=== PATIENT | male | born 1945 | race Caucasian/White ===

== ENCOUNTER 2020-07-18 08:11 | Outpatient (REF) | payer OTHER, MEDICARE, SELFPAY ==
[2020-07-18 11:55] LABS: Anion Gap 12 (12-20); Blood Urea Nitrogen 12 mg/dL (9-16); Carbon Dioxide 30 mmol/L (22-29); Chloride 102 mmol/L (96-108); Estimated Glomerular Filt Rate > 60; Potassium 4.3 mmol/l (3.3-5.1); Sodium 140 mmol/L (135-145)
== END 2020-07-18 08:12 | disposition home or self-care (01) ==
LOC: HO.HMGCLDS 08:11
PROVIDERS: PCP Internal Medicine; Visit Provider Internal Medicine
DX: E11.21 Type 2 diabetes mellitus with diabetic nephropathy (principal); I10 Essential (primary) hypertension
CPT/HCPCS: 80051; 82565; 83735; 84520

== ENCOUNTER → 2020-09-08 08:51 | Outpatient (BNVA) | payer OTHER, MEDICARE, SELFPAY | PROVIDERS: PCP Internal Medicine; Visit Provider Internal Medicine Endocrinology, Diabetes & Metabolism | DX: E11.42 Type 2 diabetes mellitus with diabetic polyneuropathy (principal); I10 Essential (primary) hypertension; E78.5 Hyperlipidemia, unspecified; Z79.4 Long term (current) use of insulin; Z71.3 Dietary counseling and surveillance | CPT/HCPCS: 82947 ==

== ENCOUNTER 2020-10-24 06:27 | Outpatient (REF) | payer OTHER, MEDICARE, SELFPAY ==
[2020-10-24 11:22] LABS: MANUAL DIFF FLAG NO
[2020-10-24 11:51] LABS: Basophils Absolute Auto 0.1 X10*3/uL (0.0-0.2); Basophils Percent Auto 0.7 % (0-2); Eosinophils Absolute Auto 0.1 X10*3/uL (0.0-0.4); Eosinophils Percent Auto 1.8 % (0-4); Hematocrit 38.6 % (42-52); Hemoglobin 12.9 g/dl (14.0-18.0); Imm Gran Abs Auto 0.03 X10*3/uL (0.00-0.03); Imm Gran Pct Auto 0.4 % (0.0-0.4); Lymphocytes Absolute Auto 2.9 X10*3/uL (1.2-4.9); Lymphocytes Percent Auto 38.4 % (20-40); Mean Corpuscular HGB Conc 33.4 g/dl (31.0-36.0); Mean Corpuscular Hemoglobin 29.9 pg (27.0-33.0); Mean Corpuscular Volume 89.6 fL (80-98); Mean Platelet Volume 8.5 fL (9.4-12.4); Monocytes Absolute Auto 0.6 X10*3/uL (0.1-1.2); Monocytes Percent Auto 8.4 % (2-11); Neutrophils Absolute Auto 3.8 X10*3/uL (2.0-8.3); Neutrophils Percent Auto 50.3 % (45-73); Platelet Count 303 X10*3/uL (160-400); Red Blood Count 4.31 X10*6/uL (4.60-5.80); Red Cell Distribution Width 11.9 % (11.0-16.0); White Blood Count 7.6 X10*3/uL (4.8-10.8)
[2020-10-24 12:16] LABS: Alanine Aminotransferase 21 U/L (0-40); Albumin Level 3.9 g/dL (3.5-5.0); Alkaline Phosphatase 126 U/L (39-117); Anion Gap 12 (12-20); Aspartate Amino Transferase 14 U/L (5-37); Bilirubin Direct 0.2 mg/dL (0.0-0.5); Bilirubin Total 0.4 mg/dL (0.0-1.0); Blood Urea Nitrogen 19 mg/dL (9-16); Calcium 8.9 mg/dL (8.4-10.2); Carbon Dioxide 29 mmol/L (22-29); Chloride 104 mmol/L (96-108); Cholesterol 224 mg/dL; Estimated Glomerular Filt Rate > 60; Glucose Fasting 129 mg/dL (60-99); HDL Cholesterol 44 mg/dL; Iron 90 mcg/dL (45-160); LDL Cholesterol Calculated 104 mg/dl; Percent Iron Saturation 26 % (15-50); Phosphorus 2.5 mg/dL (2.7-4.5); Potassium 3.7 mmol/l (3.3-5.1); Sodium 141 mmol/L (135-145); Total Iron Binding Capacity 346 mcg/dL (228-428); Total Protein 6.6 g/dL (6.5-8.0); Triglycerides 381 mg/dL; Unsaturated Iron Binding 256 ug/dL
[2020-10-24 12:24] LABS: Estimated Average Glucose 146 mg/dL; Hemoglobin A1c % 6.7 %
[2020-10-24 12:25] LABS: Vitamin D 25-OH Total 27.5 ng/mL (>30)
[2020-10-24 12:34] LABS: Vitamin B12 193 pg/mL (200-900)
[2020-10-24 13:35] LABS: Creatinine Urine 140.79 mg/dL; Microalbum/Creatinine Ratio Ur 3.5 ug/mg cr
== END 2020-10-24 06:28 | disposition home or self-care (01) ==
LOC: HO.HMGCLDS 06:27
PROVIDERS: PCP Internal Medicine; Visit Provider Internal Medicine
DX: E11.21 Type 2 diabetes mellitus with diabetic nephropathy (principal); E78.5 Hyperlipidemia, unspecified; I10 Essential (primary) hypertension; M85.80 Other specified disorders of bone density and structure, unspecified site; R79.89 Other specified abnormal findings of blood chemistry
CPT/HCPCS: 36415; 80051; 80061; 80076; 82043; 82306; 82310; 82565; 82607; 82947; 83036; 83540; 83735; 84100; 84520; 85025

== ENCOUNTER → 2020-11-10 09:46 | Outpatient (BNV) | payer OTHER, MEDICARE, SELFPAY | PROVIDERS: PCP Internal Medicine; Visit Provider Internal Medicine Medical Oncology | DX: C18.9 Malignant neoplasm of colon, unspecified (principal) | CPT/HCPCS: 99213; 99214; 99443 ==

== ENCOUNTER → 2020-11-13 13:09 | Outpatient (BNVA) | payer OTHER, MEDICARE, SELFPAY | PROVIDERS: PCP Internal Medicine; Visit Provider Urology | DX: Z13.89 Encounter for screening for other disorder (principal) | CPT/HCPCS: 81002 ==

== ENCOUNTER 2020-11-27 11:18 | Outpatient (REF) | payer OTHER, MEDICARE, SELFPAY ==
--- NOTE | ~2020-11-27 | CT_ITS ---
EXAMINATION: CT CHEST WITHOUT CONTRAST CLINICAL INFORMATION: Follow-up pulmonary nodules COMPARISON: Previous chest x-ray most recent 10/13/[address] February 2019 TECHNIQUE: Multidetector volumetric CT imaging of the chest was done. Axial MIP volume rendering provided. Sagittal and coronal reformatted images were obtained. This CT examination was performed using dose optimization techniques as appropriate, variously including the following: *Automated exposure control *Adjustment of mA and/or kV according to patient size (this includes techniques or standardized protocols for targeted exams where dose is matched to indication/reason for exam; i.e. extremities or head) *Use of iterative reconstruction technique DLP: 190 mGy-cm FINDINGS: LUNGS: There is a heterogeneous or semisolid left upper lobe nodule. This is predominantly groundglass attenuation. This measures 1 cm axial image 14 series 7. This may have a small 2 mm more solid component for example axial image 215 series 7. There is an ill-defined more inferior area of peribronchial increased groundglass attenuation in the left upper lobe for example axial images to 235-275 series 7 more characteristic appearance of airways disease. This is similar in appearance to previously identified right upper lobe findings February 2019. The previously identified areas of peribronchial groundglass attenuation in the right upper lobe on February 2019 exam have resolved. There are scattered areas of increased parenchymal attenuation in the right upper, right middle and right lower lobes. There is a 2 mm right middle lobe calcified nodule axial image 3 9 series 7. There is scarring or subsegmental atelectasis at the lung bases. There may be mild traction bronchiolectasis particularly in the lower lobes, right greater than left. MEDIASTINUM: There are small mediastinal lymph nodes. No enlarged lymph nodes are seen. The heart is upper normal in size. There is no coronary artery calcification. There is a trace pericardial effusion or thickening anteriorly. The thoracic aorta is normal in caliber. There is a small esophageal hernia. PLEURA: There is no pleural effusion. No pleural mass or thickening. AXILLA: No lymphadenopathy. UPPER ABDOMEN: There is a fatty infiltration of the pancreas. There may be diverticulosis of the colon. OSSEOUS STRUCTURES: There are degenerative changes of the spine. CT/CT chest wo con IMPRESSION: Scattered areas of peribronchial groundglass attenuation and small more solid-appearing peribronchial nodules suggestive of airways disease. This is similar appearing to the February 2019 right upper lobe findings which have completely resolved.
== END 2020-11-27 11:19 | disposition home or self-care (01) ==
LOC: HO.CT 11:18
PROVIDERS: Visit Provider Internal Medicine
DX: R91.8 Other nonspecific abnormal finding of lung field (principal)
CPT/HCPCS: 71250

== ENCOUNTER 2020-11-28 08:16 | Outpatient (REF) | payer OTHER, MEDICARE, SELFPAY ==
--- NOTE | ~2020-11-28 | US_ITS ---
EXAMINATION: US PELVIS LIMITED (BLADDER) CLINICAL INFORMATION: Poor urinary stream. COMPARISON: CT abdomen and pelvis 10/13/2019. TECHNIQUE: Real-time imaging of the bladder. FINDINGS: BLADDER: The bladder wall is slightly thickened and trabeculated.. Bilateral ureteral jets are demonstrated. Prevoid bladder volume is 169 mL. Postvoid bladder volume is 23.0 mL. ADDITIONAL FINDINGS: The prostate gland does not appear enlarged. The prostate gland measures 3.8 x 3.4 x 2.9 cm, volume 20 mL. US/US bladder IMPRESSION: Slightly thickened trabeculated bladder wall. 23 mL post void bladder residual..
== END 2020-11-28 08:17 | disposition home or self-care (01) ==
LOC: HO.HMGCX 08:16
PROVIDERS: Visit Provider Urology
DX: R39.12 Poor urinary stream (principal)
CPT/HCPCS: 76857

== ENCOUNTER 2020-12-08 11:22 | Outpatient (REF) | payer OTHER, MEDICARE, SELFPAY ==
[2020-12-08 14:56] LABS: PSA,Total (Free>4and<10) 8.49 ng/mL (0.00-4.00)
[2020-12-09 11:17] LABS: Free Prostate Spec Ag 0.6 ng/mL; Percent Free Prostate Spec Ag 8 % (calc) (>25); Prostate Specific Ag Total 7.1 ng/mL (< OR = 4.0)
== END 2020-12-08 11:23 | disposition home or self-care (01) ==
LOC: HO.HMGCLDS 11:22
PROVIDERS: PCP Internal Medicine; Visit Provider Urology
DX: N40.1 Benign prostatic hyperplasia with lower urinary tract symptoms (principal); N13.8 Other obstructive and reflux uropathy; Z12.5 Encounter for screening for malignant neoplasm of prostate
CPT/HCPCS: 36415; 84153; 84154

== ENCOUNTER → 2020-12-09 08:16 | Outpatient (BNVA) | payer OTHER, MEDICARE, SELFPAY | PROVIDERS: PCP Internal Medicine; Visit Provider Internal Medicine Endocrinology, Diabetes & Metabolism | DX: E11.42 Type 2 diabetes mellitus with diabetic polyneuropathy (principal); Z79.4 Long term (current) use of insulin; I10 Essential (primary) hypertension; E78.5 Hyperlipidemia, unspecified; E53.8 Deficiency of other specified B group vitamins | CPT/HCPCS: 82947 ==

== ENCOUNTER → 2020-12-30 12:43 | Outpatient (BNVA) | payer OTHER, MEDICARE, SELFPAY | PROVIDERS: PCP Internal Medicine; Visit Provider Urology | DX: N40.1 Benign prostatic hyperplasia with lower urinary tract symptoms (principal); R97.20 Elevated prostate specific antigen [PSA]; R35.1 Nocturia; N13.8 Other obstructive and reflux uropathy | CPT/HCPCS: 52000; 10140 ==

== ENCOUNTER → 2021-01-06 09:06 | Outpatient (BNVA) | payer OTHER, MEDICARE, SELFPAY | PROVIDERS: PCP Internal Medicine; Visit Provider Psychiatry & Neurology Neurology ==

== ENCOUNTER → 2021-03-18 10:17 | Outpatient (BNVA) | payer OTHER, MEDICARE, SELFPAY | PROVIDERS: PCP Internal Medicine; Visit Provider Internal Medicine Pulmonary Disease ==

== ENCOUNTER 2021-03-24 11:00 | Outpatient (REF) | payer OTHER, MEDICARE, SELFPAY ==
[2021-03-24 13:49] LABS: MANUAL DIFF FLAG NO
[2021-03-24 14:17] LABS: Basophils Absolute Auto 0.1 X10*3/uL (0.0-0.2); Basophils Percent Auto 0.7 % (0-2); Eosinophils Absolute Auto 0.1 X10*3/uL (0.0-0.4); Eosinophils Percent Auto 1.1 % (0-4); Hematocrit 39.2 % (42-52); Imm Gran Abs Auto 0.06 X10*3/uL (0.00-0.03); Imm Gran Pct Auto 0.8 % (0.0-0.4); Lymphocytes Absolute Auto 2.2 X10*3/uL (1.2-4.9); Mean Corpuscular HGB Conc 33.2 g/dl (31.0-36.0); Mean Corpuscular Hemoglobin 29.5 pg (27.0-33.0); Mean Corpuscular Volume 88.9 fL (80-98); Mean Platelet Volume 8.6 fL (9.4-12.4); Monocytes Absolute Auto 0.6 X10*3/uL (0.1-1.2); Monocytes Percent Auto 8.2 % (2-11); Neutrophils Absolute Auto 4.4 X10*3/uL (2.0-8.3); Neutrophils Percent Auto 59.2 % (45-73); Platelet Count 288 X10*3/uL (160-400); Red Blood Count 4.41 X10*6/uL (4.60-5.80); Red Cell Distribution Width 12.3 % (11.0-16.0); White Blood Count 7.5 X10*3/uL (4.8-10.8)
[2021-03-24 15:06] LABS: PSA,Total (Free>4and<10) 11.44 ng/mL (0.00-4.00)
== END 2021-03-24 11:01 | disposition home or self-care (01) ==
LOC: HO.HMGCLDS 11:00
PROVIDERS: Urology; PCP Internal Medicine; Visit Provider Internal Medicine Pulmonary Disease
DX: Z12.5 Encounter for screening for malignant neoplasm of prostate (principal); R97.20 Elevated prostate specific antigen [PSA]; N40.1 Benign prostatic hyperplasia with lower urinary tract symptoms; N13.8 Other obstructive and reflux uropathy; Z91.09 Other allergy status, other than to drugs and biological substances
CPT/HCPCS: 36415; 82785; 84153; 85025; 86003

== ENCOUNTER 2021-03-27 12:57 | Outpatient (REF) | payer OTHER, MEDICARE, SELFPAY ==
--- NOTE | 2021-03-27 16:36 | PFT_ITS ---
INDICATION: Asthma. SPIROMETRY: The FEV1 to FVC 84% with an FEV1 of 2.32 L, which is 109% predicted, an FVC of 2.78 L, which is 92% predicted. No significant response to bronchodilators noted. Maximum voluntary ventilation 118% predicted. LUNG VOLUMES: Total lung capacity 86% predicted. DIFFUSION CAPACITY: DLCO 76% predicted. COMPARISONS: None available. INTERPRETATION: No obstructive nor restrictive ventilatory defects identified. No significant response to bronchodilators noted. Normal maximum voluntary ventilation. Normal lung volumes. The patient does have an isolated mild diffusion impairment. Clinical correlation warranted. If asthma is in the differential, methacholine challenge may be helpful in assessing for hyper-reactive airways, otherwise clinical correlation warranted. Juan M Flower MD MR/MODL / [id number]
== END 2021-03-27 12:58 | disposition home or self-care (01) ==
LOC: HO.RESP 12:57
PROVIDERS: PCP Internal Medicine; Visit Provider Internal Medicine Pulmonary Disease
DX: J45.909 Unspecified asthma, uncomplicated (principal); R06.00 Dyspnea, unspecified
CPT/HCPCS: 94060; 94727; 94729

== ENCOUNTER → 2021-04-02 08:59 | Outpatient (BNVA) | payer OTHER, MEDICARE, SELFPAY | PROVIDERS: PCP Internal Medicine; Visit Provider Urology ==

== ENCOUNTER → 2021-04-09 10:32 | Outpatient (BNVA) | payer OTHER, MEDICARE, SELFPAY | PROVIDERS: PCP Internal Medicine; Visit Provider Internal Medicine Pulmonary Disease ==

== ENCOUNTER → 2021-04-10 08:21 | Outpatient (BNVA) | payer OTHER, MEDICARE, SELFPAY | PROVIDERS: PCP Internal Medicine; Visit Provider Internal Medicine Endocrinology, Diabetes & Metabolism | DX: E11.42 Type 2 diabetes mellitus with diabetic polyneuropathy (principal); E78.5 Hyperlipidemia, unspecified; E53.8 Deficiency of other specified B group vitamins; I10 Essential (primary) hypertension; Z79.4 Long term (current) use of insulin | CPT/HCPCS: 82947 ==

== ENCOUNTER 2021-05-11 07:16 | Outpatient (REF) | payer OTHER, MEDICARE, SELFPAY ==
--- NOTE | ~2021-05-11 | CT_ITS ---
EXAMINATION: CT CHEST WITHOUT CONTRAST CLINICAL INFORMATION: Abnormal lung findings COMPARISON: Previous chest CT 11/27/2020 TECHNIQUE: Multidetector volumetric CT imaging of the chest was done. Axial MIP volume rendering provided. Sagittal and coronal reformatted images were obtained. This CT examination was performed using dose optimization techniques as appropriate, variously including the following: *Automated exposure control *Adjustment of mA and/or kV according to patient size (this includes techniques or standardized protocols for targeted exams where dose is matched to indication/reason for exam; i.e. extremities or head) *Use of iterative reconstruction technique DLP: 192 mGy-cm FINDINGS: LUNGS: The previously identified semisolid left upper lobe nodule and areas of ground-glass attenuation on the 11/27/2020 exam are no longer seen. There is persistent heterogeneous attenuation seen at the lung bases, right greater than left. This is polygonal in shape and may represent mosaic perfusion or hypoventilatory changes. There is mild traction bronchiolectasis seen in the right lower lobe. No new pulmonary nodule is seen. MEDIASTINUM: There are small mediastinal lymph nodes. No enlarged lymph nodes are seen. The heart is upper normal in size. There is a trace pericardial effusion or thickening that is stable. There may be a small esophageal hernia. PLEURA: There is no pleural effusion. No pleural mass or thickening. AXILLA: No lymphadenopathy. UPPER ABDOMEN: There is fatty infiltration of the pancreas. There is diverticulosis of the colon. OSSEOUS STRUCTURES: There are degenerative changes of the spine. CT/CT chest wo con IMPRESSION: Resolved semisolid and ground-glass attenuation left upper lobe nodules. Persistent heterogeneous attenuation at the lung bases probably representing hypoventilatory changes and mild right lower lobe traction bronchiolectasis.
== END 2021-05-11 07:17 | disposition home or self-care (01) ==
LOC: HO.CT 07:16
PROVIDERS: Visit Provider Internal Medicine Pulmonary Disease
DX: R93.89 Abnormal findings on diagnostic imaging of other specified body structures (principal)
CPT/HCPCS: 71250

== ENCOUNTER 2021-05-18 06:16 | Day surgery (SDC) | payer OTHER, MEDICARE, SELFPAY ==
[2021-05-12 16:32] VITALS: BMI 31.4
[2021-05-13 14:40] VITALS: BMI 31.4
--- NOTE | 2021-05-15 09:18 | HO.ANESPROP2 ---
Documented by User: Cherie Huang 05/15/21 09:19 HPI - Anesthesia Eval Consult details Narrative: 76yo M for ?Prostate Needle Biopsy *Multiple Med Allergies* PMFSH Active Problems Active Problems: All Active Problems (Updated 05/13/21 @ 14:06 by Shivani Weaver) Colon cancer (Acute) BPH w urinary obs/LUTS (Acute) Nocturia more than twice per night (Acute) Elevated PSA (Acute) Insomnia (Acute) Nocturnal leg cramps (Acute) Asthma (Acute) Environmental allergies (Acute) Abnormal CT scan, chest (Acute) B12 deficiency (Acute) Dyslipidemia (Acute) Hypertension (Acute) Diabetic polyneuropathy associated with type 2 diabetes mellitus (Acute) 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) Diabetes type 2, controlled (Acute) Past Medical History Medical History Anxiety and depression Arthritis B12 deficiency Diabetes type 2, controlled Diabetic polyneuropathy associated with type 2 diabetes mellitus Dyslipidemia GERD (gastroesophageal reflux disease) Hypertension jail (current) use of insulin Low back pain MRSA (methicillin resistant Staphylococcus aureus) Surgical History Surgical History History of colon resection History of esophagogastroduodenoscopy (EGD) Hx of colonoscopy Hx of lithotripsy Hx of shoulder surgery Social History Social History Alcohol intake: former Patient Tobacco Use Status: Former Tobacco user Quit Date: 1984 Cigarette Packs Per Day: 1.5 Use of substances other than those prescribed or required for medical reasons: No Are you DNR?: No Advance Directives: No Advance Directives Information Provided: No Advance Directives on File: No Meds Allergies Allergy/AdvReac Type Severity Reaction Status Date / Time amoxicillin [From AUGMENTIN] Allergy Severe Diarrhea, Verified 05/13/21 14:19 malaise celecoxib [Celebrex] Allergy Severe Malaise Verified 05/13/21 14:19 clavulanic acid Allergy Severe Diarrhea, Verified 05/13/21 14:19 [From AUGMENTIN] malaise gabapentin [GABAPENTIN] Allergy Severe TREMORS Verified 05/13/21 14:19 morphine Allergy Severe BLACKED-OUT, Verified 05/13/21 14:40 CRAZY cephalexin [Keflex] Allergy Unknown Unknown Verified 05/13/21 14:19 diltiazem [Cardizem] Allergy Unknown Unknown Verified 05/13/21 14:19 Penicillins [PENICILLINS] Allergy Unknown Unknown Verified 05/13/21 14:19 pecan nut [PECAN] AdvReac Severe Anaphylaxis Verified 05/13/21 14:19 Lescol XL Allergy Severe Joint Pain Uncoded 05/13/21 14:19 peanuts Allergy Unknown Unknown Uncoded 05/13/21 14:19 Home Medications Medication Instructions Recorded Confirmed Last Taken Type albuterol sulfate 90 mcg/actuation 2 puff PO QID PRN 09/08/20 05/13/21 Unknown History aerosol inhaler blood sugar diagnostic #10 ea 09/08/20 04/10/21 Unknown History clonidine HCl 0.2 mg tablet 0.4 mg PO BID 09/08/20 05/13/21 05/18/21 History furosemide 20 mg tablet 20 mg PO DAILY 09/08/20 05/13/21 05/18/21 History levetiracetam 500 mg tablet 500 mg PO BID 09/08/20 05/13/21 Unknown History pen needle, diabetic 32 gauge x #50 ea 09/08/20 04/10/21 Unknown History diphenoxylate-atropine 2.5 3 tab PO BID PRN 12/09/20 05/13/21 Unknown History mg-0.025 mg tablet lamotrigine 25 mg tablet 75 mg PO BID 12/09/20 05/13/21 Unknown History paroxetine HCl 20 mg tablet 20 mg PO DAILY 12/09/20 05/13/21 Unknown History amlodipine 10 mg tablet 10 mg PO DAILY 04/02/21 05/13/21 05/18/21 History bupropion HCl 150 mg 24 hr tablet, 150 mg PO QAM 04/02/21 05/13/21 Unknown History extended release valsartan 80 mg tablet 80 mg PO DAILY 04/02/21 05/13/21 Unknown History Excedrin Back and Body 05/13/21 05/13/21 Unknown History cholecalciferol (vitamin D3) 25 25 mcg PO DAILY 05/13/21 05/13/21 Unknown History mcg (1,000 unit) capsule (Vitamin D3) insulin glargine U-300 conc 300 15 unit SUBCUT DAILY 05/13/21 05/13/21 Unknown History unit/mL (1.5 mL) subcutaneous pen (Toujeo SoloStar U-300 Insulin) insulin lispro 100 unit/mL 05/13/21 Unknown History subcutaneous pen (Humalog KwikPen (U-100) Insulin) fluticasone fur. 100 mcg-umeclid 1 puff PO DAILY 05/18/21 05/18/21 Unknown History 62.5 mcg-vilant 25 mcg inhalat.powder (Trelegy Ellipta) fluticasone fur. 100 mcg-umeclid 1 puff PO DAILY 05/18/21 05/18/21 05/18/21 History 62.5 mcg-vilant 25 mcg inhalat.powder (Trelegy Ellipta) Exam Exam Date and Time: May 15, 202118 Height,Weight and Vital Signs: Height 5 ft 2 in Weight 78.018 kg Pertinent Lab Results Pertinent Lab Results: Laboratory Tests 02/04/21 03/24/21 09:19 11:20 WBC 7.5 Hgb 13.0 L Hct 39.2 L Plt Count 288 Sodium 139 Potassium 3.5 D Chloride 102 Carbon Dioxide 29 BUN 13 Creatinine 1.13 Narrative Narrative: PFT 03/2021 INTERPRETATION:? No obstructive nor restrictive ventilatory defects identified.? No significant response to bronchodilators noted.? Normal maximum voluntary ventilation. Normal lung volumes.? The patient does have an isolated mild diffusion impairment.? Clinical correlation warranted.? If asthma is in the differential, methacholine challenge may be helpful in assessing for hyper-reactive airways, otherwise clinical correlation warranted. Assessment and Plan Assessment Anesthesia Assessment: Chart Reviewed Documented by User: Pia Neely MD 05/18/21 07:50 [facility] Past Medical History Medical History Anxiety and depression Arthritis B12 deficiency Diabetes type 2, controlled Diabetic polyneuropathy associated with type 2 diabetes mellitus Dyslipidemia GERD (gastroesophageal reflux disease) Hypertension jail (current) use of insulin Low back pain MRSA (methicillin resistant Staphylococcus aureus) Family History Family history of problems with anesthesia: No Surgical History Surgical History History of colon resection History of esophagogastroduodenoscopy (EGD) Hx of colonoscopy Hx of lithotripsy Hx of shoulder surgery History of Problems with Anesthesia: Yes (Woke up crazy from anesthesia one time) Social History Social History Alcohol intake: former Patient Tobacco Use Status: Former Tobacco user Quit Date: 1984 Cigarette Packs Per Day: 1.5 Use of substances other than those prescribed or required for medical reasons: No Are you DNR?: No Advance Directives: No Advance Directives Information Provided: No Advance Directives on File: No Meds Allergies Allergy/AdvReac Type Severity Reaction Status Date / Time amoxicillin [From AUGMENTIN] Allergy Severe Diarrhea, Verified 05/13/21 14:19 malaise celecoxib [Celebrex] Allergy Severe Malaise Verified 05/13/21 14:19 clavulanic acid Allergy Severe Diarrhea, Verified 05/13/21 14:19 [From AUGMENTIN] malaise gabapentin [GABAPENTIN] Allergy Severe TREMORS Verified 05/13/21 14:19 morphine Allergy Severe BLACKED-OUT, Verified 05/13/21 14:40 CRAZY cephalexin [Keflex] Allergy Unknown Unknown Verified 05/13/21 14:19 diltiazem [Cardizem] Allergy Unknown Unknown Verified 05/13/21 14:19 Penicillins [PENICILLINS] Allergy Unknown Unknown Verified 05/13/21 14:19 pecan nut [PECAN] AdvReac Severe Anaphylaxis Verified 05/13/21 14:19 Lescol XL Allergy Severe Joint Pain Uncoded 05/13/21 14:19 peanuts Allergy Unknown Unknown Uncoded 05/13/21 14:19 Home Medications Medication Instructions Recorded Confirmed Last Taken Type albuterol sulfate 90 mcg/actuation 2 puff PO QID PRN 09/08/20 05/13/21 Unknown History aerosol inhaler blood sugar diagnostic #10 ea 09/08/20 04/10/21 Unknown History clonidine HCl 0.2 mg tablet 0.4 mg PO BID 09/08/20 05/13/2105/18/21 History furosemide 20 mg tablet 20 mg PO DAILY 09/08/20 05/13/21 05/18/21 History levetiracetam 500 mg tablet 500 mg PO BID 09/08/20 05/13/21 Unknown History pen needle, diabetic 32 gauge x #50 ea 09/08/20 04/10/21 Unknown History diphenoxylate-atropine 2.5 3 tab PO BID PRN 12/09/20 05/13/21 Unknown History mg-0.025 mg tablet lamotrigine 25 mg tablet 75 mg PO BID 12/09/20 05/13/21 Unknown History paroxetine HCl 20 mg tablet 20 mg PO DAILY 12/09/20 05/13/21 Unknown History amlodipine 10 mg tablet 10 mg PO DAILY 04/02/21 05/13/21 05/18/21 History bupropion HCl 150 mg 24 hr tablet, 150 mg PO QAM 04/02/21 05/13/21 Unknown History extended release valsartan 80 mg tablet 80 mg PO DAILY 04/02/21 05/13/21 Unknown History Excedrin Back and Body 05/13/21 05/13/21 Unknown History cholecalciferol (vitamin D3) 25 25 mcg PO DAILY 05/13/21 05/13/21 Unknown History mcg (1,000 unit) capsule (Vitamin D3) insulin glargine U-300 conc 300 15 unit SUBCUT DAILY 05/13/21 05/13/21 Unknown History unit/mL (1.5 mL) subcutaneous pen (Toujeo SoloStar U-300 Insulin) insulin lispro 100 unit/mL 05/13/21 Unknown History subcutaneous pen (Humalog KwikPen (U-100) Insulin) fluticasone fur. 100 mcg-umeclid 1 puff PO DAILY 05/18/21 05/18/21 Unknown History 62.5 mcg-vilant 25 mcg inhalat.powder (Trelegy Ellipta) fluticasone fur. 100 mcg-umeclid 1 puff PO DAILY 05/18/21 05/18/21 05/18/21 History 62.5 mcg-vilant 25 mcg inhalat.powder (Trelegy Ellipta) Exam Height,Weight and Vital Signs: Height 5 ft 2 in Weight 78.018 kg Vital Signs Temp Pulse Resp BP Pulse Ox 97.4 F 89 16 131/73 97 05/18/21 06:29 05/18/21 06:29 05/18/21 06:29 05/18/21 06:29 05/18/21 06:29 Pertinent Lab Results Pertinent Lab Results: Laboratory Tests 02/04/21 03/24/21 09:19 11:20 WBC 7.5 Hgb 13.0 L Hct 39.2 L Plt Count 288 Sodium 139 Potassium 3.5 D Chloride 102 Carbon Dioxide 29 BUN 13 Creatinine 1.13 Lab Results 05/18/21 Range/Units 06:36 POC Glucose 146 H (60-115) mg/dL Airway Mallampati Class: III TM Dist: >3cm Neck ROM: Full Partial: Upper and Lower Loose/Missing/Broken Teeth: Yes (Many broken) Heart: RRR Lungs: CTAB Assessment and Plan Final Anesthetic Review Family History of Problems with Anesthesia: No History of Problems with Anesthesia: Yes (Woke up crazy from anesthesia one time) NPO: Yes ASA Class: III Final Preanesthetic Review: No Changes in Pt Med Stat, Meds/Allgs Chart Reviewed, Consent Obtained/Reviewed and Anes Risks/Benef Reviewed Patient Risk: Intermediate Procedure Risk: Low Assessment/Block/Sedation in SS: Assess/Block/Sedation-SS Anesthetic Plan Anesthetic Plan: MAC: Disposition: Standard PACU
[2021-05-18 06:29] VITALS: BP 131/73; PULSE 89; RESP 16; TEMP 36.3; O2SAT 97
[2021-05-18 06:40] LABS: Glucose, Whole Blood 146 mg/dL (60-115)
[2021-05-18] MEDS: Lactated Ringers 1,000 ML 100 ML IVCONT (06:42)
--- NOTE | 2021-05-18 07:18 | P.HPSUR_ITS ---
Pre-Procedural Eval Section A Date of Service: 05/18/21 Section B Chief Complaint: Elevated PSA, Prost bx in OR Relevant Social History: None Present Medications: see Short Stay Collaborative assessment Medical History: No relevant PMH History of Previous Operations: No relevant previous surgery Allergies: Allergies Allergy/AdvReac Type Severity Reaction Status Date / Time amoxicillin [From AUGMENTIN] Allergy Severe Diarrhea, Verified 05/13/21 14:19 malaise celecoxib [Celebrex] Allergy Severe Malaise Verified 05/13/21 14:19 clavulanic acid Allergy Severe Diarrhea, Verified 05/13/21 14:19 [From AUGMENTIN] malaise gabapentin [GABAPENTIN] Allergy Severe TREMORS Verified 05/13/21 14:19 morphine Allergy Severe BLACKED-OUT, Verified 05/13/21 14:40 CRAZY cephalexin [Keflex] Allergy Unknown Unknown Verified 05/13/21 14:19 diltiazem [Cardizem] Allergy Unknown Unknown Verified 05/13/21 14:19 Penicillins [PENICILLINS] Allergy Unknown Unknown Verified 05/13/21 14:19 pecan nut [PECAN] AdvReac Severe Anaphylaxis Verified 05/13/21 14:19 Lescol XL Allergy Severe Joint Pain Uncoded 05/13/21 14:19 peanuts Allergy Unknown Unknown Uncoded 05/13/21 14:19 Review of Systems Sugical H&P ROS: Negative: Constitution, Cardiovascular, Respiratory, Neurolo gical, Psychiatric, Hem-Onc, Allergic/Immunologic, Gastrointestinal, Genitourinary, Musculoskeletal, Integumentary, Endocrine and Eyes/Ears/Nose/Throat Exam Surgical H&P Exam: Normal: HEENT, Normal: Heart, Normal: Lungs, Normal: Extremities, Normal: Abdomen, Normal: Skin and Normal: Neurological Plan Diagnosis/Plan: Unchanged (OR Protate biopsy) I have reviewed the history and physical and performed a pertinent physical examination on my patient. No changes have occurred unless specified.
--- NOTE | 2021-05-18 07:59 | W.PM.OPN ---
Operative Note Operative Note Date of Service: 05/18/21 Narrative: Preoperative diagnosis: Elevated PSA Postoperative diagnosis: Elevated PSA Procedure: 1. transrectal ultrasound measurement of prostate 2. transrectal ultrasound-guided pudendal nerve block 3. transrectal ultrasound-guided prostate biopsy 12 core Surgeon: Dr. Mike Whiteside Anesthetic: Local Indications for procedure: Elevated PSA 11.4 Procedure: After informed consent was verified, the patient was brought into the procedure area and lay left-hand side down on the table. Patient identity confirmed. Perioperative antibiotics confirmed. Gel was placed per rectum Ultrasound probe was placed per rectum The prostate was measured in 3 dimensions Total volume equals 35 gm There were no cystic structures and no calcifications noted and the prostate was homogeneous in nature A ultrasound-guided pudendal nerve block was performed using 10 cc of 1% lidocaine. 8 cc was placed at the base and 2 cc of the apex. A 12 core biopsy was performed with 6 cores each side. Two cores were taken at the apex, mid and base. Cores were spaced between lateral and medial. He tolerated the procedure well. Was able to ambulate to bathroom after 5 minutes. Printed instructions regarding antibiotic use and common side effects such as low-grade temperature and bleeding were given.
[2021-05-18 08:05] VITALS: BP 120/65; PULSE 65; RESP 16; TEMP 36.3; O2SAT 95
[2021-05-18 08:20] VITALS: BP 129/63; PULSE 73; RESP 18; O2SAT 99
[2021-05-18 08:29] VITALS: BP 124/63; PULSE 76; RESP 18; TEMP 36.2; O2SAT 98
== END 2021-05-18 09:00 | disposition home or self-care (01) ==
PROVIDERS: PCP Internal Medicine; Visit Provider Urology
PROC: (CPT 55700; principal; 2021-05-18 07:30)
DX: R97.20 Elevated prostate specific antigen [PSA] (principal); F32.9 Major depressive disorder, single episode, unspecified; I10 Essential (primary) hypertension; E11.42 Type 2 diabetes mellitus with diabetic polyneuropathy; Z79.4 Long term (current) use of insulin; K21.9 Gastro-esophageal reflux disease without esophagitis; E53.8 Deficiency of other specified B group vitamins; Z86.14 Personal history of Methicillin resistant Staphylococcus aureus infection; Z90.49 Acquired absence of other specified parts of digestive tract; Z88.0 Allergy status to penicillin; Z88.8 Allergy status to other drugs, medicaments and biological substances; Z87.891 Personal history of nicotine dependence; Z87.442 Personal history of urinary calculi; Z79.899 Other long term (current) drug therapy
CPT/HCPCS: 55700; 76942; 82947; 88305; 88342; J1580; J3010

== ENCOUNTER → 2021-05-26 10:38 | Outpatient (BNVA) | payer OTHER, MEDICARE, SELFPAY | PROVIDERS: PCP Internal Medicine; Visit Provider Urology ==

== ENCOUNTER → 2021-06-11 09:55 | Outpatient (REF) | payer OTHER, MEDICARE, SELFPAY ==
--- NOTE | ~2021-06-11 | NM_ITS ---
EXAMINATION: NM BONE SCAN OF THE WHOLE BODY CLINICAL INFORMATION: Malignant neoplasm of prostate. COMPARISON: No previous bone scan is available for comparison. No recent radiographs are available for comparison. CT scan of the chest dated 05/11/2021 is available for comparison. The diagnostic CT scan of the abdomen and pelvis, dated 10/13/2019, is also available for comparison. TECHNIQUE: Multiple gamma scintillation camera images of the whole body were performed 3 hours following the intravenous administration of 28 mCi Tc-99m MDP. FINDINGS: In the head, no significant abnormalities are present. In the thoracic cage and upper extremities, there is moderately increased activity in the right sternoclavicular joint and minimally in the left acromioclavicular joint and in a few periarticular foci in both hands and wrists, all likely arthritic. There is slight prominence of the costal chondral junctions of the first ribs bilaterally, likely degenerative. In the spine, there is a minimal thoracolumbar scoliosis with lumbar convexity to the right. There are foci of mildly increased activity in the left costovertebral junction of T11 and the right costovertebral junction of T12. In the pelvis, no significant abnormalities are present. In the lower extremities, there is diffusely increased activity in the patellae bilaterally, the proximal feet bilaterally and the first digits of both feet, probably at the first metatarsophalangeal joints and degenerative in etiology. No other definite bony abnormalities are noted. The urinary bladder and faint visualization of both kidneys are noted. CT scan of the chest dated 05/11/2021 shows degenerative changes in the spine which correspond to mild bone scan abnormalities described above in the lower thoracic spine. NM/NM bone scan whole body IMPRESSION: A few mild nonspecific abnormalities are noted as described above and these are all likely arthritic or traumatic in etiology. None of these abnormalities is strongly suspicious for metastatic disease.
== END ==
LOC: HO.NUCMED 09:55
PROVIDERS: Visit Provider Urology
DX: C61 Malignant neoplasm of prostate (principal); C79.51 Secondary malignant neoplasm of bone
CPT/HCPCS: 78306; A9503

== ENCOUNTER 2021-06-16 14:01 | Outpatient (REF) | payer OTHER, MEDICARE, SELFPAY ==
[2021-06-16 15:07] LABS: Blood Urea Nitrogen 15 mg/dL (9-16); Estimated Glomerular Filt Rate > 60
[2021-06-17 19:26] LABS: Immunoglobulin E 16 kU/L (<OR=114)
== END 2021-06-16 14:02 | disposition home or self-care (01) ==
LOC: HO.LAB 14:01
PROVIDERS: Absent Provider Internal Medicine Pulmonary Disease; PCP Internal Medicine; Visit Provider Urology
DX: C61 Malignant neoplasm of prostate (principal); R39.15 Urgency of urination; Z91.09 Other allergy status, other than to drugs and biological substances
CPT/HCPCS: 36415; 82565; 82785; 84520

== ENCOUNTER → 2021-06-18 10:19 | Outpatient (BNVA) | payer OTHER, MEDICARE, SELFPAY | PROVIDERS: PCP Internal Medicine; Visit Provider Urology | DX: C61 Malignant neoplasm of prostate (principal) | CPT/HCPCS: 51798 ==

== ENCOUNTER → 2021-07-02 08:50 | Outpatient (BNVA) | payer OTHER, MEDICARE, SELFPAY | PROVIDERS: PCP Internal Medicine; Visit Provider Urology | DX: C61 Malignant neoplasm of prostate (principal) | CPT/HCPCS: 96402; J9217 ==

== ENCOUNTER 2021-07-16 09:38 | Outpatient (REF) | payer OTHER, MEDICARE, SELFPAY ==
[2021-07-16 12:18] LABS: Blood Urea Nitrogen 11 mg/dL (9-16); Estimated Glomerular Filt Rate 56
== END 2021-07-16 09:39 | disposition home or self-care (01) ==
LOC: HO.HMGCLDS 09:38
PROVIDERS: PCP Internal Medicine; Visit Provider Urology
DX: C61 Malignant neoplasm of prostate (principal); R39.15 Urgency of urination; A49.9 Bacterial infection, unspecified; N39.0 Urinary tract infection, site not specified
CPT/HCPCS: 36415; 82565; 84520; 87086; 87088; 87186

== ENCOUNTER → 2021-07-17 10:33 | Outpatient (BNVA) | payer OTHER, MEDICARE, SELFPAY | PROVIDERS: PCP Internal Medicine; Visit Provider Internal Medicine Pulmonary Disease ==

== ENCOUNTER → 2021-07-30 11:10 | Outpatient (BNVA) | payer OTHER, MEDICARE, SELFPAY | PROVIDERS: PCP Internal Medicine; Visit Provider Internal Medicine Pulmonary Disease ==

== ENCOUNTER → 2021-08-12 14:49 | Outpatient (BNVA) | payer OTHER, MEDICARE, SELFPAY | PROVIDERS: PCP Internal Medicine; Visit Provider Internal Medicine ==

== ENCOUNTER → 2021-08-21 15:17 | Outpatient (BNVA) | payer OTHER, MEDICARE, SELFPAY | PROVIDERS: PCP Internal Medicine; Visit Provider Internal Medicine Pulmonary Disease ==

== ENCOUNTER 2021-08-31 08:48 | Day surgery (SDC) | payer OTHER, MEDICARE, SELFPAY ==
--- NOTE | 2021-08-28 12:57 | HO.ANESPROP2 ---
Documented by User: Cherie Huang NP 08/28/21 12:59 HPI - Anesthesia Eval Consult details Narrative: 76yo M for Space OAR with Gold Seed Markers Multiple Allergies PMFSH Active Problems Active Problems: All Active Problems (Updated 08/24/21 @ 16:13 by Ketty Pratt, RN) Colon cancer (Acute) BPH w urinary obs/LUTS (Acute) Nocturia more than twice per night (Acute) Elevated PSA (Acute) Insomnia (Acute) Nocturnal leg cramps (Acute) Asthma (Acute) Environmental allergies (Acute) Abnormal CT scan, chest (Acute) Prostate cancer (Acute) UTI (urinary tract infection), bacterial (Acute) Prostate cancer (Acute) Asthma (Acute) Environmental allergies (Acute) Acute bronchitis (Acute) B12 deficiency (Acute) Dyslipidemia (Acute) Hypertension (Acute) Diabetic polyneuropathy associated with type 2 diabetes mellitus (Acute) 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 (Acute) Diabetes type 2, controlled (Acute) Past Medical History Medical History (Updated 08/24/21 @ 16:13 by Ketty Pratt, RN) Anxiety and depression Arthritis B12 deficiency Diabetes type 2, controlled Diabetic polyneuropathy associated with type 2 diabetes mellitus Dyslipidemia GERD (gastroesophageal reflux disease) Hypertension 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 Low back pain MRSA (methicillin resistant Staphylococcus aureus) Prostate cancer Family History Family history of problems with anesthesia: No Surgical History Surgical History (Updated 08/24/21 @ 16:13 by Ketty Pratt, RN) History of colon resection History of esophagogastroduodenoscopy (EGD) History of prostate biopsy Hx of colonoscopy Hx of lithotripsy Hx of shoulder surgery History of Problems with Anesthesia: Yes (Woke up crazy from anesthesia one time) Social History Social History Alcohol intake: former Patient Tobacco Use Status: Former Tobacco user Quit Date: 1984 Cigarette Packs Per Day: 1.5 Use of substances other than those prescribed or required for medical reasons: No Are you DNR?: No Advance Directives: No Advance Directives Information Provided: Yes Meds Allergies Allergy/AdvReac Type Severity Reaction Status Date / Time amoxicillin [From AUGMENTIN] Allergy Severe Diarrhea, Verified 08/24/21 14:29 malaise celecoxib [Celebrex] Allergy Severe Malaise Verified 08/24/21 14:29 clavulanic acid Allergy Severe Diarrhea, Verified 08/24/21 14:29 [From AUGMENTIN] malaise gabapentin [GABAPENTIN] Allergy Severe TREMORS Verified 08/24/21 14:29 morphine Allergy Severe BLACKED-OUT, Verified 08/24/21 14:29 CRAZY cephalexin [Keflex] Allergy Unknown Unknown Verified 08/24/21 14:29 diltiazem [Cardizem] Allergy Unknown Unknown Verified 08/24/21 14:29 Penicillins [PENICILLINS] Allergy Unknown Unknown Verified 08/24/21 14:29 pecan nut [PECAN] AdvReac Severe Anaphylaxis Verified 08/24/21 14:29 Lescol XL Allergy Severe Joint Pain Uncoded 08/24/21 14:29 peanuts Allergy Unknown Unknown Uncoded 08/24/21 14:29 Home Medications Medication Instructions Recorded Confirmed Last Taken Type albuterol sulfate 90 mcg/actuation 2 puff PO QID PRN 09/08/20 08/24/21 Unknown History aerosol inhaler blood sugar diagnostic #10 ea 09/08/20 07/03/21 Unknown History clonidine HCl 0.2 mg tablet 0.4 mg PO BID 09/08/20 08/24/21 05/18/21 History furosemide 20 mg tablet 20 mg PO DAILY 09/08/20 08/24/21 05/18/21 History levetiracetam 500 mg tablet 500 mg PO BID 09/08/20 08/24/21 Unknown History pen needle, diabetic 32 gauge x #50 ea 09/08/20 07/03/21 Unknown History diphenoxylate-atropine 2.5 3 tab PO BID PRN 12/09/20 08/24/21 Unknown History mg-0.025 mg tablet lamotrigine 25 mg tablet 75 mg PO BID 12/09/20 08/24/21 Unknown History paroxetine HCl 20 mg tablet 20 mg PO DAILY 12/09/20 08/24/21 Unknown History amlodipine 10 mg tablet 10 mg PO DAILY 04/02/21 08/24/21 05/18/21 History valsartan 80 mg tablet 80 mg PO DAILY 04/02/21 08/24/21 Unknown History Excedrin Back and Body 2 tab PO DAILY PRN 05/13/21 08/24/21 Unknown History insulin glargine U-300 conc 300 15 unit SUBCUT DAILY 05/13/21 08/24/21 Unknown History unit/mL (1.5 mL) subcutaneous pen (Toujeo SoloStar U-300 Insulin) insulin lispro 100 unit/mL 2 unit SUBCUT TID 05/13/21 08/24/21 Unknown History subcutaneous pen (Humalog KwikPen (U-100) Insulin) fluticasone fur. 100 mcg-umeclid 1 puff PO DAILY 08/24/21 08/24/21 Unknown History 62.5 mcg-vilant 25 mcg inhalat.powder (Trelegy Ellipta) fluticasone propionate 50 2 spray INTRANASAL QAM 08/24/21 08/24/21 Unknown History mcg/actuation nasal spray,suspension folic acid 1 mg tablet 1 tab PO DAILY 08/24/21 08/24/21 Unknown History montelukast 10 mg tablet 1 tab PO QPM 08/24/21 08/24/21 Unknown History Exam Exam Date and Time: August 28, 2021 1257 Pertinent Lab Results Pertinent Lab Results: Laboratory Tests 02/04/21 03/24/21 07/16/21 09:19 11:20 09:52 WBC 7.5 Hgb 13.0 L Hct 39.2 L Plt Count 288 Sodium 139 Potassium 3.5 D Chloride 102 Carbon Dioxide 29 BUN 11 Creatinine 1.26 Narrative Narrative: PFT 03/2021 INTERPRETATION:? No obstructive nor restrictive ventilatory defects identified.? No significant response to bronchodilators noted.? Normal maximum voluntary ventilation. Normal lung volumes.? The patient does have an isolated mild diffusion impairment.? Clinical correlation warranted.? If asthma is in the differential, methacholine challenge may be helpful in assessing for hyper-reactive airways, otherwise clinical correlation warranted. 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 Low back pain MRSA (methicillin resistant Staphylococcus aureus) Prostate cancer Functional capacity: independent ambulation Family History Family history of problems with anesthesia: Unobtainable Surgical History Surgical History (Updated 08/24/21 @ 16:13 by Ketty Pratt, RN) History of colon resection History of esophagogastroduodenoscopy (EGD) History of prostate biopsy Hx of colonoscopy Hx of lithotripsy Hx of shoulder surgery Social History Social History Alcohol intake: former Patient Tobacco Use Status: Former Tobacco user Quit Date: 1984 Cigarette Packs Per Day: 1.5 Use of substances other than those prescribed or required for medical reasons: No Are you DNR?: No Advance Directives: No Advance Directives Information Provided: Yes Meds Allergies Allergy/AdvReac Type Severity Reaction Status Date / Time amoxicillin [From AUGMENTIN] Allergy Severe Diarrhea, Verified 08/24/21 14:29 malaise celecoxib [Celebrex] Allergy Severe Malaise Verified 08/24/21 14:29 clavulanic acid Allergy Severe Diarrhea, Verified 08/24/21 14:29 [From AUGMENTIN] malaise gabapentin [GABAPENTIN] Allergy Severe TREMORS Verified 08/24/21 14:29 morphine Allergy Severe BLACKED-OUT, Verified 08/24/21 14:29 CRAZY cephalexin [Keflex] Allergy Unknown Unknown Verified 08/24/21 14:29 diltiazem [Cardizem] Allergy Unknown Unknown Verified 08/24/21 14:29 Penicillins [PENICILLINS] Allergy Unknown Unknown Verified 08/24/21 14:29 pecan nut [PECAN] AdvReac Severe Anaphylaxis Verified 08/24/21 14:29 Lescol XL Allergy Severe Joint Pain Uncoded 08/24/21 14:29 peanuts Allergy Unknown Unknown Uncoded 08/24/21 14:29 Home Medications Medication Instructions Recorded Confirmed Last Taken Type albuterol sulfate 90 mcg/actuation 2 puff PO QID PRN 09/08/20 08/24/21 Unknown History aerosol inhaler blood sugar diagnostic #10 ea 09/08/20 07/03/21 Unknown History clonidine HCl 0.2 mg tablet 0.4 mg PO BID 09/08/20 08/24/21 05/18/21 History furosemide 20 mg tablet 20 mg PO DAILY 09/08/20 08/24/21 05/18/21 History levetiracetam 500 mg tablet 500 mg PO BID 09/08/20 08/24/21 Unknown History pen needle, diabetic 32 gauge x #50 ea 09/08/20 07/03/21 Unknown History diphenoxylate-atropine 2.5 3 tab PO BID PRN 12/09/20 08/24/21 Unknown History mg-0.025 mg tablet lamotrigine 25 mg tablet 75 mg PO BID 12/09/20 08/24/21 Unknown History paroxetine HCl 20 mg tablet 20 mg PO DAILY 12/09/20 08/24/21 Unknown History amlodipine 10 mg tablet 10 mg PO DAILY 04/02/21 08/24/21 05/18/21 History valsartan 80 mg tablet 80 mg PO DAILY 04/02/21 08/24/21 Unknown History Excedrin Back and Body 2 tab PO DAILY PRN 05/13/21 08/24/21 Unknown History insulin glargine U-300 conc 300 15 unit SUBCUT DAILY 05/13/21 08/24/21 Unknown History unit/mL (1.5 mL) subcutaneous pen (Toujeo SoloStar U-300 Insulin) insulin lispro 100 unit/mL 2 unit SUBCUT TID 05/13/21 08/24/21 Unknown History subcutaneous pen (Humalog KwikPen (U-100) Insulin) fluticasone fur. 100 mcg-umeclid 1 puff PO DAILY 08/24/21 08/24/21 Unknown History 62.5 mcg-vilant 25 mcg inhalat.powder (Trelegy Ellipta) fluticasone propionate 50 2 spray INTRANASAL QAM 08/24/21 08/24/21 Unknown History mcg/actuation nasal spray,suspension folic acid 1 mg tablet 1 tab PO DAILY 08/24/21 08/24/21 Unknown History montelukast 10 mg tablet 1 tab PO QPM 08/24/21 08/24/21 Unknown History Exam Airway Mallampati Class: III TM Dist: >3cm Neck ROM: Limited Loose/Missing/Broken Teeth: Yes Heart: rrr Lungs: bl breath sounds Assessment and Plan Final Anesthetic Review Family History of Problems with Anesthesia: Unobtainable NPO: Yes ASA Class: II Final Preanesthetic Review: Meds/Allgs Chart Reviewed and Anes Risks/Benef Reviewed Patient Risk: Intermediate Procedure Risk: Intermediate Anesthetic Plan Anesthetic Plan: MAC: Disposition: Standard PACU
[2021-08-31 08:40] VITALS: BMI 32.0
[2021-08-31 09:31] VITALS: BP 156/97; PULSE 69; RESP 17; TEMP 36.1; O2SAT 97
--- NOTE | 2021-08-31 09:37 | PC.NURSE ---
pt stated fell heading head two weeks ago denies loc didnt see pcp
[2021-08-31] MEDS: Lactated Ringers 1,000 ML 100 ML IVCONT (09:42)
[2021-08-31 09:57] LABS: Glucose, Whole Blood 131 mg/dL (60-115)
[2021-08-31 12:26] LABS: Glucose, Whole Blood 105 mg/dL (60-115)
[2021-08-31 14:21] LABS: Glucose, Whole Blood 100 mg/dL (60-115)
[2021-08-31] MEDS: Dextrose 5 % 100 ML 50 ML IVCONT (15:05)
--- NOTE | 2021-08-31 15:06 | PC.NURSE ---
dextrose 50ml given for bs 100 pt sts to long for him feeling irritable per pt
--- NOTE | 2021-08-31 15:10 | MHC.SHP ---
Pre-Procedural Eval Section A Date of Service: 08/31/21 The patient is an INPATIENT: No Changes since office visit: No Cold of Flu in the past 2 weeks, No New Medical Problems, No Changes in Medication and No Patient answered all questions Section B Chief Complaint: Prostate Cancer Details of Present Illness: insert ultrasound with SpaceOAR placement and gold seed marker insertion - prior ESBL urinary tract infection so coverage with irtapenem Relevant Family History (Specify if Yes): No Relevant Social History: None Present Medications: see Short Stay Collaborative assessment Medical History: Significant History History of Previous Operations: Relevant previous surgery/procedure and date(s) Allergies: Allergies Allergy/AdvReac Type Severity Reaction Status Date / Time amoxicillin [From AUGMENTIN] Allergy Severe Diarrhea, Verified 08/24/21 14:29 malaise celecoxib [Celebrex] Allergy Severe Malaise Verified 08/24/21 14:29 clavulanic acid Allergy Severe Diarrhea, Verified 08/24/21 14:29 [From AUGMENTIN] malaise gabapentin [GABAPENTIN] Allergy Severe TREMORS Verified 08/24/21 14:29 morphine Allergy Severe BLACKED-OUT, Verified 08/24/21 14:29 CRAZY cephalexin [Keflex] Allergy Unknown Unknown Verified 08/24/21 14:29 diltiazem [Cardizem] Allergy Unknown Unknown Verified 08/24/21 14:29 Penicillins [PENICILLINS] Allergy Unknown Unknown Verified 08/24/21 14:29 pecan nut [PECAN] AdvReac Severe Anaphylaxis Verified 08/24/21 14:29 Lescol XL Allergy Severe Joint Pain Uncoded 08/24/21 14:29 peanuts Allergy Unknown Unknown Uncoded 08/24/21 14:29 Review of Systems Sugical H&P ROS: Negative: Constitution, Cardiovascular, Respiratory, Neurological, Psychiatric, Hem-Onc, Allergic/Immunologic, Gastrointestinal, Genitourinary, Musculoskeletal, Integumentary, Endocrine and Eyes/Ears/Nose/Throat Exam Surgical H&P Exam: Normal: HEENT, Normal: Heart, Normal: Lungs, Normal: Extremities, Normal: Abdomen, Normal: Skin and Normal: Neurological Plan Diagnosis/Plan: Unchanged ( SpaceOAR placement and gold seed marker placement with transrectal ultrasound-guided) I have reviewed the history and physical and performed a pertinent physical examination on my patient. No changes have occurred unless specified.
[2021-08-31] MEDS: Dextrose 5 % and Lactated Ring 1,000 ML 50 ML IVCONT (15:13)
[2021-08-31 16:10] VITALS: BP 138/75; PULSE 87; RESP 16; TEMP 36.1; O2SAT 95
[2021-08-31 16:15] VITALS: BP 147/80; PULSE 77; RESP 16; O2SAT 96
[2021-08-31 16:20] VITALS: BP 155/99; PULSE 79; RESP 16; O2SAT 96
[2021-08-31 16:25] VITALS: BP 161/89; PULSE 77; RESP 16; O2SAT 96
--- NOTE | 2021-08-31 16:37 | W.PM.OPN ---
Operative Note Operative Note Date of Service: 08/31/21 Narrative: Preoperative diagnosis: Prostate cancer Postoperative diagnosis: Prostate cancer Procedure: 1. Transrectal ultrasound-guided perineal gold seed placement 2. Treansrectal ultrasound-guided perineal SpaceOAR gel placement Surgeon: Dr. Mike Whiteside Anesthetic: Sedation Indications for procedure: Prostate Cancer Procedure: After informed consent was verified, the patient was brought into the operating room and anesthesia was performed per protocol. The patient was placed in a modified dorsal lithotomy position. Antibiotics given with Invanz has prior E coli ESBL Gel was placed per rectum Ultrasound probe was placed per rectum. The prostate was visualized in sagittal and transverse dimensions. Local anesthetic was infiltrated in the perineal area using 10 cc of lidocaine Gold seed markers were placed in a transperineal fashion using ultrasound guidance 3 gold seed markers placed in total. 2 on the right - 1 toward the base, the 2nd toward the apex. 1 on the left. The purpose is for triangulation. The 2nd part of the procedure was placement of SpaceOAR gel to allow consolidation for radiation delivery. The delivery needle was advanced bevel down in the midline under ultrasound guidance to the apex of the prostate. It was advanced in the plane the prostate from the rectum to the midpoint of the prostate. Location was determined using sagittal and transverse imaging. At the midpoint of the prostate 1 cc of saline was placed to confirm needle position. Second cc of saline was placed to confirm spread toward the base of the prostate. With the needle in the confirmed position 10 cc of gel mixture was injected. Good separation was seen of the rectum from the prostate space running in the midline from the base toward the apex of the prostate. Following completion of the procedure the probe was removed from the rectum. He tolerated the procedure well. He was transferred in stable condition to the recovery area. Pathology none Drains none
[2021-08-31 16:40] VITALS: BP 174/79; PULSE 76; RESP 16; TEMP 36.1; O2SAT 96
== END 2021-08-31 16:46 | disposition home or self-care (01) ==
PROVIDERS: PCP Internal Medicine; Visit Provider Urology
PROC: (CPT 55874; principal; 2021-08-31 10:40)
DX: C61 Malignant neoplasm of prostate (principal); I10 Essential (primary) hypertension; E78.5 Hyperlipidemia, unspecified; E11.42 Type 2 diabetes mellitus with diabetic polyneuropathy; M54.50 Low back pain, unspecified; N39.0 Urinary tract infection, site not specified; A49.9 Bacterial infection, unspecified; Z79.4 Long term (current) use of insulin; Z79.899 Other long term (current) drug therapy; Z88.0 Allergy status to penicillin; Z88.8 Allergy status to other drugs, medicaments and biological substances; Z86.14 Personal history of Methicillin resistant Staphylococcus aureus infection; Z87.442 Personal history of urinary calculi; Z87.891 Personal history of nicotine dependence
CPT/HCPCS: 55874; 82947; A4648; C1889; J1335; J1956; J3010

== ENCOUNTER → 2021-11-06 10:35 | Outpatient (BNVA) | payer OTHER, MEDICARE, SELFPAY | PROVIDERS: PCP Internal Medicine; Visit Provider Urology ==

== ENCOUNTER → 2021-11-19 10:22 | Outpatient (BNVA) | payer OTHER, MEDICARE, SELFPAY | PROVIDERS: PCP Internal Medicine; Referring Provider Internal Medicine; Visit Provider Internal Medicine ==

== ENCOUNTER → 2021-11-26 10:49 | Outpatient (BNVA) | payer OTHER, MEDICARE, SELFPAY | PROVIDERS: PCP Internal Medicine; Visit Provider Nurse Practitioner Gerontology | DX: E11.8 Type 2 diabetes mellitus with unspecified complications (principal); Z79.4 Long term (current) use of insulin | CPT/HCPCS: 82947; 83036 ==

== ENCOUNTER 2021-12-01 11:45 | Outpatient (REF) | payer OTHER, MEDICARE, SELFPAY ==
[2021-12-01 12:25] LABS: Appearance Urine CLOUDY; Color Urine YELLOW; Glucose Urine UA NEG (NEG); Leukocyte Esterase Urine 3+ (NEG); Nitrite Urine NEG (NEG); Urine Blood 1+ (NEG); Urine Ketones NEG (NEG); Urine Protein 1+ MG/DL (NEG-TRACE)
[2021-12-01 13:11] LABS: Bacteria Urine 2+ /LPF; Squamous Epithelial Cell Urine TRACE /LPF
== END 2021-12-01 11:46 | disposition home or self-care (01) ==
LOC: HO.LAB 11:45
PROVIDERS: Visit Provider Urology
DX: A49.9 Bacterial infection, unspecified (principal); N39.0 Urinary tract infection, site not specified
CPT/HCPCS: 81001; 87086; 87088; 87186

== ENCOUNTER → 2021-12-03 08:09 | Outpatient (REF) | payer OTHER, MEDICARE, SELFPAY ==
--- NOTE | ~2021-12-03 | NM_ITS ---
Myocardial perfusion study Indication: Abnormal EKG to evaluate for myocardial ischemia Technique: The patient was brought in for a Lexiscan perfusion study on 12/03/2021. Patient performed low-level exercise and was injected 0.4 mg of Lexiscan intravenously. Within a minute of injection, 25 mCi of sestamibi was given intravenously. Images were obtained using the SPECT gamma camera interlaced with the gating device. Images were obtained in supine position. Resting perfusion study was performed on 12/07/2021. Patient was administered 25 mCi of sestamibi intravenously at rest. Images were then obtained in supine position. Images obtained with and without CT attenuation. Total DLP 125 mGy-cm Images were processed with the software and compared side to side in short axis, horizontal long axis and vertical long axis views. Findings: The stress perfusion study showed both attenuated as well as non attenuated corrected images show normal uptake of radiotracer in all segments of LV myocardium. There is suggestion of left ventricular hypertrophy.. The gated study shows normal LV systolic function with calculated LVEF of 59%. LV cavity is normal in size. The gated study shows normal systolic wall thickening and contraction of segments. Resting study is suboptimal due to intense subdiaphragmatic uptake interfering with inferior wall uptake and shows non attenuated images show mildly reduced uptake in the distal septum and apex of the LV myocardium. Attenuation corrected images show moderately reduced uptake in the apex and mildly reduced uptake in the septum of the LV myocardium.. Gating at rest reveals normal systolic wall motion with visually estimated ejection fraction at greater than 55%. The findings are consistent with normal myocardial perfusion. NM/NM cardiolite stress test Impression: 1. Myocardial perfusion imaging study shows normal myocardial perfusion 2. Gated LVEF is 59% 3. Transient ischemic dilatation not present EKG is nondiagnostic for ischemia
--- NOTE | 2021-12-03 08:12 | CA_ITS ---
Acquisition Time: 2021-12-03 08:38:04 Total Exercise Time: 00:02:00 Test Indications: Abnormal ECG Medications: SEE H Protocol: LEXISCAN Max HR: 136 BPM 93% of Pred: 146 BPM Max BP: 128/060 mmHG Max Work Load: 1.0 METS Pharmacological stress test with Lexiscan injection, while sitting and kicking his legs, with sob post injection, no chest discomfort, without arrythmia, with normotensive response to injection, with nondiagnostic EKG for ischemia. In recovery he was treated with Aminophylline 75mg IVP to reverse Lexiscan. Nuclear images pending. Test reviewed with Dr Schreiber. Referred By: Genaro Schreiber Overread By: RAYNA BAÑUELOS
== END ==
LOC: HO.CARD 08:09
PROVIDERS: PCP Internal Medicine; Visit Provider Internal Medicine
DX: R94.31 Abnormal electrocardiogram [ECG] [EKG] (principal)
CPT/HCPCS: 78452; 93017; A9500; J0280; J2785

== ENCOUNTER → 2021-12-09 14:50 | Outpatient (REF) | payer OTHER, MEDICARE, SELFPAY ==
--- NOTE | 2021-12-09 14:53 | CA_ITS ---
Transthoracic Echocardiogram Patient (Last, First, Middle): Willy Jc E Gender: Male Date of : 1945 Age: 76 Procedure Date: 12/09/2021 Procedure Type: Transthoracic Echocardiogram Location: OP Height: 160.02 cm Weight: 75.75 kg BSA: 1.79 m2 Heart Rate: bpm BP: 118 / 60 mmHg Hydroponics Worker: Referring MD: Genaro Schreiber MD Symptoms: I25.10 - Atherosclerotic heart disease of [place] coronary... Study Quality: Fair ECG Rhythm: Sinus Conclusions: - 1. Normal LV systolic function with impaired relaxation abnormality with possible RWMA 2. Normal cardiac valvular Dopplers 3. Normal RVSP 4. No gross pericardial effusion Findings Procedure Information Contrast agent, definity, is being given per protocol without apparent complications. Left Ventricle Normal left ventricular size, thickness, and systolic function. The visually estimated ejection fraction is between 55-60%. Spectral Doppler is indicative of an impaired relaxation filling pattern. E/E prime ratio is between 8 and 15 consistent with indeterminate filling pressures. Wall Motion Rest Echo Findings The inferoseptal wall and basal inferior segment are hypokinetic. All other scored wall segments showed normal motion. Right Ventricle Mildly increased right ventricular cavity size. There is normal right ventricular systolic function. Atria The left atrium is likely dilated. Interatrial shunt cannot be excluded. The right atrium is normal in size. Aortic Valve The aortic valve structure and function is likely normal. There is no aortic valve stenosis. There is no aortic valve regurgitation. Mitral Valve Likely normal mitral valve structure and function. There is trace mitral valve regurgitation. There is no mitral valve stenosis. Pulmonic Valve The pulmonic valve is likely normal. Tricuspid Valve Likely normal tricuspid valve structure and function. There is trace tricuspid valve regurgitation. The right ventricular systolic pressure is normal. The right ventricular systolic pressure is 19 mmHg. Normal right atrial pressure. There is no evidence of pulmonary hypertension. Great Vessels All visible segments of the aorta are normal in size. The pulmonary artery was not well visualized. Venous The inferior vena cava is normal in size and collapses greater than 50% with inspiration. Pericardium/Pleural There is no evidence of pericardial effusion. Measurements 2D Linear Measurements IVSd: 1.11 0.6-0.9/0.6-1.0 cm LVIDd: 4.30 3.9-5.3/4.2-5.9 cm LVIDd Index: 2.40 2.4-3.2/2.2-3.1 cm/m2 LVIDs: 2.88 2.0-3.6 cm LVPWd: 0.98 0.7-1.1 cm LA Diam: 4.40 2.7-3.8/3.0-4.0 cm LAIDs Index: 2.46 1.5-2.3 cm/m2 LV Mass: 245.77 67-162/88-224 g LV Mass Index: 137.30 43-95/49-115 g/m2 LVOT Diam: 2.40 3.0+(-)1.3 cm 2D Systolic Function EF 4C: 61.50 >55% EF 2C: 50.60 >55% EF BiP: 59.00 >55% Mitral Valve MV Pk E: 0.54 MV PK A: 0.84 MV Decel Time: 181.00 E/A: 0.60 E'Lateral: 4.90 E'Medial: 5.33 E/E' Med: 10.10 E/E' Lat: 10.90 PHT: 53.00 MVA PHT: 4.15 Decel [place]: 2.96 Aortic Valve AoV Pk Jose Ramon: 1.23 AoV Mn Jose Ramon: 0.85 AoV VTI: 0.27 AoV Pk Grad: 6.00 Aov Mn Grad: 3.00 ANNETTE Cont.VTI: 2.78 LVOT LVOT Pk Jose Ramon: 0.71 LVOT Mn Jose Ramon: 0.45 LVOT VTI: 0.16 LVOT Pk Grad: 2.00 LVOT Mn Grad: 1.00 LVOT Diam: 2.40 LVOT Area: 4.52 Diastolic Function MV Pk E: 0.54 MV Pk A: 0.84 E/A: 0.60 E'Medial: 5.33 E/E' Med: 10.10 E' Laterial: 4.90 E/E' Lat: 10.90 Tricuspid Valve TR Pk Jose Ramon: 2.00 RA Press: 3.00 RVSP: 19.00 Great Vessels Aorta Ao Asc: 3.20 2.1-3.4 cm Pulmonary Valve PV Pk Jose Ramon: 1.08 Peak PV Grad: 5.00 Updated in Other Vendor System with Status of Final [place] Gonsalez MD electronically signed on 12/09/2021 8:40:39 PM with status of Final
== END ==
LOC: HO.CARD 14:50
PROVIDERS: Visit Provider Internal Medicine
DX: I25.10 Atherosclerotic heart disease of native coronary artery without angina pectoris (principal); R94.31 Abnormal electrocardiogram [ECG] [EKG]
CPT/HCPCS: 93306; Q9957

== ENCOUNTER → 2021-12-10 11:24 | Outpatient (BNVA) | payer MEDICARE, OTHER, SELFPAY | PROVIDERS: PCP Internal Medicine; Visit Provider Urology | DX: Z13.89 Encounter for screening for other disorder (principal) ==

== ENCOUNTER 2021-12-17 06:56 | Outpatient (REF) | payer OTHER, MEDICARE, SELFPAY ==
[2021-12-17 11:58] LABS: Anion Gap 14 (12-20); Blood Urea Nitrogen 11 mg/dL (9-16); Calcium 9.4 mg/dL (8.4-10.2); Carbon Dioxide 29 mmol/L (22-29); Chloride 100 mmol/L (96-108); Estimated Average Glucose 160 mg/dL; Estimated Glomerular Filt Rate 55; Hemoglobin A1c % 7.2 %; Potassium 3.9 mmol/L (3.3-5.1); Sodium 139 mmol/L (135-145)
[2021-12-17 12:07] LABS: Appearance Urine TURBID; Color Urine YELLOW; Glucose Urine UA NEG (NEG); Leukocyte Esterase Urine 2+ (NEG); Nitrite Urine NEG (NEG); PH 5.5 (5.0-8.0); Specific Gravity - Urine 1.025 (1.005-1.025); Urine Blood 2+ (NEG); Urine Ketones NEG (NEG); Urine Protein 1+ MG/DL (NEG-TRACE)
[2021-12-17 12:23] LABS: Vitamin D 25-OH Total 22.7 ng/mL (>30)
[2021-12-17 12:24] LABS: Microalbum/Creatinine Ratio Ur 188.3 ug/mg cr
[2021-12-17 12:28] LABS: Prostate Specific Antigen 2.82 ng/mL (<0.05-4.0)
[2021-12-17 12:38] LABS: WBC Urine TNTC /HPF (0-4)
[2021-12-17 12:40] LABS: Bacteria Urine 1+ /LPF; Mucus Urine 1+ /LPF; RBC Urine 0-2 /HPF (0); Vitamin B12 344 pg/mL (200-900)
[2021-12-18 06:11] LABS: LDL Cholesterol Direct 126 mg/dL (<100)
[2021-12-20 20:22] LABS: Glutamic acid decarboxylase Ab <5 IU/mL (<5)
[2021-12-23 00:56] LABS: Testosterone, Total 179 ng/dL (250-1100)
== END 2021-12-17 06:57 | disposition home or self-care (01) ==
LOC: HO.HMGCLDS 06:56
PROVIDERS: Absent Provider Internal Medicine Endocrinology, Diabetes & Metabolism; PCP Internal Medicine; Visit Provider Urology
DX: C61 Malignant neoplasm of prostate (principal); E11.21 Type 2 diabetes mellitus with diabetic nephropathy; N39.0 Urinary tract infection, site not specified; A49.9 Bacterial infection, unspecified; R79.89 Other specified abnormal findings of blood chemistry; Z12.5 Encounter for screening for malignant neoplasm of prostate
CPT/HCPCS: 36415; 80051; 81001; 82043; 82306; 82310; 82565; 82607; 83036; 83721; 84153; 84403; 84520; 86341; Q3014

== ENCOUNTER → 2021-12-22 08:52 | Outpatient (BNVA) | payer OTHER, SELFPAY | PROVIDERS: PCP Internal Medicine; Visit Provider Urology | DX: C61 Malignant neoplasm of prostate (principal); N40.1 Benign prostatic hyperplasia with lower urinary tract symptoms; N13.8 Other obstructive and reflux uropathy | CPT/HCPCS: 99212 ==

== ENCOUNTER 2021-12-30 18:04 | Inpatient (IN) | payer OTHER, MEDICARE, SELFPAY ==
--- NOTE | ~2021-12-30 | CT_ITS ---
EXAMINATION: CT ABDOMEN AND PELVIS WITH CONTRAST CLINICAL INFORMATION: Bladder pain. Prostate cancer. History of colon cancer. COMPARISON: 10/13/2019 TECHNIQUE: Multidetector volumetric images were obtained from the superior aspect of the liver through the pubic symphysis following administration 85 mL of Omnipaque 350 intravenous contrast. Sagittal and coronal reformatted images were obtained on the technologist's workstation. Oral contrast: No This CT examination was performed using dose optimization techniques as appropriate, variously including the following: *Automated exposure control *Adjustment of mA and/or kV according to patient size (this includes techniques or standardized protocols for targeted exams where dose is matched to indication/reason for exam; i.e. extremities or head) *Use of iterative reconstruction technique DLP: 660 mGy-cm FINDINGS: LUNG BASES: The visualized lung bases are unremarkable. LIVER, GALLBLADDER, AND BILIARY TREE: The liver is normal in size, shape, and attenuation. No focal hepatic lesion or biliary ductal dilatation is present. The gallbladder is unremarkable with no evidence of radiopaque gallstones, gallbladder wall thickening, or obvious pericholecystic inflammatory changes. PANCREAS: Diffuse atrophy of the pancreas. SPLEEN: Unremarkable. ADRENAL GLANDS: Unremarkable. KIDNEYS AND URETERS: The kidneys are normal in size, shape, and attenuation. No hydronephrosis, hydroureter, or calculi seen. No perinephric stranding. BLADDER: Barkley catheter is seen within the urinary bladder. The bladder is collapsed and circumferentially thick-walled. There is no minimal perivesicular stranding. GASTROINTESTINAL TRACT: There is a small paraesophageal hernia or distal esophageal diverticulum. Fluid distends the distal esophagus. This could be seen from reflux or dysmotility. The distal stomach is collapsed with wall thickening likely due to underdistention. Small bowel is nondilated. There is severe diverticulosis particularly of the sigmoid colon. The appendix is clearly visible and normal. ABDOMINAL WALL: Fat-containing bilateral inguinal hernias. LYMPH NODES: Normal. VASCULAR: Unremarkable. PELVIC VISCERA: There is a 2.3 x 2.0 cm transaxial by 2.6 cm craniocaudal structure between the prostate and the rectum. This has central high density with peripheral low density. There are metallic markers in the prostate. OSSEOUS STRUCTURES: Multilevel degenerative changes. There are degenerative changes of the bilateral hips. There are degenerative changes of the bilateral sacroiliac joints. CT/CT abdomen pelvis w con IMPRESSION: The urinary bladder is collapsed and circumferentially thick-walled. Although this could be due to underdistention a degree of acute or chronic cystitis could be present as well. There is a Barkley catheter in place. The bladder is decompressed. No hydronephrosis or hydroureter seen. No retroperitoneal lymphadenopathy. 2.3 x 2.0 x 2.6 cm high density material between the prostate and the rectum most likely represents SpaceOAR material placed before radiation therapy. Recommend correlation with history. The finding is new since 10/13/2019. If the patient did not have SpaceOAR placed, its possible this represents a fluid collection such as an abscess. Fleischner guidelines were followed.
[2021-12-30 18:23] VITALS: BP 183/89; PULSE 110; RESP 25; TEMP 36.9; O2SAT 99
--- NOTE | 2021-12-30 18:32 | ED.MALEGU ---
HPI - Male Genitourinary General Chief complaint: Urogenital-Male Stated complaint: prostate cancer Time Seen by Provider: 12/30/21 21:15 Source: patient Mode of arrival: ambulatory Limitations: no limitations History of Present Illness HPI Narrative: 79-year-old male presents for urinary retention, bladder pain, is currently being treated for prostate cancer, last radiation at [facility] last week. Currently on Macrobid for UTI by Dr. Stevo COLLINS Complaint: dysuria Onset (ago): day(s) Duration: constant Severity: severe Severity scale (1-10): 9 Quality: aching Relieving factors: urination Exacerbating factors: palpation and movement Related Data Sexually active: No Home Medications Medication Instructions Recorded Confirmed blood sugar diagnostic #10 ea 09/08/20 11/26/21 clonidine HCl 0.2 mg tablet 0.4 mg PO BID 09/08/20 11/26/21 furosemide 20 mg tablet 20 mg PO DAILY 09/08/20 11/26/21 levetiracetam 500 mg tablet 500 mg PO BID 09/08/20 11/26/21 pen needle, diabetic 32 gauge x #50 ea 09/08/20 11/26/21 diphenoxylate-atropine 2.5 3 tab PO BID PRN 12/09/20 11/26/21 mg-0.025 mg tablet lamotrigine 25 mg tablet 75 mg PO BID 12/09/20 11/26/21 paroxetine HCl 20 mg tablet 20 mg PO DAILY 12/09/20 11/26/21 amlodipine 10 mg tablet 10 mg PO DAILY 04/02/21 11/26/21 valsartan 80 mg tablet 80 mg PO DAILY 04/02/21 11/26/21 Excedrin Back and Body 2 tab PO DAILY PRN 05/13/21 11/26/21 insulin glargine U-300 conc 300 15 unit SUBCUT DAILY 05/13/21 11/26/21 unit/mL (1.5 mL) subcutaneous pen (Toujeo SoloStar U-300 Insulin) insulin lispro 100 unit/mL 2 unit SUBCUT TID 05/13/21 11/26/21 subcutaneous pen (Humalog KwikPen (U-100) Insulin) fluticasone fur. 100 mcg-umeclid 1 puff PO DAILY 08/24/21 11/26/21 62.5 mcg-vilant 25 mcg inhalat.powder (Trelegy Ellipta) fluticasone propionate 50 2 spray INTRANASAL QAM 08/24/21 11/26/21 mcg/actuation nasal spray,suspension folic acid 1 mg tablet 1 tab PO DAILY 08/24/21 11/26/21 montelukast 10 mg tablet 1 tab PO QPM 08/24/21 11/26/21 bupropion HCl 150 mg 24 hr tablet, 150 mg PO DAILY 11/06/21 11/26/21 extended release terazosin 2 mg capsule 2 mg PO BEDTIME 11/06/21 11/26/21 Previous Rx's Medication Instructions Recorded flash glucose sensor #2 ea 09/08/20 pen needle, diabetic 32 gauge x #400 ea 12/12/20 (BD Arlet 2nd Gen Pen Needle) tamsulosin 0.4 mg capsule 0.4 mg PO DAILY 90 Days #90 cap 03/26/21 FreeStyle Den 14 Day [place] #1 ea NS 04/03/21 (flash glucose scanning reader) FreeStyle Precision Marcio Strips #50 ea NS 04/10/21 (blood sugar diagnostic) ezetimibe 10 mg tablet 10 mg PO DAILY 90 Days #90 tab 05/06/21 metaxalone 800 mg tablet 800 mg PO TID PRN 30 Days #90 tab 05/17/21 cholecalciferol (vitamin D3) 25 25 mcg PO DAILY #60 cap 05/27/21 mcg (1,000 unit) capsule (Vitamin D3) bicalutamide 50 mg tablet 50 mg PO DAILY 90 Days #90 tab 06/18/21 FreeStyle Den 14 Day [place] #1 ea NS 10/07/21 (flash glucose scanning reader) flash glucose sensor (FreeStyle #2 ea 10/07/21 Den 14 Day Sensor) glucagon 3 mg/actuation nasal 3 mg INTRANASAL .prn #2 ea 11/26/21 spray (Baqsimi) sulfamethoxazole 800 1 tab PO BID 7 Days #14 tab 11/26/21 mg-trimethoprim 160 mg tablet (Bactrim DS) nitrofurantoin macrocrystal 100 mg 100 mg PO BID 14 Days #28 cap 12/04/21 capsule cefixime 400 mg capsule (Suprax) 400 mg PO DAILY 10 Days #10 cap 12/15/21 ipratropium 0.5 mg-albuterol 3 mg 3 ml INHALATION Q4-6H PRN 30 Days 12/17/21 (2.5 mg base)/3 mL nebulization #180 ml soln albuterol sulfate 90 mcg/actuation 2 puff INHALATION Q4-6H PRN 30 12/18/21 aerosol inhaler (Ventolin HFA) Days #1 ea alfuzosin 10 mg tablet,extended 10 mg PO BEDTIME 30 Days #30 tab 12/28/21 release 24 hr finasteride 5 mg tablet 5 mg PO DAILY #90 tab 12/28/21 nitrofurantoin macrocrystal 100 mg 100 mg PO BID 14 Days #28 cap 12/30/21 capsule Allergies Allergy/AdvReac Type Severity Reaction Status Date / Time amoxicillin [From AUGMENTIN] Allergy Severe Diarrhea, Verified 12/22/21 08:55 malaise celecoxib [Celebrex] Allergy Severe Malaise Verified 12/22/21 08:55 clavulanic acid Allergy Severe Diarrhea, Verified 12/22/21 08:55 [From AUGMENTIN] malaise gabapentin [GABAPENTIN] Allergy Severe TREMORS Verified 12/22/21 08:55 morphine Allergy Severe BLACKED-OUT, Verified 12/22/21 08:55 CRAZY cephalexin [Keflex] Allergy Unknown Unknown Verified 12/22/21 08:55 diltiazem [Cardizem] Allergy Unknown Unknown Verified 12/22/21 08:55 Penicillins [PENICILLINS] Allergy Unknown Unknown Verified 12/22/21 08:55 pecan nut [PECAN] AdvReac Severe Anaphylaxis Verified 12/22/21 08:55 Lescol XL Allergy Severe Joint Pain Uncoded 11/26/21 11:01 peanuts Allergy Unknown Unknown Uncoded 11/26/21 11:01 Review of Systems Review of Systems: Constitutional: No Fever, No Chills ENT/Mouth: No Ear Pain, No Hoarseness, No sore throat Eyes: No Eye Pain, No Swelling, No Redness, No Foreign Body Cardiovascular: No Chest Pain, No SOB Respiratory: No Cough, No Dyspnea Gastrointestinal: No Nausea, No Vomiting, No Diarrhea, No abdominal Pain Genitourinary: Positive urinary retention, positive bladder pain, No Dysuria, No Hematuria Musculoskeletal: No joint pain, No Myalgias, No Joint Swelling Skin: No Skin lacerations, No rash Neuro: No Weakness, No Numbness, No Paresthesias, No Loss of Consciousness, No Dizziness, No Headache Psych: No Anxiety/Panic, No Depression Heme/Lymph: no easy bruising, no Lymphadenopathy Endocrine: No Polyuria, No Polydipsia Yes all other systems are reviewed and are negative [facility]LY [facility] Past Medical History Attestation statement: The following information was validated with the patient. 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 Mother No problems noted. Social History Social History Alcohol intake: former Patient Tobacco Use Status: Former Tobacco user Quit Date: 1984 Cigarette Packs Per Day: 1.5 Advance Directives: No Advance Directives Information Provided: No Physical Exam Vital Signs: Vital Signs: Last Vital Signs Temp 98.4 F 12/30/21 18: Pulse 110 H 12/30/21 18: Resp 25 H 12/30/21 18:23 BP 183/89 H 12/30/21 18:23 Pulse Ox 99 12/30/21 18:23 BMI result Body Mass Index 30.0 Appearance: Alert. Oriented X3. Moderate distress. Eyes: Pupils equal, round and reactive to light. No nystagmus. Sclerae nonicteric. ENT: Pharynx normal. Moist mucous membranes. Neck: Normal inspection. Neck supple. CVS: Tachycardic heart rate and rhythm. Pulses normal. Respiratory: Tachypneic respiratory distress. Breath sounds normal. Abdomen: Soft and Suprapubic tenderness noted. Skin: Skin warm and dry. Normal skin color. Normal skin turgor. Extremities: No lower extremity edema. Gait well-balanced well coordinated. Neuro: No motor deficit. No sensory deficit. Cranial nerves 2-12 intact. Course Course Course Narrative: 76-year-old male presents with urinary retention, known prostate cancer, completed radiation approximately 1 week ago. Was seen by Dr. Whiteside earlier today, given patient states he has not been able to void. Bladder scan completed at bedside shows 650 mL. 18:25 2 attempts with Barkley and 16 British coude failed by this LANDSCAPER. Dr. Puckett bedside. 18:58 16 British coude catheter placed by Dr. Puckett utilizing guidewire. 1000 mL cloudy urine residual. 20:00 urinalysis positive for UTI. Has been on Macrobid, anaphylactic allergic to penicillins, will give Levaquin. States that his pain is 10/10, is allergic to morphine and all driven this, will give Dilaudid per patient's request. Chemistries negative for acute findings. Patient is not septic. Tachycardia and tachypnea has resolved since Barkley placement. 20:40 discussion with hospitalist, plan of care is to admit for pain management, UTI. 22:49 discussion with hospitalist regarding CT scan findings. Consultations Consultation #1: Usha Time: 20:45 MDM - Male Genitourinary Differential Diagnosis Differential diagnosis: Likely urinary tract infection, urethritis, epididymitis and prostatitis Medical Records Attestation: I reviewed the patient's medical records. Lab Data Attestation: I reviewed the patient's lab results. Result diagrams: 12/30/21 20:15 12/30/21 20:15 Labs: Lab Results 12/30/21 12/30/21 12/30/21 Range/Units 20:15 20:15 20:15 WBC 8.7 (4.8-10.8) X10*3/uL RBC 3.54 L (4.60-5.80) X10*6/uL Hgb 10.6 L (14.0-18.0) g/dl Hct 30.6 L (42.0-52.0) % MCV 86.4 (80.0-98.0) fL MCH 29.9 (27.0-33.0) pg MCHC 34.6 (31.0-36.0) g/dl RDW 13.0 (11.0-16.0) % Plt Count 248 (160-400) X10*3/uL MPV 8.3 L (9.4-12.4) fL Immature Gran % (Auto) 0.6 H (0.0-0.4) % Neut % (Auto) 74.2 H (45-73) % Lymph % (Auto) 14.2 L (20-40) % [place] % (Auto) 8.8 (2-11) % Eos % (Auto) 1.5 (0-4) % Baso % (Auto) 0.7 (0-2) % Lymph # (Auto) 1.2 (1.2-4.9) X10*3/uL [place] # (Auto) 0.8 (0.1-1.2) X10*3/uL Eos # (Auto) 0.1 (0.0-0.4) X10*3/uL Baso # (Auto) 0.1 (0.0-0.2) X10*3/uL Abs Immat Gran (auto) 0.05 H (0.00-0.03) X10*3/uL Absolute Neuts (auto) 6.5 (2.0-8.3) x10*3/uL Absolute Nucleated RBC 0.000 (0.0-0.012) X10*3/uL Nucleated RBC % (auto) 0.0 (0.0-0.2) /100WBC Sodium 140 (135-145) mmol/L Potassium 3.7 (3.3-5.1) mmol/L Chloride 106 (96-108) mmol/L Carbon Dioxide 25 (22-29) mmol/L Anion Gap 13 (12-20) BUN 17 H D (9-16) mg/dL Creatinine 1.30 (0.5-1.4) mg/dL Estim Creat Clear Calc 49.1 Estimated GFR 54 POC Glucose (60-115) mg/dL Random Glucose 119 H (60-115) mg/dL Calcium 9.2 (8.4-10.2) mg/dL Urine Color YELLOW Urine Appearance HAZY Urine pH 6.0 (5.0-8.0) Ur Specific [place] 1.020 (1.005-1.025) Urine Protein TRACE (NEG-TRACE) MG/DL Urine Glucose (UA) 100 H (NEG) MG/DL Urine Ketones NEG (NEG) MG/DL Urine Blood 3+ H (NEG) Urine Nitrite POS H (NEG) Ur Leukocyte Esterase 3+ H (NEG) Urine RBC 50-75 H (0) /HPF Urine WBC TNTC H (0-4) /HPF Ur Squamous Epith Cells TRACE /LPF Urine Bacteria 2+ /LPF 12/30/21 Range/Units 21:20 WBC (4.8-10.8) X10*3/uL RBC (4.60-5.80) X10*6/uL Hgb (14.0-18.0) g/dl Hct (42.0-52.0) % MCV (80.0-98.0) fL MCH (27.0-33.0) pg MCHC (31.0-36.0) g/dl RDW (11.0-16.0) % Plt Count (160-400) X10*3/uL MPV (9.4-12.4) fL Immature Gran % (Auto) (0.0-0.4) % Neut % (Auto) (45-73) % Lymph % (Auto) (20-40) % [place] % (Auto) (2-11) % Eos % (Auto) (0-4) % Baso % (Auto) (0-2) % Lymph # (Auto) (1.2-4.9) X10*3/uL [place] # (Auto) (0.1-1.2) X10*3/uL Eos # (Auto) (0.0-0.4) X10*3/uL Baso # (Auto) (0.0-0.2) X10*3/uL Abs Immat Gran (auto) (0.00-0.03) X10*3/uL Absolute Neuts (auto) (2.0-8.3) x10*3/uL Absolute Nucleated RBC (0.0-0.012) X10*3/uL Nucleated RBC % (auto) (0.0-0.2) /100WBC Sodium (135-145) mmol/L Potassium (3.3-5.1) mmol/L Chloride (96-108) mmol/L Carbon Dioxide (22-29) mmol/L Anion Gap (12-20) BUN (9-16) mg/dL Creatinine (0.5-1.4) mg/dL Estim Creat Clear Calc Estimated GFR POC Glucose 89 (60-115) mg/dL Random Glucose (60-115) mg/dL Calcium (8.4-10.2) mg/dL Urine Color Urine Appearance Urine pH (5.0-8.0) Ur Specific [place] (1.005-1.025) Urine Protein (NEG-TRACE) MG/DL Urine Glucose (UA) (NEG) MG/DL Urine Ketones (NEG) MG/DL Urine Blood (NEG) Urine Nitrite (NEG) Ur Leukocyte Esterase (NEG) Urine RBC (0) /HPF Urine WBC (0-4) /HPF Ur Squamous Epith Cells /LPF Urine Bacteria /LPF Imaging Data CT abdomen pelvis: Attestation: I personally reviewed and interpreted this imaging study as follows: Radiologist's impression: EXAMINATION: CT ABDOMEN AND PELVIS WITH CONTRAST? CLINICAL INFORMATION: Bladder pain. Prostate cancer. History of colon cancer.? COMPARISON: 10/13/2019? TECHNIQUE: Multidetector volumetric images were obtained from the superior aspect of the liver through the pubic symphysis following administration 85 mL of Omnipaque 350 intravenous contrast. Sagittal and coronal reformatted images were obtained on the technologist's workstation.? Oral contrast: No This CT examination was performed using dose optimization techniques as appropriate, variously including the following: *Automated exposure control *Adjustment of mA and/or kV according to patient size (this includes techniques or standardized protocols for targeted exams where dose is matched to indication/reason for exam; i.e. extremities or head) *Use of iterative reconstruction technique DLP: 660 mGy-cm FINDINGS: LUNG BASES: The visualized lung bases are unremarkable.? LIVER, GALLBLADDER, AND BILIARY TREE: The liver is normal in size, shape, and attenuation. No focal hepatic lesion or biliary ductal dilatation is present. The gallbladder is unremarkable with no evidence of radiopaque gallstones, gallbladder wall thickening, or obvious pericholecystic inflammatory changes.? PANCREAS: Diffuse atrophy of the pancreas.? SPLEEN: Unremarkable.? ADRENAL GLANDS: Unremarkable.? KIDNEYS AND URETERS: The kidneys are normal in size, shape, and attenuation. No hydronephrosis, hydroureter, or calculi seen. No perinephric stranding. ? BLADDER: Barkley catheter is seen within the urinary bladder. The bladder is collapsed and circumferentially thick-walled. There is no minimal perivesicular stranding.? GASTROINTESTINAL TRACT: There is a small paraesophageal hernia or distal esophageal diverticulum. Fluid distends the distal esophagus. This could be seen from reflux or dysmotility. The distal stomach is collapsed with wall thickening likely due to underdistention. Small bowel is nondilated. There is severe diverticulosis particularly of the sigmoid colon. The appendix is clearly visible and normal. ABDOMINAL WALL: Fat-containing bilateral inguinal hernias.? LYMPH NODES: Normal. VASCULAR: Unremarkable. PELVIC VISCERA: There is a 2.3 x 2.0 cm transaxial by 2.6 cm craniocaudal structure between the prostate and the rectum. This has central high density with peripheral low density. There are metallic markers in the prostate.? OSSEOUS STRUCTURES: Multilevel degenerative changes. There are degenerative changes of the bilateral hips. There are degenerative changes of the bilateral sacroiliac joints.? CT/CT abdomen pelvis w con IMPRESSION: The urinary bladder is collapsed and circumferentially thick-walled. Although this could be due to underdistention a degree of acute or chronic cystitis could be present as well. There is a Barkley catheter in place. The bladder is decompressed. ? No hydronephrosis or hydroureter seen. ? No retroperitoneal lymphadenopathy. ? 2.3 x 2.0 x 2.6 cm high density material between the prostate and the rectum most likely represents SpaceOAR material placed before radiation therapy. Recommend correlation with history. The finding is new since 10/13/2019. If the patient did not have SpaceOAR placed, its possible this represents a fluid collection such as an abscess. ? Fleischner guidelines were followed. Discharge Plan Discharge Clinical Impression: Acute urinary retention, Acute UTI Patient Disposition: Admitted As Inpatient
[2021-12-30 20:23] LABS: MANUAL DIFF FLAG NO
[2021-12-30 20:24] LABS: Basophils Absolute Auto 0.1 X10*3/uL (0.0-0.2); Basophils Percent Auto 0.7 % (0-2); Eosinophils Absolute Auto 0.1 X10*3/uL (0.0-0.4); Eosinophils Percent Auto 1.5 % (0-4); Hematocrit 30.6 % (42.0-52.0); Hemoglobin 10.6 g/dl (14.0-18.0); Imm Gran Abs Auto 0.05 X10*3/uL (0.00-0.03); Imm Gran Pct Auto 0.6 % (0.0-0.4); Lymphocytes Absolute Auto 1.2 X10*3/uL (1.2-4.9); Lymphocytes Percent Auto 14.2 % (20-40); Mean Corpuscular HGB Conc 34.6 g/dl (31.0-36.0); Mean Corpuscular Hemoglobin 29.9 pg (27.0-33.0); Mean Corpuscular Volume 86.4 fL (80.0-98.0); Mean Platelet Volume 8.3 fL (9.4-12.4); Monocytes Absolute Auto 0.8 X10*3/uL (0.1-1.2); Monocytes Percent Auto 8.8 % (2-11); Neutrophils Absolute Auto 6.5 x10*3/uL (2.0-8.3); Neutrophils Percent Auto 74.2 % (45-73); Platelet Count 248 X10*3/uL (160-400); Red Blood Count 3.54 X10*6/uL (4.60-5.80); White Blood Count 8.7 X10*3/uL (4.8-10.8)
[2021-12-30 20:25] LABS: Appearance Urine HAZY; Color Urine YELLOW; Glucose Urine UA 100 MG/DL (NEG); Leukocyte Esterase Urine 3+ (NEG); Nitrite Urine POS (NEG); UACC Culture Trigger YES; Urine Blood 3+ (NEG); Urine Ketones NEG (NEG); Urine Protein TRACE MG/DL (NEG-TRACE)
[2021-12-30 20:30] LABS: WBC Urine TNTC /HPF (0-4)
[2021-12-30 20:31] LABS: Bacteria Urine 2+ /LPF; RBC Urine 50-75 /HPF (0); Squamous Epithelial Cell Urine TRACE /LPF
[2021-12-30 20:37] LABS: Anion Gap 13 (12-20); Blood Urea Nitrogen 17 mg/dL (9-16); Calcium 9.2 mg/dL (8.4-10.2); Carbon Dioxide 25 mmol/L (22-29); Chloride 106 mmol/L (96-108); Creatinine Clr Calc Pharmacy 49.1; Estimated Glomerular Filt Rate 54; Glucose Random 119 mg/dL (60-115); Potassium 3.7 mmol/L (3.3-5.1); Sodium 140 mmol/L (135-145)
[2021-12-30] MEDS: HYDROmorphone HCl 1 MG/ML SYRINGE IVPUSH (21:02)
[2021-12-30] MEDS: ondansetron HCL 4 MG/2 ML VIAL IVPUSH (21:02)
[2021-12-30 21:24] LABS: Glucose, Whole Blood 89 mg/dL (60-115)
[2021-12-30] MEDS: levoFLOXacin/D5W 750 MG/150 ML PIGGYBACK 100 MG IV (21:30)
[2021-12-30] MEDS: iohexoL 350 MG/ML 100 ML INFUS..BTL IV (21:54)
--- NOTE | 2021-12-30 23:11 | P.HPHOSP_ITS ---
History of Present Illness Date of Service: 12/30/21 Chief Complaint: urinary symptoms This is a 76-year-old male with past medical history of prostate cancer status post radiation therapy, hypertension, diabetes, hyperlipidemia, anxiety and depression who presents to the hospital with complaints of worsening urinary symptoms including dysuria, urgency, and urinary retention. Patient reports that he had prostate biopsy back in June and few days later developed urinary symptoms that have never resolved ever since. Patient reports that he was treated with Macrobid and various antibiotics multiple times with no resolution of his symptoms. He has now developed urinary retention and is very concerned and presented with that complaint. Patient reports urinary retention, burning on urination, suprapubic tenderness, no fever or chills, no abdominal pain, no nausea or vomiting, no diarrhea constipation, no lower extremity edema. No shortness of breath or chest pain. Patient reports that he was seen by Dr. Whiteside the urologist and was recently treated with Macrobid with no resolution of symptoms. He reports that it is significantly painful to urinate at this time and the pain is 11/10 every time he tries to urinate. On arrival to the ED patient hemodynamically stable with heart rate of 110, r espiratory rate of 25, blood pressure stable Labs are significant for WBC count of 9.3, hemoglobin of 9.7, hematocrit 28.7, lactic acid of 3.3, UA positive for nitrites, leukocyte Estrace, WBC. Abdominal pelvic CT shows the urinary bladder is circumferentially thick-walled concerning for acute or chronic cystitis, 2.3x 2.0 x 2.6 cm high density material between the prostate and the rectum most likely represents space away are material placed before radiation therapy, but if no such device placed this could represent a fluid collection such as an abscess Given sepsis secondary to acute UTI and failed outpatient therapy for UTI, positive UA, and significant intractable pain I anticipate a medically necessary to night in-patient admission for treatment and monitoring response. This suellen ot be done outpatient given his sepsis as patient will do very poorly. Review of Systems Review of Systems: Yes all other systems are reviewed and are negative [facility] Medical History Anxiety and depression Arthritis B12 deficiency Diabetes type 2, controlled Diabetic polyneuropathy associated with type 2 diabetes mellitus Dyslipidemia Elevated PSA GERD (gastroesophageal reflux disease) Hypertension intermediate (current) use of insulin Low back pain MRSA (methicillin resistant Staphylococcus aureus) Prostate cancer Prostate cancer Statin intolerance Family History Father No problems noted. Mother No problems noted. Surgical History History of colon resection History of esophagogastroduodenoscopy (EGD) History of prostate biopsy Hx of colonoscopy Hx of lithotripsy Hx of shoulder surgery Social History Alcohol intake: former Patient Tobacco Use Status: Former Tobacco user Quit Date: 1984 Cigarette Packs Per Day: 1.5 Advance Directives: No Advance Directives Information Provided: No Meds Allergies Allergy/AdvReac Type Severity Reaction Status Date / Time amoxicillin [From AUGMENTIN] Allergy Severe Diarrhea, Verified 12/22/21 08:55 malaise celecoxib [Celebrex] Allergy Severe Malaise Verified 12/22/21 08:55 clavulanic acid Allergy Severe Diarrhea, Verified 12/22/21 08:55 [From AUGMENTIN] malaise gabapentin [GABAPENTIN] Allergy Severe TREMORS Verified 12/22/21 08:55 morphine Allergy Severe BLACKED-OUT, Verified 12/22/21 08:55 CRAZY cephalexin [Keflex] Allergy Unknown Unknown Verified 12/22/21 08:55 diltiazem [Cardizem] Allergy Unknown Unknown Verified 12/22/21 08:55 Penicillins [PENICILLINS] Allergy Unknown Unknown Verified 12/22/21 08:55 pecan nut [PECAN] AdvReac Severe Anaphylaxis Verified 12/22/21 08:55 Lescol XL Allergy Severe Joint Pain Uncoded 11/26/21 11:01 peanuts Allergy Unknown Unknown Uncoded 11/26/21 11:01 Active Medications: Current Medications Acetaminophen (Acetaminophen 325 Mg Tablet) 650 mg PO Q6H PRN PRN Reason: Pain, Mild (Pain Scale 1-3) Docusate Sodium (Docusate Sodium 100 Mg Capsule) 100 mg PO DAILY PRN PRN Reason: Constipation Enoxaparin Sodium (Enoxaparin Sodium 40 Mg/0.4 Ml Syringe) 40 mg SUBCUT Q24H LOUISA Hydromorphone HCl (Hydromorphone Hcl 1 Mg/Ml Syringe) 0.5 mg IVPUSH Q4H PRN; Protocol PRN Reason: Pain, Severe (Pain Scale 7-10) Levofloxacin (Levaquin) 750 mg in 150 mls @ 100 mls/hr IV Q24H LOUISA Ondansetron HCl (Ondansetron Hcl 4 Mg/2 Ml Vial) 4 mg IVPUSH Q8H PRN PRN Reason: Nausea and Vomiting Sodium Chloride (0.9 % Sodium Chloride Flush 3 Ml Syringe) 3 ml IVFLUSH QSHIFT [facility] Home Medications Medication Instructions Recorded Confirmed Last Taken Type blood sugar diagnostic #10 ea 09/08/20 11/26/21 Unknown History clonidine HCl 0.2 mg tablet 0.4 mg PO BID 09/08/20 11/26/21 05/18/21 History furosemide 20 mg tablet 20 mg PO DAILY 09/08/20 11/26/21 05/18/21 History levetiracetam 500 mg tablet 500 mg PO BID 09/08/20 11/26/21 Unknown History pen needle, diabetic 32 gauge x #50 ea 09/08/20 11/26/21 Unknown History diphenoxylate-atropine 2.5 3 tab PO BID PRN 12/09/20 11/26/21 Unknown History mg-0.025 mg tablet lamotrigine 25 mg tablet 75 mg PO BID 12/09/20 11/26/21 Unknown History paroxetine HCl 20 mg tablet 20 mg PO DAILY 12/09/20 11/26/21 Unknown History amlodipine 10 mg tablet 10 mg PO DAILY 04/02/21 11/26/21 05/18/21 History valsartan 80 mg tablet 80 mg PO DAILY 04/02/21 11/26/21 Unknown History Excedrin Back and Body 2 tab PO DAILY PRN 05/13/21 11/26/21 Unknown History insulin glargine U-300 conc 300 15 unit SUBCUT DAILY 05/13/21 11/26/21 Unknown History unit/mL (1.5 mL) subcutaneous pen (Toujeo SoloStar U-300 Insulin) insulin lispro 100 unit/mL 2 unit SUBCUT TID 05/13/21 11/26/21 Unknown History subcutaneous pen (Humalog KwikPen (U-100) Insulin) fluticasone fur. 100 mcg-umeclid 1 puff PO DAILY 08/24/21 11/26/21 Unknown History 62.5 mcg-vilant 25 mcg inhalat.powder (Trelegy Ellipta) fluticasone propionate 50 2 spray INTRANASAL QAM 08/24/21 11/26/21 Unknown History mcg/actuation nasal spray,suspension folic acid 1 mg tablet 1 tab PO DAILY 08/24/21 11/26/21 Unknown History montelukast 10 mg tablet 1 tab PO QPM 08/24/21 11/26/21 Unknown History bupropion HCl 150 mg 24 hr tablet, 150 mg PO DAILY 11/06/21 11/26/21 Unknown History extended release terazosin 2 mg capsule 2 mg PO BEDTIME 11/06/21 11/26/21 Unknown History Physical Exam Vital Signs and Narrative: Vital Signs: Last Vital Signs Temp 98.4 F 12/30/21 18:23 Pulse 110 H 12/30/21 18:23 Resp 25 H 12/30/21 18:23 BP 183/89 H 12/30/21 18:23 Pulse Ox 99 12/30/21 18:23 BMI result Body Mass Index 30.0 Const: General: cooperative and no acute distress Orientation/consciousness: patient oriented x3 Eyes: General: appearance normal, both eyes and all related structures Resp: Effort & Inspection: normal respiratory effort Auscultation: clear to auscultation bilaterally Cardio: Rate: regular rate Rhythm: regular rhythm GI: Palpation (GI): Soft to palpation Auscultation: normal bowel sounds : Other: Suprapubic tenderness Skin: General skin exam: no rashes or lesions noted Neuro: General: patient oriented x3 Cognition (Neuro): normal cognition Extrem: General: Yes normal to inspection and Yes no pedal edema Results Labs CBC and Chem 7: 12/31/21 04:55 12/31/21 04:55 Labs: Laboratory Results - last 24 hr 12/30/21 12/30/21 12/30/21 20:15 20:15 20:15 MCV 86.4 MCH 29.9 MCHC 34.6 RDW 13.0 Plt Count 248 MPV 8.3 L Immature Gran % (Auto) 0.6 H Neut % (Auto) 74.2 H Lymph % (Auto) 14.2 L [place] % (Auto) 8.8 Eos % (Auto) 1.5 Baso % (Auto) 0.7 Lymph # (Auto) 1.2 [place] # (Auto) 0.8 Eos # (Auto) 0.1 Baso # (Auto) 0.1 Abs Immat Gran (auto) 0.05 H Absolute Neuts (auto) 6.5 Absolute Nucleated RBC 0.000 Nucleated RBC % (auto) 0.0 Anion Gap 13 Estim Creat Clear Calc 49.1 Estimated GFR 54 POC Glucose Random Glucose 119 H Calcium 9.2 Urine Color YELLOW Urine Appearance HAZY Urine pH 6.0 Ur Specific [place] 1.020 Urine Protein TRACE Urine Glucose (UA) 100 H Urine Ketones NEG Urine Blood 3+ H Urine Nitrite POS H Ur Leukocyte Esterase 3+ H Urine RBC 50-75 H Urine WBC TNTC H Ur Squamous Epith Cells TRACE Urine Bacteria 2+ 12/30/21 21:20 MCV MCH MCHC RDW Plt Count MPV Immature Gran % (Auto) Neut % (Auto) Lymph % (Auto) [place] % (Auto) Eos % (Auto) Baso % (Auto) Lymph # (Auto) [place] # (Auto) Eos # (Auto) Baso # (Auto) Abs Immat Gran (auto) Absolute Neuts (auto) Absolute Nucleated RBC Nucleated RBC % (auto) Anion Gap Estim Creat Clear Calc Estimated GFR POC Glucose 89 Random Glucose Calcium Urine Color Urine Appearance Urine pH Ur Specific [place] Urine Protein Urine Glucose (UA) Urine Ketones Urine Blood Urine Nitrite Ur Leukocyte Esterase Urine RBC Urine WBC Ur Squamous Epith Cells Urine Bacteria Imaging Radiologist's Impressions: Impressions Abdomen/Pelvis CT 12/30/21 21:54 IMPRESSION: The urinary bladder is collapsed and circumferentially thick-walled. Although this could be due to underdistention a degree of acute or chronic cystitis could be present as well. There is a Barkley catheter in place. The bladder is decompressed. No hydronephrosis or hydroureter seen. No retroperitoneal lymphadenopathy. 2.3 x 2.0 x 2.6 cm high density material between the prostate and the rectum most likely represents SpaceOAR material placed before radiation therapy. Recommend correlation with history. The finding is new since 10/13/2019. If the patient did not have SpaceOAR placed, its possible this represents a fluid collection such as an abscess. Fleischner guidelines were followed. Assessment and Plan (1) Sepsis: Status: Acute (2) Acute UTI: Status: Acute (3) Acute urinary retention: Status: Acute (4) Lactic acidosis: Status: Acute Plan 76-year-old male with past medical history of prostate cancer status post radiation presents to the hospital with complaints of urinary retention, dysuria, found to be septic with acute UTI # sepsis - likely secondary to UTI - has tachycardia, tachypnea, lactic acidosis - will treat with IV antibiotics - IV fluids - follow cultures # acute UTI - has significant positive UA - has had multiple outpatient therapies with no success - will admit, treat with IV antibiotics and consult Urology #lactic acidosis - secondary to sepsis as above - IV fluids - trend lactic acid # acute urinary tension - secondary to UTI - Barkley catheter in place - urology consulted # diabetes - low-dose sign scale insulin, continue to [place] [facility] - diabetic diet # at this time will continue all his home medications once they are reviewed by pharmacy Given sepsis, secondary to UTI as well as multiple failed outpatient therapy for UTI, positive UA, and significant intractable pain I anticipate a medically necessary to night in-patient admission for treatment and monitoring response. Quality Stroke Does the patient have a stroke diagnosis?: No VTE Prior VTE?: No VTE Risk Level:: Medical - moderate - high VTE Device Contraindication: Treatment Not Indicated VTE Drug Contraindication: N/A - Med Ordered
[2021-12-30 23:55] VITALS: BP 142/79; PULSE 90; RESP 18; O2SAT 97
[2021-12-31 00:37] LABS: Lactic Acid 3.3 mmol/L (0.5-2.0)
[2021-12-31] MEDS: Lactated Ringers 1,000 ML 100 ML IVCONT ×3 (01:15→20:39)
[2021-12-31] MEDS: Enoxaparin Sodium 40 MG/0.4 ML SYRINGE SUBCUT (01:15)
[2021-12-31] MEDS: HYDROmorphone HCl 1 MG/ML SYRINGE 0.5 MG IVPUSH (01:15)
[2021-12-31 02:06] LABS: Reflex Lactate? Lactic Acid Added
[2021-12-31 02:58] LABS: ~Lactic Acid-LAB USE ONLY 4.2 mmol/L (0.5-2.0)
[2021-12-31 03:00] VITALS: BP 142/73; PULSE 90; RESP 16; TEMP 36.9; O2SAT 97
[2021-12-31] MEDS: 0.9 % Sodium Chloride 2,460 ML 2460 ML IV (04:26)
[2021-12-31 04:32] LABS: Reflex Lactate? 2 Y
[2021-12-31] MEDS: LORazepam 2 MG/ML VIAL 0.5 MG IVPUSH (04:39)
[2021-12-31 05:01] LABS: Basophils Absolute Auto 0.1 X10*3/uL (0.0-0.2); Basophils Percent Auto 0.6 % (0-2); Eosinophils Absolute Auto 0.1 X10*3/uL (0.0-0.4); Eosinophils Percent Auto 0.9 % (0-4); Hematocrit 28.7 % (42.0-52.0); Hemoglobin 9.7 g/dl (14.0-18.0); Imm Gran Abs Auto 0.04 X10*3/uL (0.00-0.03); Imm Gran Pct Auto 0.4 % (0.0-0.4); Lymphocytes Percent Auto 10.7 % (20-40); MANUAL DIFF FLAG NO; Mean Corpuscular HGB Conc 33.8 g/dl (31.0-36.0); Mean Corpuscular Hemoglobin 29.8 pg (27.0-33.0); Mean Platelet Volume 8.2 fL (9.4-12.4); Monocytes Absolute Auto 0.9 X10*3/uL (0.1-1.2); Monocytes Percent Auto 10.1 % (2-11); Neutrophils Absolute Auto 7.2 x10*3/uL (2.0-8.3); Neutrophils Percent Auto 77.3 % (45-73); Platelet Count 216 X10*3/uL (160-400); Red Blood Count 3.26 X10*6/uL (4.60-5.80); Red Cell Distribution Width 13.2 % (11.0-16.0); White Blood Count 9.3 X10*3/uL (4.8-10.8)
[2021-12-31 05:11] LABS: ~Lactic Acid-LAB USE ONLY 1.3 mmol/L (0.5-2.0)
[2021-12-31 05:21] LABS: Anion Gap 12 (12-20); Blood Urea Nitrogen 15 mg/dL (9-16); Calcium 8.4 mg/dL (8.4-10.2); Carbon Dioxide 23 mmol/L (22-29); Chloride 109 mmol/L (96-108); Estimated Glomerular Filt Rate > 60; Glucose Random 104 mg/dL (60-115); Potassium 3.7 mmol/L (3.3-5.1); Sodium 140 mmol/L (135-145)
[2021-12-31 06:48] VITALS: BP 156/72; PULSE 92; RESP 17; O2SAT 95
[2021-12-31 06:59] LABS: COVID-19 Test Negative (Negative)
[2021-12-31 07:17] LABS: Glucose, Whole Blood 122 mg/dL (60-115)
--- NOTE | 2021-12-31 07:44 | PHA.MEDREC ---
Pharmacy Consult ? Medication Reconciliation Pharmacy has reviewed the medication reconciliation complete by nursing. Patient fustrated medications were not ready in the morning. Patient does not want any of his prostate medications, also does not take vitamin D3, bupropion, and singular. Reports he will only take nexium and will not take omeprazole. Lavonne Ha, PharmD
[2021-12-31] MEDS: Valsartan 80 MG TABLET PO (08:21)
[2021-12-31] MEDS: Fluticasone Propionate Nasal 16 GM SPRAY 2 SPRAY NOSTRIL-B (08:21)
[2021-12-31] MEDS: cloNIDine HCL 0.2 MG TABLET 0.4 MG PO ×2 (08:22→18:19)
[2021-12-31] MEDS: PARoxetine HCL 20 MG TABLET PO (08:22)
[2021-12-31] MEDS: lamoTRIgine 25 MG TABLET 75 MG PO ×2 (08:22→18:17)
[2021-12-31] MEDS: Furosemide 20 MG TABLET PO ×2 (08:23→18:19)
[2021-12-31] MEDS: levETIRAcetam 500 MG TABLET PO ×2 (08:23→18:19)
[2021-12-31] MEDS: Ezetimibe 10 MG TABLET PO (08:23)
[2021-12-31] MEDS: amLODIPine Besylate 10 MG TABLET PO (08:24)
[2021-12-31] MEDS: Insulin Glargine,Hum.rec.anlog 100 UNIT/ML 10 ML VIAL 8 UNIT SUBCUT (08:53)
--- NOTE | 2021-12-31 09:46 | PC.NURSE ---
pt comfortable and took all his am meds. denies any pain and resting comfortably in bed with head of bed raised. new bag hung of LR on a pump
[2021-12-31 12:51] LABS: Glucose, Whole Blood 146 mg/dL (60-115)
--- NOTE | 2021-12-31 13:12 | MHC.CM.PN ---
Attempted to meet patient in regards to discharge planning. Patient currently sleeping. No family present. Attempted to speak to patient's son, Román, via telephone at [phone]. Left message explaining IMM and that IMM would be left at bedside. Copy of HCP verified to be on file. Patient is from home without services. May need physical therapy eval for home safety when medically stable. Continue to monitor for d/c needs.
--- NOTE | 2021-12-31 13:58 | MHC.CM.PN ---
Attempted to meet with patient in regards to discharge planning. Patient currently sleeping. Spoke with patient's son, Román via telephone at [phone]. Román has been staying with his dad. Patient ambulates independently and had no services prior to coming to the hospital. PCP verified. HCP verified to be on file. Patient received Moderna vaccines on 12/29 and 12/29. Received Pfizer booster vaccine on 09/22. Román does not feel patient will need any services at d/c. IMM explained and left at bedside. Román will transport patient home when medically stable. Continue to monitor for d/c needs.
--- NOTE | 2021-12-31 14:12 | P.PNIM_ITS ---
Subjective Subjective Date of Service: 12/31/21 Interval History: Seen and evaluated this morning Feels comfortable, still feeling with weak and tired Denies any chest pain, fever or chills No reported other overnight events Review of Systems No fever, chills No chest pain, palpitation No shortness of breath or coughing No abdominal pain, nausea or vomiting Report burning urination No any rash or wounds Physical Exam Vital Signs: Vital Signs: Last Vital Signs Temp 98.5 F 12/31/21 03:00 Pulse 92 12/31/21 06:48 Resp 17 12/31/21 06:48 BP 156/72 H 12/31/21 06:48 Pulse Ox 95 12/31/21 06:48 BMI result Body Mass Index 30.0 Const: Other: Constitutional : Alert, oriented, not in distress Neck : Normal inspection, Supple Cardiovascular : RRR, S1 S2, no lower extremity edema Respiratory : Good bilateral air entry, no crackles, wheezes or rhonchi Gastrointestinal: soft, lax, Normal bowel sounds, Non tender Skin : Warm, Dry, Barkley catheter in place Neurological : Alert & oriented x3, No focal deficit Objective Data Active Medications Acetaminophen (Acetaminophen 325 Mg Tablet) 650 mg PO Q6H PRN PRN Reason: Pain, Mild (Pain Scale 1-3) Albuterol Sulfate (Albuterol Sulfate 90 Mcg 8 Gm Inhaler) 2 puff INHALE Q4H PRN PRN Reason: shortness of breath or wheezing Amlodipine Besylate (Amlodipine Besylate 10 Mg Tablet) 10 mg PO DAILY [facility]; Protocol Last Admin: 12/31/21 08:24 Dose: 10 mg Documented by: PHYLLIS Clonidine HCl (Clonidine Hcl 0.2 Mg Tablet) 0.4 mg PO BID [facility]; Protocol Last Admin: 12/31/21 08:22 Dose: 0.4 mg Documented by: PHYLLIS Dextrose (Dextrose 50 % 25 Gm/50 Ml Vial) 25 gm IVPUSH Q15M PRN; Protocol PRN Reason: per Hypoglycemia Standing Ord. Diphenoxylate HCl/Atropine (Diphenoxylate/Atrop 2.5/0.025 Tablet) 3 tab PO BID PRN PRN Reason: Spasms Docusate Sodium (Docusate Sodium 100 Mg Capsule) 100 mg PO DAILY PRN PRN Reason: Constipation Ezetimibe (Ezetimibe 10 Mg Tablet) 10 mg PO DAILY [facility] Last Admin: 12/31/21 08:23 Dose: 10 mg Documented by: PHYLLIS Enoxaparin Sodium (Enoxaparin Sodium 40 Mg/0.4 Ml Syringe) 40 mg SUBCUT Q24H [facility] Last Admin: 12/31/21 01:15 Dose: 40 mg Documented by: ZACHERY Fluticasone Propionate (Fluticasone Propionate Nasal 16 Gm [place]) 2 spray NOSTRIL-B DAILY [facility] Last Admin: 12/31/21 08:21 Dose: 2 spray Documented by: PHYLLIS Furosemide (Furosemide 20 Mg Tablet) 20 mg PO BID [facility]; Protocol Last Admin: 12/31/21 08:23 Dose: 20 mg Documented by: PHYLLIS Glucose (Glucose Gel 15 Gm Gel..Gram.) 15 gm PO Q15M PRN; Protocol PRN Reason: per Hypoglycemia Standing Ord. Hydromorphone HCl (Hydromorphone Hcl 1 Mg/Ml Syringe) 0.5 mg IVPUSH Q4H PRN; Protocol PRN Reason: Pain, Severe (Pain Scale 7-10) Last Admin: 12/31/21 01:15 Dose: 0.5 mg Documented by: ZACHERY Levofloxacin (Levaquin) 750 mg in 150 mls @ 100 mls/hr IV Q24H [facility] Lactated Ringer's (Lr) 1,000 mls @ 100 mls/hr IVCONT .Q10H [facility] Last Admin: 12/31/21 08:41 Dose: 100 mls/hr Documented by: PHYLLIS Insulin Glargine (Insulin Glargine,Hum.Rec.Anlog 100 Unit/Ml 10 Ml Vial) 8 unit SUBCUT DAILY [facility] Last Admin: 12/31/21 08:53 Dose: 8 unit Documented by: PHYLLIS Insulin Human Lispro (Insulin Lispro 100 Unit/Ml 3 Ml Vial) 0 unit SUBCUT QIDACHS [facility]; Protocol Last Admin: 12/31/21 13:03 Dose: Not Given Documented by: PHYLLIS Non-Admin Reason: No Insulin Coverage Lamotrigine (Lamotrigine 25 Mg Tablet) 75 mg PO BID [facility] Last Admin: 12/31/21 08:22 Dose: 75 mg Documented by: PHYLLIS Levetiracetam (Levetiracetam 500 Mg Tablet) 500 mg PO BID [facility] Last Admin: 12/31/21 08:23 Dose: 500 mg Documented by: PHYLLIS Ondansetron HCl (Ondansetron Hcl 4 Mg/2 Ml Vial) 4 mg IVPUSH Q8H PRN PRN Reason: Nausea and Vomiting Paroxetine HCl (Paroxetine Hcl 20 Mg Tablet) 20 mg PO DAILY [facility] Last Admin: 12/31/21 08:22 Dose: 20 mg Documented by: PHYLLIS Sodium Chloride (0.9 % Sodium Chloride Flush 3 Ml Syringe) 3 ml IVFLUSH QSHIFT [facility] Last Admin: 12/31/21 13:18 Dose: Not Given Documented by: MONICA Non-Admin Reason: IV Running Tamsulosin HCl (Tamsulosin Hcl 0.4 Mg Capsule) 0.8 mg PO DAILY [facility] Last Admin: 12/31/21 08:50 Dose: Not Given Documented by: PHYLLIS Non-Admin Reason: Patient Refused Valsartan (Valsartan 80 Mg Tablet) 80 mg PO DAILY [facility]; Protocol Last Admin: 12/31/21 08:21 Dose: 80 mg Documented by: PHYLLIS Labs CBC & Chem 7: 12/31/21 04:55 12/31/21 04:55 Labs: Laboratory Results - last 24 hr 12/30/21 12/30/21 12/30/21 20:15 20:15 20:15 MCV 86.4 MCH 29.9 MCHC 34.6 RDW 13.0 Plt Count 248 MPV 8.3 L Immature Gran % (Auto) 0.6 H Neut % (Auto) 74.2 H Lymph % (Auto) 14.2 L [place] % (Auto) 8.8 Eos % (Auto) 1.5 Baso % (Auto) 0.7 Lymph # (Auto) 1.2 [place] # (Auto) 0.8 Eos # (Auto) 0.1 Baso # (Auto) 0.1 Abs Immat Gran (auto) 0.05 H Absolute Neuts (auto) 6.5 Absolute Nucleated RBC 0.000 Nucleated RBC % (auto) 0.0 Anion Gap 13 Estim Creat Clear Calc 49.1 Estimated GFR 54 POC Glucose Random Glucose 119 H Lactic Acid Lactic Acid F/U @ 2Hr Lactic Acid F/U @ 4Hr Calcium 9.2 Urine Color YELLOW Urine Appearance HAZY Urine pH 6.0 Ur Specific [place] 1.020 Urine Protein TRACE Urine Glucose (UA) 100 H Urine Ketones NEG Urine Blood 3+ H Urine Nitrite POS H Ur Leukocyte Esterase 3+ H Urine RBC 50-75 H Urine WBC TNTC H Ur Squamous Epith Cells TRACE Urine Bacteria 2+ COVID-19 (JAMES) COVID-19 Clin Com 12/30/21 12/31/21 12/31/21 21:20 00:02 02:28 MCV MCH MCHC RDW Plt Count MPV Immature Gran % (Auto) Neut % (Auto) Lymph % (Auto) [place] % (Auto) Eos % (Auto) Baso % (Auto) Lymph # (Auto) [place] # (Auto) Eos # (Auto) Baso # (Auto) Abs Immat Gran (auto) Absolute Neuts (auto) Absolute Nucleated RBC Nucleated RBC % (auto) Anion Gap Estim Creat Clear Calc Estimated GFR POC Glucose 89 Random Glucose Lactic Acid 3.3 H* Lactic Acid F/U @ 2Hr 4.2 H* Lactic Acid F/U @ 4Hr Calcium Urine Color Urine Appearance Urine pH Ur Specific [place] Urine Protein Urine Glucose (UA) Urine Ketones Urine Blood Urine Nitrite Ur Leukocyte Esterase Urine RBC Urine WBC Ur Squamous Epith Cells Urine Bacteria COVID-19 (JAMES) COVID-19 Clin Com 12/31/21 12/31/21 12/31/21 04:55 04:55 04:55 MCV 88.0 MCH 29.8 MCHC 33.8 RDW 13.2 Plt Count 216 MPV 8.2 L Immature Gran % (Auto) 0.4 Neut % (Auto) 77.3 H Lymph % (Auto) 10.7 L [place] % (Auto) 10.1 Eos % (Auto) 0.9 Baso % (Auto) 0.6 Lymph # (Auto) 1.0 L [place] # (Auto) 0.9 Eos # (Auto) 0.1 Baso # (Auto) 0.1 Abs Immat Gran (auto) 0.04 H Absolute Neuts (auto) 7.2 Absolute Nucleated RBC 0.000 Nucleated RBC % (auto) 0.0 Anion Gap 12 Estim Creat Clear Calc 55.0 Estimated GFR > 60 POC Glucose Random Glucose 104 Lactic Acid Lactic Acid F/U @ 2Hr Lactic Acid F/U @ 4Hr 1.3 Calcium 8.4 D Urine Color Urine Appearance Urine pH Ur Specific [place] Urine Protein Urine Glucose (UA) Urine Ketones Urine Blood Urine Nitrite Ur Leukocyte Esterase Urine RBC Urine WBC Ur Squamous Epith Cells Urine Bacteria COVID-19 (JAMES) COVID-19 Clin Com 12/31/21 12/31/21 12/31/21 06:38 07:13 12:45 MCV MCH MCHC RDW Plt Count MPV Immature Gran % (Auto) Neut % (Auto) Lymph % (Auto) [place] % (Auto) Eos % (Auto) Baso % (Auto) Lymph # (Auto) [place] # (Auto) Eos # (Auto) Baso # (Auto) Abs Immat Gran (auto) Absolute Neuts (auto) Absolute Nucleated RBC Nucleated RBC % (auto) Anion Gap Estim Creat Clear Calc Estimated GFR POC Glucose 122 H 146 H Random Glucose Lactic Acid Lactic Acid F/U @ 2Hr Lactic Acid F/U @ 4Hr Calcium Urine Color Urine Appearance Urine pH Ur Specific [place] Urine Protein Urine Glucose (UA) Urine Ketones Urine Blood Urine Nitrite Ur Leukocyte Esterase Urine RBC Urine WBC Ur Squamous Epith Cells Urine Bacteria COVID-19 (JAMES) Negative COVID-19 Clin Com See Note Microbiology Microbiology Results: Microbiology 12/30/21 20:25 Urine Culture - Preliminary Urine clean catch - Urine castellanos top Culture too young to evaluate. Assessment and Plan (1) Lactic acidosis: Status: Acute (2) Sepsis: Status: Acute (3) Acute urinary retention: Status: Acute (4) Acute UTI: Status: Acute Plan 76-year-old male with past medical history of prostate cancer status post radiation presents to the hospital with complaints of urinary retention, dysuria, found to be septic with acute UTI # sepsis likely secondary to UTI Continue IV antibiotics Continue IV fluids Pending cultures # acute UTI Pending culture has had multiple outpatient therapies with no success IV antibiotics consult Urology #lactic acidosis Secondary to sepsis, resolved # acute urinary tension secondary to UTI and history of prostate CA Barkley catheter in place urology consulted # diabetes low-dose sign scale insulin, continue to custodial diabetic diet DVT PPX Lovenox patient will need overnight hospital stay for treatment of UTI, urinary retention pending final blood culture given his high chance of decompensation. Quality Stroke Does the patient have a stroke diagnosis?: No VTE Prior VTE?: No VTE Risk Level:: Medical - moderate - high VTE Device Contraindication: Treatment Not Indicated VTE Drug Contraindication: N/A - Med Ordered
[2021-12-31 15:59] VITALS: BP 152/69; PULSE 88; RESP 18; TEMP 36.5; O2SAT 97
[2021-12-31 16:31] LABS: Glucose, Whole Blood 185 mg/dL (60-115)
[2021-12-31 19:33] VITALS: BP 188/77; PULSE 85; RESP 17; TEMP 36.6; O2SAT 96
[2021-12-31 20:08] LABS: Glucose, Whole Blood 167 mg/dL (60-115)
[2021-12-31] MEDS: levoFLOXacin/D5W 750 MG/150 ML PIGGYBACK 100 MG IV ×2 (20:37→20:45)
[2021-12-31] MEDS: Insulin Lispro 100 UNIT/ML 3 ML VIAL SUBCUT (20:37)
[2021-12-31 23:55] VITALS: BP 134/72; PULSE 83; RESP 17; TEMP 36.3; O2SAT 94
[2022-01-01] MEDS: HYDROmorphone HCl 1 MG/ML SYRINGE 0.5 MG IVPUSH ×3 (00:05→14:18)
[2022-01-01] MEDS: Enoxaparin Sodium 40 MG/0.4 ML SYRINGE SUBCUT (00:05)
[2022-01-01 03:50] VITALS: BP 125/59; PULSE 74; RESP 17; TEMP 36.2; O2SAT 94
[2022-01-01] MEDS: cloNIDine HCL 0.2 MG TABLET 0.4 MG PO ×2 (04:26→16:27)
[2022-01-01] MEDS: lamoTRIgine 25 MG TABLET 75 MG PO ×2 (04:26→16:25)
[2022-01-01] MEDS: Furosemide 20 MG TABLET PO ×2 (04:26→16:25)
[2022-01-01] MEDS: levETIRAcetam 500 MG TABLET PO ×2 (04:27→16:36)
[2022-01-01 06:06] LABS: Hemoglobin 9.7 g/dl (14.0-18.0); Mean Corpuscular HGB Conc 33.4 g/dl (31.0-36.0); Mean Corpuscular Hemoglobin 29.5 pg (27.0-33.0); Mean Corpuscular Volume 88.1 fL (80.0-98.0); Mean Platelet Volume 8.4 fL (9.4-12.4); Platelet Count 211 X10*3/uL (160-400); Red Blood Count 3.29 X10*6/uL (4.60-5.80); Red Cell Distribution Width 12.9 % (11.0-16.0); White Blood Count 5.9 X10*3/uL (4.8-10.8)
[2022-01-01 06:23] LABS: Anion Gap 13 (12-20); Blood Urea Nitrogen 9 mg/dL (9-16); Calcium 8.7 mg/dL (8.4-10.2); Carbon Dioxide 26 mmol/L (22-29); Chloride 104 mmol/L (96-108); Creatinine Clr Calc Pharmacy 60.2; Estimated Glomerular Filt Rate > 60; Glucose Random 147 mg/dL (60-115); Potassium 3.6 mmol/L (3.3-5.1); Sodium 139 mmol/L (135-145)
[2022-01-01] MEDS: Lactated Ringers 1,000 ML 100 ML IVCONT ×2 (06:26→18:38)
[2022-01-01 06:57] VITALS: BP 150/73; PULSE 66; RESP 20; TEMP 36; O2SAT 95
[2022-01-01 07:10] LABS: Glucose, Whole Blood 143 mg/dL (60-115)
[2022-01-01] MEDS: Insulin Glargine,Hum.rec.anlog 100 UNIT/ML 10 ML VIAL 8 UNIT SUBCUT (08:24)
[2022-01-01] MEDS: Ezetimibe 10 MG TABLET PO (08:25)
[2022-01-01] MEDS: amLODIPine Besylate 10 MG TABLET PO (08:25)
[2022-01-01] MEDS: PARoxetine HCL 20 MG TABLET PO (08:25)
[2022-01-01] MEDS: Tamsulosin HCL 0.4 MG CAPSULE 0.8 MG PO (08:26)
[2022-01-01] MEDS: Valsartan 80 MG TABLET PO (08:26)
[2022-01-01] MEDS: Fluticasone Propionate Nasal 16 GM SPRAY 2 SPRAY NOSTRIL-B (08:27)
[2022-01-01 11:11] VITALS: BP 123/56; PULSE 65; RESP 18; TEMP 36.1; O2SAT 95
[2022-01-01 11:16] LABS: Glucose, Whole Blood 204 mg/dL (60-115)
[2022-01-01] MEDS: Insulin Lispro 100 UNIT/ML 3 ML VIAL SUBCUT ×2 (11:28→16:29)
[2022-01-01] MEDS: Phenazopyridine HCL 200 MG TABLET PO ×2 (11:34→16:25)
--- NOTE | 2022-01-01 13:12 | P.CNID_ITS ---
History of Present Illness Data of Consult Service Date: 01/01/22 Requesting physician: Fly Myers Primary Care Provider: Luis Vega MD HPI Reason for consult: bladder discomfort He presents with bladder discomfort and fatigue. He is very frustrated as has urinary retention. He has felt chilled. He has been on Macrobid per Urology over last month. He has felt poorly for months he says. 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 Mother No problems noted. Family history: reviewed and not pertinent Surgical History Surgical History History of colon resection History of esophagogastroduodenoscopy (EGD) History of prostate biopsy Hx of colonoscopy Hx of lithotripsy Hx of shoulder surgery Social History Social History Household Members: None Housing: House Do you presently have visiting nurse or other home services: No Alcohol intake: former Patient Tobacco Use Status: Former Tobacco user Quit Date: 1984 Cigarette Packs Per Day: 1.5 Use of substances other than those prescribed or required for medical reasons: No Currently Displaying Signs/Symptoms of Drug Intoxication Withdrawal: No Have you been hit, kicked, punched, or otherwise hurt by someone within the past year? If so, by whom?: No Do you feel safe in your current relationship?: Yes Is there a partner from a previous relationship who is making you feel unsafe now?: No Are you made to feel afraid or neglected: No Advance Directives: No Advance Directives Information Provided: No Do you have thoughts of harming others: None Do you have a plan to hurt others: No Plan Recently lost weight without trying: No Nutrition Risks: No Nutritional Risk Poor oral hygiene: No service: No Current occupational status: retired [employer] Allergies Allergy/AdvReac Type Severity Reaction Status Date / Time amoxicillin [From AUGMENTIN] Allergy Severe Diarrhea, Verified 12/22/21 08:55 malaise celecoxib [Celebrex] Allergy Severe Malaise Verified 12/22/21 08:55 clavulanic acid Allergy Severe Diarrhea, Verified 12/22/21 08:55 [From AUGMENTIN] malaise gabapentin [GABAPENTIN] Allergy Severe TREMORS Verified 12/22/21 08:55 morphine Allergy Severe BLACKED-OUT, Verified 12/22/21 08:55 CRAZY cephalexin [Keflex] Allergy Unknown Unknown Verified 12/22/21 08:55 diltiazem [Cardizem] Allergy Unknown Unknown Verified 12/22/21 08:55 Penicillins [PENICILLINS] Allergy Unknown Unknown Verified 12/22/21 08:55 pecan nut [PECAN] AdvReac Severe Anaphylaxis Verified 12/22/21 08:55 Lescol XL Allergy Severe Joint Pain Uncoded 11/26/21 11:01 peanuts Allergy Unknown Unknown Uncoded 11/26/21 11:01 Active Medications: Current Medications Acetaminophen (Acetaminophen 325 Mg Tablet) 650 mg PO Q6H PRN PRN Reason: Pain, Mild (Pain Scale 1-3) Albuterol Sulfate (Albuterol Sulfate 90 Mcg 8 Gm Inhaler) 2 puff INHALE Q4H PRN PRN Reason: shortness of breath or wheezing Amlodipine Besylate (Amlodipine Besylate 10 Mg Tablet) 10 mg PO DAILY [facility]; Protocol Last Admin: 01/01/22 08:25 Dose: 10 mg Documented by: Clonidine HCl (Clonidine Hcl 0.2 Mg Tablet) 0.4 mg PO BID@0400,1700 [facility]; Protocol Last Admin: 01/01/22 04:26 Dose: 0.4 mg Documented by: Dextrose (Dextrose 50 % 25 Gm/50 Ml Vial) 25 gm IVPUSH Q15M PRN; Protocol PRN Reason: per Hypoglycemia Standing Ord. Diphenoxylate HCl/Atropine (Diphenoxylate/Atrop 2.5/0.025 Tablet) 3 tab PO BID PRN PRN Reason: Spasms Docusate Sodium (Docusate Sodium 100 Mg Capsule) 100 mg PO DAILY PRN PRN Reason: Constipation Ezetimibe (Ezetimibe 10 Mg Tablet) 10 mg PO DAILY [facility] Last Admin: 01/01/22 08:25 Dose: 10 mg Documented by: Enoxaparin Sodium (Enoxaparin Sodium 40 Mg/0.4 Ml Syringe) 40 mg SUBCUT Q24H [facility] Last Admin: 01/01/22 00:05 Dose: 40 mg Documented by: Fluticasone Propionate (Fluticasone Propionate Nasal 16 Gm [place]) 2 spray NOSTRIL-B DAILY [facility] Last Admin: 01/01/22 08:27 Dose: 2 spray Documented by: Furosemide (Furosemide 20 Mg Tablet) 20 mg PO BID@0400,1700 [facility]; Protocol Last Admin: 01/01/22 04:26 Dose: 20 mg Documented by: Glucose (Glucose Gel 15 Gm Gel..Gram.) 15 gm PO Q15M PRN; Protocol PRN Reason: per Hypoglycemia Standing Ord. Hydromorphone HCl (Hydromorphone Hcl 1 Mg/Ml Syringe) 0.5 mg IVPUSH Q4H PRN; Protocol PRN Reason: Pain, Severe (Pain Scale 7-10) Last Admin: 01/01/22 08:32 Dose: 0.5 mg Documented by: Lactated Ringer's (Lr) 1,000 mls @ 100 mls/hr IVCONT .Q10H [facility] Last Admin: 01/01/22 06:26 Dose: 100 mls/hr Documented by: Meropenem 1 gm/ Sodium (Chloride) 100 mls @ 200 mls/hr IV Q8H [facility] Last Infusion: 01/01/22 11:32 Dose: Infused Documented by: Insulin Glargine (Insulin Glargine,Hum.Rec.Anlog 100 Unit/Ml 10 Ml Vial) 8 unit SUBCUT DAILY [facility] Last Admin: 01/01/22 08:24 Dose: 8 unit Documented by: Insulin Human Lispro (Insulin Lispro 100 Unit/Ml 3 Ml Vial) 0 unit SUBCUT QIDACHS [facility]; Protocol Last Admin: 01/01/22 11:28 Dose: 4 unit Documented by: Lamotrigine (Lamotrigine 25 Mg Tablet) 75 mg PO BID@0400,1700 [facility] Last Admin: 01/01/22 04:26 Dose: 75 mg Documented by: Levetiracetam (Levetiracetam 500 Mg Tablet) 500 mg PO BID@0400,1700 [facility] Last Admin: 01/01/22 04:27 Dose: 500 mg Documented by: Ondansetron HCl (Ondansetron Hcl 4 Mg/2 Ml Vial) 4 mg IVPUSH Q8H PRN PRN Reason: Nausea and Vomiting Paroxetine HCl (Paroxetine Hcl 20 Mg Tablet) 20 mg PO DAILY [facility] Last Admin: 01/01/22 08:25 Dose: 20 mg Documented by: Phenazopyridine HCl (Phenazopyridine Hcl 200 Mg Tablet) 200 mg PO BIDWM [facility] Stop: 01/02/22 17:01 Last Admin: 01/01/22 11:34 Dose: 200 mg Documented by: Sodium Chloride (0.9 % Sodium Chloride Flush 3 Ml Syringe) 3 ml IVFLUSH QSHIFT [facility] Last Admin: 01/01/22 08:27 Dose: Not Given Documented by: Tamsulosin HCl (Tamsulosin Hcl 0.4 Mg Capsule) 0.8 mg PO DAILY [facility] Last Admin: 01/01/22 08:26 Dose: 0.8 mg Documented by: Valsartan (Valsartan 80 Mg Tablet) 80 mg PO DAILY [facility]; Protocol Last Admin: 01/01/22 08:26 Dose: 80 mg Documented by: Home Medications Medication Instructions Recorded Confirmed Last Taken Type blood sugar diagnostic #10 ea 09/08/20 12/31/21 Unknown History clonidine HCl 0.2 mg tablet 0.4 mg PO BID 09/08/20 12/31/21 05/18/21 History furosemide 20 mg tablet 20 mg PO BID 09/08/20 12/31/21 05/18/21 History levetiracetam 500 mg tablet 500 mg PO BID 09/08/20 12/31/21 Unknown History pen needle, diabetic 32 gauge x #50 ea 09/08/20 12/31/21 Unknown History diphenoxylate-atropine 2.5 3 tab PO BID PRN 12/09/20 12/31/21 Unknown History mg-0.025 mg tablet lamotrigine 25 mg tablet 75 mg PO BID 12/09/20 12/31/21 Unknown History paroxetine HCl 20 mg tablet 20 mg PO DAILY 12/09/20 12/31/21 Unknown History amlodipine 10 mg tablet 10 mg PO DAILY 04/02/21 12/31/21 05/18/21 History valsartan 80 mg tablet 80 mg PO DAILY 04/02/21 12/31/21 Unknown History insulin glargine U-300 conc 300 12 unit SUBCUT DAILY 05/13/21 12/31/21 Unknown History unit/mL (1.5 mL) subcutaneous pen (Toujeo SoloStar U-300 Insulin) insulin lispro 100 unit/mL 0 sliding scale dose SUBCUT QIDACHS 05/13/21 12/31/21 Unknown History subcutaneous pen (Humalog KwikPen (U-100) Insulin) fluticasone fur. 100 mcg-umeclid 1 puff PO DAILY 08/24/21 12/31/21 Unknown History 62.5 mcg-vilant 25 mcg inhalat.powder (Trelegy Ellipta) fluticasone propionate 50 2 spray INTRANASAL QAM 08/24/21 12/31/21 Unknown History mcg/actuation nasal spray,suspension esomeprazole magnesium 20 mg 40 mg PO DAILY 12/31/21 12/31/21 Unknown History capsule,delayed release (Nexium) Physical Exam Vital Signs: Vital Signs: Last Vital Signs Temp 97 F 01/01/22 11:11 Pulse 65 01/01/22 11:11 Resp 18 01/01/22 11:11 BP 123/56 L 01/01/22 11:11 Pulse Ox 95 01/01/22 11:11 BMI result Body Mass Index 30.0 Const: General: cooperative HEENT: Head: Yes normal to inspection Resp: Effort & Inspection: normal respiratory effort Cardio: Rate: regular rate Rhythm: regular rhythm GI: Palpation (GI): Tenderness to palpation present (GI) (mild diffuse abdominal discomfort) Results Labs CBC & Chem 7: 01/01/22 05:37 01/01/22 05:37 Labs: Short CBC 01/01/22 Range/Units 05:37 WBC 5.9 (4.8-10.8) X10*3/uL Hgb 9.7 L (14.0-18.0) g/dl Hct 29.0 L (42.0-52.0) % Plt Count 211 (160-400) X10*3/uL BMP 01/01/22 05:37 Sodium 139 Potassium 3.6 Chloride 104 Carbon Dioxide 26 BUN 9 Creatinine 1.06 Calcium 8.7 Microbiology Microbiology Results: Microbiology 12/30/21 20:25 Urine clean catch - Urine castellanos top Urine Culture - Preliminary Gram negative jose Assessment and Plan (1) Lactic acidosis: Status: Acute (2) Sepsis: Status: Acute Unfortunately he has urinary retention and is at high risk for sepsis and with urinary retention. I suspect early pylenonephritis. He has more than 100,000 gram negative rods in urine. Earlier in month he had ESBL in urine which was sensitive to Macrobid but will need drug active in kidneys as well as bladder duet to risk of further complications so unfortunately needs IV Ertapenem or Merem. (3) Acute urinary retention: Status: Acute (4) Acute UTI: Status: Acute Plan 14 days IV Merem/Ertapenem He has anaphylaxis to Penicillin but no rash seen to Merrem. followup
--- NOTE | 2022-01-01 13:24 | P.PNIM_ITS ---
Subjective Subjective Date of Service: 01/01/22 Interval History: Seen and evaluated this morning Feels comfortable, feeling improvement today Still reporting burning sensation with urine Denies any chest pain, fever or chills No reported other overnight events Review of Systems No fever, chills No chest pain, palpitation No shortness of breath or coughing No abdominal pain, nausea or vomiting Report burning urination No any rash or wounds Physical Exam Vital Signs: Vital Signs: Last Vital Signs Temp 97 F 01/01/22 11:11 Pulse 65 01/01/22 11:11 Resp 18 01/01/22 11:11 BP 123/56 L 01/01/22 11:11 Pulse Ox 95 01/01/22 11:11 BMI result Body Mass Index 30.0 Const: Other: Constitutional : Alert, oriented, not in distress Neck : Normal inspection, Supple Cardiovascular : RRR, S1 S2, no lower extremity edema Respiratory : Good bilateral air entry, no crackles, wheezes or rhonchi Gastrointestinal: soft, lax, Normal bowel sounds, Non tender Skin : Warm, Dry, Barkley catheter in place Neurological : Alert & oriented x3, No focal deficit Objective Data Active Medications Acetaminophen (Acetaminophen 325 Mg Tablet) 650 mg PO Q6H PRN PRN Reason: Pain, Mild (Pain Scale 1-3) Albuterol Sulfate (Albuterol Sulfate 90 Mcg 8 Gm Inhaler) 2 puff INHALE Q4H PRN PRN Reason: shortness of breath or wheezing Amlodipine Besylate (Amlodipine Besylate 10 Mg Tablet) 10 mg PO DAILY [facility]; Protocol Last Admin: 01/01/22 08:25 Dose: 10 mg Documented by: DANTE Clonidine HCl (Clonidine Hcl 0.2 Mg Tablet) 0.4 mg PO BID@0400,1700 [facility]; Protocol Last Admin: 01/01/22 04:26 Dose: 0.4 mg Documented by: ESCOBAR Dextrose (Dextrose 50 % 25 Gm/50 Ml Vial) 25 gm IVPUSH Q15M PRN; Protocol PRN Reason: per Hypoglycemia Standing Ord. Diphenoxylate HCl/Atropine (Diphenoxylate/Atrop 2.5/0.025 Tablet) 3 tab PO BID PRN PRN Reason: Spasms Docusate Sodium (Docusate Sodium 100 Mg Capsule) 100 mg PO DAILY PRN PRN Reason: Constipation Ezetimibe (Ezetimibe 10 Mg Tablet) 10 mg PO DAILY [facility] Last Admin: 01/01/22 08:25 Dose: 10 mg Documented by: DANTE Enoxaparin Sodium (Enoxaparin Sodium 40 Mg/0.4 Ml Syringe) 40 mg SUBCUT Q24H [facility] Last Admin: 01/01/22 00:05 Dose: 40 mg Documented by: ESCOBAR Fluticasone Propionate (Fluticasone Propionate Nasal 16 Gm [place]) 2 spray NOSTRIL-B DAILY [facility] Last Admin: 01/01/22 08:27 Dose: 2 spray Documented by: DANTE Furosemide (Furosemide 20 Mg Tablet) 20 mg PO BID@0400,1700 [facility]; Protocol Last Admin: 01/01/22 04:26 Dose: 20 mg Documented by: ESCOBAR Glucose (Glucose Gel 15 Gm Gel..Gram.) 15 gm PO Q15M PRN; Protocol PRN Reason: per Hypoglycemia Standing Ord. Hydromorphone HCl (Hydromorphone Hcl 1 Mg/Ml Syringe) 0.5 mg IVPUSH Q4H PRN; Protocol PRN Reason: Pain, Severe (Pain Scale 7-10) Last Admin: 01/01/22 08:32 Dose: 0.5 mg Documented by: DANTE Lactated Ringer's (Lr) 1,000 mls @ 100 mls/hr IVCONT .Q10H [facility] Last Admin: 01/01/22 06:26 Dose: 100 mls/hr Documented by: ESCOBAR Meropenem 1 gm/ Sodium (Chloride) 100 mls @ 200 mls/hr IV Q8H [facility] Last Infusion: 01/01/22 11:32 Dose: 200 mls/hr Documented by: DANTE Insulin Glargine (Insulin Glargine,Hum.Rec.Anlog 100 Unit/Ml 10 Ml Vial) 8 unit SUBCUT DAILY [facility] Last Admin: 01/01/22 08:24 Dose: 8 unit Documented by: DANTE Insulin Human Lispro (Insulin Lispro 100 Unit/Ml 3 Ml Vial) 0 unit SUBCUT QIDACHS [facility]; Protocol Last Admin: 01/01/22 11:28 Dose: 4 unit Documented by: DANTE Lamotrigine (Lamotrigine 25 Mg Tablet) 75 mg PO BID@0400,1700 [facility] Last Admin: 01/01/22 04:26 Dose: 75 mg Documented by: ESCOBAR Levetiracetam (Levetiracetam 500 Mg Tablet) 500 mg PO BID@0400,1700 [facility] Last Admin: 01/01/22 04:27 Dose: 500 mg Documented by: ESCOBAR Ondansetron HCl (Ondansetron Hcl 4 Mg/2 Ml Vial) 4 mg IVPUSH Q8H PRN PRN Reason: Nausea and Vomiting Paroxetine HCl (Paroxetine Hcl 20 Mg Tablet) 20 mg PO DAILY [facility] Last Admin: 01/01/22 08:25 Dose: 20 mg Documented by: DANTE Phenazopyridine HCl (Phenazopyridine Hcl 200 Mg Tablet) 200 mg PO BIDWM [facility] Stop: 01/02/22 17:01 Last Admin: 01/01/22 11:34 Dose: 200 mg Documented by: DANTE Sodium Chloride (0.9 % Sodium Chloride Flush 3 Ml Syringe) 3 ml IVFLUSH QSHIFT [facility] Last Admin: 01/01/22 08:27 Dose: Not Given Documented by: DANTE Non-Admin Reason: IV Running Tamsulosin HCl (Tamsulosin Hcl 0.4 Mg Capsule) 0.8 mg PO DAILY [facility] Last Admin: 01/01/22 08:26 Dose: 0.8 mg Documented by: DANTE Valsartan (Valsartan 80 Mg Tablet) 80 mg PO DAILY [facility]; Protocol Last Admin: 01/01/22 08:26 Dose: 80 mg Documented by: DANTE Labs CBC & Chem 7: 01/01/22 05:37 01/01/22 05:37 Labs: Laboratory Results - last 24 hr 12/30/21 12/31/21 12/31/21 21:20 16:13 19:36 MCV MCH MCHC RDW Plt Count MPV Absolute Nucleated RBC Nucleated RBC % (auto) Anion Gap Estim Creat Clear Calc Estimated GFR POC Glucose 89 185 H 167 H Random Glucose Calcium 01/01/22 01/01/22 01/01/22 05:37 05:37 06:57 MCV 88.1 MCH 29.5 MCHC 33.4 RDW 12.9 Plt Count 211 MPV 8.4 L Absolute Nucleated RBC 0.000 Nucleated RBC % (auto) 0.0 Anion Gap 13 Estim Creat Clear Calc 60.2 Estimated GFR > 60 POC Glucose 143 H Random Glucose 147 H D Calcium 8.7 01/01/22 11:11 MCV MCH MCHC RDW Plt Count MPV Absolute Nucleated RBC Nucleated RBC % (auto) Anion Gap Estim Creat Clear Calc Estimated GFR POC Glucose 204 H Random Glucose Calcium Microbiology Microbiology Results: Microbiology 12/30/21 20:25 Urine Culture - Preliminary Urine clean catch - Urine castellanos top Gram negative jose Assessment and Plan (1) Sepsis: Status: Acute (2) Lactic acidosis: Status: Acute (3) Acute UTI: Status: Acute (4) Acute urinary retention: Status: Acute Plan 76-year-old male with past medical history of prostate cancer status post radiation presents to the hospital with complaints of urinary retention, dysuria, found to be septic with acute UTI # sepsis, resolved secondary to UTI Continue IV antibiotics Continue IV fluids Urine culture growing GNR, previous CX showed ESBL E coli has had multiple outpatient therapies with no success Change IV antibiotic to meropenem Id input appreciated, total 2 weeks of ertapenem #lactic acidosis Secondary to sepsis, resolved # acute urinary retention secondary to UTI and history of prostate CA Barkley catheter in place Started on tamsulosin urology consulted # diabetes low-dose sign scale insulin, continue to care home diabetic diet DVT PPX Lovenox patient will need overnight hospital stay for treatment of UTI, urinary retention pending final blood culture given his high chance of decompensation. Quality Stroke Does the patient have a stroke diagnosis?: No VTE Prior VTE?: No VTE Risk Level:: Medical - moderate - high VTE Device Contraindication: Treatment Not Indicated VTE Drug Contraindication: N/A - Med Ordered
--- NOTE | 2022-01-01 16:11 | HO.MIDLINE_ITS ---
PICC Line Insertion MIDLINE INSERTION Diagnosis: [UTI] Indication: [needed for antibiotics] Pertinent Labs: [reviewed] Technique: Using sterile technique including cap and mask, gloves and drape, the [right] arm was prepped and draped in the usual sterile fashion of full barrier technique with CHG. Using ultrasound guidance, [right cephalic] vein access was obtained on second attempt. A single lumen Non-PASV 20G X 10 CM Midline was positioned. The procedure was performed in [S272]. Ultrasound was used to document vein patency and for needle entry. A formal ultrasound picture was recorded. 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 Verification has been performed for blood return and line patency. Arm Circumference: [31 CM] Equipment: [BARD Powerglide ST midline] Catheter Type: [single lumen, Non-PASV 20G X 10CM] Lot #: [[id number]]
--- NOTE | 2022-01-01 16:11 | P.CNUR_ITS ---
History of Present Illness Consult details Consult date: 01/01/22 Narrative: Willy is a pleasant male Known to Urology As known prostate cancer and recently finished radiation therapy Presents with weakness and fatigue Had urinary tract infection with retention and resistant E coli November had E coli ESBL Known to infectious disease from prior ESBL infection Currently states he is significantly improved while receiving ertapenem Review of Systems Constitutional: Constitutional: Reports as per HPI and Reports no additional constitutional complaints Cardiovascular: Cardiovascular: Reports as per HPI and Reports no additional cardiovascular complaints Respiratory: Respiratory: Reports as per HPI and Reports no additional respiratory complaints Gastrointestinal: Gastrointestinal: Reports as per HPI and Reports no additional gastrointestinal complaints Genitourinary: Genitourinary: Reports as per HPI Musculoskeletal: Musculoskeletal: Reports no additional musculoskeletal complaints and Reports as per HPI Neurologic: Reports system reviewed and no additional complaints, except as documented and Reports as per HPI PMFSH Past Medical History Medical History Anxiety and depression Arthritis B12 deficiency Diabetes type 2, controlled Diabetic polyneuropathy associated with type 2 diabetes mellitus Dyslipidemia Elevated PSA GERD (gastroesophageal reflux disease) 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 Mother No problems noted. Family history: reviewed and not pertinent Surgical History Surgical History History of colon resection History of esophagogastroduodenoscopy (EGD) History of prostate biopsy Hx of colonoscopy Hx of lithotripsy Hx of shoulder surgery Social History Social History Household Members: None Housing: House Do you presently have visiting nurse or other home services: No Alcohol intake: former Patient Tobacco Use Status: Former Tobacco user Quit Date: 1984 Cigarette Packs Per Day: 1.5 Use of substances other than those prescribed or required for medical reasons: No Currently Displaying Signs/Symptoms of Drug Intoxication Withdrawal: No Have you been hit, kicked, punched, or otherwise hurt by someone within the past year? If so, by whom?: No Do you feel safe in your current relationship?: Yes Is there a partner from a previous relationship who is making you feel unsafe now?: No Are you made to feel afraid or neglected: No Advance Directives: No Advance Directives Information Provided: No Do you have thoughts of harming others: None Do you have a plan to hurt others: No Plan Recently lost weight without trying: No Nutrition Risks: No Nutritional Risk Poor oral hygiene: No service: No Current occupational status: retired Meds Allergies Allergy/AdvReac Type Severity Reaction Status Date / Time amoxicillin [From AUGMENTIN] Allergy Severe Diarrhea, Verified 12/22/21 08:55 malaise celecoxib [Celebrex] Allergy Severe Malaise Verified 12/22/21 08:55 clavulanic acid Allergy Severe Diarrhea, Verified 12/22/21 08:55 [From AUGMENTIN] malaise gabapentin [GABAPENTIN] Allergy Severe TREMORS Verified 12/22/21 08:55 morphine Allergy Severe BLACKED-OUT, Verified 12/22/21 08:55 CRAZY cephalexin [Keflex] Allergy Unknown Unknown Verified 12/22/21 08:55 diltiazem [Cardizem] Allergy Unknown Unknown Verified 12/22/21 08:55 Penicillins [PENICILLINS] Allergy Unknown Unknown Verified 12/22/21 08:55 pecan nut [PECAN] AdvReac Severe Anaphylaxis Verified 12/22/21 08:55 Lescol XL Allergy Severe Joint Pain Uncoded 11/26/21 11:01 peanuts Allergy Unknown Unknown Uncoded 11/26/21 11:01 Active Medications: Current Medications Acetaminophen (Acetaminophen 325 Mg Tablet) 650 mg PO Q6H PRN PRN Reason: Pain, Mild (Pain Scale 1-3) Albuterol Sulfate (Albuterol Sulfate 90 Mcg 8 Gm Inhaler) 2 puff INHALE Q4H PRN PRN Reason: shortness of breath or wheezing Amlodipine Besylate (Amlodipine Besylate 10 Mg Tablet) 10 mg PO DAILY [facility]; Protocol Last Admin: 01/01/22 08:25 Dose: 10 mg Documented by: Clonidine HCl (Clonidine Hcl 0.2 Mg Tablet) 0.4 mg PO BID@0400,1700 [facility]; Protocol Last Admin: 01/01/22 04:26 Dose: 0.4 mg Documented by: Dextrose (Dextrose 50 % 25 Gm/50 Ml Vial) 25 gm IVPUSH Q15M PRN; Protocol PRN Reason: per Hypoglycemia Standing Ord. Diphenoxylate HCl/Atropine (Diphenoxylate/Atrop 2.5/0.025 Tablet) 3 tab PO BID PRN PRN Reason: Spasms Docusate Sodium (Docusate Sodium 100 Mg Capsule) 100 mg PO DAILY PRN PRN Reason: Constipation Ezetimibe (Ezetimibe 10 Mg Tablet) 10 mg PO DAILY [facility] Last Admin: 01/01/22 08:25 Dose: 10 mg Documented by: Enoxaparin Sodium (Enoxaparin Sodium 40 Mg/0.4 Ml Syringe) 40 mg SUBCUT Q24H [facility] Last Admin: 01/01/22 00:05 Dose: 40 mg Documented by: Fluticasone Propionate (Fluticasone Propionate Nasal 16 Gm [place]) 2 spray NOSTRIL-B DAILY [facility] Last Admin: 01/01/22 08:27 Dose: 2 spray Documented by: Furosemide (Furosemide 20 Mg Tablet) 20 mg PO BID@0400,1700 [facility]; Protocol Last Admin: 01/01/22 04:26 Dose: 20 mg Documented by: Glucose (Glucose Gel 15 Gm Gel..Gram.) 15 gm PO Q15M PRN; Protocol PRN Reason: per Hypoglycemia Standing Ord. Hydromorphone HCl (Hydromorphone Hcl 1 Mg/Ml Syringe) 0.5 mg IVPUSH Q4H PRN; Protocol PRN Reason: Pain, Severe (Pain Scale 7-10) Last Admin: 01/01/22 14:18 Dose: 0.5 mg Documented by: Lactated Ringer's (Lr) 1,000 mls @ 100 mls/hr IVCONT .Q10H [facility] Last Infusion: 01/01/22 15:46 Dose: 0 mls/hr Documented by: Meropenem 1 gm/ Sodium (Chloride) 100 mls @ 200 mls/hr IV Q8H [facility] Last Infusion: 01/01/22 11:32 Dose: Infused Documented by: Insulin Glargine (Insulin Glargine,Hum.Rec.Anlog 100 Unit/Ml 10 Ml Vial) 8 unit SUBCUT DAILY [facility] Last Admin: 01/01/22 08:24 Dose: 8 unit Documented by: Insulin Human Lispro (Insulin Lispro 100 Unit/Ml 3 Ml Vial) 0 unit SUBCUT QIDACHS [facility]; Protocol Last Admin: 01/01/22 11:28 Dose: 4 unit Documented by: Lamotrigine (Lamotrigine 25 Mg Tablet) 75 mg PO BID@0400,1700 [facility] Last Admin: 01/01/22 04:26 Dose: 75 mg Documented by: Levetiracetam (Levetiracetam 500 Mg Tablet) 500 mg PO BID@0400,1700 [facility] Last Admin: 01/01/22 04:27 Dose: 500 mg Documented by: Ondansetron HCl (Ondansetron Hcl 4 Mg/2 Ml Vial) 4 mg IVPUSH Q8H PRN PRN Reason: Nausea and Vomiting Paroxetine HCl (Paroxetine Hcl 20 Mg Tablet) 20 mg PO DAILY [facility] Last Admin: 01/01/22 08:25 Dose: 20 mg Documented by: Phenazopyridine HCl (Phenazopyridine Hcl 200 Mg Tablet) 200 mg PO BIDWM [facility] Stop: 01/02/22 17:01 Last Admin: 01/01/22 11:34 Dose: 200 mg Documented by: Sodium Chloride (0.9 % Sodium Chloride Flush 3 Ml Syringe) 3 ml IVFLUSH QSHIFT [facility] Last Admin: 01/01/22 08:27 Dose: Not Given Documented by: Tamsulosin HCl (Tamsulosin Hcl 0.4 Mg Capsule) 0.8 mg PO DAILY [facility] Last Admin: 01/01/22 08:26 Dose: 0.8 mg Documented by: Valsartan (Valsartan 80 Mg Tablet) 80 mg PO DAILY [facility]; Protocol Last Admin: 01/01/22 08:26 Dose: 80 mg Documented by: Home Medications Medication Instructions Recorded Confirmed Last Taken Type blood sugar diagnostic #10 ea 09/08/20 12/31/21 Unknown History clonidine HCl 0.2 mg tablet 0.4 mg PO BID 09/08/20 12/31/21 05/18/21 History furosemide 20 mg tablet 20 mg PO BID 09/08/20 12/31/21 05/18/21 History levetiracetam 500 mg tablet 500 mg PO BID 09/08/20 12/31/21 Unknown History pen needle, diabetic 32 gauge x #50 ea 09/08/20 12/31/21 Unknown History diphenoxylate-atropine 2.5 3 tab PO BID PRN 12/09/20 12/31/21 Unknown History mg-0.025 mg tablet lamotrigine 25 mg tablet 75 mg PO BID 12/09/20 12/31/21 Unknown History paroxetine HCl 20 mg tablet 20 mg PO DAILY 12/09/20 12/31/21 Unknown History amlodipine 10 mg tablet 10 mg PO DAILY 04/02/21 12/31/21 05/18/21 History valsartan 80 mg tablet 80 mg PO DAILY 04/02/21 12/31/21 Unknown History insulin glargine U-300 conc 300 12 unit SUBCUT DAILY 05/13/21 12/31/21 Unknown History unit/mL (1.5 mL) subcutaneous pen (Toujeo SoloStar U-300 Insulin) insulin lispro 100 unit/mL 0 sliding scale dose SUBCUT QIDACHS 05/13/21 12/31/21 Unknown History subcutaneous pen (Humalog KwikPen (U-100) Insulin) fluticasone fur. 100 mcg-umeclid 1 puff PO DAILY 08/24/21 12/31/21 Unknown History 62.5 mcg-vilant 25 mcg inhalat.powder (Trelegy Ellipta) fluticasone propionate 50 2 spray INTRANASAL QAM 08/24/21 12/31/21 Unknown History mcg/actuation nasal spray,suspension esomeprazole magnesium 20 mg 40 mg PO DAILY 12/31/21 12/31/21 Unknown History capsule,delayed release (Nexium) Physical Exam Vital Signs: Vital Signs: Last Vital Signs Temp 97 F 01/01/22 11:11 Pulse 65 01/01/22 11:11 Resp 18 01/01/22 11:11 BP 123/56 L 01/01/22 11:11 Pulse Ox 95 01/01/22 11:11 BMI result Body Mass Index 30.0 Const: General: cooperative, healthy appearing, comfortable and no acute distress Orientation/consciousness: patient oriented x3 HEENT: Face and sinus: Yes normal facial exam Mouth: moist mucous membranes Neck: Neck: Yes normal visual inspection, Yes full ROM and Yes trachea midline Chest: Chest palpation & inspection: normal inspection of the chest Resp: Effort & Inspection: normal respiratory effort, able to speak in complete sentences and no respiratory distress GI: Inspection: Yes normal to inspection Back/Spine/Pelvis: Cervical Spine: normal cervical lordosis Thoracic/Lumbar Spine: thoracic and lumbar spine normal to inspection Skin: General skin exam: no rashes or lesions noted Neuro: General: patient oriented x3, tone normal and moves all extremities Extrem: General: Yes normal to inspection and Yes capillary refill normal Results Labs Result diagrams: 01/01/22 05:37 01/01/22 05:37 Labs: Abnormal lab results 12/31/21 12/31/21 01/01/22 Range/Units 16:13 19:36 05:37 RBC 3.29 L (4.60-5.80) X10*6/uL Hgb 9.7 L (14.0-18.0) g/dl Hct 29.0 L (42.0-52.0) % MPV 8.4 L (9.4-12.4) fL POC Glucose 185 H 167 H (60-115) mg/dL Random Glucose (60-115) mg/dL 01/01/22 01/01/22 01/01/22 Range/Units 05:37 06:57 11:11 RBC (4.60-5.80) X10*6/uL Hgb (14.0-18.0) g/dl Hct (42.0-52.0) % MPV (9.4-12.4) fL POC Glucose 143 H 204 H (60-115) mg/dL Random Glucose 147 H D (60-115) mg/dL Short CBC 01/01/22 Range/Units 05:37 WBC 5.9 (4.8-10.8) X10*3/uL Hgb 9.7 L (14.0-18.0) g/dl Hct 29.0 L (42.0-52.0) % Plt Count 211 (160-400) X10*3/uL BMP 01/01/22 05:37 Sodium 139 Potassium 3.6 Chloride 104 Carbon Dioxide 26 BUN 9 Creatinine 1.06 Calcium 8.7 Urine 12/30/21 Range/Units 20:15 Urine Color YELLOW Urine Appearance HAZY Urine pH 6.0 (5.0-8.0) Ur Specific [place] 1.020 (1.005-1.025) Urine Protein TRACE (NEG-TRACE) MG/DL Urine Glucose (UA) 100 H (NEG) MG/DL All other labs normal. Assessment and Plan (1) Acute urinary retention: Status: Acute Plan Leave catheter for 2 weeks while receiving ertapenem Procedures Date of Service Date of Service: 01/01/22
[2022-01-01 16:13] VITALS: BP 182/77; PULSE 81; RESP 18; TEMP 36.6; O2SAT 97
[2022-01-01 16:23] LABS: Glucose, Whole Blood 154 mg/dL (60-115)
[2022-01-01] MEDS: 0.9 % Sodium Chloride Flush 3 ML SYRINGE IVFLUSH (16:36)
[2022-01-01 19:37] VITALS: BP 104/58; PULSE 79; RESP 18; TEMP 36.2; O2SAT 96
[2022-01-01 19:52] LABS: Glucose, Whole Blood 131 mg/dL (60-115)
[2022-01-01 23:59] VITALS: BP 126/58; PULSE 69; RESP 18; TEMP 36.1; O2SAT 97
[2022-01-02] VITALS (7 sets, daily range): BP systolic 117–158; BP diastolic 56–70; PULSE 62–78; RESP 16–20; TEMP 36.1–36.6; O2SAT 91–96
[2022-01-02] MEDS: Enoxaparin Sodium 40 MG/0.4 ML SYRINGE SUBCUT (00:38)
[2022-01-02] MEDS: Furosemide 20 MG TABLET PO ×2 (03:31→16:23)
[2022-01-02] MEDS: cloNIDine HCL 0.2 MG TABLET 0.4 MG PO ×2 (03:32→16:23)
[2022-01-02] MEDS: lamoTRIgine 25 MG TABLET 75 MG PO ×2 (03:32→16:23)
[2022-01-02] MEDS: levETIRAcetam 500 MG TABLET PO ×2 (03:32→16:23)
[2022-01-02] MEDS: Lactated Ringers 1,000 ML 100 ML IVCONT (03:37)
[2022-01-02 07:08] LABS: Glucose, Whole Blood 139 mg/dL (60-115)
[2022-01-02 07:13] LABS: Anion Gap 12 (12-20); Blood Urea Nitrogen 9 mg/dL (9-16); Calcium 8.2 mg/dL (8.4-10.2); Carbon Dioxide 26 mmol/L (22-29); Chloride 106 mmol/L (96-108); Creatinine Clr Calc Pharmacy 64.5; Estimated Glomerular Filt Rate > 60; Glucose Random 145 mg/dL (60-115); Sodium 140 mmol/L (135-145)
[2022-01-02] MEDS: PARoxetine HCL 20 MG TABLET PO (08:44)
[2022-01-02] MEDS: amLODIPine Besylate 10 MG TABLET PO (08:45)
[2022-01-02] MEDS: Phenazopyridine HCL 200 MG TABLET PO ×2 (08:45→16:24)
[2022-01-02] MEDS: Valsartan 80 MG TABLET PO (08:45)
[2022-01-02] MEDS: Tamsulosin HCL 0.4 MG CAPSULE 0.8 MG PO (08:46)
[2022-01-02] MEDS: Heparin Sodium,Porcine Flush 50 UNITS, 0.9 % Sodium Chloride Flush 5 ML IVFLUSH ×3 (08:46→20:28)
[2022-01-02] MEDS: Fluticasone Propionate Nasal 16 GM SPRAY 2 SPRAY NOSTRIL-B (08:47)
[2022-01-02] MEDS: Ezetimibe 10 MG TABLET PO (08:47)
[2022-01-02] MEDS: Insulin Glargine,Hum.rec.anlog 100 UNIT/ML 10 ML VIAL 8 UNIT SUBCUT (08:48)
[2022-01-02] MEDS: 0.9 % Sodium Chloride Flush 3 ML SYRINGE IVFLUSH (08:48)
[2022-01-02] MEDS: HYDROmorphone HCl 1 MG/ML SYRINGE 0.5 MG IVPUSH ×2 (08:54→13:50)
[2022-01-02 11:22] LABS: Glucose, Whole Blood 161 mg/dL (60-115)
--- NOTE | 2022-01-02 12:02 | P.PNIM_ITS ---
Subjective Subjective Date of Service: 01/02/22 Interval History: Seen and evaluated this morning Feels comfortable, feeling improvement today improvement burning sensation with urine Denies any chest pain, fever or chills No reported other overnight events Review of Systems No fever, chills No chest pain, palpitation No shortness of breath or coughing No abdominal pain, nausea or vomiting Report burning urination No any rash or wounds Physical Exam Vital Signs: Vital Signs: Last Vital Signs Temp 97 F 01/02/22 11:12 Pulse 64 01/02/22 11:12 Resp 20 01/02/22 11:12 BP 132/59 L 01/02/22 11:12 Pulse Ox 96 01/02/22 11:12 BMI result Body Mass Index 30.0 Const: Other: Constitutional : Alert, oriented, not in distress Neck : Normal inspection, Supple Cardiovascular : RRR, S1 S2, no lower extremity edema Respiratory : Good bilateral air entry, no crackles, wheezes or rhonchi Gastrointestinal: soft, lax, Normal bowel sounds, Non tender Skin : Warm, Dry, Barkley catheter in place Neurological : Alert & oriented x3, No focal deficit Objective Data Active Medications Acetaminophen (Acetaminophen 325 Mg Tablet) 650 mg PO Q6H PRN PRN Reason: Pain, Mild (Pain Scale 1-3) Albuterol Sulfate (Albuterol Sulfate 90 Mcg 8 Gm Inhaler) 2 puff INHALE Q4H PRN PRN Reason: shortness of breath or wheezing Albuterol Sulfate (Albuterol Sulfate 90 Mcg 8 Gm Inhaler) 2 puff INHALE RQ4H PRN PRN Reason: Shortness of Breath/Wheezing Amlodipine Besylate (Amlodipine Besylate 10 Mg Tablet) 10 mg PO DAILY [facility]; Protocol Last Admin: 01/02/22 08:45 Dose: 10 mg Documented by: DANTE Clonidine HCl (Clonidine Hcl 0.2 Mg Tablet) 0.4 mg PO BID@0400,1700 [facility]; Protocol Last Admin: 01/02/22 03:32 Dose: 0.4 mg Documented by: FAUSTO Heparin Sodium (Porcine) 50 (units/ Sodium Chloride 5 ml) 0 units IVFLUSH TID [facility] Last Admin: 01/02/22 08:46 Dose: 50 unit Documented by: DANTE Dextrose (Dextrose 50 % 25 Gm/50 Ml Vial) 25 gm IVPUSH Q15M PRN; Protocol PRN Reason: per Hypoglycemia Standing Ord. Diphenoxylate HCl/Atropine (Diphenoxylate/Atrop 2.5/0.025 Tablet) 3 tab PO BID PRN PRN Reason: Spasms Docusate Sodium (Docusate Sodium 100 Mg Capsule) 100 mg PO DAILY PRN PRN Reason: Constipation Ezetimibe (Ezetimibe 10 Mg Tablet) 10 mg PO DAILY [facility] Last Admin: 01/02/22 08:47 Dose: 10 mg Documented by: DANTE Enoxaparin Sodium (Enoxaparin Sodium 40 Mg/0.4 Ml Syringe) 40 mg SUBCUT Q24H [facility] Last Admin: 01/02/22 00:38 Dose: 40 mg Documented by: FAUSTO Fluticasone Propionate (Fluticasone Propionate Nasal 16 Gm [place]) 2 spray NOSTRIL-B DAILY [facility] Last Admin: 01/02/22 08:47 Dose: 1 spray Documented by: DANTE Furosemide (Furosemide 20 Mg Tablet) 20 mg PO BID@0400,1700 [facility]; Protocol Last Admin: 01/02/22 03:31 Dose: 20 mg Documented by: FAUSTO Glucose (Glucose Gel 15 Gm Gel..Gram.) 15 gm PO Q15M PRN; Protocol PRN Reason: per Hypoglycemia Standing Ord. Hydromorphone HCl (Hydromorphone Hcl 1 Mg/Ml Syringe) 0.5 mg IVPUSH Q4H PRN; Protocol PRN Reason: Pain, Severe (Pain Scale 7-10) Last Admin: 01/02/22 08:54 Dose: 0.5 mg Documented by: DANTE Meropenem 1 gm/ Sodium (Chloride) 100 mls @ 200 mls/hr IV Q8H [facility] Last Admin: 01/02/22 11:04 Dose: 200 mls/hr Documented by: DANTE Insulin Glargine (Insulin Glargine,Hum.Rec.Anlog 100 Unit/Ml 10 Ml Vial) 8 unit SUBCUT DAILY [facility] Last Admin: 01/02/22 08:48 Dose: 8 unit Documented by: DANTE Insulin Human Lispro (Insulin Lispro 100 Unit/Ml 3 Ml Vial) 0 unit SUBCUT QIDACHS [facility]; Protocol Last Admin: 01/02/22 07:16 Dose: Not Given Documented by: DANTE Non-Admin Reason: No Insulin Coverage Lamotrigine (Lamotrigine 25 Mg Tablet) 75 mg PO BID@0400,1700 [facility] Last Admin: 01/02/22 03:32 Dose: 75 mg Documented by: FAUSTO Levetiracetam (Levetiracetam 500 Mg Tablet) 500 mg PO BID@0400,1700 [facility] Last Admin: 01/02/22 03:32 Dose: 500 mg Documented by: FAUSTO Ondansetron HCl (Ondansetron Hcl 4 Mg/2 Ml Vial) 4 mg IVPUSH Q8H PRN PRN Reason: Nausea and Vomiting Paroxetine HCl (Paroxetine Hcl 20 Mg Tablet) 20 mg PO DAILY [facility] Last Admin: 01/02/22 08:44 Dose: 20 mg Documented by: DANTE Phenazopyridine HCl (Phenazopyridine Hcl 200 Mg Tablet) 200 mg PO BIDWM [facility] Stop: 01/02/22 17:01 Last Admin: 01/02/22 08:45 Dose: 200 mg Documented by: DANTE Sodium Chloride (0.9 % Sodium Chloride Flush 3 Ml Syringe) 3 ml IVFLUSH QSHIFT [facility] Last Admin: 01/02/22 08:48 Dose: 3 ml Documented by: DANTE Tamsulosin HCl (Tamsulosin Hcl 0.4 Mg Capsule) 0.8 mg PO DAILY [facility] Last Admin: 01/02/22 08:46 Dose: 0.8 mg Documented by: DANTE Valsartan (Valsartan 80 Mg Tablet) 80 mg PO DAILY [facility]; Protocol Last Admin: 01/02/22 08:45 Dose: 80 mg Documented by: DANTE Labs CBC & Chem 7: 01/01/22 05:37 01/02/22 05:55 Labs: Laboratory Results - last 24 hr 01/01/22 01/01/22 01/02/22 16:18 19:39 05:55 Anion Gap 12 Estim Creat Clear Calc 64.5 Estimated GFR > 60 POC Glucose 154 H 131 H Random Glucose 145 H Calcium 8.2 L 01/02/22 01/02/22 06:55 11:12 Anion Gap Estim Creat Clear Calc Estimated GFR POC Glucose 139 H 161 H Random Glucose Calcium Microbiology Microbiology Results: Microbiology 12/30/21 20:25 Urine Culture - Final Urine clean catch - Urine castellanos top Escherichia coli Assessment and Plan (1) Acute urinary retention: Status: Acute (2) Acute UTI: Status: Acute (3) Sepsis: Status: Acute Plan 76-year-old male with past medical history of prostate cancer status post radiation presents to the hospital with complaints of urinary retention, dysuria, found to be septic with acute UTI # sepsis, resolved # secondary to UTI DC IV fluids Urine culture growing GNR, previous CX showed ESBL E coli has had multiple outpatient therapies with no success Continue meropenem D2 Id input appreciated, total 2 weeks of ertapenem #lactic acidosis Secondary to sepsis, resolved # acute urinary retention secondary to UTI and history of prostate CA Barkley catheter in place Started on tamsulosin urology consulted, to follow up in office in 2 weeks # diabetes low-dose sign scale insulin, continue to prison diabetic diet DVT PPX Lovenox patient will need overnight hospital stay for treatment of UTI, urinary retention pending final blood culture given his high chance of decompensation. Quality Stroke Does the patient have a stroke diagnosis?: No VTE Prior VTE?: No VTE Risk Level:: Medical - moderate - high VTE Device Contraindication: Treatment Not Indicated VTE Drug Contraindication: N/A - Med Ordered
[2022-01-02] MEDS: Insulin Lispro 100 UNIT/ML 3 ML VIAL SUBCUT (12:46)
[2022-01-02] MEDS: Diphenoxylate/Atrop 2.5/0.025 TABLET 3 TAB PO (14:06)
[2022-01-02 15:47] LABS: Glucose, Whole Blood 131 mg/dL (60-115)
--- NOTE | 2022-01-02 16:02 | MHC.CM.PN ---
PER PTS NURSE AND ID NOTE, PT WILL NEED 14 DAYS OF IV ERTAPENEM AT DC. REFERRALS MADE TO [facility]
[2022-01-02 20:26] LABS: Glucose, Whole Blood 155 mg/dL (60-115)
[2022-01-03] MEDS: 0.9 % Sodium Chloride Flush 3 ML SYRINGE IVFLUSH ×2 (00:44→09:07)
[2022-01-03] MEDS: Enoxaparin Sodium 40 MG/0.4 ML SYRINGE SUBCUT (00:44)
[2022-01-03] MEDS: levETIRAcetam 500 MG TABLET PO ×2 (03:21→17:06)
[2022-01-03] MEDS: Furosemide 20 MG TABLET PO ×2 (03:21→17:07)
[2022-01-03] MEDS: cloNIDine HCL 0.2 MG TABLET 0.4 MG PO ×2 (03:21→17:07)
[2022-01-03] MEDS: lamoTRIgine 25 MG TABLET 75 MG PO ×2 (03:21→17:06)
[2022-01-03 04:00] VITALS: BP 142/67; PULSE 69; RESP 20; TEMP 36.3; O2SAT 92
[2022-01-03 07:03] VITALS: BP 146/66; PULSE 67; RESP 20; TEMP 36; O2SAT 95
[2022-01-03 08:48] LABS: Glucose, Whole Blood 149 mg/dL (60-115)
[2022-01-03] MEDS: PARoxetine HCL 20 MG TABLET PO (09:07)
[2022-01-03] MEDS: amLODIPine Besylate 10 MG TABLET PO (09:07)
[2022-01-03] MEDS: Tamsulosin HCL 0.4 MG CAPSULE 0.8 MG PO (09:08)
[2022-01-03] MEDS: Valsartan 80 MG TABLET PO (09:08)
[2022-01-03] MEDS: Insulin Glargine,Hum.rec.anlog 100 UNIT/ML 10 ML VIAL 8 UNIT SUBCUT (09:08)
[2022-01-03] MEDS: Ezetimibe 10 MG TABLET PO (09:08)
[2022-01-03] MEDS: Fluticasone Propionate Nasal 16 GM SPRAY 2 SPRAY NOSTRIL-B (09:11)
[2022-01-03] MEDS: HYDROmorphone HCl 1 MG/ML SYRINGE 0.5 MG IVPUSH (09:30)
[2022-01-03] MEDS: Cyclobenzaprine HCl 5 MG TABLET PO ×3 (11:03→21:56)
[2022-01-03 11:04] VITALS: BP 108/57; PULSE 76; RESP 19; TEMP 35.5; O2SAT 95
[2022-01-03] MEDS: Ketorolac Tromethamine 15 MG/ML VIAL IVPUSH (11:05)
[2022-01-03 11:11] LABS: Glucose, Whole Blood 128 mg/dL (60-115)
[2022-01-03] MEDS: Heparin Sodium,Porcine Flush 50 UNITS, 0.9 % Sodium Chloride Flush 5 ML IVFLUSH ×3 (12:22→21:56)
--- NOTE | 2022-01-03 12:32 | P.PNIM_ITS ---
Subjective Subjective Date of Service: 01/03/22 Interval History: Seen and evaluated this morning Feels comfortable, reporting episodes of pain in his bladder Right lower extremity pain at the bottom of the foot. Denies any chest pain, fever or chills No reported other overnight events Review of Systems No fever, chills No chest pain, palpitation No shortness of breath or coughing No abdominal pain, nausea or vomiting Report burning urination No any rash or wounds Physical Exam Vital Signs: Vital Signs: Last Vital Signs Temp 96 F L 01/03/22 11:04 Pulse 76 01/03/22 11:04 Resp 19 01/03/22 11:04 BP 108/57 L 01/03/22 11:04 Pulse Ox 95 01/03/22 11:04 BMI result Body Mass Index 30.0 Const: Other: Constitutional : Alert, oriented, not in distress Neck : Normal inspection, Supple Cardiovascular : RRR, S1 S2, no lower extremity edema Respiratory : Good bilateral air entry, no crackles, wheezes or rhonchi Gastrointestinal: soft, lax, Normal bowel sounds, Non tender Skin : Warm, Dry, Barkley catheter in place Extremities: Bottom of right foot tenderness with palpation with no erythema or wounds Neurological : Alert & oriented x3, No focal deficit Objective Data Active Medications Acetaminophen (Acetaminophen 325 Mg Tablet) 650 mg PO Q6H PRN PRN Reason: Pain, Mild (Pain Scale 1-3) Albuterol Sulfate (Albuterol Sulfate 90 Mcg 8 Gm Inhaler) 2 puff INHALE Q4H PRN PRN Reason: shortness of breath or wheezing Albuterol Sulfate (Albuterol Sulfate 90 Mcg 8 Gm Inhaler) 2 puff INHALE RQ4H PRN PRN Reason: Shortness of Breath/Wheezing Amlodipine Besylate (Amlodipine Besylate 10 Mg Tablet) 10 mg PO DAILY ON LICENSE OF [facility]; Protocol Last Admin: 01/03/22 09:07 Dose: 10 mg Documented by: DANTE Clonidine HCl (Clonidine Hcl 0.2 Mg Tablet) 0.4 mg PO BID@0400,1700 ON LICENSE OF [facility]; Protocol Last Admin: 01/03/22 03:21 Dose: 0.4 mg Documented by: FAUSTO Heparin Sodium (Porcine) 50 (units/ Sodium Chloride 5 ml) 0 units IVFLUSH TID ON LICENSE OF [facility] Last Admin: 01/03/22 12:22 Dose: 50 unit Documented by: DANTE Cyclobenzaprine HCl (Cyclobenzaprine Hcl 5 Mg Tablet) 5 mg PO TID ON LICENSE OF [facility] Last Admin: 01/03/22 11:03 Dose: 5 mg Documented by: DANTE Dextrose (Dextrose 50 % 25 Gm/50 Ml Vial) 25 gm IVPUSH Q15M PRN; Protocol PRN Reason: per Hypoglycemia Standing Ord. Diphenoxylate HCl/Atropine (Diphenoxylate/Atrop 2.5/0.025 Tablet) 3 tab PO BID PRN PRN Reason: Spasms Last Admin: 01/02/22 14:06 Dose: 3 tab Documented by: DANTE Docusate Sodium (Docusate Sodium 100 Mg Capsule) 100 mg PO DAILY PRN PRN Reason: Constipation Ezetimibe (Ezetimibe 10 Mg Tablet) 10 mg PO DAILY ON LICENSE OF [facility] Last Admin: 01/03/22 09:08 Dose: 10 mg Documented by: DANTE Enoxaparin Sodium (Enoxaparin Sodium 40 Mg/0.4 Ml Syringe) 40 mg SUBCUT Q24H ON LICENSE OF [facility] Last Admin: 01/03/22 00:44 Dose: 40 mg Documented by: FAUSTO Fluticasone Propionate (Fluticasone Propionate Nasal 16 Gm [place]) 2 spray NOSTRIL-B DAILY ON LICENSE OF [facility] Last Admin: 01/03/22 09:11 Dose: 2 spray Documented by: DANTE Furosemide (Furosemide 20 Mg Tablet) 20 mg PO BID@0400,1700 ON LICENSE OF [facility]; Protocol Last Admin: 01/03/22 03:21 Dose: 20 mg Documented by: FAUSTO Glucose (Glucose Gel 15 Gm Gel..Gram.) 15 gm PO Q15M PRN; Protocol PRN Reason: per Hypoglycemia Standing Ord. Hydromorphone HCl (Hydromorphone Hcl 1 Mg/Ml Syringe) 0.5 mg IVPUSH Q4H PRN; Protocol PRN Reason: Pain, Severe (Pain Scale 7-10) Last Admin: 01/03/22 09:30 Dose: 0.5 mg Documented by: DANTE Meropenem 1 gm/ Sodium (Chloride) 100 mls @ 200 mls/hr IV Q8H ON LICENSE OF [facility] Last Admin: 01/03/22 11:05 Dose: 200 mls/hr Documented by: DANTE Insulin Glargine (Insulin Glargine,Hum.Rec.Anlog 100 Unit/Ml 10 Ml Vial) 8 unit SUBCUT DAILY ON LICENSE OF [facility] Last Admin: 01/03/22 09:08 Dose: 8 unit Documented by: DANTE Insulin Human Lispro (Insulin Lispro 100 Unit/Ml 3 Ml Vial) 0 unit SUBCUT QIDACHS ON LICENSE OF [facility]; Protocol Last Admin: 01/03/22 11:12 Dose: Not Given Documented by: DANTE Non-Admin Reason: No Insulin Coverage Lamotrigine (Lamotrigine 25 Mg Tablet) 75 mg PO BID@0400,1700 ON LICENSE OF [facility] Last Admin: 01/03/22 03:21 Dose: 75 mg Documented by: FAUSTO Levetiracetam (Levetiracetam 500 Mg Tablet) 500 mg PO BID@0400,1700 ON LICENSE OF [facility] Last Admin: 01/03/22 03:21 Dose: 500 mg Documented by: FAUSTO Ondansetron HCl (Ondansetron Hcl 4 Mg/2 Ml Vial) 4 mg IVPUSH Q8H PRN PRN Reason: Nausea and Vomiting Paroxetine HCl (Paroxetine Hcl 20 Mg Tablet) 20 mg PO DAILY ON [facility] OF [facility] Last Admin: 01/03/22 09:07 Dose: 20 mg Documented by: DANTE Sodium Chloride (0.9 % Sodium Chloride Flush 3 Ml Syringe) 3 ml IVFLUSH QSHIFT ON LICENSE OF [facility] Last Admin: 01/03/22 09:07 Dose: 3 ml Documented by: DANTE Tamsulosin HCl (Tamsulosin Hcl 0.4 Mg Capsule) 0.8 mg PO DAILY ON LICENSE OF [facility] Last Admin: 01/03/22 09:08 Dose: 0.8 mg Documented by: DANTE Valsartan (Valsartan 80 Mg Tablet) 80 mg PO DAILY ON LICENSE OF [facility]; Protocol Last Admin: 01/03/22 09:08 Dose: 80 mg Documented by: DANTE Labs CBC & Chem 7: 01/01/22 05:37 01/02/22 05:55 Labs: Laboratory Results - last 24 hr 01/02/22 01/02/22 01/03/22 15:25 19:16 07:04 POC Glucose 131 H 155 H 149 H 01/03/22 11:04 POC Glucose 128 H Assessment and Plan (1) Acute urinary retention: Status: Acute (2) Acute UTI: Status: Acute Plan 76-year-old male with past medical history of prostate cancer status post radiation presents to the hospital with complaints of urinary retention, dysuria, found to be septic with acute UTI # sepsis, resolved # secondary to UTI DC IV fluids Urine culture growing GNR, previous CX showed ESBL E coli has had multiple outpatient therapies with no success Continue meropenem D3 Id input appreciated, total 2 weeks of ertapenem, to finish by January 14 # plantar fasciitis Secondary to decrease physical activity To give a dose of Toradol Physical therapy and ambulation # acute urinary retention secondary to UTI and history of prostate CA Barkley catheter in place Started on tamsulosin At oxybutynin for bladder spasm urology consulted, to follow up in office in 2 weeks # diabetes low-dose sign scale insulin, continue to prison diabetic diet DVT PPX Lovenox patient will need overnight hospital stay for treatment of UTI, urinary retention pending final blood culture given his high chance of decompensation. Pending safe discharge plan. Quality Stroke Does the patient have a stroke diagnosis?: No VTE Prior VTE?: No VTE Risk Level:: Medical - moderate - high VTE Device Contraindication: Treatment Not Indicated VTE Drug Contraindication: N/A - Med Ordered
[2022-01-03 15:38] VITALS: BP 124/60; PULSE 86; RESP 18; O2SAT 96
[2022-01-03 16:37] LABS: Glucose, Whole Blood 233 mg/dL (60-115)
[2022-01-03] MEDS: Insulin Lispro 100 UNIT/ML 3 ML VIAL SUBCUT (16:59)
[2022-01-03 19:35] VITALS: BP 133/61; PULSE 65; RESP 18; TEMP 36.6; O2SAT 93
[2022-01-03 19:49] LABS: Glucose, Whole Blood 123 mg/dL (60-115)
[2022-01-04] VITALS (7 sets, daily range): BP systolic 122–155; BP diastolic 60–76; PULSE 60–75; RESP 15–18; TEMP 36–37.1; O2SAT 94–98
[2022-01-04] MEDS: 0.9 % Sodium Chloride Flush 3 ML SYRINGE IVFLUSH ×2 (01:06→09:14)
[2022-01-04] MEDS: Enoxaparin Sodium 40 MG/0.4 ML SYRINGE SUBCUT (01:09)
[2022-01-04] MEDS: cloNIDine HCL 0.2 MG TABLET 0.4 MG PO ×2 (04:28→15:24)
[2022-01-04] MEDS: lamoTRIgine 25 MG TABLET 75 MG PO ×2 (04:28→15:24)
[2022-01-04] MEDS: levETIRAcetam 500 MG TABLET PO ×2 (04:28→15:23)
[2022-01-04] MEDS: Furosemide 20 MG TABLET PO ×2 (04:28→15:24)
[2022-01-04 07:47] LABS: Glucose, Whole Blood 118 mg/dL (60-115)
[2022-01-04] MEDS: Cyclobenzaprine HCl 5 MG TABLET PO ×2 (09:12→14:43)
[2022-01-04] MEDS: amLODIPine Besylate 10 MG TABLET PO (09:12)
[2022-01-04] MEDS: Valsartan 80 MG TABLET PO (09:13)
[2022-01-04] MEDS: Tamsulosin HCL 0.4 MG CAPSULE 0.8 MG PO (09:13)
[2022-01-04] MEDS: Ezetimibe 10 MG TABLET PO (09:13)
[2022-01-04] MEDS: PARoxetine HCL 20 MG TABLET PO (09:13)
[2022-01-04] MEDS: Insulin Glargine,Hum.rec.anlog 100 UNIT/ML 10 ML VIAL 8 UNIT SUBCUT (09:14)
[2022-01-04] MEDS: Fluticasone Propionate Nasal 16 GM SPRAY 2 SPRAY NOSTRIL-B (09:17)
[2022-01-04] MEDS: HYDROmorphone HCl 1 MG/ML SYRINGE 0.5 MG IVPUSH (09:38)
--- NOTE | 2022-01-04 10:29 | P.F2F_ITS ---
Service Date Service Date: 01/04/22 Encounter Date of encounter: 01/04/22 Reasons for Services Signs and symptoms assessed: Enterobacter UTI Urinary retention Reason for correction: medication treatment (Continue antibiotics for the next 10 days. Use flushes for the Barkley catheter and replace with 16 size if dislodged. To follow-up with Dr. Whiteside in the office in 2 weeks for Barkley catheter removal ) and teach disease management Homebound: Leaving the home is medically contraindicated at this time without the asist of a device and/or another person due th the listed conditions above and below. Reason homebound: other Certification: Based on the above findings, I certify that this patient is confined to the home and needs intermittent correction care, physical therapy and/or speech therapy, or continues to need occupational therapy. The patient is under my care, and I have initiated the establishment of the plan of care. The patient will be followed by a physician who will periodically review the plan of care.
--- NOTE | 2022-01-04 10:42 | P.DS_ITS ---
DS: Providers Provider Date of Service: 01/04/22 Date of admission: 12/30/21 23:03 Primary care physician: Luis Vega MD Consults: 12/30/21 22:57 Consult to Urology Routine Consulting Provider: Mike Whiteside Reason for consultation: UTI, urinary retention, possible cyst Has provider been notified: No 01/01/22 10:10 Consult to Infectious Diseases Stat Consulting Provider: Mitzy Lozano Reason for consultation: new meropenem order, ESBL+ urine culture on 12/01/21 DS: Diagnosis Discharge Diagnosis (1) Acute urinary retention: Status: Acute (2) Acute UTI: Status: Acute (3) Sepsis: Status: Acute (4) Plantar fasciitis: Status: Acute (5) Lactic acidosis: Status: Acute DS: Summary Hospital Course Hospital Course: Admission note HPI This is a 76-year-old male with past medical history of prostate cancer status post radiation therapy, hypertension, diabetes, hyperlipidemia, anxiety and depression who presents to the hospital with complaints of worsening urinary symptoms including dysuria, urgency, and urinary retention.? Patient reports that he had prostate biopsy back in June and few days later developed urinary symptoms that have never resolved ever since.? Patient reports that he was treated with Macrobid and various antibiotics multiple times with no resolution of his symptoms.? He has now developed urinary retention and is very concerned and presented with that complaint.? Patient reports urinary retention, burning on urination, suprapubic tenderness, no fever or chills, no abdominal pain, no nausea or vomiting, no diarrhea constipation, no lower extremity edema.? No shortness of breath or chest pain.? Patient reports that he was seen by Dr. Whiteside the urologist and was recently treated with Macrobid with no resolution of symptoms.? He reports that it is significantly painful to urinate at this time and the pain is 11/10 every time he tries to urinate. On arrival to the ED patient hemodynamically stable with heart rate of 110, respiratory rate of 25, blood pressure stable Labs are significant for WBC count of 9.3, hemoglobin of 9.7, hematocrit 28.7, lactic acid of 3.3, UA positive for nitrites, leukocyte Estrace, WBC.? Abdominal pelvic CT shows the urinary bladder is circumferentially thick-walled concerning for acute or chronic cystitis, 2.3x 2.0 x 2.6 cm high density material between the prostate and the rectum most likely represents space away are material placed before radiation therapy, but if no such device placed this could represent a fluid collection such as an abscess Given sepsis secondary to acute UTI and? failed outpatient therapy for UTI, positive UA, and significant intractable pain I anticipate a medically necessary to night in-patient admission for treatment and monitoring response.? This cannot be done outpatient given his sepsis as patient will do very poorly. Hospital course The patient was admitted to the hospital for treatment of sepsis secondary to UTI. Urine culture showed ESBL E coli that was treated with meropenem. Evaluated by infectious disease specialist who recommended total of 14 days of IV ertapenem. To be discharged home as a midline was placed with following VNA to continue with treatment at home. He was also noted to have urinary retention. Evaluated by Dr. Whiteside from Urology who recommended to keep the Barkley in for the next 2 weeks and to continue tamsulosin. Oxybutynin was also started for bladder spasm. To follow- up with urology in 2 weeks. He developed plantar fasciitis with pain in the bottom of his foot that responded well to an sees of Toradol. Asked to increase his physical activity after discharge from the hospital and to use as needed pain medication. To continue ertapenem to finish total of 14 days of antibiotics To follow-up with urology in 2 weeks to remove the Barkley catheter Continue tamsulosin as prescribed Time Spent with Patient Time attestation: Total time spent providing and/or coordinating discharge services: Discharge coordination time: Greater than 30 minutes Quality: Stroke Does the patient have a stroke diagnosis?: No Physical Exam Vital Signs: Vital Signs: Last Vital Signs Temp 98.4 F 01/04/22 07:53 Pulse 75 01/04/22 08:35 Resp 15 01/04/22 07:53 BP 130/65 01/04/22 08:35 Pulse Ox 94 01/04/22 08:35 BMI result Body Mass Index 30.0 Const: Other: Constitutional : Alert, oriented, not in distress Neck : Normal inspection, Supple Cardiovascular : RRR, S1 S2, no lower extremity edema Respiratory : Good bilateral air entry, no crackles, wheezes or rhonchi Gastrointestinal: soft, lax, Normal bowel sounds, Non tender Skin : Warm, Dry, Barkley catheter in place Extremities: Bottom of right foot tenderness with palpation with no erythema or wounds Neurological : Alert & oriented x3, No focal deficit DS: Data Data Completed and Pending Labs on day of discharge: Laboratory Results - last 24 hr 01/03/22 01/03/22 01/03/22 11:04 15:41 19:38 POC Glucose 128 H 233 H 123 H 01/04/22 07:30 POC Glucose 118 H Discharge Plan Discharge Patient Disposition: Home Health Service Discharge Diagnosis: ESBL E coli urine infection Urinary retention Referrals: Ab[facility] [Outside] - 1 Week Luis Vega MD [Primary Care Provider] - 1 Week Discharge Medications: New tamsulosin 0.4 mg Capsule 0.8 mg PO DAILY 30 Days Qty: 60 0RF oxybutynin chloride 5 mg Tablet Extended Release 24 Hr 5 mg PO DAILY 30 Days Qty: 30 0RF ertapenem 1 gram recon soln 1 g IV Q24H Qty: 10 0RF ketorolac 10 mg tablet 10 mg PO TID PRN (Reason: pain) 5 Days 0RF Continued (DME) pen needle, diabetic [BD Arlet 2nd Gen Pen Needle] 32 gauge x 5/32 needle See Rx Instructions .MEDSUPPLY Qty: 400 4RF Rx Instructions: 5 times a day (DME) FreeStyle Den 14 Day [place] Misc See Rx Instructions miscellaneous .MEDSUPPLY Qty: 1 0RF Rx Instructions: As directed ezetimibe 10 mg tablet 10 mg PO DAILY 90 Days Qty: 90 11RF metaxalone 800 mg tablet 800 mg PO TID PRN (Reason: muscle pain) 30 Days Qty: 90 12RF (DME) FreeStyle Den 14 Day Sensor Kit See Rx Instructions .MEDSUPPLY Qty: 2 11RF Rx Instructions: every 14 days (DME) FreeStyle Den 14 Day [place] Misc See Rx Instructions miscellaneous .MEDSUPPLY Qty: 1 0RF Rx Instructions: As directed albuterol sulfate [Ventolin HFA] 90 mcg/actuation HFA aerosol inhaler 2 puff inhalation Q4-6H PRN (Reason: shortness of breath or wheezing) 30 Days Qty: 1 6RF insulin lispro [Humalog KwikPen Insulin] 100 unit/mL insulin pen 0 sliding scale dose subcut QIDACHS 0RF Protocol: Insulin Correction Scale Less than or equal to 110 ---- Give (units): 0 111 to 150 Give (units): 0 151 to 200 Give (units): 2 201 to 250 Give (units): 4 251 to 300 Give (units): 6 301 to 350 Give (units): 8 Greater than 350 Give (units): 10 Call MD if Blood Glucose > : 350 Tojocelyn SoloStar U-300 Insulin 300 unit/mL (1.5 mL) insulin pen 12 unit subcut DAILY 0RF fluticasone propionate 50 mcg/actuation spray,suspension 2 spray intranasal QAM 0RF Trelegy Ellipta 100-62.5-25 mcg blister with device 1 puff PO DAILY 0RF esomeprazole magnesium [Nexium] 20 mg Capsule,Delayed Release(Dr/Ec) 40 mg PO DAILY 0RF Label Comments: Does not want omeprazole (DME) FreeStyle Precision Marcio Strips Strip See Rx Instructions .ROUTE .MEDSUPPLY Qty: 50 6RF Rx Instructions: Once a day for calibration amlodipine 10 mg tablet 10 mg PO DAILY 0RF valsartan 80 mg tablet 80 mg PO DAILY 0RF furosemide 20 mg tablet 20 mg PO BID 0RF clonidine HCl 0.2 mg tablet 0.4 mg PO BID 0RF levetiracetam 500 mg tablet 500 mg PO BID 0RF (DME) pen needle, diabetic 32 gauge x 5/32 needle See Rx Instructions ea .ROUTE .MEDSUPPLY Qty: 50 0RF Rx Instructions: As directed (DME) blood sugar diagnostic Strip See Rx Instructions strip .ROUTE .MEDSUPPLY Qty: 10 0RF Rx Instructions: As directed (DME) flash glucose sensor Kit See Rx Instructions ea topical Q2W Qty: 2 7RF Rx Instructions: Every 14 days paroxetine HCl 20 mg tablet 20 mg PO DAILY 0RF lamotrigine 25 mg tablet 75 mg PO BID 0RF diphenoxylate-atropine 2.5-0.025 mg tablet 3 tab PO BID PRN (Reason: Spasms) 0RF Baqsimi 3 mg/actuation spray,non-aerosol 3 mg intranasal .prn Qty: 2 3RF ipratropium-albuterol 0.5 mg-3 mg(2.5 mg base)/3 mL solution for nebulization 3 ml inhalation Q4-6H PRN (Reason: wheezing) 30 Days Qty: 180 6RF Discharge Orders: Discharge Order (Routine); Ordered 01/04/22 Ordered By: Fly Myers Diet: advance to usual diet Activity on Discharge: As tolerated Stand Alone Forms: Patient Portal Discharge page Care Plan Goals: Read below Health Concerns: Read below Plan of Treatment: Read below Assessment: You were admitted to the hospital for treatment of urinary tract infection and urinary retention. A Barkley catheter was placed in and you where treated with IV antibiotic as your urine culture grew resistant bacteria called E coli. Seen by infectious disease specialist with a plan to go back home on 14 days of IV antibiotics of ertapenem. You developed pain in your followed as a result of plantar facial itis that was controlled with pain medications. Continue ertapenem for the next 10 days Start tamsulosin for the enlarged prostate and oxybutynin for bladder spasm To follow-up with Dr. Whiteside in the office in 2 weeks for Barkley catheter removal Use Toradol as needed for the pain, can use other NSAIDs if Toradol pills not available. Patient Instructions: Barkley Catheter Placement and Care (GEN), Urinary Leg Bag (GEN)
--- NOTE | 2022-01-04 11:28 | MHC.CM.PN ---
PATIENT TOP RETURN HOME WITH [facility] AND [facility]. RN AND FAMILY AWARE OF PLAN. FAMILY TO PROVIDE TRANSPORTATION THIS AFTERNOON.
[2022-01-04 11:44] LABS: Glucose, Whole Blood 163 mg/dL (60-115)
[2022-01-04] MEDS: Insulin Lispro 100 UNIT/ML 3 ML VIAL SUBCUT (12:00)
[2022-01-04] MEDS: Ertapenem Sodium 1 GM in 0.9 % Sodium Chloride 50 ML IV (12:01)
[2022-01-04] MEDS: Ketorolac Tromethamine 15 MG/ML VIAL IVPUSH (12:01)
[2022-01-04] MEDS: Heparin Sodium,Porcine Flush 50 UNITS, 0.9 % Sodium Chloride Flush 5 ML IVFLUSH (12:02)
== END 2022-01-04 16:09 | disposition home health service (06) | DRG 720 ==
LOC: HO.ED 20:49 → HO.EDOVER 12-31 01:43 → HO.S3 12-31 15:03
PROVIDERS: Nurse Practitioner Family; Admitting Provider Internal Medicine; Emergency Provider Emergency Medicine; PCP Internal Medicine; Visit Provider Student in an Organized Health Care Education/Training Program
DX: A41.9 Sepsis, unspecified organism (principal); E11.42 Type 2 diabetes mellitus with diabetic polyneuropathy; C61 Malignant neoplasm of prostate; R33.8 Other retention of urine; M72.2 Plantar fascial fibromatosis; Z20.822 Contact with and (suspected) exposure to COVID-19; Z86.14 Personal history of Methicillin resistant Staphylococcus aureus infection; Z16.12 Extended spectrum beta lactamase (ESBL) resistance; Z87.442 Personal history of urinary calculi; Z87.891 Personal history of nicotine dependence; Z92.3 Personal history of irradiation; Z88.0 Allergy status to penicillin; Z88.5 Allergy status to narcotic agent; Z88.6 Allergy status to analgesic agent; Z79.4 Long term (current) use of insulin; Z79.01 Long term (current) use of anticoagulants; Z79.899 Other long term (current) drug therapy
CPT/HCPCS: 36410; 36415; 74177; 80048; 81001; 82947; 83605; 85025; 85027; 87086; 87088; 87186; 87635; 96365; 96375; 97116; 97163; 99285; J1170; J1335; J1642; J1650; J1885; J1956; J2060; J2185; J2405; Q9967

== ENCOUNTER 2022-01-11 13:48 | Outpatient (REF) | payer OTHER, MEDICARE, SELFPAY ==
[2022-01-11 14:48] LABS: Anion Gap 14 (12-20); Blood Urea Nitrogen 15 mg/dL (9-16); Calcium 9.3 mg/dL (8.4-10.2); Carbon Dioxide 27 mmol/L (22-29); Chloride 105 mmol/L (96-108); Estimated Glomerular Filt Rate > 60; Glucose Random 112 mg/dL (60-115); Potassium 3.5 mmol/L (3.3-5.1); Sodium 142 mmol/L (135-145)
== END 2022-01-11 13:49 | disposition home or self-care (01) ==
LOC: HO.LNP 13:48
PROVIDERS: Visit Provider Internal Medicine
DX: A41.51 Sepsis due to Escherichia coli [E. coli] (principal)
CPT/HCPCS: 80048

== ENCOUNTER → 2022-01-21 10:11 | Outpatient (BNVA) | payer OTHER, MEDICARE, SELFPAY | PROVIDERS: PCP Internal Medicine; Visit Provider Urology | DX: N40.1 Benign prostatic hyperplasia with lower urinary tract symptoms (principal); N13.8 Other obstructive and reflux uropathy; Z88.0 Allergy status to penicillin; Z88.6 Allergy status to analgesic agent; Z88.1 Allergy status to other antibiotic agents; Z91.018 Allergy to other foods | CPT/HCPCS: 51700; 51798 ==

== ENCOUNTER → 2022-02-05 09:30 | Outpatient (BNVA) | payer OTHER, MEDICARE, SELFPAY | PROVIDERS: PCP Internal Medicine; Visit Provider Urology | DX: Z13.89 Encounter for screening for other disorder (principal) ==

== ENCOUNTER → 2022-05-07 10:02 | Outpatient (BNVA) | payer OTHER, MEDICARE, SELFPAY | PROVIDERS: PCP Internal Medicine; Visit Provider Urology | DX: N40.1 Benign prostatic hyperplasia with lower urinary tract symptoms (principal); N13.8 Other obstructive and reflux uropathy; C61 Malignant neoplasm of prostate | CPT/HCPCS: 51798 ==

== ENCOUNTER 2022-07-29 13:13 | Outpatient (REF) | payer OTHER, MEDICARE, SELFPAY ==
[2022-07-29 17:29] LABS: Prostate Specific Antigen 0.28 ng/mL (<0.05-4.0)
== END 2022-07-29 13:14 | disposition home or self-care (01) ==
LOC: HO.HMGCLDS 13:13
PROVIDERS: PCP Internal Medicine; Visit Provider Radiology Radiation Oncology
DX: C61 Malignant neoplasm of prostate (principal)
CPT/HCPCS: 36415; 84153

== ENCOUNTER → 2022-08-05 09:10 | Outpatient (BNVA) | payer OTHER, MEDICARE, SELFPAY | PROVIDERS: PCP Internal Medicine; Visit Provider Internal Medicine Endocrinology, Diabetes & Metabolism | DX: E11.8 Type 2 diabetes mellitus with unspecified complications (principal) | CPT/HCPCS: 82947; 83036 ==

== ENCOUNTER 2022-09-13 14:08 | Outpatient (REF) | payer OTHER, MEDICARE, SELFPAY ==
--- NOTE | ~2022-09-13 | US_ITS ---
EXAMINATION: US THYROID CLINICAL INFORMATION: Pain in the left lateral neck. COMPARISON: None TECHNIQUE: Linear transducer grayscale and color Doppler examination with attention to the region of the thyroid. FINDINGS: SIZE: Measurements of the thyroid lobes and nodules are given in sagittal, anteroposterior and transverse dimensions respectively. Right Thyroid Lobe: 2.5 x 0.7 x 1.1 cm, volume 1.0 mL. Parenchyma: The gland echotexture is homogeneous. Thyroid vascularity is normal. Left Thyroid Lobe: 4.0 x 1.3 x 1.7 cm, volume 4.6 mL. Parenchyma: The gland echotexture is homogeneous. Thyroid vascularity is normal. Isthmus: 0.5 cm in maximum AP dimension. No focal thyroid nodule is seen. NODES: No lymphadenopathy is seen in the tissue surrounding the thyroid gland. US/US thyroid IMPRESSION: Small right lobe. No nodule or adenopathy is seen.
== END 2022-09-13 14:09 | disposition home or self-care (01) ==
LOC: HO.HMGCX 14:08
PROVIDERS: PCP Internal Medicine; Visit Provider Internal Medicine Medical Oncology
DX: M54.2 Cervicalgia (principal)
CPT/HCPCS: 76536

== ENCOUNTER 2022-12-02 14:37 | Outpatient (REF) | payer OTHER, MEDICARE, SELFPAY | END 2022-12-02 14:38 | disposition home or self-care (01) | LOC: HO.LNP 14:37 | PROVIDERS: Visit Provider Internal Medicine | DX: N30.90 Cystitis, unspecified without hematuria (principal) | CPT/HCPCS: 87086 ==

== ENCOUNTER 2023-01-20 14:45 | Emergency (ER) | payer OTHER, MEDICARE, SELFPAY ==
--- NOTE | ~2023-01-20 | XR_ITS ---
EXAMINATION: XR CHEST CLINICAL INFORMATION: Shortness of breath COMPARISON: October 13, [address] scan of May 11, 2021 TECHNIQUE: 2 views of the chest were obtained. FINDINGS: Heart normal size. No acute parenchymal disease identified. No pneumothorax or pleural effusion. No evidence of pulmonary edema. Prominent pericardial fat pad present. Patient status post impingement surgery distal right clavicle. There appears to be hiatal hernia present. 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 XR/XR chest 2V IMPRESSION: No acute disease.
--- NOTE | 2023-01-20 14:46 | ED.SOB ---
HPI - SOB/Dyspnea General Chief Complaint: Upper Respiratory Symptoms <Stephanie Osman NP - Last Filed: 01/20/23 14:49> Stated Complaint: SOB <Stephanie Osman NP - Last Filed: 01/20/23 14:49> Time Seen by Provider: 01/20/23 16:07 <Stephanie Osman NP - Last Filed: 01/20/23 14:49> Source: patient <Tarah Farrar MD - Last Filed: 01/20/23 19:40> Mode of arrival: ambulatory <Tarah Farrar MD - Last Filed: 01/20/23 19:40> Limitations: no limitations <Tarah Farrar MD - Last Filed: 01/20/23 19:40> History of Present Illness HPI Narrative: Patient Comes to the emergency room complaining shortness of breath. Patient states that he was playing golf and had a sudden onset of palpitations and shortness of breath. Patient states that he had no chest pain. Patient has had this episodes in the past, states that he has episodes of severe anxiety and PTSD and he thinks this is what happened. Earlier today, patient was very upset because there was some mistake at his banking account and he has been very worried about it. Patient then went to play golf and had an episode of severe anxiety. Patient states that he never had chest pain and at this time he feels completely asymptomatic. Patient requesting Ativan <Tarah Farrar MD - Last Filed: 01/20/23 19:40> Related Data Home Medications: Home Medications Medication Instructions Recorded Confirmed blood sugar diagnostic #10 ea 09/08/20 12/02/22 clonidine HCl 0.2 mg tablet 0.4 mg PO BID 09/08/20 12/13/22 furosemide 20 mg tablet 20 mg PO BID 09/08/20 12/13/22 levetiracetam 500 mg tablet 500 mg PO BID 09/08/20 12/13/22 diphenoxylate-atropine 2.5 3 tab PO BID PRN Spasms 12/09/20 12/13/22 mg-0.025 mg tablet (Lomotil) lamotrigine 25 mg tablet 75 mg PO BID 12/09/20 12/13/22 paroxetine HCl 20 mg tablet 20 mg PO DAILY 12/09/20 12/13/22 amlodipine 10 mg tablet 10 mg PO DAILY 04/02/21 12/13/22 valsartan 80 mg tablet 80 mg PO DAILY 04/02/21 12/13/22 esomeprazole magnesium 20 mg 40 mg PO DAILY 12/31/21 12/13/22 capsule,delayed release (Nexium) blood sugar diagnostic (FreeStyle 08/05/22 12/02/22 Lite Strips) blood-glucose meter (FreeStyle 08/05/22 12/02/22 Lite Meter kit) budesonide-formoterol HFA 160 2 puff inhalation BID 12/02/22 12/13/22 mcg-4.5 mcg/actuation aerosol inhaler (Symbicort) ezetimibe 10 mg tablet (Zetia) 10 mg PO DAILY 12/13/22 12/13/22 Previous Rx's Medication Instructions Recorded flash glucose sensor #2 ea 09/08/20 FreeStyle Den 14 Day [place] #1 ea 04/03/21 (flash glucose scanning reader) ipratropium 0.5 mg-albuterol 3 mg 3 ml inhalation Q4-6H PRN wheezing 12/17/21 (2.5 mg base)/3 mL nebulization 30 days #180 mL soln metaxalone 800 mg tablet 800 mg PO TID PRN muscle pain 30 05/26/22 days #90 tabs Ventolin HFA 90 mcg/actuation 2 puff inhalation Q4-6H PRN 08/10/22 aerosol inhaler (albuterol sulfate) shortness of breath or wheezing 30 days #1 ea FreeStyle Precision Marcio Strips #50 ea 08/27/22 (blood sugar diagnostic) flash glucose sensor (FreeStyle #2 ea 08/27/22 Den 14 Day Sensor kit) insulin glargine U-300 conc 300 12 unit (0.04 mL) subcut DAILY 08/27/22 unit/mL (1.5 mL) subcutaneous pen #4.5 mL (Toujeo SoloStar U-300 Insulin) insulin lispro 100 unit/mL 6 unit subcut .COMPLEX #15 mL 08/27/22 subcutaneous pen (Humalog KwikPen (U-100) Insulin) lancets 28 gauge (FreeStyle #100 ea 08/27/22 Lancets) pen needle, diabetic 32 gauge x #400 ea 08/27/2232 (BD Arlet 2nd Gen Pen Needle) doxycycline hyclate 100 mg tablet 100 mg PO BID 10 days #20 tabs 11/24/22 prednisone 10 mg tablet 40 mg PO DAILY 5 days #20 tabs 11/24/22 ciprofloxacin HCl 500 mg tablet 500 mg PO BID 5 days #10 tabs 12/02/22 cholecalciferol (vitamin D3) 50 50 mcg PO DAILY #90 tabs 12/13/22 mcg (2,000 unit) tablet (Vitamin D3) <Stephanie Osman NP - Last Filed: 01/20/23 14:49> Allergies/Adverse Reactions: Allergies Allergy/AdvReac Type Severity Reaction Status Date / Time amoxicillin [From AUGMENTIN] Allergy Severe Diarrhea, Verified 12/13/22 10:48 malaise celecoxib [Celebrex] Allergy Severe Malaise Verified 12/13/22 10:48 clavulanic acid Allergy Severe Diarrhea, Verified 12/13/22 10:48 [From AUGMENTIN] malaise gabapentin [GABAPENTIN] Allergy Severe TREMORS Verified 12/13/22 10:48 morphine Allergy Severe BLACKED-OUT, Verified 12/13/22 10:48 CRAZY cephalexin [Keflex] Allergy Unknown Unknown Verified 12/13/22 10:48 diltiazem [Cardizem] Allergy Unknown Unknown Verified 12/13/22 10:48 Penicillins [PENICILLINS] Allergy Unknown Unknown Verified 12/13/22 10:48 clindamycin Allergy Unconscious Verified 12/13/22 10:50 pecan nut [PECAN] AdvReac Severe Anaphylaxis Verified 12/13/22 10:48 erythromycin base AdvReac Vomiting Verified 12/13/22 10:50 Lescol XL Allergy Severe Joint Pain Uncoded 12/13/22 10:48 peanuts Allergy Unknown Unknown Uncoded 08/23/22 10:04 <Stephanie Osman NP - Last Filed: 01/20/23 14:49> Review of Systems Review of Systems: Constitutional : No Weight loss, No Fever, No Chills, No Night Sweats, No Fatigue, No Malaise ENT/Mouth : No Hearing loss, No Ear Pain, No Nasal Congestion, No Sinus Pain, No Hoarseness, No sore throat, No Rhinorrhea, No Swallowing Difficulty Eyes: No Eye Pain, No Swelling, No Redness, No Foreign Body, No Discharge, No Vision Changes Cardiovascular : No Chest Pain, No SOB, No Dyspnea on Exertion, No Orthopnea, No Edema, No Palpitations Respiratory : No Cough, No Sputum, No Wheezing, No Smoke Exposure, shortness of breath secondary to panic attack Gastrointestinal : No Nausea, No Vomiting, No Diarrhea, No Constipation, No abdominal Pain, No Hematochezia, No Melena Genitourinary : no irregular bleeding, No Dysuria, No Urinary Frequency, No Hematuria, No Urinary Incontinence, No Urgency, No Flank Pain, No Urinary Flow Changes, No Hesitancy Musculoskeletal : No joint pain, No Myalgias, No Joint Swelling Skin : No Skin Lesions, No rash Neuro : No Weakness, No Numbness, No Paresthesias, No Loss of Consciousness, No Dizziness, No Headache Psych : Patient had anxiety/panic attack earlier today, No Depression, No SI/HI/AH/VH, No Social Issues, Heme/Lymph: No Bruising, No Bleeding,No Lymphadenopathy Endocrine : No Polyuria, No Polydipsia, No Temperature Intolerance <Tarah Farrar MD - Last Filed: 01/20/23 19:40> [facility] Past Medical History Medical History: Medical History Anxiety and depression Arthritis B12 deficiency Diabetes type 2, controlled Diabetic polyneuropathy associated with type 2 diabetes mellitus Dyslipidemia Elevated PSA GERD (gastroesophageal reflux disease) Hypertension alf (current) use of insulin Low back pain MRSA (methicillin resistant Staphylococcus aureus) Prostate cancer Prostate cancer Statin intolerance <Stephanie Osman NP - Last Filed: 01/20/23 14:49> Surgical History: Surgical History History of colon resection History of esophagogastroduodenoscopy (EGD) History of prostate biopsy Hx of colonoscopy Hx of lithotripsy Hx of shoulder surgery <Stephanie Osman NP - Last Filed: 01/20/23 14:49> Family History Family History: Family History Father No problems noted. Mother No problems noted. Other No family history of cancer <Stephanie Osman NP - Last Filed: 01/20/23 14:49> Social History Social History: Social History Household Members: Children Housing: House Are you a primary adult care provider to a significant other at home: No Do you presently have visiting nurse or other home services: No Alcohol intake: never Patient Tobacco Use Status: Former Tobacco user Quit Date: 1984 Cigarette Packs Per Day: 1.5 Smoked in Last 30 Days: No Advance Directives: No Advance Directives Information Provided: No service: No Current occupational status: retired <Stephanie Osman NP - Last Filed: 01/20/23 14:49> Physical Exam Vital Signs: Vital Signs: Last Vital Signs Temp 99.1 F 01/20/23 14:53 Pulse 113 H 01/20/23 14:53 Resp 22 H 01/20/23 14:53 BP 130/70 01/20/23 14:53 Pulse Ox 98 01/20/23 14:53 O2 Del Method Room Air 01/20/23 14:53 BMI result Body Mass Index 32.5 <Stephanie Osman NP - Last Filed: 01/20/23 14:49> Vital Signs: Last Vital Signs Temp 99.1 F 01/20/23 14:53 Pulse 113 H 01/20/23 14:53 Resp 22 H 01/20/23 14:53 BP 130/70 01/20/23 14:53 Pulse Ox 98 01/20/23 14:53 O2 Del Method Room Air 01/20/23 14:53 BMI result Body Mass Index 32.5 <Tarah Farrar MD - Last Filed: 01/20/23 19:40> Const: Other: Appearance: Alert. Oriented X3. No acute distress. Eyes: Pupils equal, round and reactive to light. ENT: Pharynx normal. Neck: Normal inspection. Neck supple. No lymph nodes noted. No crepitus CVS: Normal heart rate and rhythm. Pulses normal. Normal S1 and S2 Respiratory: No respiratory distress. Breath sounds normal. No Wheezing. No rales Abdomen: Soft and nontender. No rigidity. No distention. Skin: Skin warm and dry. Normal skin color. Normal skin turgor. Extremities: No lower extremity edema. No Lacerations. No Rash Neuro: Oriented X 3. No motor deficit. No sensory deficit. Moving all extremities. No slurred speech. CN 2 through 12 grossly intact Psych: calm, cooperative, normal affect <Tarah Farrar MD - Last Filed: 01/20/23 19:40> Course Course Course Narrative: This is a rapid medical exam. Defer additional HPI, ROS and PE to primary provider. 77-year-old male with history of prostate cancer, diabetes, hypertension, hyperlipidemia here with shortness of breath. Patient on arrival is diaphoretic, tachypneic with a heart rate of 130 and triage. Patient will be immediately bedded in the emergency room. Will check labs, EKG, chest x-ray, COVID screen. Blood pressure is stable. <Stephanie Osman NP - Last Filed: 01/20/23 14:49> Medications Administered Discontinued Medications Generic Name Dose Route Start Last Admin Trade Name Freq PRN Reason Stop Dose Admin Sodium Chloride 1,000 mls @ 999 mls/hr 01/20/23 16:24 01/20/23 17:49 Ns IVCONT 01/20/23 17:24 Infused .Q1H1M ONE Infusion Lorazepam 1 mg 01/20/23 16:24 01/20/23 16:29 Lorazepam 2 Mg/Ml Vial IVPUSH 01/20/23 16:25 1 mg ONCE ONE Administration <Stephanie Osman NP - Last Filed: 01/20/23 14:49> Medications Administered Discontinued Medications Generic Name Dose Route Start Last Admin Trade Name Freq PRN Reason Stop Dose Admin Sodium Chloride 1,000 mls @ 999 mls/hr 01/20/23 16:24 01/20/23 17:49 Ns IVCONT 01/20/23 17:24 Infused .Q1H1M ONE Infusion Lorazepam 1 mg 01/20/23 16:24 01/20/23 16:29 Lorazepam 2 Mg/Ml Vial IVPUSH 01/20/23 16:25 1 mg ONCE ONE Administration <Tarah Farrar MD - Last Filed: 01/20/23 19:40> Medical Decision Making Medical Decision Making MDM Narrative: -patient's symptoms were momentarily. Patient denies any fever chills, no shortness of breath, no increased cough or sputum production. COPD exacerbation or infectious pathology none suspected -patient's initial troponin is negative. -reviewing patient's labs, he has a creatinine of 1.53, last month he was 1.22. Patient likely dehydrated, he has been out playing golf today. Patient agreeable to receive IV fluids and have his labs rechecked and a 2nd troponin as well -EKG interpreted by me: Sinus tachycardia, heart rate 101, incomplete right bundle-branch block, previously seen in other EKGs. QTC 487, no new changes.. Patient was giving IV fluid, troponin 2. Negative, unclear why the chemistry was not retaken. Patient does not want to be poked again and would like to be discharged. Patient states that he is asymptomatic. Patient instructed to drink plenty of fluids and follow up with PCP for chemistry check especially creatinine <Tarah Farrar MD - Last Filed: 01/20/23 19:40> Differential Diagnosis Differential Diagnoses: The differential diagnosis associated with the presentation includes (ACS, COPD exacerbation, anxiety) <Tarah Farrar MD - Last Filed: 01/20/23 19:40> Lab Data MDM Lab Attestation statement: I reviewed the patient's lab results. <Tarah Farrar MD - Last Filed: 01/20/23 19:40> Result Diagrams: 01/20/23 15:03 01/20/23 15:03 <Stephanie Osman NP - Last Filed: 01/20/23 14:49> Labs: Lab Results 01/20/23 01/20/23 01/20/23 Range/Units 15:03 15:03 15:03 WBC 7.0 (4.8-10.8) X10*3/uL RBC 4.15 L (4.60-5.80) X10*6/uL Hgb 12.2 L (14.0-18.0) g/dl Hct 34.7 L (42.0-52.0) % MCV 83.6 (80.0-98.0) fL MCH 29.4 (27.0-33.0) pg MCHC 35.2 (31.0-36.0) g/dl RDW 12.1 (11.0-16.0) % Plt Count 315 (160-400) X10*3/uL MPV 8.5 L (9.4-12.4) fL Immature Gran % (Auto) 0.7 H (0.0-0.4) % Neut % (Auto) 64.9 (45-73) % Lymph % (Auto) 25.9 (20-40) % [place] % (Auto) 7.2 (2-11) % Eos % (Auto) 0.6 (0-4) % Baso % (Auto) 0.7 (0-2) % Lymph # (Auto) 1.8 (1.2-4.9) X10*3/uL [place] # (Auto) 0.5 (0.1-1.2) X10*3/uL Eos # (Auto) 0.0 (0.0-0.4) X10*3/uL Baso # (Auto) 0.1 (0.0-0.2) X10*3/uL Abs Immat Gran (auto) 0.05 H (0.00-0.03) X10*3/uL Absolute Neuts (auto) 4.5 (2.0-8.3) x10*3/uL Absolute Nucleated RBC 0.000 (0.0-0.012) X10*3/uL Nucleated RBC % (auto) 0.0 (0.0-0.2) /100WBC PT 10.9 (10.0-13.1) SEC INR 1.0 (0.9-1.1) Sodium 137 (135-145) mmol/L Potassium 3.9 (3.3-5.1) mmol/L Chloride 104 (96-108) mmol/L Carbon Dioxide 20 L (22-29) mmol/L Anion Gap 17 (12-20) BUN 15 (9-16) mg/dL Creatinine 1.53 H (0.5-1.4) mg/dL Estim Creat Clear Calc 36.9 Estimated GFR 45 POC Glucose (60-115) mg/dL Random Glucose 203 H (60-115) mg/dL Calcium 9.6 (8.4-10.2) mg/dL Magnesium 1.8 (1.6-2.6) mg/dL Total Bilirubin 0.2 (0.0-1.0) mg/dL Direct Bilirubin < 0.2 (0.0-0.5) mg/dL AST 11 (5-37) U/L ALT 11 (0-40) U/L Alkaline Phosphatase 149 H (39-117) U/L Troponin I High Sens (<3.5-35.0) ng/L B-Natriuretic Peptide (<100) pg/mL Total Protein 7.1 (6.5-8.0) g/dL Albumin 4.2 (3.5-5.0) g/dL COVID-19 (JAMES) (Negative) COVID-19 Clin Com 01/20/23 01/20/23 01/20/23 Range/Units 15:03 15:03 15:11 WBC (4.8-10.8) X10*3/uL RBC (4.60-5.80) X10*6/uL Hgb (14.0-18.0) g/dl Hct (42.0-52.0) % MCV (80.0-98.0) fL MCH (27.0-33.0) pg MCHC (31.0-36.0) g/dl RDW (11.0-16.0) % Plt Count (160-400) X10*3/uL MPV (9.4-12.4) fL Immature Gran % (Auto) (0.0-0.4) % Neut % (Auto) (45-73) % Lymph % (Auto) (20-40) % [place] % (Auto) (2-11) % Eos % (Auto) (0-4) % Baso % (Auto) (0-2) % Lymph # (Auto) (1.2-4.9) X10*3/uL [place] # (Auto) (0.1-1.2) X10*3/uL Eos # (Auto) (0.0-0.4) X10*3/uL Baso # (Auto) (0.0-0.2) X10*3/uL Abs Immat Gran (auto) (0.00-0.03) X10*3/uL Absolute Neuts (auto) (2.0-8.3) x10*3/uL Absolute Nucleated RBC (0.0-0.012) X10*3/uL Nucleated RBC % (auto) (0.0-0.2) /100WBC PT (10.0-13.1) SEC INR (0.9-1.1) Sodium (135-145) mmol/L Potassium (3.3-5.1) mmol/L Chloride (96-108) mmol/L Carbon Dioxide (22-29) mmol/L Anion Gap (12-20) BUN (9-16) mg/dL Creatinine (0.5-1.4) mg/dL Estim Creat Clear Calc Estimated GFR POC Glucose 218 H (60-115) mg/dL Random Glucose (60-115) mg/dL Calcium (8.4-10.2) mg/dL Magnesium (1.6-2.6) mg/dL Total Bilirubin (0.0-1.0) mg/dL Direct Bilirubin (0.0-0.5) mg/dL AST (5-37) U/L ALT (0-40) U/L Alkaline Phosphatase (39-117) U/L Troponin I High Sens 5.5 (<3.5-35.0) ng/L B-Natriuretic Peptide 80 (<100) pg/mL Total Protein (6.5-8.0) g/dL Albumin (3.5-5.0) g/dL COVID-19 (JAMES) (Negative) COVID-19 Clin Com 01/20/23 01/20/23 01/20/23 Range/Units 15:29 16:46 16:46 WBC 11.5 H (4.8-10.8) X10*3/uL RBC 3.69 L (4.60-5.80) X10*6/uL Hgb 10.9 L (14.0-18.0) g/dl Hct 31.0 L (42.0-52.0) % MCV 84.0 (80.0-98.0) fL MCH 29.5 (27.0-33.0) pg MCHC 35.2 (31.0-36.0) g/dl RDW 12.0 (11.0-16.0) % Plt Count 246 (160-400) X10*3/uL MPV 8.1 L (9.4-12.4) fL Immature Gran % (Auto) 0.3 (0.0-0.4) % Neut % (Auto) 75.9 H (45-73) % Lymph % (Auto) 13.6 L (20-40) % [place] % (Auto) 9.1 (2-11) % Eos % (Auto) 0.5 (0-4) % Baso % (Auto) 0.6 (0-2) % Lymph # (Auto) 1.6 (1.2-4.9) X10*3/uL [place] # (Auto) 1.1 (0.1-1.2) X10*3/uL Eos # (Auto) 0.1 (0.0-0.4) X10*3/uL Baso # (Auto) 0.1 (0.0-0.2) X10*3/uL Abs Immat Gran (auto) 0.04 H (0.00-0.03) X10*3/uL Absolute Neuts (auto) 8.8 H (2.0-8.3) x10*3/uL Absolute Nucleated RBC 0.000 (0.0-0.012) X10*3/uL Nucleated RBC % (auto) 0.0 (0.0-0.2) /100WBC PT (10.0-13.1) SEC INR (0.9-1.1) Sodium (135-145) mmol/L Potassium (3.3-5.1) mmol/L Chloride (96-108) mmol/L Carbon Dioxide (22-29) mmol/L Anion Gap (12-20) BUN (9-16) mg/dL Creatinine (0.5-1.4) mg/dL Estim Creat Clear Calc Estimated GFR POC Glucose (60-115) mg/dL Random Glucose (60-115) mg/dL Calcium (8.4-10.2) mg/dL Magnesium (1.6-2.6) mg/dL Total Bilirubin (0.0-1.0) mg/dL Direct Bilirubin (0.0-0.5) mg/dL AST (5-37) U/L ALT (0-40) U/L Alkaline Phosphatase (39-117) U/L Troponin I High Sens 5.5 (<3.5-35.0) ng/L B-Natriuretic Peptide (<100) pg/mL Total Protein (6.5-8.0) g/dL Albumin (3.5-5.0) g/dL COVID-19 (JAMES) Negative (Negative) COVID-19 Clin Com See Note <Stephanie Jacqui, [employer] - Last Filed: 01/20/23 14:49> Lab Results 01/20/23 01/20/23 01/20/23 Range/Units 15:03 15:03 15:03 WBC 7.0 (4.8-10.8) X10*3/uL RBC 4.15 L (4.60-5.80) X10*6/uL Hgb 12.2 L (14.0-18.0) g/dl Hct 34.7 L (42.0-52.0) % MCV 83.6 (80.0-98.0) fL MCH 29.4 (27.0-33.0) pg MCHC 35.2 (31.0-36.0) g/dl RDW 12.1 (11.0-16.0) % Plt Count 315 (160-400) X10*3/uL MPV 8.5 L (9.4-12.4) fL Immature Gran % (Auto) 0.7 H (0.0-0.4) % Neut % (Auto) 64.9 (45-73) % Lymph % (Auto) 25.9 (20-40) % [place] % (Auto) 7.2 (2-11) % Eos % (Auto) 0.6 (0-4) % Baso % (Auto) 0.7 (0-2) % Lymph # (Auto) 1.8 (1.2-4.9) X10*3/uL [place] # (Auto) 0.5 (0.1-1.2) X10*3/uL Eos # (Auto) 0.0 (0.0-0.4) X10*3/uL Baso # (Auto) 0.1 (0.0-0.2) X10*3/uL Abs Immat Gran (auto) 0.05 H (0.00-0.03) X10*3/uL Absolute Neuts (auto) 4.5 (2.0-8.3) x10*3/uL Absolute Nucleated RBC 0.000 (0.0-0.012) X10*3/uL Nucleated RBC % (auto) 0.0 (0.0-0.2) /100WBC PT 10.9 (10.0-13.1) SEC INR 1.0 (0.9-1.1) Sodium 137 (135-145) mmol/L Potassium 3.9 (3.3-5.1) mmol/L Chloride 104 (96-108) mmol/L Carbon Dioxide 20 L (22-29) mmol/L Anion Gap 17 (12-20) BUN 15 (9-16) mg/dL Creatinine 1.53 H (0.5-1.4) mg/dL Estim Creat Clear Calc 36.9 Estimated GFR 45 POC Glucose (60-115) mg/dL Random Glucose 203 H (60-115) mg/dL Calcium 9.6 (8.4-10.2) mg/dL Magnesium 1.8 (1.6-2.6) mg/dL Total Bilirubin 0.2 (0.0-1.0) mg/dL Direct Bilirubin < 0.2 (0.0-0.5) mg/dL AST 11 (5-37) U/L ALT 11 (0-40) U/L Alkaline Phosphatase 149 H (39-117) U/L Troponin I High Sens (<3.5-35.0) ng/L B-Natriuretic Peptide (<100) pg/mL Total Protein 7.1 (6.5-8.0) g/dL Albumin 4.2 (3.5-5.0) g/dL COVID-19 (JAMES) (Negative) COVID-19 Clin Com 01/20/23 01/20/23 01/20/23 Range/Units 15:03 15:03 15:11 WBC (4.8-10.8) X10*3/uL RBC (4.60-5.80) X10*6/uL Hgb (14.0-18.0) g/dl Hct (42.0-52.0) % MCV (80.0-98.0) fL MCH (27.0-33.0) pg MCHC (31.0-36.0) g/dl RDW (11.0-16.0) % Plt Count (160-400) X10*3/uL MPV (9.4-12.4) fL Immature Gran % (Auto) (0.0-0.4) % Neut % (Auto) (45-73) % Lymph % (Auto) (20-40) % [place] % (Auto) (2-11) % Eos % (Auto) (0-4) % Baso % (Auto) (0-2) % Lymph # (Auto) (1.2-4.9) X10*3/uL [place] # (Auto) (0.1-1.2) X10*3/uL Eos # (Auto) (0.0-0.4) X10*3/uL Baso # (Auto) (0.0-0.2) X10*3/uL Abs Immat Gran (auto) (0.00-0.03) X10*3/uL Absolute Neuts (auto) (2.0-8.3) x10*3/uL Absolute Nucleated RBC (0.0-0.012) X10*3/uL Nucleated RBC % (auto) (0.0-0.2) /100WBC PT (10.0-13.1) SEC INR (0.9-1.1) Sodium (135-145) mmol/L Potassium (3.3-5.1) mmol/L Chloride (96-108) mmol/L Carbon Dioxide (22-29) mmol/L Anion Gap (12-20) BUN (9-16) mg/dL Creatinine (0.5-1.4) mg/dL Estim Creat Clear Calc Estimated GFR POC Glucose 218 H (60-115) mg/dL Random Glucose (60-115) mg/dL Calcium (8.4-10.2) mg/dL Magnesium (1.6-2.6) mg/dL Total Bilirubin (0.0-1.0) mg/dL Direct Bilirubin (0.0-0.5) mg/dL AST (5-37) U/L ALT (0-40) U/L Alkaline Phosphatase (39-117) U/L Troponin I High Sens 5.5 (<3.5-35.0) ng/L B-Natriuretic Peptide 80 (<100) pg/mL Total Protein (6.5-8.0) g/dL Albumin (3.5-5.0) g/dL COVID-19 (JAMES) (Negative) COVID-19 Clin Com 04/13/23 04/13/23 04/13/23 Range/Units 15:29 16:46 16:46 WBC 11.5 H (4.8-10.8) X10*3/uL RBC 3.69 L (4.60-5.80) X10*6/uL Hgb 10.9 L (14.0-18.0) g/dl Hct 31.0 L (42.0-52.0) % MCV 84.0 (80.0-98.0) fL MCH 29.5 (27.0-33.0) pg MCHC 35.2 (31.0-36.0) g/dl RDW 12.0 (11.0-16.0) % Plt Count 246 (160-400) X10*3/uL MPV 8.1 L (9.4-12.4) fL Immature Gran % (Auto) 0.3 (0.0-0.4) % Neut % (Auto) 75.9 H (45-73) % Lymph % (Auto) 13.6 L (20-40) % [place] % (Auto) 9.1 (2-11) % Eos % (Auto) 0.5 (0-4) % Baso % (Auto) 0.6 (0-2) % Lymph # (Auto) 1.6 (1.2-4.9) X10*3/uL [place] # (Auto) 1.1 (0.1-1.2) X10*3/uL Eos # (Auto) 0.1 (0.0-0.4) X10*3/uL Baso # (Auto) 0.1 (0.0-0.2) X10*3/uL Abs Immat Gran (auto) 0.04 H (0.00-0.03) X10*3/uL Absolute Neuts (auto) 8.8 H (2.0-8.3) x10*3/uL Absolute Nucleated RBC 0.000 (0.0-0.012) X10*3/uL Nucleated RBC % (auto) 0.0 (0.0-0.2) /100WBC PT (10.0-13.1) SEC INR (0.9-1.1) Sodium (135-145) mmol/L Potassium (3.3-5.1) mmol/L Chloride (96-108) mmol/L Carbon Dioxide (22-29) mmol/L Anion Gap (12-20) BUN (9-16) mg/dL Creatinine (0.5-1.4) mg/dL Estim Creat Clear Calc Estimated GFR POC Glucose (60-115) mg/dL Random Glucose (60-115) mg/dL Calcium (8.4-10.2) mg/dL Magnesium (1.6-2.6) mg/dL Total Bilirubin (0.0-1.0) mg/dL Direct Bilirubin (0.0-0.5) mg/dL AST (5-37) U/L ALT (0-40) U/L Alkaline Phosphatase (39-117) U/L Troponin I High Sens 5.5 (<3.5-35.0) ng/L B-Natriuretic Peptide (<100) pg/mL Total Protein (6.5-8.0) g/dL Albumin (3.5-5.0) g/dL COVID-19 (JAMES) Negative (Negative) COVID-19 Clin Com See Note <Tarah Farrar MD - Last Filed: 01/20/23 19:40> Discharge Plan Discharge Clinical Impression: Anxiety <Stephanie Osman NP - Last Filed: 01/20/23 14:49> Patient Disposition: Home, Self-Care <Stephanie Osman NP - Last Filed: 01/20/23 14:49> Instructions: Anxiety (ED) <Stephanie Osman NP - Last Filed: 01/20/23 14:49> Additional Instructions: Please follow-up with your primary care physician tomorrow. If you have any worsening or new symptoms, please return to the emergency room or call 911 <Stephanie Osman NP - Last Filed: 01/20/23 14:49> Prescriptions: No Action (DME) FreeStyle Den 14 Day [place] Misc See Rx Instructions miscellaneous .MEDSUPPLY Qty: 1 0RF Rx Instructions: As directed metaxalone 800 mg tablet 800 mg PO TID PRN (Reason: muscle pain) 30 Days Qty: 90 12RF (DME) FreeStyle Den 14 Day Sensor Kit See Rx Instructions .ROUTE .COMPLEX Qty: 2 12RF Dose Instruction: USE EVERY 14 DAYS Rx Instructions: USE EVERY 14 DAYS (DME) pen needle, diabetic [BD Arlet 2nd Gen Pen Needle] 32 gauge x 5/32 needle See Rx Instructions .MEDSUPPLY Qty: 400 4RF Rx Instructions: 5 times a day (DME) FreeStyle Precision Marcio Strips Strip See Rx Instructions .ROUTE .MEDSUPPLY Qty: 50 6RF Rx Instructions: Once a day for calibration (DME) lancets [FreeStyle Lancets] 28 gauge misc See Rx Instructions .Route Qty: 100 6RF Rx Instructions: As directed twice daily [place] SoloStar U-300 Insulin 300 unit/mL (1.5 mL) insulin pen 12 unit subcut DAILY Qty: 4.5 5RF insulin lispro [Humalog KwikPen Insulin] 100 unit/mL insulin pen 6 unit subcut .COMPLEX Qty: 15 4RF Protocol: Insulin Correction Scale Less than or equal to 110 ---- Give (units): 0 111 to 150 Give (units): 0 151 to 200 Give (units): 2 201 to 250 Give (units): 4 251 to 300 Give (units): 6 301 to 350 Give (units): 8 Greater than 350 Give (units): 10 Call MD if Blood Glucose > : 350 Rx Instructions: 6 units subcutaneously before meals; prednisone 10 mg tablet 40 mg PO DAILY 5 Days Qty: 20 0RF doxycycline hyclate 100 mg tablet 100 mg PO BID 10 Days Qty: 20 0RF cholecalciferol (vitamin D3) [Vitamin D3] 50 mcg (2,000 unit) Tablet 50 mcg PO DAILY Qty: 90 5RF ezetimibe [Zetia] 10 mg tablet 10 mg PO DAILY esomeprazole magnesium [Nexium] 20 mg Capsule,Delayed Release(Dr/Ec) 40 mg PO DAILY Patient Comments: Does not want omeprazole budesonide-formoterol [Symbicort] 160-4.5 mcg/actuation HFA aerosol inhaler 2 puff inhalation BID ciprofloxacin HCl 500 mg tablet 500 mg PO BID 5 Days Qty: 10 0RF amlodipine 10 mg tablet 10 mg PO DAILY valsartan 80 mg tablet 80 mg PO DAILY furosemide 20 mg tablet 20 mg PO BID clonidine HCl 0.2 mg tablet 0.4 mg PO BID levetiracetam 500 mg tablet 500 mg PO BID (DME) blood sugar diagnostic Strip See Rx Instructions .ROUTE .MEDSUPPLY Qty: 10 Rx Instructions: As directed (DME) flash glucose sensor Kit See Rx Instructions topical Q2W Qty: 2 7RF Rx Instructions: Every 14 days paroxetine HCl 20 mg tablet 20 mg PO DAILY lamotrigine 25 mg tablet 75 mg PO BID diphenoxylate-atropine [Lomotil] 2.5-0.025 mg tablet 3 tab PO BID PRN (Reason: Spasms) ipratropium-albuterol 0.5 mg-3 mg(2.5 mg base)/3 mL solution for nebulization 3 ml inhalation Q4-6H PRN (Reason: wheezing) 30 Days Qty: 180 6RF (DME) FreeStyle Lite Strips Strip See Rx Instructions .Route Rx Instructions: As directed (DME) blood-glucose meter [FreeStyle Lite Meter] Kit See Rx Instructions .Route Rx Instructions: As directed albuterol sulfate [Ventolin HFA] 90 mcg/actuation HFA aerosol inhaler 2 puff inhalation Q4-6H PRN (Reason: shortness of breath or wheezing) 30 Days Qty: 1 6RF <Stephanie Osman NP - Last Filed: 01/20/23 14:49>
[2023-01-20 14:47] VITALS: BP 166/74; PULSE 122; RESP 24; TEMP 36.6; O2SAT 96; BMI 32.5
--- NOTE | 2023-01-20 14:48 | ECG_ITS ---
Test Reason : sob Blood Pressure : / mmHG Vent. Rate : 101 BPM Atrial Rate : 101 BPM P-R Int : 142 ms QRS Dur : 114 ms QT Int : 376 ms P-R-T Axes : 034 -04 017 degrees QTc Int : 487 ms Sinus tachycardia Low voltage QRS Incomplete right bundle branch block Inferior infarct , age undetermined Abnormal ECG When compared with ECG of 13-OCT-2019 07:22, Vent. rate has increased BY 34 BPM Referred By: Stephanie Osman Electronically Signed By:RUBINA JAEGER MD
[2023-01-20 14:53] VITALS: BP 130/70; PULSE 107; PULSE 113; RESP 22; RESP 26; TEMP 37.3; O2SAT 98
[2023-01-20 15:09] LABS: MANUAL DIFF FLAG NO
--- NOTE | 2023-01-20 15:14 | PC.NURSE ---
Pt arrived ambulatory, visuably SOB, shallow breathing noted, 98% on RA. Pt states he was golfing and started to not feel well. POC checked as pt reports he has not eaten since this morning 218 noted for POC. IV placed, labs collected. PT brought to scanning
[2023-01-20 15:15] LABS: Glucose, Whole Blood 218 mg/dL (60-115)
[2023-01-20 15:17] LABS: Basophils Absolute Auto 0.1 X10*3/uL (0.0-0.2); Basophils Percent Auto 0.7 % (0-2); Eosinophils Percent Auto 0.6 % (0-4); Hematocrit 34.7 % (42.0-52.0); Hemoglobin 12.2 g/dl (14.0-18.0); Imm Gran Abs Auto 0.05 X10*3/uL (0.00-0.03); Imm Gran Pct Auto 0.7 % (0.0-0.4); Lymphocytes Absolute Auto 1.8 X10*3/uL (1.2-4.9); Lymphocytes Percent Auto 25.9 % (20-40); Mean Corpuscular HGB Conc 35.2 g/dl (31.0-36.0); Mean Corpuscular Hemoglobin 29.4 pg (27.0-33.0); Mean Corpuscular Volume 83.6 fL (80.0-98.0); Mean Platelet Volume 8.5 fL (9.4-12.4); Monocytes Absolute Auto 0.5 X10*3/uL (0.1-1.2); Monocytes Percent Auto 7.2 % (2-11); Neutrophils Absolute Auto 4.5 x10*3/uL (2.0-8.3); Neutrophils Percent Auto 64.9 % (45-73); Platelet Count 315 X10*3/uL (160-400); Red Blood Count 4.15 X10*6/uL (4.60-5.80); Red Cell Distribution Width 12.1 % (11.0-16.0)
[2023-01-20 15:20] LABS: Prothrombin Time 10.9 SEC (10.0-13.1)
[2023-01-20 15:33] LABS: Alanine Aminotransferase 11 U/L (0-40); Albumin Level 4.2 g/dL (3.5-5.0); Alkaline Phosphatase 149 U/L (39-117); Anion Gap 17 (12-20); Aspartate Amino Transferase 11 U/L (5-37); Bilirubin Direct < 0.2 mg/dL (0.0-0.5); Bilirubin Total 0.2 mg/dL (0.0-1.0); Blood Urea Nitrogen 15 mg/dL (9-16); Calcium 9.6 mg/dL (8.4-10.2); Carbon Dioxide 20 mmol/L (22-29); Chloride 104 mmol/L (96-108); Creatinine Clr Calc Pharmacy 36.9; Estimated Glomerular Filt Rate 45; Glucose Random 203 mg/dL (60-115); Magnesium 1.8 mg/dL (1.6-2.6); Potassium 3.9 mmol/L (3.3-5.1); Sodium 137 mmol/L (135-145); Total Protein 7.1 g/dL (6.5-8.0)
[2023-01-20 15:35] LABS: B Type Natriuretic Peptide 80 pg/mL (<100); Troponin-I High Sensitivity 5.5 ng/L (<3.5-35.0)
[2023-01-20 16:13] LABS: COVID-19 Test Negative (Negative); IDNOW Serial# BCCEAD1C
[2023-01-20] MEDS: 0.9 % Sodium Chloride 1,000 ML 999 ML IVCONT (16:29)
[2023-01-20] MEDS: LORazepam 2 MG/ML VIAL 1 MG IVPUSH (16:29)
[2023-01-20 16:49] LABS: MANUAL DIFF FLAG NO
[2023-01-20 16:52] LABS: Basophils Absolute Auto 0.1 X10*3/uL (0.0-0.2); Basophils Percent Auto 0.6 % (0-2); Eosinophils Absolute Auto 0.1 X10*3/uL (0.0-0.4); Eosinophils Percent Auto 0.5 % (0-4); Hemoglobin 10.9 g/dl (14.0-18.0); Imm Gran Abs Auto 0.04 X10*3/uL (0.00-0.03); Imm Gran Pct Auto 0.3 % (0.0-0.4); Lymphocytes Absolute Auto 1.6 X10*3/uL (1.2-4.9); Lymphocytes Percent Auto 13.6 % (20-40); Mean Corpuscular HGB Conc 35.2 g/dl (31.0-36.0); Mean Corpuscular Hemoglobin 29.5 pg (27.0-33.0); Mean Platelet Volume 8.1 fL (9.4-12.4); Monocytes Absolute Auto 1.1 X10*3/uL (0.1-1.2); Monocytes Percent Auto 9.1 % (2-11); Neutrophils Absolute Auto 8.8 x10*3/uL (2.0-8.3); Neutrophils Percent Auto 75.9 % (45-73); Platelet Count 246 X10*3/uL (160-400); Red Blood Count 3.69 X10*6/uL (4.60-5.80); White Blood Count 11.5 X10*3/uL (4.8-10.8)
[2023-01-20 17:13] LABS: Troponin-I High Sensitivity 5.5 ng/L (<3.5-35.0)
--- NOTE | 2023-01-20 18:56 | MHC.EDTECH ---
patient stated that he feels much better and wants to leave and go home. he refused one last blood draw. very pleasant, just wants to be discharged
== END 2023-01-20 20:05 | disposition home or self-care (01) ==
PROVIDERS: Nurse Practitioner Family; Emergency Provider Emergency Medicine; PCP Internal Medicine
DX: R06.02 Shortness of breath (principal); F41.1 Generalized anxiety disorder; R00.0 Tachycardia, unspecified; F43.0 Acute stress reaction; I45.10 Unspecified right bundle-branch block; Z20.822 Contact with and (suspected) exposure to COVID-19; Z20.828 Contact with and (suspected) exposure to other viral communicable diseases; Z79.899 Other long term (current) drug therapy
CPT/HCPCS: 36415; 71046; 80048; 80076; 82947; 83735; 83880; 84484; 85025; 85610; 87635; 93005; 96361; 96374; 99284; 99285; J2060

== ENCOUNTER 2023-02-02 09:03 | Outpatient (REF) | payer OTHER, MEDICARE, SELFPAY ==
[2023-02-02 11:23] LABS: Cholesterol 235 mg/dL; HDL Cholesterol 47 mg/dL; LDL Cholesterol Calculated 137 mg/dl; Triglycerides 256 mg/dL
[2023-02-02 11:58] LABS: Creatinine Urine 95.09 mg/dL; Microalbum/Creatinine Ratio Ur 10.5 ug/mg cr
== END 2023-02-02 09:04 | disposition home or self-care (01) ==
LOC: HO.HMGCLDS 09:03
PROVIDERS: PCP Internal Medicine; Visit Provider Internal Medicine Endocrinology, Diabetes & Metabolism
DX: E11.8 Type 2 diabetes mellitus with unspecified complications (principal)
CPT/HCPCS: 36415; 80061; 82043

== ENCOUNTER → 2023-02-03 08:38 | Outpatient (BNVA) | payer OTHER, MEDICARE, SELFPAY | PROVIDERS: PCP Internal Medicine; Visit Provider Internal Medicine Endocrinology, Diabetes & Metabolism | DX: E11.40 Type 2 diabetes mellitus with diabetic neuropathy, unspecified (principal); I10 Essential (primary) hypertension; E78.5 Hyperlipidemia, unspecified; R80.9 Proteinuria, unspecified; Z79.4 Long term (current) use of insulin | CPT/HCPCS: 82947; 83036 ==

== ENCOUNTER → 2023-03-09 09:26 | Outpatient (BNVA) | payer OTHER, MEDICARE, SELFPAY | PROVIDERS: PCP Internal Medicine; Visit Provider Nurse Practitioner Family ==

== ENCOUNTER → 2023-03-30 15:25 | Outpatient (BNVA) | payer OTHER, MEDICARE, SELFPAY | PROVIDERS: PCP Internal Medicine; Visit Provider Internal Medicine Pulmonary Disease ==

== ENCOUNTER 2023-05-11 13:37 | Outpatient (REF) | payer OTHER, MEDICARE, SELFPAY ==
[2023-05-11 14:50] LABS: Prostate Specific Antigen 1.48 ng/mL (<0.05-4.0)
== END 2023-05-11 13:38 | disposition home or self-care (01) ==
LOC: HO.LAB 13:37
PROVIDERS: Visit Provider Urology
DX: Z12.5 Encounter for screening for malignant neoplasm of prostate (principal); R97.20 Elevated prostate specific antigen [PSA]
CPT/HCPCS: 36415; 84153

== ENCOUNTER 2023-05-16 09:25 | Outpatient (AMB) | payer OTHER, MEDICARE, SELFPAY ==
[2023-05-16 09:35] VITALS: BP 120/60; PULSE 63; BMI 31.0
--- NOTE | 2023-05-16 09:35 | MHC.OFFVIS ---
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 Required: No Accompanied by: Self / Same As Patient Allergies amoxicillin [From AUGMENTIN] Allergy (Severe, Verified 05/16/23 09:37) Diarrhea, malaise celecoxib [Celebrex] Allergy (Severe, Verified 05/16/23 09:37) Malaise clavulanic acid [From AUGMENTIN] Allergy (Severe, Verified 05/16/23 09:37) Diarrhea, malaise gabapentin [GABAPENTIN] Allergy (Severe, Verified 05/16/23 09:37) TREMORS morphine Allergy (Severe, Verified 05/16/23 09:37) BLACKED-OUT, CRAZY cephalexin [Keflex] Allergy (Unknown, Verified 05/16/23 09:37) Unknown diltiazem [Cardizem] Allergy (Unknown, Verified 05/16/23 09:37) Unknown Penicillins [PENICILLINS] Allergy (Unknown, Verified 05/16/23 09:37) Unknown clindamycin Allergy (Verified 05/16/23 09:37) Unconscious peanut Allergy (Verified 05/16/23 09:37) Unknown fluvastatin [From Lescol] Adverse Reaction (Severe, Verified 05/16/23 09:37) Joint Pain pecan nut [PECAN] Adverse Reaction (Severe, Verified 05/16/23 09:37) Anaphylaxis erythromycin base Adverse Reaction (Verified 05/16/23 09:37) Vomiting Medication List - Last Reconciled 05/16/23 by Genaro Schreiber MD amlodipine 10 mg PO DAILY blood sugar diagnostic As directed blood sugar diagnostic (FreeStyle Lite Strips) As directed tests 4X /day blood-glucose meter (FreeStyle Lite Meter kit) As directed cholecalciferol (vitamin D3) (Vitamin D3) 50 mcg PO DAILY clonidine HCl 0.4 mg PO BID diphenoxylate-atropine 2.5-0.025 mg (Lomotil) 3 tabs PO BID PRN esomeprazole magnesium (Nexium) 40 mg PO DAILY ezetimibe (Zetia) 10 mg PO DAILY flash glucose scanning reader (Intean Po[place]ath R[place]g Den 2 [place]) As directed flash glucose sensor Every 14 days flash glucose sensor (FreeStyle Den 2 Sensor kit) As directed- change every 14 days aowbxdupaww-zzapczpkk-chnhkxxy 200-62.5-25 mcg (Trelegy Ellipta) 1 inh inhalation DAILY 30 days FreeStyle Precision Marcio Strips (blood sugar diagnostic) Once a day for calibration NS furosemide 20 mg PO BID insulin glargine U-300 conc (Toujeo SoloStar U-300 Insulin) 12 units (0.04 mL) subcut DAILY insulin lispro (Humalog KwikPen (U-100) Insulin) See Protocol 6 units subcutaneously before meals; ipratropium-albuterol 0.5 mg-3 mg(2.5 mg base)/3 mL 3 mL inhalation Q4-6H PRN 30 days lamotrigine 75 mg PO BID lancets (FreeStyle Lancets) As directed twice daily levetiracetam 500 mg PO BID metaxalone 800 mg PO TID PRN 30 days paroxetine HCl 20 mg PO DAILY pen needle, diabetic (BD Arlet 2nd Gen Pen Needle) 5 times a day kspfofvfudara-GF-hdacdoqukgc 2.5-5-50 mg/5 mL (Robitussin Cough and Cold CF) 20 mL PO Q4H PRN 7 days sucralfate 1 g PO TID valsartan 80 mg PO DAILY Ventolin HFA 90 mcg/actuation (albuterol sulfate) 2 puffs inhalation Q4-6H PRN 30 days NS HPI HPI Comments History of Present Illness Details Willy returns for follow-up. In the past, he was seen regarding an abnormal EKG. He has not been seen more than a year. Multiple risk factors including type 2 diabetes, hypertension, dyslipidemia. No documented coronary disease. Overall, he states that he is feeling great. He does not have any anginal-type symptoms or in fact anything cardiac sounding. [facility] Medical History Anxiety and depression Arthritis B12 deficiency Diabetes type 2, controlled Diabetic polyneuropathy associated with type 2 diabetes mellitus Dyslipidemia Elevated PSA GERD (gastroesophageal reflux disease) Hypertension half-way (current) use of insulin Low back pain MRSA (methicillin resistant Staphylococcus aureus) Prostate cancer Prostate cancer Statin intolerance Surgical History History of colon resection History of esophagogastroduodenoscopy (EGD) History of prostate biopsy Hx of colonoscopy Hx of lithotripsy Hx of shoulder surgery Family History Father No problems noted. Mother No problems noted. Other No family history of cancer Social History Household Members: Children Housing: House Are you a primary childcare aide to a significant other at home: No Do you presently have visiting nurse or other home services: No Alcohol intake: never Patient Tobacco Use Status: Former Tobacco user Quit Date: 1984 Cigarette Packs Per Day: 1.5 service: No Current occupational status: retired Review of Systems Const Denies weakness ENT Denies dizziness Card Denies chest pain, Denies chest pain with activity, Denies syncope, Denies rapid heart rate, Denies pedal edema, Denies edema, Denies leg edema, Denies lightheadedness, Denies palpitations, Denies dyspnea, Denies dyspnea on exertion and Denies orthopnea Resp Denies cough, Denies dyspnea and Denies dyspnea on exertion GI Denies hematochezia and Denies change in stool character Musc Denies abnormal gait, Denies muscle cramps, Denies muscle weakness, Denies numbness, Denies radiating pain into limb and Denies tingling Neuro Denies abnormal gait, Denies dizziness, Denies syncope, Denies numbness, Denies tingling and Denies weakness Endo Denies palpitations Physical Exam Vital Signs: Last Vital Signs Pulse 63 05/16/23 09:35 BP 120/60 05/16/23 09:35 BMI result Body Mass Index 31.0 Const General: comfortable and no acute distress Orientation/consciousness: patient oriented x3 HEENT Other: Unremarkable Head: Yes normal to inspection Neck Neck: Yes normal visual inspection Chest Chest palpation & inspection: normal inspection of the chest Resp Auscultation: clear to auscultation bilaterally Cardio Palpation: normal PMI Heart sounds: S1 normal heart sound present, S2 normal heart sound present, no gallops, no murmurs and no rubs GI Palpation (GI): Soft to palpation Back/Spine/Pelvis Other: unremarkable Skin General skin exam: no rashes or lesions noted Neuro General: patient oriented x3 Extrem General: Yes normal to inspection Psych Mental Status: mental status grossly normal Assessment & Plan Assessment & Plan (1) Abnormal EKG: Code(s): R94.31 - Abnormal electrocardiogram [ECG] [EKG] (2) Essential hypertension: Code(s): I10 - Essential (primary) hypertension (3) Type 2 diabetes mellitus with unspecified complications: Code(s): E11.8 - Type 2 diabetes mellitus with unspecified complications (4) Other and unspecified hyperlipidemia: Code(s): E78.5 - Hyperlipidemia, unspecified (5) Statin intolerance: Code(s): Z78.9 - Other specified health status Plan In the most recent EKG, underlying rhythm is sinus at 101/Min; right bundle-branch block pattern. Cannot exclude old inferior infarct. There is T inversions in the anterior leads which could be related to right bundle-branch block itself. Overall, similar to before. From 12/2021 with LVEF 55 60%. Basal inferior/inferoseptal wall thought to be hypokinetic. In the perfusion imaging however, reported to have normal perfusion. Normal gated LVEF. Overall, multiple risk factors, abnormal EKG but no symptoms and testing as above. We discussed the overall picture. Continue aggressive risk factor modification. With regard to diabetes, hemoglobin is reasonable 7.4% but could be better. He is on insulin. Blood pressure seems stable. With regard to lipids, not on statins as there is a history of intolerance and according to patient is prior PCP had tried multiple statins and he could not take any of them. Last LDL is 137 mg/dL. Triglycerides 256 mg/dL. Hence try Praluent. Can also continue Zetia. Orders: Orders LDL Cholesterol Direct 3 Months E78.2 - Mixed hyperlipidemia, E78.5 - Hyperlipidemia, unspecified Lipid Panel 3 Months E78.5 - Hyperlipidemia, unspecified Medications: New alirocumab (Praluent Pen) inject into abdomen, thigh, or upper arm (deltoid muscle); rotate sites 75 mg subcut Q2W 2 mL 5RF E78.5 - Hyperlipidemia, unspecified Coding Level of Care Code Est Pt Level 4 (83388) Diagnoses Abnormal EKG R94.31 Essential hypertension I10 Type 2 diabetes mellitus with unspecified complications E11.8 Other and unspecified hyperlipidemia E78.5 Statin intolerance Z78.9
== END 2023-05-16 10:31 | disposition home or self-care (01) ==
PROVIDERS: PCP Internal Medicine; Referring Provider Internal Medicine; Visit Provider Internal Medicine
DX: R94.31 Abnormal electrocardiogram [ECG] [EKG] (principal); I10 Essential (primary) hypertension; E11.8 Type 2 diabetes mellitus with unspecified complications; E78.5 Hyperlipidemia, unspecified; Z78.9 Other specified health status
CPT/HCPCS: 99214

== ENCOUNTER → 2023-05-16 09:25 | Outpatient (BNVA) | payer OTHER, MEDICARE, SELFPAY | PROVIDERS: PCP Internal Medicine; Referring Provider Internal Medicine; Visit Provider Internal Medicine ==

== ENCOUNTER 2023-06-21 09:50 | Outpatient (AMB) | payer OTHER, MEDICARE, SELFPAY ==
[2023-06-21 09:51] VITALS: BP 122/58; PULSE 79; O2SAT 99; BMI 31.0
--- NOTE | 2023-06-21 09:51 | MHC.OFFVIS ---
Intake Vital Signs 06/21/23 09:51 Height 5 ft 2 in Weight 169 lb 12.095 oz BMI 31.0 BP 122/58 L Blood Pressure Location Lt brachial Position Sitting Pulse 79 Pulse Source Doppler Pulse Oximetry (%) 99 Oxygen Delivery Method Room Air Intake Visit Reasons: Cough Allergies amoxicillin [From AUGMENTIN] Allergy (Severe, Verified 05/27/23 14:04) Diarrhea, malaise celecoxib [Celebrex] Allergy (Severe, Verified 05/27/23 14:04) Malaise clavulanic acid [From AUGMENTIN] Allergy (Severe, Verified 05/27/23 14:04) Diarrhea, malaise gabapentin [GABAPENTIN] Allergy (Severe, Verified 05/27/23 14:04) TREMORS morphine Allergy (Severe, Verified 05/27/23 14:04) BLACKED-OUT, CRAZY cephalexin [Keflex] Allergy (Unknown, Verified 05/27/23 14:04) Unknown diltiazem [Cardizem] Allergy (Unknown, Verified 05/27/23 14:04) Unknown Penicillins [PENICILLINS] Allergy (Unknown, Verified 05/27/23 14:04) Unknown clindamycin Allergy (Verified 05/27/23 14:04) Unconscious peanut Allergy (Verified 05/27/23 14:04) Unknown fluvastatin [From Lescol] Adverse Reaction (Severe, Verified 05/27/23 14:04) Joint Pain pecan nut [PECAN] Adverse Reaction (Severe, Verified 05/27/23 14:04) Anaphylaxis erythromycin base Adverse Reaction (Verified 05/27/23 14:04) Vomiting HPI Cough HPI Details 78-year-old gentleman, former approximately 25 pack-year smoker in his 20s and 30s, quit over 30 years prior, now followed to moderate to severe asthma with some allergic component.? Patient states that over the some a his symptoms have been well controlled without inhaled bronchodilator therapy. His cough has also abated. Unfortunately, his prostate cancer has recurred and he continues with further evaluation. He does complain of worsening dyspnea on exertion, lower extremity edema, and orthopnea. Patient does have underlying diastolic dysfunction on his most recent echo. [facility] Medical History Anxiety and depression Arthritis B12 deficiency Diabetes type 2, controlled Diabetic polyneuropathy associated with type 2 diabetes mellitus Dyslipidemia Elevated PSA GERD (gastroesophageal reflux disease) Hypertension snf (current) use of insulin Low back pain MRSA (methicillin resistant Staphylococcus aureus) Prostate cancer Prostate cancer Statin intolerance Surgical History History of colon resection History of esophagogastroduodenoscopy (EGD) History of prostate biopsy Hx of colonoscopy Hx of lithotripsy Hx of shoulder surgery Family History Father No problems noted. Mother No problems noted. Other No family history of cancer Social History Household Members: Children Housing: House Are you a primary animal care supervisor to a significant other at home: No Do you presently have visiting nurse or other home services: No Alcohol intake: never Patient Tobacco Use Status: Former Tobacco user Quit Date: 1984 Cigarette Packs Per Day: 1.5 service: No Current occupational status: retired Review of Systems Const Denies daytime sleepiness, Denies excessive sweating, Denies fatigue, Denies fever(s), Denies lethargy, Denies malaise, Denies night sweats, Denies snoring and Denies weight loss Eyes Denies blurry vision and Denies itchy eyes ENT Denies nasal congestion, Denies post nasal drip, Denies sinus pain, Denies sinus pressure and Denies other ( Thrush) Card Denies chest pain, Reports pedal edema, Denies dyspnea, Reports dyspnea on exertion, Reports orthopnea and Denies paroxysmal nocturnal dyspnea Resp Denies cough, Denies hemoptysis, Denies excessive phlegm production, Denies dyspnea, Reports dyspnea on exertion, Denies snoring and Denies wheezing GI Denies abdominal pain and Denies heartburn Musc Denies myalgias, Denies arthralgias and Denies joint swelling Skin/Breast Denies rash Neuro Denies memory loss and Denies seizure-like activity Psych Denies abnormal sleep pattern, Denies anxiety and Denies memory loss Endo Denies excessive sweating, Denies fatigue and Denies heat intolerance Scott/Lymph Denies easy bruising Aller/Immun Denies itchy eyes, Denies seasonal rhinorrhea and Denies wheezing Physical Exam Vital Signs: Last Vital Signs Pulse 79 06/21/23 09:51 BP 122/58 L 06/21/23 09:51 Pulse Ox 99 06/21/23 09:51 Oxygen Delivery Method Room Air 06/21/23 09:51 BMI result Body Mass Index 31.0 Const General: no acute distress and alert Nutritional Appearance: not obese Orientation/consciousness: Other orientation findings ( oriented) HEENT Head: Yes atraumatic Eyes General: appearance normal, both eyes and all related structures Sclerae: sclerae normal EOM: EOMs intact bilaterally Neck Neck: Yes supple Lymphatic: no lymphadenopathy noted Resp Effort & Inspection: normal respiratory effort and no use of accessory muscles Auscultation: clear to auscultation bilaterally Cardio Rate: regular rate Rhythm: regular rhythm Heart sounds: no gallops, no murmurs and no rubs Skin General skin exam: other ( warm) Extrem General: No clubbing, No cyanosis and Yes edema (Trace bilateral) Assessment & Plan Assessment & Plan (1) Orthopnea: Code(s): R06.01 - Orthopnea Plan: Appears to have mild exacerbation of underlying diastolic dysfunction. Patient has been advised to double his diuretic for the next 5-7 days and reassess his symptoms. (2) Asthma: Code(s): J45.909 - Unspecified asthma, uncomplicated Plan: Over the summer with reduced symptom burden not requiring inhaled corticosteroid. Continue on as needed DuoNeb. (3) Cough: Code(s): R05.9 - Cough, unspecified Plan: Underlying chronic cough intermittently requiring codeine syrup for symptomatic relief. Coding Level of Care Code Est Pt Level 4 (21548) Diagnoses Orthopnea R06.01 Asthma J45.909 Cough R05.9
== END 2023-06-21 10:19 | disposition home or self-care (01) ==
PROVIDERS: PCP Internal Medicine; Visit Provider Internal Medicine Pulmonary Disease
DX: R06.01 Orthopnea (principal); J45.909 Unspecified asthma, uncomplicated; R05.9 Cough, unspecified
CPT/HCPCS: 99214

== ENCOUNTER → 2023-06-21 09:50 | Outpatient (BNVA) | payer OTHER, MEDICARE, SELFPAY | PROVIDERS: PCP Internal Medicine; Visit Provider Internal Medicine Pulmonary Disease ==

== ENCOUNTER 2023-09-02 13:11 | Outpatient (REF) | payer OTHER, MEDICARE, SELFPAY ==
[2023-09-02 15:47] LABS: Prostate Specific Antigen 2.33 ng/mL (<0.05-4.0)
== END 2023-09-02 13:12 | disposition home or self-care (01) ==
LOC: HO.HMGCLDS 13:11
PROVIDERS: PCP Internal Medicine; Visit Provider Urology
DX: Z12.5 Encounter for screening for malignant neoplasm of prostate (principal); C61 Malignant neoplasm of prostate
CPT/HCPCS: 36415; 84153

== ENCOUNTER 2023-09-05 08:21 | Outpatient (REF) | payer OTHER, MEDICARE, SELFPAY ==
[2023-09-05 11:55] LABS: Cholesterol 123 mg/dL (<200); HDL Cholesterol 48 mg/dL (>40); LDL Cholesterol Calculated 26 mg/dL (<100); Triglycerides 247 mg/dL (<150)
[2023-09-07 09:33] LABS: LDL Cholesterol Direct 40 mg/dL (<100)
== END 2023-09-05 08:22 | disposition home or self-care (01) ==
LOC: HO.HMGCLDS 08:21
PROVIDERS: PCP Internal Medicine; Visit Provider Internal Medicine
DX: E78.2 Mixed hyperlipidemia (principal)
CPT/HCPCS: 36415; 80061; 83721

== ENCOUNTER → 2023-09-29 09:50 | Outpatient (REF) | payer OTHER, MEDICARE, SELFPAY ==
--- NOTE | 2023-09-29 09:52 | CA_ITS ---
Transthoracic Echocardiogram Patient (Last, First, Middle): Willy Jc E Gender: Male Date of : 1945 Age: 78 Procedure Date: 09/29/2023 Procedure Type: Transthoracic Echocardiogram Location: OP Height: 157.48 cm Weight: 79.83 kg BSA: 1.81 m2 Heart Rate: bpm BP: 180 / 86 mmHg Centrifugal Station Operator: TO Referring MD: Genaro Schreiber MD Music Sound Light Technician: North Gonsalez MD Symptoms: I50.9 - Heart failure, unspecified Study Quality: Fair/Contrast ECG Rhythm: Sinus Conclusions: - 1. Normal LV ejection fraction 60 65% with mild LVH with impaired relaxation filling pattern 2. Normal cardiac valvular Doppler 3. No gross pericardial effusion Findings Procedure Information Contrast agent, definity, is being given per protocol without apparent complications. Left Ventricle Normal left ventricular size and systolic function. There is mildly increased left ventricular wall thickness. The visually estimated ejection fraction is between 60-65%. Spectral Doppler is indicative of an impaired relaxation filling pattern. E/E prime ratio is between 8 and 15 consistent with indeterminate filling pressures. Right Ventricle Normal right ventricular cavity size and systolic function. Atria The left atrium is likely dilated. Interatrial shunt cannot be excluded. The right atrium is normal in size. Aortic Valve Normal aortic valve structure and function. There is no aortic valve stenosis. There is no aortic valve regurgitation. Mitral Valve Normal mitral valve structure and function. There is trace mitral valve regurgitation. There is no mitral valve stenosis. Pulmonic Valve The pulmonic valve is likely normal. There is trace pulmonic valve regurgitation. Tricuspid Valve Likely normal tricuspid valve structure and function. There is trace tricuspid valve regurgitation. Normal right atrial pressure. Great Vessels All visible segments of the aorta are normal in size. The pulmonary artery was not well visualized. There is no dilatation of the ascending aorta measuring 3.40 cm. Venous The inferior vena cava is normal in size and collapses greater than 50% with inspiration. Pericardium/Pleural There is no evidence of pericardial effusion. Measurements 2D Linear Measurements IVSd: 1.24 0.6-0.9/0.6-1.0 cm LVIDd: 4.49 3.9-5.3/4.2-5.9 cm LVIDd Index: 2.48 2.4-3.2/2.2-3.1 cm/m2 LVIDs: 2.82 2.0-3.6 cm LVPWd: 1.17 0.7-1.1 cm LA Diam: 4.00 2.7-3.8/3.0-4.0 cm LAIDs Index: 2.21 1.5-2.3 cm/m2 LV Mass: 247.51 67-162/88-224 g LV Mass Index: 136.75 43-95/49-115 g/m2 LVOT Diam: 2.20 3.0+(-)1.3 cm 2D Systolic Function EF 4C: 62.50 >55% Mitral Valve MV Pk E: 0.57 MV PK A: 0.99 MV Decel Time: 343.00 E/A: 0.60 E'Lateral: 4.35 E'Medial: 5.00 E/E' Med: 11.30 E/E' Lat: 13.00 PHT: 100.00 MVA PHT: 2.20 Decel [place]: 1.65 Aortic Valve AoV Pk Jose Ramon: 1.42 AoV Mn Jose Ramon: 0.89 AoV VTI: 0.31 AoV Pk Grad: 8.00 Aov Mn Grad: 4.00 ANNETTE Cont.VTI: 2.03 LVOT LVOT Pk Jose Ramon: 0.79 LVOT Mn Jose Ramon: 0.49 LVOT VTI: 0.17 LVOT Pk Grad: 2.00 LVOT Mn Grad: 1.00 LVOT Diam: 2.20 LVOT Area: 3.80 Diastolic Function MV Pk E: 0.57 MV Pk A: 0.99 E/A: 0.60 E'Medial: 5.00 E/E' Med: 11.30 E' Laterial: 4.35 E/E' Lat: 13.00 Right Ventricle TAPSE (mm): 30.40 TVS' Jose Ramon: 11.10 Tricuspid Valve RA Press: 3.00 Great Vessels Aorta Sinus of Valsalva: 3.50 2.0-3.5 cm Ao Asc: 3.40 2.1-3.4 cm Updated in Other Vendor System with Status of Final North Gonsalez MD electronically signed on 09/29/2023 3:52:06 PM with status of Final
== END ==
LOC: HO.CARD 09:50
PROVIDERS: PCP Internal Medicine; Visit Provider Internal Medicine
DX: I50.9 Heart failure, unspecified (principal)
CPT/HCPCS: 93306; Q9957

== ENCOUNTER → 2023-09-29 09:52 | Outpatient (BNV) | payer OTHER, MEDICARE, SELFPAY | PROVIDERS: PCP Internal Medicine; Visit Provider Internal Medicine Cardiovascular Disease | DX: I50.9 Heart failure, unspecified (principal) | CPT/HCPCS: 93306 ==

== ENCOUNTER 2023-11-09 09:46 | Outpatient (AMB) | payer OTHER, MEDICARE, SELFPAY ==
[2023-11-09 09:52] VITALS: BP 132/62; PULSE 75; BMI 32.7
--- NOTE | 2023-11-09 09:52 | MHC.OFFVIS ---
Intake Vital Signs 11/09/23 09:52 Height 5 ft 2 in Weight 178 lb 9.191 oz BMI 32.7 BP 132/62 Blood Pressure Location Lt brachial Position Sitting Pulse 75 Pulse Source Pulse Oximeter Intake Visit Reasons: f/u Type 2 DM/CONFIRMED Intake Note: Patient presents today to follow up on D2MT. Last Diabetic Eye exam:04/2023 Last Podiatry Visit: None Random Glucose: 181 mg/dl HgA1C: 7.1% Drafter Patent Required: No Accompanied by: Self / Same As Patient Allergies amoxicillin [From AUGMENTIN] Allergy (Severe, Verified 11/09/23 09:57) Diarrhea, malaise celecoxib [Celebrex] Allergy (Severe, Verified 11/09/23 09:57) Malaise clavulanic acid [From AUGMENTIN] Allergy (Severe, Verified 11/09/23 09:57) Diarrhea, malaise gabapentin [GABAPENTIN] Allergy (Severe, Verified 11/09/23 09:57) TREMORS morphine Allergy (Severe, Verified 11/09/23 09:57) BLACKED-OUT, CRAZY cephalexin [Keflex] Allergy (Unknown, Verified 11/09/23 09:57) Unknown diltiazem [Cardizem] Allergy (Unknown, Verified 11/09/23 09:57) Unknown Penicillins [PENICILLINS] Allergy (Unknown, Verified 11/09/23 09:57) Unknown clindamycin Allergy (Verified 11/09/23 09:57) Unconscious peanut Allergy (Verified 11/09/23 09:57) Unknown fluvastatin [From Lescol] Adverse Reaction (Severe, Verified 11/09/23 09:57) Joint Pain pecan nut [PECAN] Adverse Reaction (Severe, Verified 11/09/23 09:57) Anaphylaxis erythromycin base Adverse Reaction (Verified 11/09/23 09:57) Vomiting Medication List - Last Reconciled 11/09/23 by Chris Coles MD amlodipine 10 mg PO DAILY blood sugar diagnostic As directed blood sugar diagnostic (FreeStyle Lite Strips) As directed tests 4X /day blood-glucose meter (FreeStyle Lite Meter kit) As directed blood-glucose meter,continuous (Dexcom G7 Steel Layer) As directed blood-glucose sensor (Dexcom G7 Sensor device) As directed change every 10 days cholecalciferol (vitamin D3) (Vitamin D3) 50 mcg PO DAILY clonidine HCl 0.4 mg PO BID diphenoxylate-atropine 2.5-0.025 mg (Lomotil) 3 tabs PO BID PRN esomeprazole magnesium (Nexium) 40 mg PO DAILY evolocumab (Repatha SureClick) 140 mg subcut Q2W ezetimibe (Zetia) 10 mg PO DAILY flash glucose scanning reader (Pure life renalStyle Den 2 [place]) As directed flash glucose sensor Every 14 days flash glucose sensor (FreeStyle Den 2 Sensor kit) As directed- change every 14 days FreeStyle Precision Marcio Strips (blood sugar diagnostic) Once a day for calibration NS furosemide 20 mg PO BID insulin glargine U-300 conc (Toujeo SoloStar U-300 Insulin) 12 units (0.04 mL) subcut DAILY insulin lispro (Humalog KwikPen (U-100) Insulin) See Protocol 6 units subcutaneously before meals; ipratropium-albuterol 0.5 mg-3 mg(2.5 mg base)/3 mL 3 mL inhalation Q4-6H PRN 30 days lamotrigine 75 mg PO BID lancets (Pure life renalStyle Lancets) As directed twice daily levetiracetam 500 mg PO BID paroxetine HCl 20 mg PO DAILY pen needle, diabetic (BD Arlet 2nd Gen Pen Needle) 5 times a day Ventolin HFA 90 mcg/actuation (albuterol sulfate) 2 puffs inhalation Q4-6H PRN 30 days NS HPI HPI Comments History of Present Illness Details 77-year-old male, today for follow-up visit, for diabetes management . He is feeling well. He has DM type 2 diagnosed 2011, he only has neuropathy as microvascular disease, no macrovascular disease He has PMH of colon cancer status post partial colectomy, GERD, asthma, depression, gout, hyperlipidemia, hypertension. He is Currently on Toujeo 12 units 8 pm. Humalog 6 - 10 units before each meal. He reports he has been adherent to bolus. Took metformin in past without effect . Could not tolerate GLP-1? Has lows after breakfast and dinner in frequently Patient's personal continuous glucose monitor Den data from Oct 27 to 2023 showed an average blood sugar of 173 mg/dL, . He is 48 % in target range, 1% below target from that only <1% is below 54 mg/dL. He is 48% above target only 3% is above 250 mg/dL. Blood sugars overnight are very stable he does have occasional spikes after breakfast and less so dinner. He states he feels sideways with all other medications, Januvia, Invokana, metformin, Victoza. Denies retinopathy, nephropathy, neuropathy, CVA, CAD, PVD. Last opthalmology evaluation: April 2023 ,no retinopathy. Positive nocturia 2 to 3 times, Denies polydipsia, numbness, tingling . Laboratory Tests 02/04/21 03/24/21 09:19 11:20 Hgb 13.0 L Hct 39.2 L Sodium 139 Potassium 3.5 D Creatinine 1.13 Estimated GFR > 60 Random Glucose 139 H D Calcium 9.2 AST 13 D ALT 14 Albumin 4.0 Laboratory Tests 10/24/20 10/24/20 10/24/20 06:45 06:45 06:45 Hgb Hct Sodium Potassium Creatinine Fasting Glucose 129 H Hemoglobin A1c % 6.7 Calcium AST ALT Albumin Triglycerides 381 Cholesterol 224 LDL Cholesterol, C alc 104 HDL Cholesterol 44 Vitamin B12 193 L 25-OH Vitamin D To adam 27.5 Urine Creatinine Urine Microalbumin Microalb/Creat Rat io 10/24/20 11/10/20 11/10/20 06:45 10:35 10:35 Hgb 13.4 L Hct 39.4 L Sodium 139 Potassium 4.5 Creatinine 1.24 Fasting Glucose Hemoglobin A1c % Calcium 9.5 D AST 22 D ALT 28 Albumin 4.2 Triglycerides Cholesterol LDL Cholesterol, C alc HDL Cholesterol Vitamin B12 25-OH Vitamin D To adam Urine Creatinine 140.79 Urine Microalbumin 5.0 Microalb/Creat Rat io 3.5 PFSH Medical History Anxiety and depression Arthritis B12 deficiency Diabetes type 2, controlled Diabetic polyneuropathy associated with type 2 diabetes mellitus Dyslipidemia Elevated PSA GERD (gastroesophageal reflux disease) Hypertension MCC (current) use of insulin Low back pain MRSA (methicillin resistant Staphylococcus aureus) Prostate cancer Prostate cancer Statin intolerance Surgical History History of prostate biopsy Hx of colonoscopy History of esophagogastroduodenoscopy (EGD) Hx of lithotripsy Hx of shoulder surgery History of colon resection Family History Father No problems noted. Mother No problems noted. Other No family history of cancer Social History Household Members: Children Housing: House Are you a primary intensive care ambulance paramedic to a significant other at home: No Do you presently have visiting nurse or other home services: No Alcohol intake: never Patient Tobacco Use Status: Former Tobacco user Quit Date: 1984 Cigarette Packs Per Day: 1.5 service: No Current occupational status: retired Physical Exam Vital Signs: Last Vital Signs Pulse 75 11/09/23 09:52 BP 132/62 11/09/23 09:52 BMI result Body Mass Index 32.7 Absence of Cushingoid features. Absence of acromegalic features. Neck exam reveals nl size thyroid about 15 gms. No thyroid nodules palpable. No carotid bruits present. Lungs CTA. Heart S1 S2, Reg R/R. No M/R/ G. Skin exam reveals absence of vitiligo or acanthosis nigricans. Abdominal exam reveals Soft NT/ND with NA BS. No organomegaly present. Neck Other: . Extrem Other: Visual exam of foot performed. No ulcerations or open lesions. No onchomycosis, no callouses.Pulses 2 + distally Sensation intact to monofilament exam. Vibratory sensation sensed is intact with 128 Hz tuning fork Results Reviewed Results Reviewed: Laboratory Last Values Glucose (Clinic) 181 mg/dL (60-115) H 11/09/23 10:03 Assessment & Plan Assessment & Plan (1) Diabetes type 2, controlled: Code(s): E11.9 - Type 2 diabetes mellitus without complications Plan: See plan for type 2 diabetes below (2) Type 2 diabetes mellitus with unspecified complications: Code(s): E11.8 - Type 2 diabetes mellitus with unspecified complications Plan: This 76-year-old white male with a history of diabetes likely type 2 diabetes being treated with basal-bolus insulin with excellent glycemic control and known microvascular complications namely neuropathy and microalbuminuria The plan is to continue the current therapy. Patient was also referred to Podiatry Orders: Referrals Podiatry Referral E11.8 - Type 2 diabetes mellitus with unspecified complications Coding Level of Care Code Est Pt Level 4 (67733) Diagnoses Diabetes type 2, controlled E11.9 Type 2 diabetes mellitus with unspecified complications E11.8
[2023-11-09 10:09] LABS: Glucose, Whole Blood 181 mg/dL (60-115)
== END 2023-11-09 10:37 | disposition home or self-care (01) ==
PROVIDERS: PCP Radiology Radiation Oncology; Visit Provider Internal Medicine Endocrinology, Diabetes & Metabolism
DX: E11.9 Type 2 diabetes mellitus without complications (principal); E11.8 Type 2 diabetes mellitus with unspecified complications
CPT/HCPCS: 99214

== ENCOUNTER → 2023-11-09 09:46 | Outpatient (BNVA) | payer OTHER, MEDICARE, SELFPAY | PROVIDERS: Visit Provider Internal Medicine Endocrinology, Diabetes & Metabolism | DX: E11.8 Type 2 diabetes mellitus with unspecified complications (principal); Z79.4 Long term (current) use of insulin | CPT/HCPCS: 82947; 83036 ==

== ENCOUNTER 2023-12-27 10:40 | Outpatient (AMB) | payer OTHER, MEDICARE, SELFPAY ==
[2023-12-27 10:42] VITALS: BP 132/77; PULSE 80; O2SAT 97; BMI 32.3
--- NOTE | 2023-12-27 10:42 | A.OFFVIS_ITS ---
Intake Vital Signs 12/27/23 10:42 Height 5 ft 2 in Weight 176 lb 5.917 oz BMI 32.3 BP 132/77 Blood Pressure Location Rt brachial Position Sitting Pulse 80 Pulse Source Doppler Pulse Oximetry (%) 97 Oxygen Delivery Method Room Air Intake Visit Reasons: Cough Allergies amoxicillin [From AUGMENTIN] Allergy (Severe, Verified 12/27/23 10:48) Diarrhea, malaise celecoxib [Celebrex] Allergy (Severe, Verified 12/27/23 10:48) Malaise clavulanic acid [From AUGMENTIN] Allergy (Severe, Verified 12/27/23 10:48) Diarrhea, malaise gabapentin [GABAPENTIN] Allergy (Severe, Verified 12/27/23 10:48) TREMORS morphine Allergy (Severe, Verified 12/27/23 10:48) BLACKED-OUT, CRAZY cephalexin [Keflex] Allergy (Unknown, Verified 12/27/23 10:48) Unknown diltiazem [Cardizem] Allergy (Unknown, Verified 12/27/23 10:48) Unknown Penicillins [PENICILLINS] Allergy (Unknown, Verified 12/27/23 10:48) Unknown clindamycin Allergy (Verified 12/27/23 10:48) Unconscious peanut Allergy (Verified 12/27/23 10:48) Unknown fluvastatin [From Lescol] Adverse Reaction (Severe, Verified 12/27/23 10:48) Joint Pain pecan nut [PECAN] Adverse Reaction (Severe, Verified 12/27/23 10:48) Anaphylaxis erythromycin base Adverse Reaction (Verified 12/27/23 10:48) Vomiting HPI Cough HPI Details 78-year-old gentleman, former approximat chris 25 pack-year smoker in his 20s and 30s, quit over 30 years prior, now followed to moderate to severe asthma with some allergic component.? Unfortunately, his prostate cancer has recurred and he continues with further evaluation. He does complain of intermittent dyspnea on exertion and is interested in trying long-acting bronchodilators again. 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 Mother No problems noted. Other No family history of cancer Social History Household Members: Children Housing: House Are you a primary palliative care physician to a significant other at home: No Do you presently have visiting nurse or other home services: No Alcohol intake: never Patient Tobacco Use Status: Former Tobacco user Quit Date: 1984 Cigarette Packs Per Day: 1.5 service: No Current occupational status: retired Review of Systems Const Denies daytime sleepiness, Denies excessive sweating, Denies fatigue, Denies fever(s), Denies lethargy, Denies malaise, Denies night sweats, Denies snoring and Denies weight loss Eyes Denies blurry vision and Denies itchy eyes ENT Denies nasal congestion, Denies post nasal drip, Denies sinus pain, Denies sinus pressure and Denies other ( Thrush) Card Denies chest pain, Denies pedal edema, Denies dyspnea, Reports dyspnea on exertion (Intermittent), Denies orthopnea and Denies paroxysmal nocturnal dyspnea Resp Denies cough, Denies hemoptysis, Denies excessive phlegm production, Denies dyspnea, Reports dyspnea on exertion (Intermittent), Denies snoring and Denies wheezing GI Denies abdominal pain and Denies heartburn Musc Denies myalgias, Denies arthralgias and Denies joint swelling Skin/Breast Denies rash Neuro Denies memory loss and Denies seizure-like activity Psych Denies abnormal sleep pattern, Denies anxiety and Denies memory loss Endo Denies excessive sweating, Denies fatigue and Denies heat intolerance Scott/Lymph Denies easy bruising Aller/Immun Denies itchy eyes, Denies seasonal rhinorrhea and Denies wheezing Physical Exam Vital Signs: Last Vital Signs Pulse 80 12/27/23 10:42 BP 132/77 12/27/23 10:42 Pulse Ox 97 12/27/23 10:42 Oxygen Delivery Method Room Air 12/27/23 10:42 BMI result Body Mass Index 32.3 Const General: no acute distress and alert Nutritional Appearance: not obese Orientation/consciousness: Other orientation findings ( oriented) HEENT Head: Yes atraumatic Eyes General: appearance normal, both eyes and all related structures Sclerae: sclerae normal EOM: EOMs intact bilaterally Neck Neck: Yes supple Lymphatic: no lymphadenopathy noted Resp Effort & Inspection: normal respiratory effort and no use of accessory muscles Auscultation: clear to auscultation bilaterally Cardio Rate: regular rate Rhythm: regular rhythm Heart sounds: no gallops, no murmurs and no rubs Skin General skin exam: other ( warm) Extrem General: No clubbing, No cyanosis and No edema Assessment & Plan Assessment & Plan (1) Asthma: Code(s): J45.909 - Unspecified asthma, uncomplicated Plan: Suboptimal control on duo nebs. Patient is interested in trying Trelegy again. Restart Trelegy. Continue albuterol MDI/duo nebs. Medications: New Trelegy Ellipta 100-62.5-25 mcg (baleepcqfzg-[id number]-gvruzijo) 1 inh inhalation DAILY 1 ea 6RF 30 days NS Coding Level of Care Code Est Pt Level 3 (22409) Diagnoses Asthma J45.909
== END 2023-12-27 11:04 | disposition home or self-care (01) ==
PROVIDERS: PCP Internal Medicine; Visit Provider Internal Medicine Pulmonary Disease
DX: J45.909 Unspecified asthma, uncomplicated (principal)
CPT/HCPCS: 99213

== ENCOUNTER → 2023-12-27 10:40 | Outpatient (BNVA) | payer OTHER, MEDICARE, SELFPAY | PROVIDERS: PCP Internal Medicine; Visit Provider Internal Medicine Pulmonary Disease ==

== ENCOUNTER 2024-03-01 16:04 | Outpatient (REF) | payer OTHER, MEDICARE, SELFPAY ==
[2024-03-01 16:28] LABS: MANUAL DIFF FLAG NO
[2024-03-01 18:09] LABS: Basophils Absolute Auto 0.1 X10*3/uL (0.0-0.2); Eosinophils Absolute Auto 0.2 X10*3/uL (0.0-0.4); Eosinophils Percent Auto 2.8 % (0-4); Hemoglobin 12.2 g/dl (14.0-18.0); Imm Gran Abs Auto 0.03 X10*3/uL (0.00-0.03); Imm Gran Pct Auto 0.5 % (0.0-0.4); Lymphocytes Absolute Auto 2.2 X10*3/uL (1.2-4.9); Lymphocytes Percent Auto 37.3 % (20-40); Mean Corpuscular HGB Conc 35.9 g/dl (31.0-36.0); Mean Corpuscular Hemoglobin 29.8 pg (27.0-33.0); Mean Corpuscular Volume 83.1 fL (80.0-98.0); Mean Platelet Volume 8.6 fL (9.4-12.4); Monocytes Absolute Auto 0.5 X10*3/uL (0.1-1.2); Monocytes Percent Auto 7.7 % (2-11); Neutrophils Absolute Auto 2.9 x10*3/uL (2.0-8.3); Neutrophils Percent Auto 50.7 % (45-73); Platelet Count 280 X10*3/uL (160-400); Red Blood Count 4.09 X10*6/uL (4.60-5.80); Red Cell Distribution Width 12.9 % (11.0-16.0); White Blood Count 5.8 X10*3/uL (4.8-10.8)
[2024-03-01 18:23] LABS: Rheumatoid Factor < 13.0 IU/mL (<15.0)
[2024-03-01 18:33] LABS: Alanine Aminotransferase 13 U/L (0-40); Albumin Level 3.9 g/dL (3.5-5.0); Alkaline Phosphatase 144 U/L (39-117); Anion Gap 14 (12-20); Aspartate Amino Transferase 13 U/L (5-37); Bilirubin Total 0.3 mg/dL (0.0-1.0); Blood Urea Nitrogen 15 mg/dL (9-16); C Reactive Protein 0.74 mg/dL (< or = 0.50); Calcium 9.6 mg/dL (8.4-10.2); Carbon Dioxide 25 mmol/L (22-29); Chloride 106 mmol/L (96-108); Estimated Glomerular Filt Rate > 60; Glucose Random 111 mg/dL (60-115); Potassium 3.5 mmol/L (3.3-5.1); Sodium 141 mmol/L (135-145); Total Protein 7.6 g/dL (6.5-8.0); Uric Acid 7.5 mg/dL (3.4-7.0)
[2024-03-01 18:39] LABS: Erythrocyte Sedimentation Rate 14 MM/HR (0-15)
[2024-03-01 18:50] LABS: Thyroid Stimulating Hormone 1.91 uIU/mL (0.32-4.0)
[2024-03-02 17:22] LABS: A. Phagocytphilium DNA,RT-PCR NOT DETECTED (NOT DETECTED); Babesia Microti DNA, RT-PCR NOT DETECTED (NOT DETECTED); Borrelia Miyamotoi,DNA RT-PCR NOT DETECTED (NOT DETECTED); E.Chaffeensis DNA RT-PCR NOT DETECTED (NOT DETECTED); Lyme(Borrelia ssp)DNA RT-PCR NOT DETECTED (NOT DETECTED)
[2024-03-06 17:43] LABS: Lyme Abs Screen <0.90 index
== END 2024-03-01 16:05 | disposition home or self-care (01) ==
LOC: HO.LAB 16:04
PROVIDERS: PCP Internal Medicine; Visit Provider Nurse Practitioner Adult Health
DX: M89.8X9 Other specified disorders of bone, unspecified site (principal)
CPT/HCPCS: 36415; 80053; 84439; 84443; 84550; 85025; 85652; 86140; 86431; 86617; 86618; 87468; 87469; 87478; 87484; 87798

== ENCOUNTER 2024-03-07 13:20 | Outpatient (AMB) | payer OTHER, MEDICARE, SELFPAY ==
[2024-03-07 14:48] VITALS: BP 142/76; PULSE 78; TEMP 37.1; O2SAT 97
--- NOTE | 2024-03-07 14:48 | AM.OFFWIN_ITS ---
Intake Vital Signs 03/07/24 14:48 Height 5 ft 2 in BP 142/76 H Blood Pressure Location Rt brachial Position Sitting Pulse 78 Pulse Source Pulse Oximeter Temp 98.8 F Temp Source Oral Pulse Oximetry (%) 97 Oxygen Delivery Method Room Air Intake Visit Reasons: EST/sore throat(lobby) Intake Note: pt is here for difficulty breathing, cough, chest congestion Patient Tobacco Use Status: Former Tobacco user Quit Date: 1984 Allergies amoxicillin [From AUGMENTIN] Allergy (Severe, Verified 03/07/24 14:48) Diarrhea, malaise celecoxib [Celebrex] Allergy (Severe, Verified 03/07/24 14:48) Malaise clavulanic acid [From AUGMENTIN] Allergy (Severe, Verified 03/07/24 14:48) Diarrhea, malaise gabapentin [GABAPENTIN] Allergy (Severe, Verified 03/07/24 14:48) TREMORS morphine Allergy (Severe, Verified 03/07/24 14:48) BLACKED-OUT, CRAZY cephalexin [Keflex] Allergy (Unknown, Verified 03/07/24 14:48) Unknown diltiazem [Cardizem] Allergy (Unknown, Verified 03/07/24 14:48) Unknown Penicillins [PENICILLINS] Allergy (Unknown, Verified 03/07/24 14:48) Unknown clindamycin Allergy (Verified 03/07/24 14:48) Unconscious peanut Allergy (Verified 03/07/24 14:48) Unknown fluvastatin [From Lescol] Adverse Reaction (Severe, Verified 03/07/24 14:48) Joint Pain pecan nut [PECAN] Adverse Reaction (Severe, Verified 03/07/24 14:48) Anaphylaxis erythromycin base Adverse Reaction (Verified 03/07/24 14:48) Vomiting Do you need a note to return to daycare/school/sports/work: No HPI HPI Comments History of Present Illness Details 79 y/o male patient who presents to walk in clinic with c/o cough, SOB and wheezing x 3 days. 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 Mother No problems noted. Other No family history of cancer Social History Household Members: Children Housing: House Are you a primary health care marketing specialist to a significant other at home: No Do you presently have visiting nurse or other home services: No Alcohol intake: never Patient Tobacco Use Status: Former Tobacco user Quit Date: 1984 Cigarette Packs Per Day: 1.5 service: No Current occupational status: retired Review of Systems Const All systems reviewed & are unremarkable except as noted in HPI and below Physical Exam Vital Signs: Last Vital Signs Temp 98.8 F 03/07/24 14:48 Pulse 78 03/07/24 14:48 BP 142/76 H 03/07/24 14:48 Pulse Ox 97 03/07/24 14:48 Oxygen Delivery Method Room Air 03/07/24 14:48 Const General: comfortable and no acute distress Nutritional Appearance: overweight Orientation/consciousness: patient oriented x3 HEENT Head: Yes normocephalic Ears: external ears normal and TM's normal bilaterally General nose exam: Normal nasal mucous membranes and turbinates present Face and sinus: Yes sinuses nontender Mouth: moist mucous membranes Throat: Yes posterior oropharynx normal Resp Effort & Inspection: normal respiratory effort, able to speak in complete sentences and Actively coughing Auscultation: no crackles, no rales, rhonchi and wheezes Cardio Rate: regular rate Rhythm: regular rhythm Neuro General: patient oriented x3, gait normal and moves all extremities Psych Speech and movement: Normal speech and movement present Assessment & Plan Assessment & Plan (1) Cough in adult: Code(s): R05.9 - Cough, unspecified Plan: - Xray chest - Abx as directed - F/U with PCP. Orders: Orders XR chest 2V Today R05.9 - Cough, unspecified Medications: New doxycycline hyclate 100 mg PO BID 20 caps 0RF 10 days R05.9 - Cough, unspecified prednisone 50 mg PO DAILY 5 tabs 0RF 5 days R05.9 - Cough, unspecified Coding Level of Care Code Est Pt Level 4 (81557) Diagnoses Cough in adult R05.9 Time Spent (min) 20
== END 2024-03-07 15:58 | disposition home or self-care (01) ==
PROVIDERS: PCP Internal Medicine; Visit Provider Nurse Practitioner Family
DX: R05.9 Cough, unspecified (principal)
CPT/HCPCS: 99214

== ENCOUNTER 2024-03-07 15:42 | Outpatient (REF) | payer OTHER, MEDICARE, SELFPAY ==
--- NOTE | ~2024-03-07 | XR_ITS ---
EXAMINATION: XR CHEST CLINICAL INFORMATION: Cough COMPARISON: 01/20/2023 TECHNIQUE: 2 views of the chest were obtained. FINDINGS: No significant abnormality is noted involving the heart, lungs, mediastinum, bony thorax or soft tissues. XR/XR chest 2V IMPRESSION: Unremarkable examination.
== END 2024-03-07 15:43 | disposition home or self-care (01) ==
LOC: HO.HMGCX 15:42
PROVIDERS: PCP Internal Medicine; Visit Provider Nurse Practitioner Family
DX: R05.9 Cough, unspecified (principal)
CPT/HCPCS: 71046

== ENCOUNTER 2024-03-08 10:17 | Outpatient (AMB) | payer OTHER, MEDICARE, SELFPAY ==
--- NOTE | 2024-03-08 10:24 | MHC.OFFVIS ---
Vital Signs 03/08/24 10:25 Height 5 ft 2 in Weight 175 lb 4.28 oz BMI 32.1 BP 142/78 H Blood Pressure Location Rt brachial Position Sitting Pulse 76 Pulse Source Pulse Oximeter Pulse Oximetry (%) 98 Oxygen Delivery Method Room Air Intake Visit Reasons: SOB Productive cough Allergies amoxicillin [From AUGMENTIN] Allergy (Severe, Verified 03/08/24 10:29) Diarrhea, malaise celecoxib [Celebrex] Allergy (Severe, Verified 03/08/24 10:29) Malaise clavulanic acid [From AUGMENTIN] Allergy (Severe, Verified 03/08/24 10:29) Diarrhea, malaise gabapentin [GABAPENTIN] Allergy (Severe, Verified 03/08/24 10:29) TREMORS morphine Allergy (Severe, Verified 03/08/24 10:29) BLACKED-OUT, CRAZY cephalexin [Keflex] Allergy (Unknown, Verified 03/08/24 10:29) Unknown diltiazem [Cardizem] Allergy (Unknown, Verified 03/08/24 10:29) Unknown Penicillins [PENICILLINS] Allergy (Unknown, Verified 03/08/24 10:29) Unknown clindamycin Allergy (Verified 03/08/24 10:29) Unconscious peanut Allergy (Verified 03/08/24 10:29) Unknown fluvastatin [From Lescol] Adverse Reaction (Severe, Verified 03/08/24 10:29) Joint Pain pecan nut [PECAN] Adverse Reaction (Severe, Verified 03/08/24 10:29) Anaphylaxis erythromycin base Adverse Reaction (Verified 03/08/24 10:29) Vomiting HPI HPI SOB Productive cough: Details: 78-year-old gentleman, former approximately 25 pack-year smoker in his 20s and 30s, quit over 30 years prior, now followed to moderate to severe asthma with some allergic component.? Unfortunately, his prostate cancer has recurred and he continues with further evaluation. Office visit patient was restarted on Trelegy with improvement in his symptom control until he developed an acute exacerbation several days prior. He was seen at urgent care and started on doxycycline prednisone with some improvement, however he does have a very bothersome cough. 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 Mother No problems noted. Other No family history of cancer Social History Household Members: Children Housing: House Are you a primary healthcare corporate account director to a significant other at home: No Do you presently have visiting nurse or other home services: No Alcohol intake: never Patient Tobacco Use Status: Former Tobacco user Quit Date: 1984 Cigarette Packs Per Day: 1.5 service: No Current occupational status: retired Review of Systems Const Denies daytime sleepiness, Denies excessive sweating, Denies fatigue, Denies fever(s), Denies lethargy, Denies malaise, Denies night sweats, Denies snoring and Denies weight loss Eyes Denies blurry vision and Denies itchy eyes ENT Denies nasal congestion, Denies post nasal drip, Denies sinus pain, Denies sinus pressure and Denies other ( Thrush) Card Denies chest pain, Denies pedal edema, Denies dyspnea, Denies orthopnea and Denies paroxysmal nocturnal dyspnea Resp Reports cough, Denies hemoptysis, Denies excessive phlegm production, Denies dyspnea, Denies snoring and Reports wheezing GI Denies abdominal pain and Denies heartburn Musc Denies myalgias, Denies arthralgias and Denies joint swelling Skin/Breast Denies rash Neuro Denies memory loss and Denies seizure-like activity Psych Denies abnormal sleep pattern, Denies anxiety and Denies memory loss Endo Denies excessive sweating, Denies fatigue and Denies heat intolerance Scott/Lymph Denies easy bruising Aller/Immun Denies itchy eyes, Denies seasonal rhinorrhea and Reports wheezing Physical Exam Vital Signs: Last Vital Signs Pulse 76 03/08/24 10:25 BP 142/78 H 03/08/24 10:25 Pulse Ox 98 03/08/24 10:25 Oxygen Delivery Method Room Air 03/08/24 10:25 BMI result Body Mass Index 32.1 Const General: no acute distress and alert Nutritional Appearance: not obese Orientation/consciousness: Other orientation findings ( oriented) HEENT Head: Yes atraumatic Eyes General: appearance normal, both eyes and all related structures Sclerae: sclerae normal EOM: EOMs intact bilaterally Neck Neck: Yes supple Lymphatic: no lymphadenopathy noted Resp Effort & Inspection: normal respiratory effort and no use of accessory muscles Auscultation: wheezes (Mild expiratory bilateral) Cardio Rate: regular rate Rhythm: regular rhythm Heart sounds: no gallops, no murmurs and no rubs Skin General skin exam: other ( warm) Extrem General: No clubbing, No cyanosis and No edema Assessment & Plan Assessment & Plan (1) Acute asthma exacerbation: Code(s): J45.901 - Unspecified asthma with (acute) exacerbation Category: Medical Plan Acute exacerbation of underlying asthma. Continue current regimen doxycycline times next days. Continue baseline regimen of Trelegy and albuterol MDI. Add codeine for symptomatic relief of cough. Medications: New codeine-guaifenesin 10-100 mg/5 mL 10 mL PO Q4-6H PRN 473 mL 0RF flu symptoms 14 days Coding Level of Care Code Est Pt Level 4 (72436) Diagnoses Acute asthma exacerbation J45.901
[2024-03-08 10:25] VITALS: BP 142/78; PULSE 76; O2SAT 98; BMI 32.1
== END 2024-03-08 10:58 | disposition home or self-care (01) ==
PROVIDERS: PCP Internal Medicine; Visit Provider Internal Medicine Pulmonary Disease
DX: J45.901 Unspecified asthma with (acute) exacerbation (principal)
CPT/HCPCS: 99214

== ENCOUNTER → 2024-03-08 10:17 | Outpatient (BNVA) | payer OTHER, MEDICARE, SELFPAY | PROVIDERS: PCP Internal Medicine; Visit Provider Internal Medicine Pulmonary Disease ==

== ENCOUNTER 2024-03-31 08:43 | Outpatient (REF) | payer OTHER, MEDICARE, SELFPAY ==
[2024-03-31 09:59] LABS: Alanine Aminotransferase 15 U/L (0-40); Albumin Level 3.9 g/dL (3.5-5.0); Alkaline Phosphatase 158 U/L (39-117); Anion Gap 15 (12-20); Aspartate Amino Transferase 14 U/L (5-37); B Type Natriuretic Peptide 87 pg/mL (<100); Bilirubin Total 0.5 mg/dL (0.0-1.0); Blood Urea Nitrogen 12 mg/dL (9-16); Calcium 10.1 mg/dL (8.4-10.2); Carbon Dioxide 28 mmol/L (22-29); Chloride 101 mmol/L (96-108); Estimated Glomerular Filt Rate > 60; Glucose Random 148 mg/dL (60-115); Potassium 4.7 mmol/L (3.3-5.1); Sodium 139 mmol/L (135-145); Total Protein 7.4 g/dL (6.5-8.0)
== END 2024-03-31 08:44 | disposition home or self-care (01) ==
LOC: HO.LAB 08:43
PROVIDERS: Internal Medicine; PCP Internal Medicine; Visit Provider Internal Medicine
DX: I11.0 Hypertensive heart disease with heart failure (principal); I50.9 Heart failure, unspecified; M79.7 Fibromyalgia
CPT/HCPCS: 36415; 80053; 83880

== ENCOUNTER 2024-04-04 09:02 | Outpatient (AMB) | payer OTHER, MEDICARE, SELFPAY ==
[2024-04-04 09:59] VITALS: BP 108/62; PULSE 81; O2SAT 97; BMI 31.0
--- NOTE | 2024-04-04 09:59 | MHC.OFFVIS ---
Vital Signs 04/04/24 09:59 Height 5 ft 2 in Weight 169 lb 12.095 oz BMI 31.0 BP 108/62 Blood Pressure Location Rt brachial Position Sitting Pulse 81 Pulse Source Doppler Pulse Oximetry (%) 97 Oxygen Delivery Method Room Air Intake Visit Reasons: Cough Allergies amoxicillin [From AUGMENTIN] Allergy (Severe, Verified 03/08/24 10:29) Diarrhea, malaise celecoxib [Celebrex] Allergy (Severe, Verified 03/08/24 10:29) Malaise clavulanic acid [From AUGMENTIN] Allergy (Severe, Verified 03/08/24 10:29) Diarrhea, malaise gabapentin [GABAPENTIN] Allergy (Severe, Verified 03/08/24 10:29) TREMORS morphine Allergy (Severe, Verified 03/08/24 10:29) BLACKED-OUT, CRAZY cephalexin [Keflex] Allergy (Unknown, Verified 03/08/24 10:29) Unknown diltiazem [Cardizem] Allergy (Unknown, Verified 03/08/24 10:29) Unknown Penicillins [PENICILLINS] Allergy (Unknown, Verified 03/08/24 10:29) Unknown clindamycin Allergy (Verified 03/08/24 10:29) Unconscious peanut Allergy (Verified 03/08/24 10:29) Unknown fluvastatin [From Lescol] Adverse Reaction (Severe, Verified 03/08/24 10:29) Joint Pain pecan nut [PECAN] Adverse Reaction (Severe, Verified 03/08/24 10:29) Anaphylaxis erythromycin base Adverse Reaction (Verified 03/08/24 10:29) Vomiting HPI HPI Cough: Details: 79-year-old gentleman, former approximately 25 pack-year smoker in his 20s and 30s, quit over 30 years prior, now followed to moderate to severe asthma with some allergic/GERD component.? Unfortunately, his prostate cancer has recurred and he continues with further evaluation. After the last office visit patient stopped trilogy as he did not think it helped his symptoms. He has been using Gaviscon and as needed codeine syrup with reasonable symptom control. [facility], [facility] Medical History (Updated 04/04/24 @ 10:13 by Luis Miguel Virgen MD) Statin intolerance Prostate cancer Prostate cancer MRSA (methicillin resistant Staphylococcus aureus) Arthritis Low back pain GERD (gastroesophageal reflux disease) Anxiety and depression B12 deficiency Elevated PSA Dyslipidemia Hypertension Diabetic polyneuropathy associated with type 2 diabetes mellitus USP (current) use of insulin Diabetes type 2, controlled Surgical History History of prostate biopsy Hx of colonoscopy History of esophagogastroduodenoscopy (EGD) Hx of lithotripsy Hx of shoulder surgery History of colon resection Family History Father No problems noted. Mother No problems noted. Other No family history of cancer Social History Household Members: Children Housing: House Are you a primary career and guidance counselor to a significant other at home: No Do you presently have visiting nurse or other home services: No Alcohol intake: never Patient Tobacco Use Status: Former Tobacco user Cigarette Packs Per Day: 1.5 service: No Current occupational status: retired Review of Systems Const Denies daytime sleepiness, Denies excessive sweating, Denies fatigue, Denies fever(s), Denies lethargy, Denies malaise, Denies night sweats, Denies snoring and Denies weight loss Eyes Denies blurry vision and Denies itchy eyes ENT Denies nasal congestion, Denies post nasal drip, Denies sinus pain, Denies sinus pressure and Denies other ( Thrush) Card Denies chest pain, Denies pedal edema, Denies dyspnea, Denies orthopnea and Denies paroxysmal nocturnal dyspnea Resp Denies cough, Denies hemoptysis, Denies excessive phlegm production, Denies dyspnea, Denies snoring and Denies wheezing GI Denies abdominal pain and Denies heartburn Musc Denies myalgias, Denies arthralgias and Denies joint swelling Skin/Breast Denies rash Neuro Denies memory loss and Denies seizure-like activity Psych Denies abnormal sleep pattern, Denies anxiety and Denies memory loss Endo Denies excessive sweating, Denies fatigue and Denies heat intolerance Scott/Lymph Denies easy bruising Aller/Immun Denies itchy eyes, Denies seasonal rhinorrhea and Denies wheezing Physical Exam Vital Signs: Last Vital Signs Pulse 81 04/04/24 09:59 BP 108/62 04/04/24 09:59 Pulse Ox 97 04/04/24 09:59 Oxygen Delivery Method Room Air 04/04/24 09:59 BMI result Body Mass Index 31.0 Const General: no acute distress and alert Nutritional Appearance: not obese Orientation/consciousness: Other orientation findings ( oriented) HEENT Head: Yes atraumatic Eyes General: appearance normal, both eyes and all related structures Sclerae: sclerae normal EOM: EOMs intact bilaterally Neck Neck: Yes supple Lymphatic: no lymphadenopathy noted Resp Effort & Inspection: normal respiratory effort and no use of accessory muscles Auscultation: clear to auscultation bilaterally Cardio Rate: regular rate Rhythm: regular rhythm Heart sounds: no gallops, no murmurs and no rubs Skin General skin exam: other ( warm) Extrem General: No clubbing, No cyanosis and No edema Assessment & Plan Assessment & Plan (1) Cough: Code(s): R05.9 - Cough, unspecified Category: Medical (2) Asthma: Code(s): J45.909 - Unspecified asthma, uncomplicated Category: Medical Plan Multifactorial etiology of underlying cough with asthmatic/GERD/allergic components. At this time well controlled on Gaviscon and as needed codeine syrup. Continue current regimen. Medications: New codeine-guaifenesin 10-100 mg/5 mL 10 mL PO Q4-6H PRN 473 mL 0RF cough Coding Level of Care Code Est Pt Level 4 (15193) Diagnoses Cough R05.9 Asthma J45.909
== END 2024-04-04 10:12 | disposition home or self-care (01) ==
PROVIDERS: PCP Internal Medicine; Visit Provider Internal Medicine Pulmonary Disease
DX: R05.9 Cough, unspecified (principal); J45.909 Unspecified asthma, uncomplicated
CPT/HCPCS: 99214

== ENCOUNTER → 2024-04-04 09:02 | Outpatient (BNVA) | payer OTHER, MEDICARE, SELFPAY | PROVIDERS: PCP Internal Medicine; Visit Provider Internal Medicine Pulmonary Disease ==

== ENCOUNTER 2024-05-09 09:10 | Outpatient (AMB) | payer OTHER, MEDICARE, SELFPAY ==
--- NOTE | 2024-05-09 09:15 | A.OFFVIS_ITS ---
Vital Signs 05/09/24 09:16 Height 52 ft Weight 171 lb 15.369 oz BMI 0.3 BP 144/68 H Blood Pressure Location Lt brachial Position Sitting Pulse 92 Pulse Source Pulse Oximeter Intake Visit Reasons: [id number] Intake Note: New Patient presents today to establish treatment for Type 2 Diabetes Mellitus: Last Diabetic Eye exam: 03/2023 Last Podiatry Exam: Does not see a Traveling Clerk Most recent HbA1c: 7.5% Random Glucose- 149 mg/dL Commercial Credit Portfolio Manager Required: No Accompanied by: Self / Same As Patient Allergies amoxicillin [From AUGMENTIN] Allergy (Severe, Verified 05/09/24 09:21) Diarrhea, malaise celecoxib [Celebrex] Allergy (Severe, Verified 05/09/24 09:21) Malaise clavulanic acid [From AUGMENTIN] Allergy (Severe, Verified 05/09/24 09:21) Diarrhea, malaise gabapentin [GABAPENTIN] Allergy (Severe, Verified 05/09/24 09:21) TREMORS morphine Allergy (Severe, Verified 05/09/24 09:21) BLACKED-OUT, CRAZY cephalexin [Keflex] Allergy (Unknown, Verified 05/09/24 09:21) Unknown diltiazem [Cardizem] Allergy (Unknown, Verified 05/09/24 09:21) Unknown Penicillins [PENICILLINS] Allergy (Unknown, Verified 05/09/24 09:21) Unknown clindamycin Allergy (Verified 05/09/24 09:21) Unconscious peanut Allergy (Verified 05/09/24 09:21) Unknown fluvastatin [From Lescol] Adverse Reaction (Severe, Verified 05/09/24 09:21) Joint Pain pecan nut [PECAN] Adverse Reaction (Severe, Verified 05/09/24 09:21) Anaphylaxis erythromycin base Adverse Reaction (Verified 05/09/24 09:21) Vomiting HPI Comments Details: 77-year-old male, today for follow-up visit, for diabetes management He has PMH of prostate cancer, colon cancer status post partial colectomy, GERD, asthma, depression, gout, hyperlipidemia, hypertension. He has DM type 2 diagnosed 2012 Micro/macrovascular complications: neuropathy Current medications: He is Currently on Toujeo 12 units 8 pm. Humalog 6 units before each meal. He reports he has been adherent to bolus. Took metformin in past without effect . Could not tolerate GLP-1? He states he feels sideways with all other medications, Januvia, Invokana, metformin, Victoza. Has a few low per week often after meals [id number] to crackers and soda. Lows have increased since off Freestyle Den. Dexcom was consistently reading more than 20 points off fingerstick checks. He would have symptoms of hypoglycemia, fingerstick on contour would read 50s, Dexcom would read 70s. Stopped using it as felt it was not safe. Has felt blood sugar more variable on GnRH injections. Has chronic pain and dizziness from those injections as well. Denies retinopathy, nephropathy, neuropathy, CVA, CAD, PVD. Last opthalmology evaluation: April 2023-no retinopathy. Has upcoming visit Positive nocturia 2 to 3 times, Denies polydipsia, numbness, tingling . ROS see HPI. PHYSICAL EXAM: GENERAL: Alert and oriented x 3. NAD EYES: EOMI. Anicteric. HENT: Moist mucous membranes. No scleral icterus. No cervical lymphadenopathy. LUNGS: Clear to auscultation bilaterally. CARDIOVASCULAR: Regular rate and rhythm. ABDOMEN: Soft, non-tender +bs EXTREMITIES: No edema. Non-tender. +PT pulses SKIN: No rashes or lesions. Warm. NEUROLOGIC: No focal neurological deficits. CN II-XII grossly intact PSYCHIATRIC: Cooperative. Appropriate mood and affect [facility] Medical History Statin intolerance Prostate cancer Prostate cancer MRSA (methicillin resistant Staphylococcus aureus) Arthritis Low back pain GERD (gastroesophageal reflux disease) Anxiety and depression B12 deficiency Elevated PSA Dyslipidemia Hypertension Diabetic polyneuropathy associated with type 2 diabetes mellitus residential (current) use of insulin Diabetes type 2, controlled Surgical History History of prostate biopsy Hx of colonoscopy History of esophagogastroduodenoscopy (EGD) Hx of lithotripsy Hx of shoulder surgery History of colon resection Family History Father No problems noted. Mother No problems noted. Other No family history of cancer Social History Household Members: Children Housing: House Are you a primary healthcare business analyst to a significant other at home: No Do you presently have visiting nurse or other home services: No Alcohol intake: never Patient Tobacco Use Status: Former Tobacco user Cigarette Packs Per Day: 1.5 service: No Current occupational status: retired Physical Exam Vital Signs: Last Vital Signs Pulse 92 05/09/24 09:16 BP 144/68 H 05/09/24 09:16 BMI result Body Mass Index 0.3 Results AMB Hemoglobin A1c AMB Hemoglobin A1c 7.5 % Last Edit by ELLEN Burden on 05/09/24 09:34 Results Reviewed Results Reviewed: Laboratory Last Values Glucose (Clinic) 149 mg/dL (60-115) H 05/09/24 09:25 Hgb A1c (Clinic) 7.5 % (4.0-6.0) H 05/09/24 09:28 Assessment & Plan Assessment & Plan (1) Insulin use (long-term) in type 2 diabetes: Code(s): E11.9 - Type 2 diabetes mellitus without complications; Z79.4 - residential (current) use of insulin Category: Medical Qualifiers: Diabetes mellitus complication status: with hyperglycemia Qualified Code(s): E11.65 - Type 2 diabetes mellitus with hyperglycemia; Z79.4 - terminal operations supervisor (current) use of insulin Plan: A1C today 7.5% Having both highs and intermittent lows. Unfortunately Dexcom readings were invalid and stopped using. Was doing really well on Freestyle Den Increase toujeo 14 units nightly Decrease humalog 2,2,6 with meals (2) terminal operations supervisor (current) use of insulin: Code(s): Z79.4 - terminal operations supervisor (current) use of insulin Category: Medical Plan: see above (3) Diabetic polyneuropathy associated with type 2 diabetes mellitus: Code(s): E11.42 - Type 2 diabetes mellitus with diabetic polyneuropathy Category: Medical Plan: restart B12 injections (4) B12 deficiency: Code(s): E53.8 - Deficiency of other specified B group vitamins Category: Medical Plan: start 1000mcg injections at home monthly (5) Type 2 diabetes mellitus with hyperglycemia: Code(s): E11.65 - Type 2 diabetes mellitus with hyperglycemia Category: Medical Qualifiers: Diabetes mellitus senior care insulin use: with intermediate school teacher use Qualified Code(s): E11.65 - Type 2 diabetes mellitus with hyperglycemia; Z79.4 - residential (current) use of insulin Plan: see above Orders: Orders AMB Hemoglobin A1c Today E11.8 - Type 2 diabetes mellitus with unspecified complications, Z13.9 - Encounter for screening, unspecified Referrals Podiatry Referral E11.42 - Type 2 diabetes mellitus with diabetic polyneuropathy Medications: New cyanocobalamin (vitamin B-12) 1,000 mcg IM Q4W 10 weeks 3 mL 3RF syringe with needle (Monoject TB Safety Syringe) As directed 500 ea 3RF E53.8 - Deficiency of other specified B group vitamins blood sugar diagnostic (FreeStyle Precision Marcio Strips) Four times daily 50 ea 3RF Changed From insulin glargine U-300 conc (Toujeo SoloStar U-300 Insulin) 12 units (0.04 mL) subcut DAILY 4.5 mL 5RF E11.8 - Type 2 diabetes mellitus with unspecified complications, E11.9 - Type 2 diabetes mellitus without complications, Z79.4 - residential (current) use of insulin To Toujeo SoloStar U-300 Insulin (insulin glargine U-300 conc) 14 units (0.0467 mL) subcut DAILY 4.5 mL 5RF NS E11.8 - Type 2 diabetes mellitus with unspecified complications, E11.9 - Type 2 diabetes mellitus without complications, Z79.4 - terminal operations supervisor (current) use of insulin From insulin lispro (Humalog KwikPen (U-100) Insulin) See Protocol 6 units subcutaneously before meals; 15 mL 4RF E11.8 - Type 2 diabetes mellitus with unspecified complications, E11.9 - Type 2 diabetes mellitus without complications, Z79.4 - residential (current) use of insulin To Humalog KwikPen Insulin (insulin lispro) See Protocol 6 units subcutaneously 15 minutes before meals; 15 mL 4RF NS E11.8 - Type 2 diabetes mellitus with unspecified complications, E11.9 - Type 2 diabetes mellitus without complications, Z79.4 - terminal operations supervisor (current) use of insulin Refilled flash glucose sensor (FreeStyle Den 2 Sensor kit) As directed- change every 14 days 6 ea 3RF E11.42 - Type 2 diabetes mellitus with diabetic polyneuropathy, E11.65 - Type 2 diabetes mellitus with hyperglycemia, E11.8 - Type 2 diabetes mellitus with unspecified complications, Z79.4 - terminal operations supervisor (current) use of insulin Coding Level of Care Code Est Pt Level 5 (93050) Diagnoses Type 2 diabetes mellitus with hyperglycemia, with long-term current use of insulin E11.65; Z79.4 Diabetes mellitus complication status: with hyperglycemia terminal operations supervisor (current) use of insulin Z79.4 Diabetic polyneuropathy associated with type 2 diabetes mellitus E11.42 B12 deficiency E53.8 Type 2 diabetes mellitus with hyperglycemia, with long-term current use of insulin E11.65; Z79.4 Diabetes mellitus senior care insulin use: with intermediate school teacher use Time Spent (min) 48
[2024-05-09 09:16] VITALS: BP 144/68; PULSE 92
[2024-05-09 09:28] LABS: Glucose, Whole Blood 149 mg/dL (60-115)
== END 2024-05-09 10:46 | disposition home or self-care (01) ==
PROVIDERS: PCP Internal Medicine; Visit Provider Internal Medicine
DX: E11.65 Type 2 diabetes mellitus with hyperglycemia (principal); Z79.4 Long term (current) use of insulin; E11.42 Type 2 diabetes mellitus with diabetic polyneuropathy; E53.8 Deficiency of other specified B group vitamins; Z13.9 Encounter for screening, unspecified; E11.8 Type 2 diabetes mellitus with unspecified complications
CPT/HCPCS: 99215

== ENCOUNTER → 2024-05-09 09:10 | Outpatient (BNVA) | payer OTHER, MEDICARE, SELFPAY | PROVIDERS: PCP Internal Medicine; Visit Provider Internal Medicine | DX: E11.65 Type 2 diabetes mellitus with hyperglycemia (principal); E11.42 Type 2 diabetes mellitus with diabetic polyneuropathy; E53.8 Deficiency of other specified B group vitamins; Z79.4 Long term (current) use of insulin | CPT/HCPCS: 82947; 83036 ==

== ENCOUNTER 2024-05-23 09:00 | Outpatient (RCR) | payer OTHER, MEDICARE, SELFPAY | END 2024-05-23 09:42 | disposition home or self-care (01) | LOC: HO.PT 09:00 | PROVIDERS: PCP Internal Medicine; Visit Provider Internal Medicine | DX: R53.1 Weakness (principal) | CPT/HCPCS: 97110; 97112; 97162; 97535 ==

== ENCOUNTER 2024-05-26 09:03 | Outpatient (REF) | payer OTHER, MEDICARE, SELFPAY ==
[2024-05-26 09:24] LABS: MANUAL DIFF FLAG NO
[2024-05-26 10:10] LABS: Basophils Absolute Auto 0.1 X10*3/uL (0.0-0.2); Eosinophils Absolute Auto 0.1 X10*3/uL (0.0-0.4); Eosinophils Percent Auto 1.8 % (0-4); Hematocrit 33.2 % (42.0-52.0); Hemoglobin 11.8 g/dl (14.0-18.0); Imm Gran Abs Auto 0.03 X10*3/uL (0.00-0.03); Imm Gran Pct Auto 0.5 % (0.0-0.4); Lymphocytes Absolute Auto 1.8 X10*3/uL (1.2-4.9); Lymphocytes Percent Auto 29.6 % (20-40); Mean Corpuscular HGB Conc 35.5 g/dl (31.0-36.0); Mean Corpuscular Hemoglobin 29.9 pg (27.0-33.0); Mean Corpuscular Volume 84.3 fL (80.0-98.0); Mean Platelet Volume 8.5 fL (9.4-12.4); Monocytes Absolute Auto 0.4 X10*3/uL (0.1-1.2); Monocytes Percent Auto 6.9 % (2-11); Neutrophils Absolute Auto 3.6 x10*3/uL (2.0-8.3); Neutrophils Percent Auto 60.2 % (45-73); Platelet Count 270 X10*3/uL (160-400); Red Blood Count 3.94 X10*6/uL (4.60-5.80)
[2024-05-26 10:45] LABS: Microalbum/Creatinine Ratio Ur 20.4 ug/mg cr (<30)
[2024-05-26 10:51] LABS: Alanine Aminotransferase 17 U/L (0-40); Alkaline Phosphatase 131 U/L (39-117); Anion Gap 14 (12-20); Aspartate Amino Transferase 16 U/L (5-37); Bilirubin Total 0.5 mg/dL (0.0-1.0); Blood Urea Nitrogen 11 mg/dL (9-16); Calcium 9.6 mg/dL (8.4-10.2); Carbon Dioxide 24 mmol/L (22-29); Chloride 106 mmol/L (96-108); Estimated Glomerular Filt Rate > 60; Glucose Random 133 mg/dL (60-115); Potassium 3.5 mmol/L (3.3-5.1); Sodium 140 mmol/L (135-145); Total Protein 7.2 g/dL (6.5-8.0)
[2024-05-26 11:07] LABS: Free T4 (Free Thyroxine) 0.85 ng/dL (0.71-1.85); Thyroid Stimulating Hormone 2.19 uIU/mL (0.32-4.0)
[2024-05-26 11:12] LABS: Vitamin B12 358 pg/mL (200-900)
[2024-05-29 06:58] LABS: LDL Cholesterol Direct 142 mg/dL (<100)
== END 2024-05-26 09:04 | disposition home or self-care (01) ==
LOC: HO.LAB 09:03
PROVIDERS: PCP Internal Medicine; Visit Provider Internal Medicine
DX: D64.9 Anemia, unspecified (principal); E11.9 Type 2 diabetes mellitus without complications; R53.83 Other fatigue; E53.8 Deficiency of other specified B group vitamins
CPT/HCPCS: 36415; 80053; 82043; 82570; 82607; 83721; 84439; 84443; 85025

== ENCOUNTER 2024-05-29 08:52 | Outpatient (AMB) | payer OTHER, MEDICARE, SELFPAY ==
[2024-05-29 08:53] VITALS: BP 146/68; PULSE 74; BMI 31.2
--- NOTE | 2024-05-29 08:53 | A.OFFVIS_ITS ---
Vital Signs 05/29/24 08:53 Height 5 ft 2 in Weight 170 lb 10.205 oz BMI 31.2 BP 146/68 H Blood Pressure Location Lt brachial Position Sitting Pulse 74 Intake Visit Reasons: 1 year follow up Learning And Development Specialist Required: No Accompanied by: Self / Same As Patient Allergies amoxicillin [From AUGMENTIN] Allergy (Severe, Verified 05/09/24 09:21) Diarrhea, malaise celecoxib [Celebrex] Allergy (Severe, Verified 05/09/24 09:21) Malaise clavulanic acid [From AUGMENTIN] Allergy (Severe, Verified 05/09/24 09:21) Diarrhea, malaise gabapentin [GABAPENTIN] Allergy (Severe, Verified 05/09/24 09:21) TREMORS morphine Allergy (Severe, Verified 05/09/24 09:21) BLACKED-OUT, CRAZY cephalexin [Keflex] Allergy (Unknown, Verified 05/09/24 09:21) Unknown diltiazem [Cardizem] Allergy (Unknown, Verified 05/09/24 09:21) Unknown Penicillins [PENICILLINS] Allergy (Unknown, Verified 05/09/24 09:21) Unknown clindamycin Allergy (Verified 05/09/24 09:21) Unconscious peanut Allergy (Verified 05/09/24 09:21) Unknown fluvastatin [From Lescol] Adverse Reaction (Severe, Verified 05/09/24 09:21) Joint Pain pecan nut [PECAN] Adverse Reaction (Severe, Verified 05/09/24 09:21) Anaphylaxis erythromycin base Adverse Reaction (Verified 05/09/24 09:21) Vomiting Medication List - Last Reconciled 05/29/24 by Genaro Schreiber MD amlodipine 10 mg PO DAILY blood sugar diagnostic As directed blood sugar diagnostic (Contour Test Strips) As directed blood sugar diagnostic (FreeStyle Precision Marcio Strips) Four times daily blood-glucose meter (Contour Meter kit) As directed blood-glucose meter,continuous ([employer] G7 Automatic Lathe Tender) As directed blood-glucose sensor ([employer] G7 Sensor device) As directed change every 10 days cholecalciferol (vitamin D3) (Vitamin D3) 50 mcg PO DAILY clonidine HCl 0.4 mg PO BID cyanocobalamin (vitamin B-12) 1,000 mcg IM Q4W 10 weeks esomeprazole magnesium (Nexium) 40 mg PO DAILY ezetimibe (Zetia) 10 mg PO DAILY flash glucose scanning reader (FreeStyle Den 2 [place]) As directed flash glucose sensor Every 14 days flash glucose sensor (FreeStyle Den 2 Sensor kit) As directed- change every 14 days furosemide 20 mg PO BID Humalog KwikPen Insulin (insulin lispro) See Protocol 6 units subcutaneously 15 minutes before meals; NS ipratropium-albuterol 0.5 mg-3 mg(2.5 mg base)/3 mL 3 mL inhalation Q4-6H PRN 30 days lamotrigine 75 mg PO BID lancets (FreeStyle Lancets) As directed twice daily levetiracetam 2,000 mg PO BID paroxetine HCl 20 mg PO DAILY pen needle, diabetic (BD Arlet 2nd Gen Pen Needle) 5 times a day syringe with needle (Monoject TB Safety Syringe) As directed Toujeo SoloStar U-300 Insulin (insulin glargine U-300 conc) 14 units (0.0467 mL) subcut DAILY NS tramadol 50 mg PO BID PRN valsartan 80 mg PO DAILY Ventolin HFA 90 mcg/actuation (albuterol sulfate) 2 puffs inhalation Q4-6H PRN 30 days NS HPI Comments Details: Willy returns for follow-up general cardiac follow-up. Multiple risk factors including type 2 diabetes, hypertension, dyslipidemia. He states he is feeling fine overall. No complaints like angina or in fact anything cardiac sounding. He is able to carry on with almost all his daily activities without any issues. 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 Mother No problems noted. Other No family history of cancer Social History Household Members: Children Housing: House Are you a primary pulmonary care nurse to a significant other at home: No Do you presently have visiting nurse or other home services: No Alcohol intake: never Patient Tobacco Use Status: Former Tobacco user Cigarette Packs Per Day: 1.5 service: No Current occupational status: retired Review of Systems Const Denies chills, Denies fatigue, Denies fever(s), Denies weight gain and Denies weight loss ENT Denies dizziness Card Denies chest pain, Denies leg edema, Denies lightheadedness, Denies palpitations, Reports dyspnea on exertion, Denies orthopnea and Denies other Resp Denies cough and Reports dyspnea on exertion GI Denies hematochezia and Denies change in stool character Musc Denies abnormal gait, Denies muscle weakness, Denies numbness, Denies radiating pain into limb and Denies tingling Neuro Denies abnormal gait, Denies dizziness, Denies numbness and Denies tingling Endo Denies fatigue and Denies palpitations Physical Exam Vital Signs: Last Vital Signs Pulse 74 05/29/24 08:53 BP 146/68 H 05/29/24 08:53 BMI result Body Mass Index 31.2 Const General: comfortable and no acute distress Orientation/consciousness: patient oriented x3 HEENT Other: Unremarkable Head: Yes normal to inspection Neck Neck: Yes normal visual inspection Chest Chest palpation & inspection: normal inspection of the chest Resp Auscultation: clear to auscultation bilaterally Cardio Palpation: normal PMI Heart sounds: S1 normal heart sound present, S2 normal heart sound present, no gallops, no murmurs and no rubs GI Palpation (GI): Soft to palpation Back/Spine/Pelvis Other: unremarkable Skin General skin exam: no rashes or lesions noted Neuro General: patient oriented x3 Extrem General: Yes normal to inspection Psych Mental Status: mental status grossly normal Office Procedures EKG Details: EKG with underlying sinus rhythm at 74/Min; right bundle-branch block pattern; [place]. [id number], Complete Assessment & Plan Assessment & Plan (1) Abnormal EKG: Code(s): R94.31 - Abnormal electrocardiogram [ECG] [EKG] Category: Medical (2) Essential hypertension: Code(s): I10 - Essential (primary) hypertension Category: Medical (3) Type 2 diabetes mellitus with unspecified complications: Code(s): E11.8 - Type 2 diabetes mellitus with unspecified complications Category: Medical (4) Other and unspecified hyperlipidemia: Code(s): E78.5 - Hyperlipidemia, unspecified Category: Medical (5) Statin intolerance: Code(s): Z78.9 - Other specified health status Category: Medical Plan EKG with right bundle-branch block and anterior T inversions but unchanged from before. In the echocardiogram, preserved LVEF and no significant valve findings. In the previous study from 2021, basal inferior/inferoseptal wall thought to be hypokinetic. Perfusion imaging reported have normal perfusion. Hence not clear if the echo findings are artifactual. Patient himself has got absolutely no angina or any cardiac symptoms. Hence mainly aggressive risk factor modification. Optimal management of diabetes, hypertension, dyslipidemia. Most recently, hemoglobin A1c is 7.5%. Blood pressure slightly high but he states his PCP has made some changes. With regard to dyslipidemia, he was on Repatha but not anymore. Apparently some insurance issues. His LDL came down to 40 mg/dL but then went back up to 142mg/dl. Will need to readdress why he can not get this. He is intolerant of statins. Only on Zetia. Refill sent for that. Medications: New ezetimibe (Zetia) 10 mg PO DAILY 90 tabs 3RF Coding Level of Care Code Est Pt Level 4 (38942) Diagnoses Abnormal EKG R94.31 Essential hypertension I10 Type 2 diabetes mellitus with unspecified complications E11.8 Other and unspecified hyperlipidemia E78.5 Statin intolerance Z78.9 CPT Codes EKG - CPT: [id number], Complete ([id number])
== END 2024-05-29 09:24 | disposition home or self-care (01) ==
PROVIDERS: PCP Internal Medicine; Visit Provider Internal Medicine
DX: R94.31 Abnormal electrocardiogram [ECG] [EKG] (principal); I10 Essential (primary) hypertension; E11.8 Type 2 diabetes mellitus with unspecified complications; E78.5 Hyperlipidemia, unspecified; Z78.9 Other specified health status
CPT/HCPCS: 93010; 99214

== ENCOUNTER → 2024-05-29 08:52 | Outpatient (BNVA) | payer OTHER, MEDICARE, SELFPAY | PROVIDERS: PCP Internal Medicine; Visit Provider Internal Medicine | DX: R94.31 Abnormal electrocardiogram [ECG] [EKG] (principal); I10 Essential (primary) hypertension; E11.8 Type 2 diabetes mellitus with unspecified complications; E78.5 Hyperlipidemia, unspecified; Z78.9 Other specified health status | CPT/HCPCS: 93005 ==

== ENCOUNTER 2024-08-01 09:13 | Outpatient (AMB) | payer OTHER, MEDICARE, SELFPAY ==
[2024-08-01 09:14] VITALS: BP 120/52; PULSE 83; BMI 31.5
--- NOTE | 2024-08-01 09:14 | A.OFFVIS_ITS ---
Vital Signs 08/01/24 09:14 Height 5 ft 2 in Weight 172 lb 6.424 oz BMI 31.5 BP 120/52 L Blood Pressure Location Lt brachial Position Sitting Pulse 83 Pulse Source Pulse Oximeter Intake Visit Reasons: T2DM/CONFIRMED Intake Note: Patient presents today for D2MT follow up visit. Last Diabetic Eye exam: 2022 Last Podiatry Visit: Doesn't have one Random Glucose: 178 mg/dl HgA1c: 8.0% Bearing Ring Assembler Required: No Accompanied by: Self / Same As Patient Allergies amoxicillin [From AUGMENTIN] Allergy (Severe, Verified 08/01/24 09:21) Diarrhea, malaise celecoxib [Celebrex] Allergy (Severe, Verified 08/01/24 09:21) Malaise clavulanic acid [From AUGMENTIN] Allergy (Severe, Verified 08/01/24 09:21) Diarrhea, malaise gabapentin [GABAPENTIN] Allergy (Severe, Verified 08/01/24 09:21) TREMORS morphine Allergy (Severe, Verified 08/01/24 09:21) BLACKED-OUT, CRAZY cephalexin [Keflex] Allergy (Unknown, Verified 08/01/24 09:21) Unknown diltiazem [Cardizem] Allergy (Unknown, Verified 08/01/24 09:21) Unknown Penicillins [PENICILLINS] Allergy (Unknown, Verified 08/01/24 09:21) Unknown clindamycin Allergy (Verified 08/01/24 09:21) Unconscious peanut Allergy (Verified 08/01/24 09:21) Unknown fluvastatin [From Lescol] Adverse Reaction (Severe, Verified 08/01/24 09:21) Joint Pain pecan nut [PECAN] Adverse Reaction (Severe, Verified 08/01/24 09:21) Anaphylaxis erythromycin base Adverse Reaction (Verified 08/01/24 09:21) Vomiting HPI Comments Details: 79-year-old male, today for follow-up visit, for diabetes management He has PMH of prostate cancer, colon cancer status post partial colectomy, GERD, asthma, depression, gout, hyperlipidemia, hypertension. He has DM type 2 diagnosed 2012 Micro/macrovascular complications: neuropathy Current medications: He is currently on Toujeo 12 units 8 pm (he had been instructed to increase to 14 at last visit). He is taking Humalog 0-6 based on meals. Could not tolerate GLP-1? He states he feels sideways with all other medications, Januvia, Invokana, metformin, Victoza. He is having few lows since he has moderated the humalog and since he is not golfing-a few hours after meals infrequently getting [id number] to crackers and soda. Lows have increased since off Freestyle Den-insurance wont cover. Dexcom was consistently reading more than 20 points off fingerstick checks. He would have symptoms of hypoglycemia, fingerstick on contour would read 50s, Dexcom would read 70s. Stopped using it as felt it was not safe. Has felt blood sugar more variable on GnRH injections. Has chronic pain and dizziness from those injections as well. Denies retinopathy, nephropathy, neuropathy, CVA, CAD, PVD. Last opthalmology evaluation: April 2023-no retinopathy. Has upcoming visit Positive nocturia 2 to 3 times, Denies polydipsia, numbness, tingling B12 deficiency-shot given in office today ROS CONSTITUTIONAL: Denies weight loss, fever and chills. HEENT: Denies changes in vision and hearing. RESPIRATORY: Denies SOB and cough. CV: Denies palpitations and CP GI: Denies abdominal pain, nausea, vomiting and diarrhea. : Denies dysuria and urinary frequency. MSK: Denies new myalgia and joint pain. SKIN: Denies rash and pruritus. NEUROLOGICAL: Denies headache PSYCHIATRIC: Denies recent changes in mood. PHYSICAL EXAM: GENERAL: Alert and oriented x 3. NAD EYES: EOMI. Anicteric. HENT: Moist mucous membranes. No scleral icterus. No cervical lymphadenopathy. LUNGS: Clear to auscultation bilaterally. CARDIOVASCULAR: Regular rate and rhythm. No murmur. No JVD. ABDOMEN: Soft, non-tender +bs EXTREMITIES: No edema. Non-tender. SKIN: No rashes or lesions. Warm. NEUROLOGIC: No focal neurological deficits. CN II-XII grossly intact PSYCHIATRIC: Cooperative. Appropriate mood and affect [facility] Medical History Statin intolerance Prostate cancer Prostate cancer MRSA (methicillin resistant Staphylococcus aureus) Arthritis Low back pain GERD (gastroesophageal reflux disease) Anxiety and depression B12 deficiency Elevated PSA Dyslipidemia Hypertension Diabetic polyneuropathy associated with type 2 diabetes mellitus MCFP (current) use of insulin Diabetes type 2, controlled Surgical History History of prostate biopsy Hx of colonoscopy History of esophagogastroduodenoscopy (EGD) Hx of lithotripsy Hx of shoulder surgery History of colon resection Family History Father No problems noted. Mother No problems noted. Other No family history of cancer Social History Household Members: Children Housing: House Are you a primary skin care instructor to a significant other at home: No Do you presently have visiting nurse or other home services: No Alcohol intake: never Patient Tobacco Use Status: Former Tobacco user Cigarette Packs Per Day: 1.5 service: No Current occupational status: retired Physical Exam Vital Signs: Last Vital Signs Pulse 83 08/01/24 09:14 BP 120/52 L 08/01/24 09:14 BMI result Body Mass Index 31.5 Office Meds cyanocobalamin (vitamin B-12) 1,000 mcg/mL injection solution Performing Provider: Nicki Roach MD Performing Location: [facility] [place] Endocrinology Administered by: Nicki Roach MD on 08/01/24 10:05 Dose Route Admin Location Dispensed Lot Number Expiration Date [facility] Nuisance Wildlife Trapper 1,000 mcg IM 1 mL Results AMB Hemoglobin A1c AMB Hemoglobin A1c 8.0 % Last Edit by ELLEN Burden on 08/01/24 09:43 Results Reviewed Results Reviewed: Laboratory Last Values Glucose (Clinic) 178 mg/dL (60-115) H 08/01/24 09:26 Hgb A1c (Clinic) 8.0 % (4.0-6.0) H 08/01/24 09:31 Assessment & Plan Assessment & Plan (1) Type 2 diabetes mellitus with hyperglycemia: Code(s): E11.65 - Type 2 diabetes mellitus with hyperglycemia Category: Medical Qualifiers: Diabetes mellitus roasterman insulin use: with senior living use Qualified Code(s): E11.65 - Type 2 diabetes mellitus with hyperglycemia; Z79.4 - terminal makeup operator (current) use of insulin Plan: Goal 7.5%-8.0% given predisposition toward lows. Has hypoglycemic awareness and treats appropriately He will go up to 14 units on toujeo continue humalog as he is doing. He will follow up in 3 months (2) B12 deficiency: Code(s): E53.8 - Deficiency of other specified B group vitamins Category: Medical Plan: Injection given. Patient tolerated without difficulty Orders: Orders AMB Hemoglobin A1c Today E11.65 - Type 2 diabetes mellitus with hyperglycemia, Z13.9 - Encounter for screening, unspecified, Z79.4 - terminal makeup operator (current) use of insulin AMB Vitamin B12 Injection Patient Supplied Today E53.8 - Deficiency of other specified B group vitamins Medications: New allopurinol 300 mg PO DAILY 270 tabs 1RF Discontinued flash glucose scanning reader (FreeStyle Den 2 [place]) Discontinued Reason: Doctor's Order As directed 1 ea 5RF flash glucose sensor (FreeStyle Den 2 Sensor kit) Discontinued Reason: Doctor's Order As directed- change every 14 days 6 ea 3RF E11.42 - Type 2 diabetes mellitus with diabetic polyneuropathy, E11.65 - Type 2 diabetes mellitus with hyperglycemia, E11.8 - Type 2 diabetes mellitus with unspecified complications, Z79.4 - MCFP (current) use of insulin blood-glucose sensor (Dexcom G7 Sensor device) Discontinued Reason: Doctor's Order As directed change every 10 days 3 ea 4RF blood-glucose meter,continuous (Dexcom G7 Photo Intern) Discontinued Reason: Doctor's Order As directed 1 ea 0RF Coding Level of Care Code Est Pt Level 4 (68021) Diagnoses Type 2 diabetes mellitus with hyperglycemia, with long-term current use of insulin E11.65; Z79.4 Diabetes mellitus senior living insulin use: with roasterman use B12 deficiency E53.8
[2024-08-01 09:32] LABS: Glucose, Whole Blood 178 mg/dL (60-115)
== END 2024-08-01 10:03 | disposition home or self-care (01) ==
PROVIDERS: PCP Internal Medicine; Visit Provider Internal Medicine
DX: E11.65 Type 2 diabetes mellitus with hyperglycemia (principal); Z79.4 Long term (current) use of insulin; E53.8 Deficiency of other specified B group vitamins; Z13.9 Encounter for screening, unspecified
CPT/HCPCS: J3420

== ENCOUNTER → 2024-08-01 09:13 | Outpatient (BNVA) | payer OTHER, MEDICARE, SELFPAY | PROVIDERS: PCP Internal Medicine; Visit Provider Internal Medicine | DX: E11.65 Type 2 diabetes mellitus with hyperglycemia (principal); E11.42 Type 2 diabetes mellitus with diabetic polyneuropathy; E53.8 Deficiency of other specified B group vitamins; Z79.4 Long term (current) use of insulin | CPT/HCPCS: 82947; 83036; 96372 ==

== ENCOUNTER 2024-08-29 08:33 | Outpatient (REF) | payer BC, SELFPAY ==
[2024-08-29 10:37] LABS: Cholesterol 96 mg/dL (<200); HDL Cholesterol 47 mg/dL (>40); LDL Cholesterol Calculated 14 mg/dL (<100); Triglycerides 179 mg/dL (<150)
== END 2024-08-29 08:34 | disposition home or self-care (01) ==
LOC: HO.HMGCLDS 08:33
PROVIDERS: PCP Internal Medicine; Visit Provider Internal Medicine
DX: E78.5 Hyperlipidemia, unspecified (principal)
CPT/HCPCS: 36415; 80061

== ENCOUNTER 2024-10-23 08:44 | Outpatient (AMB) | payer BC, SELFPAY ==
[2024-10-23 08:55] VITALS: BP 132/67; PULSE 71; O2SAT 97; BMI 32.2
--- NOTE | 2024-10-23 08:55 | A.OFFVIS_ITS ---
Vital Signs 10/23/24 08:55 Height 5 ft 2 in Weight 176 lb BMI 32.2 BP 132/67 Blood Pressure Location Rt brachial Position Sitting Pulse 71 Pulse Source Doppler Pulse Oximetry (%) 97 Oxygen Delivery Method Room Air Intake Visit Reasons: Cough Allergies amoxicillin [From AUGMENTIN] Allergy (Severe, Verified 08/01/24 09:21) Diarrhea, malaise celecoxib [Celebrex] Allergy (Severe, Verified 08/01/24 09:21) Malaise clavulanic acid [From AUGMENTIN] Allergy (Severe, Verified 08/01/24 09:21) Diarrhea, malaise gabapentin [GABAPENTIN] Allergy (Severe, Verified 08/01/24 09:21) TREMORS morphine Allergy (Severe, Verified 08/01/24 09:21) BLACKED-OUT, CRAZY cephalexin [Keflex] Allergy (Unknown, Verified 08/01/24 09:21) Unknown diltiazem [Cardizem] Allergy (Unknown, Verified 08/01/24 09:21) Unknown Penicillins [PENICILLINS] Allergy (Unknown, Verified 08/01/24 09:21) Unknown clindamycin Allergy (Verified 08/01/24 09:21) Unconscious peanut Allergy (Verified 08/01/24 09:21) Unknown fluvastatin [From Lescol] Adverse Reaction (Severe, Verified 08/01/24 09:21) Joint Pain pecan nut [PECAN] Adverse Reaction (Severe, Verified 08/01/24 09:21) Anaphylaxis erythromycin base Adverse Reaction (Verified 08/01/24 09:21) Vomiting HPI HPI Cough: Details: 79-year-old gentleman, former approximately 25 pack-year smoker in his 20s and 30s, quit over 30 years prior, now followed to 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 Unfortunately, his prostate cancer has recurred and he continues with hormonal therapy. Patient continues on duo nebs, though with suboptimal control of his symptoms. [facility]LY [facility], [facility] Medical History Statin intolerance Prostate cancer Prostate cancer MRSA (methicillin resistant Staphylococcus aureus) Arthritis Low back pain GERD (gastroesophageal reflux disease) Anxiety and depression B12 deficiency Elevated PSA Dyslipidemia Hypertension Diabetic polyneuropathy associated with type 2 diabetes mellitus director long term care (current) use of insulin Diabetes type 2, controlled Surgical History History of prostate biopsy Hx of colonoscopy History of esophagogastroduodenoscopy (EGD) Hx of lithotripsy Hx of shoulder surgery History of colon resection Family History Father No problems noted. Mother No problems noted. Other No family history of cancer Social History Household Members: Children Housing: House Are you a primary nurse wound care to a significant other at home: No Do you presently have visiting nurse or other home services: No Alcohol intake: never Patient Tobacco Use Status: Former Tobacco user Cigarette Packs Per Day: 1.5 service: No Current occupational status: retired Review of Systems Const Denies daytime sleepiness, Denies excessive sweating, Reports fatigue, Denies fever(s), Denies lethargy, Denies malaise, Denies night sweats, Denies snoring and Denies weight loss Eyes Denies blurry vision and Denies itchy eyes ENT Denies nasal congestion, Denies post nasal drip, Denies sinus pain, Denies sinus pressure and Denies other ( Thrush) Card Denies chest pain, Denies pedal edema, Denies dyspnea, Denies orthopnea and Denies paroxysmal nocturnal dyspnea Resp Denies cough, Denies hemoptysis, Denies excessive phlegm production, Denies dyspnea, Denies snoring and Denies wheezing GI Denies abdominal pain and Denies heartburn Musc Denies myalgias, Denies arthralgias and Denies joint swelling Skin/Breast Denies rash Neuro Denies memory loss and Denies seizure-like activity Psych Denies abnormal sleep pattern, Denies anxiety and Denies memory loss Endo Denies excessive sweating, Reports fatigue and Denies heat intolerance Scott/Lymph Denies easy bruising Aller/Immun Denies itchy eyes, Denies seasonal rhinorrhea and Denies wheezing Physical Exam Vital Signs: Last Vital Signs Pulse 71 10/23/24 08:55 BP 132/67 10/23/24 08:55 Pulse Ox 97 10/23/24 08:55 Oxygen Delivery Method Room Air 10/23/24 08:55 BMI result Body Mass Index 32.2 Const General: no acute distress and alert Nutritional Appearance: not obese Orientation/consciousness: Other orientation findings ( oriented) HEENT Head: Yes atraumatic Eyes General: appearance normal, both eyes and all related structures Sclerae: sclerae normal EOM: EOMs intact bilaterally Neck Neck: Yes supple Lymphatic: no lymphadenopathy noted Resp Effort & Inspection: normal respiratory effort and no use of accessory muscles Auscultation: clear to auscultation bilaterally Cardio Rate: regular rate Rhythm: regular rhythm Heart sounds: no gallops, no murmurs and no rubs Skin General skin exam: other ( warm) Extrem General: No clubbing, No cyanosis and No edema Assessment & Plan Assessment & Plan (1) Asthma-COPD overlap syndrome: Code(s): J44.89 - Other specified chronic obstructive pulmonary disease Category: Medical Plan: Suboptimal control on DuoNeb, will add Brovana. (2) Cough: Code(s): R05.9 - Cough, unspecified Category: Medical Plan: Secondary to GERD, now with significantly improved control on Gaviscon. Medications: New arformoterol (Brovana) 2 mL inhalation Q12H 120 mL 6RF Coding Level of Care Code Est Pt Level 4 (42628) Diagnoses Asthma-COPD overlap syndrome J44.89 Cough R05.9
--- OUTSIDE RECORDS SUMMARY | 2024-10-23 09:06 | XMS_ITS | Continuity of Care Document ---
Author Organization [facility] Address [address] [place] [address]- Support Name Relationship Address Phone RAMIREZ, JO ANN Personal Relationship Unknown Unav ailable RAMIREZ, IDRIS Personal Relationship Unknown Meredith vailable RAMIREZ, IDRIS Personal Relationship Unknown Meredith vailable RAMIREZ, JO ANN Personal Relationship Unknown Unav ailable RAMIREZ, JASIEL child Unknown Unavailable RAMIREZ, WANDA Personal Relationship Unknown Meredith vailable RAMIREZ, JO ANN Personal Relationship Unknown Unav ailable RAMIREZ, IDRIS Personal Relationship Unknown Meredith vailable RAMIREZ, CLEMENTE Personal Relationship Unknown Meredith vailable RAMIREZ, WANDA Personal Relationship Unknown Meredith vailable RAMIREZ, WANDA Personal Relationship Unknown Meredith vailable RAMIREZ, WANDA Personal Relationship Unknown Meredith vailable RAMIREZ, IDRIS Personal Relationship Unknown Meredith vailable RAMIREZ, JO ANN Personal Relationship Unknown Unav ailable RAMIREZ, CLEMENTE Personal Relationship Unknown Meredith vailable RAMIREZ, WANDA Personal Relationship Unknown Meredith vailable RAMIREZ, JO ANN Personal Relationship Unknown Unav ailable Care Team Providers Care Sales Contractor Name Role Phone Bill Trejo MD Primary Care Physician [phone] Encounter [facility] [place] [place] Date(s): 08/28/24 - 09/27/24 [facility] [address] [place] [address]- Encounter Type: Triage Allergies, Adverse Reactions, Alerts Substance Criticality Severity Reaction Reaction Severity Status clindamycin Active amoxicillin 1 Active morphine Active mirtazapine Active atorvastatin 2 Rosuvastatin Ac tive thiazide diuretics 3 Active Augmentin hoarse Active Peanuts Active traZODone 4 Active 1hoarse 2pt state not allergic 3hyponatremia 4burns GI/gerd Immunizations Given and Recorded Vaccine Date Status Refusal Reason influenza virus vaccine, inactivated 08/05/23 Give n influenza virus vaccine, inactivated 1 10/14/22 Gi collin influenza virus vaccine, inactivated 09/22/21 Pradip rded influenza virus vaccine, inactivated 07/18/20 Give n influenza virus vaccine, inactivated 10/11/19 Give n influenza virus vaccine, inactivated 2 07/07/18 Gi collin influenza virus vaccine, inactivated 3 07/07/17 Gi collin influenza virus vaccine, inactivated 4 08/26/16 Re corded influenza virus vaccine, inactivated 07/11/15 Give n influenza virus vaccine, inactivated 07/09/14 Give n influenza virus vaccine, inactivated 06/20/13 Give n influenza virus vaccine, inactivated 08/29/11 Give n influenza virus vaccine, inactivated 06/18/09 Give n SARS-CoV-2(COVID-19)mRNA-LNP vac([id number]) 07/14/23 Recorded [id number] 12y+ bivalent booster vax 10/26/22 Recorded tetanus/diphtheria/pertussis, acel(Tdap) 5 05/04/22 Given SARS-CoV-2 (COVID-19) mRNA-1273 vaccine 04/27/22 R ecorded SARS-CoV-2 (COVID-19) mRNA-1273 vaccine 12/29/20 R ecorded SARS-CoV-2 (COVID-19) mRNA-1273 vaccine 12/01/20 R ecorded SARS-CoV-2 (COVID-19) mRNA BNT-162b2 vac 09/22/21 Recorded pneumococcal 23-valent vaccine 10/13/19 Recorded pneumococcal 23-valent vaccine 09/12/12 Given Zoster Vaccine Live 6 04/25/16 Recorded pneumococcal 13-valent vaccine 12/23/14 Given FluLaval (oldterm) 06/09/12 Given FluLaval (oldterm) 08/08/10 Given Tet/Diphth/Acel, Pertussis (oldterm) 06/18/09 Give n Influenza Inactive (IM) (oldterm) 09/27/08 Given Influenza Virus Vaccine (oldterm) 10/09/07 Given Pneumococcal Vaccine (oldterm) 7 10/11/00 Given tetanus-diphtheria toxoids (Td) 10/11/98 Given 1Early/Late Reason: Early/Late Reason: Other : post doc 2Result Comment: [07/07/2018] [id number] 3Result Comment: [07/07/2017] [facility] [id number] 4Result Comment: [08/30/2016] [facility] 5Result Comment: [facility]-[id number] 6Result Comment: [04/26/2016] RECEIVED AT [facility] 7Admin Note: added by history Problem List Condition Confirmation Course Effective Dates Status H ealth Status Informant Alcohol dependence in remission 1 Confirmed Active Anemia Confirmed Active Asthma 2 Confirmed Active Benign Essential Hypertension Confirmed Active Benign hypertension Confirmed Active Pinguecula, bilateral Confirmed Active Carpal tunnel syndrome Confirmed Active Chronic anemia Confirmed Active Chronic back pain 3 Confirmed Active Chronic diarrhea Confirmed Active Chronic post-traumatic stress disorder (PTSD) Confirmed Active Chronic rhinitis 4 Confirmed Active Closed displaced fracture of cuboid bone of right foot Confirmed Active Low vitamin D level Confirmed Active Diverticulosis of colon Confirmed Active Encounter for monitoring long-term proton pump inhibitor therapy Confirmed Active Dyspnea on exertion Confirmed Active Abnormal EKG anterior t inversion Confirmed 11/12/21 Active Fibromyalgia Confirmed Active GERD (gastroesophageal reflux disease) egd 2016 5 Confirmed Active physician coding specialist use of drug lamotrigine 6 Confirmed Active Hip pain Confirmed Active History of basal cell carcinoma Confirmed Active History of colon cancer 2009 hemicolectomy/chemo 7, 8, 9 Confirmed 04/02/10 Active History of prostate cancer Confirmed 11/30/20 Active History of SCC (squamous cell carcinoma) of skin/nose Confirmed Active Hyperlipidemia Confirmed Active IBS [Irritable bowel syndrome] Confirmed Active Abnormal CT scan of lung TREE IN BUD Confirmed Active Generalized joint pain Confirmed Active Insulin long-term use advbised medic alert Confirmed Active Chronic lumbar radiculopathy 10, 11 Confirmed Active Major depression in full remission 12, 13 Confirmed Active Myalgia Confirmed Active Muscle twitching Confirmed 04/26/19 Active Nephrolithiasis Confirmed Active Obese class I Confirmed Active Osteopenia 14, 15 Confirmed Active NSAID long-term use educated re side effects;risks Confirmed Active Arthritis in [place] disease Confirmed Active Low serum vitamin B12 Confirmed Active 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 16, 17 Confirmed Active 1in AA 2chronic perst 3abnormal MRI 4afrin habituation 5had EGD 6monitor cbc;/advised and seek medical attention;rash;he aware 7refuses Xeloda 8rersected, undergoing chemo positive nodes 9sigmoid referred DR Farley 10MRI December 2015; multilevel lumbar disc protrusions 11djd/disc xray 12phq9;two 13PHQ9;three 14improving 15advised bone density 16A1c 6.2 17advised pre diabetic Social History Social History Type Response Smoking Status Former smoker; Type: Cigarettes; Number of years: 24; Total pack years: 40; Started at age: 14; Stopped at age: 38; entered on: 01/03/14 Sex Sex Representation Male (finding) Patient Care team information Care Team Personnel Name: Maya COLLINS, Bill Alves Position: [facility] Physician - Primary Care Member Role: PCP [address]: [address] [place] [address]- Telecom: Care Team Related Persons Name: JASIEL RAMIREZ Insurance Providers Guarantor name: JUANA RAMIREZ Health Plan Information #: 1 Payer: BLUE [employer]EFIT [employer] PPO Member Number: NA Policy Number: NA Group Number: NA Health Plan Information #: 2 Payer: MEDICARE PART B OUTPT Member Number: NA Policy Number: NA Group Number: NA
== END 2024-10-23 09:18 | disposition home or self-care (01) ==
PROVIDERS: PCP Internal Medicine; Visit Provider Internal Medicine Pulmonary Disease
DX: J44.89 Other specified chronic obstructive pulmonary disease (principal); R05.9 Cough, unspecified
CPT/HCPCS: 99214

== ENCOUNTER 2024-11-01 09:05 | Outpatient (AMB) | payer OTHER, MEDICARE, SELFPAY ==
[2024-11-01 09:16] VITALS: BP 118/82; PULSE 82; BMI 31.4
--- NOTE | 2024-11-01 09:16 | A.OFFVIS_ITS ---
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 Most recent HbA1c: 8.1%, 11/01/2024 Random Glucose- 165 mg/dL, Today Allergies amoxicillin [From AUGMENTIN] Allergy (Severe, Verified 08/01/24 09:21) Diarrhea, malaise celecoxib [Celebrex] Allergy (Severe, Verified 08/01/24 09:21) Malaise clavulanic acid [From AUGMENTIN] Allergy (Severe, Verified 08/01/24 09:21) Diarrhea, malaise gabapentin [GABAPENTIN] Allergy (Severe, Verified 08/01/24 09:21) TREMORS morphine Allergy (Severe, Verified 08/01/24 09:21) BLACKED-OUT, CRAZY cephalexin [Keflex] Allergy (Unknown, Verified 08/01/24 09:21) Unknown diltiazem [Cardizem] Allergy (Unknown, Verified 08/01/24 09:21) Unknown Penicillins [PENICILLINS] Allergy (Unknown, Verified 08/01/24 09:21) Unknown clindamycin Allergy (Verified 08/01/24 09:21) Unconscious peanut Allergy (Verified 08/01/24 09:21) Unknown fluvastatin [From Lescol] Adverse Reaction (Severe, Verified 08/01/24 09:21) Joint Pain pecan nut [PECAN] Adverse Reaction (Severe, Verified 08/01/24 09:21) Anaphylaxis erythromycin base Adverse Reaction (Verified 08/01/24 09:21) Vomiting HPI Comments Details: 79-year-old male, today for follow-up visit, for diabetes management He has PMH of prostate cancer, colon cancer status post partial colectomy, GERD, asthma, depression, gout, hyperlipidemia, hypertension. He has DM type 2 diagnosed 2012 Micro/macrovascular complications: neuropathy Current medications: He is currently on Toujeo 12 units-he does not tolerate higher doses than that. He has tried to go up beyond that but then gets increased hunger and starts eating junk food. He is taking Humalog 6 up to three times daily with meals. Could not tolerate GLP-1? He has not tolerated many medications, Januvia, Invokana, metformin, Victoza. no interval hypoglycemia. Previously has responded to crackers and soda. Lows had increased since off Freestyle Den-insurance wont cover. Dexcom was consistently reading more than 20 points off fingerstick checks. He would have symptoms of hypoglycemia, fingerstick on contour would read 50s, Dexcom would read 70s. Stopped using it as felt it was not safe. Has felt blood sugar more variable on GnRH injections. Has chronic pain and dizziness from those injections as well. POC 8.0%(11/01/2023). Not checking readings at home Denies retinopathy, nephropathy, neuropathy, CVA, CAD, PVD. Last opthalmology evaluation: April 2023-no retinopathy. Has upcoming visit Positive nocturia 2 to 3 times, Denies polydipsia, numbness, tingling ROS CONSTITUTIONAL: Denies weight loss, fever and chills. HEENT: Denies changes in vision and hearing. RESPIRATORY: Denies SOB and cough. CV: Denies palpitations and CP GI: Denies abdominal pain, nausea, vomiting and diarrhea. : Denies dysuria and urinary frequency. MSK: Denies new myalgia and joint pain. SKIN: Denies rash and pruritus. NEUROLOGICAL: Denies headache PSYCHIATRIC: Denies recent changes in mood. PHYSICAL EXAM: GENERAL: Alert and oriented x 3. NAD EYES: EOMI. Anicteric. HENT: Moist mucous membranes. No scleral icterus. No cervical lymphadenopathy. LUNGS: Clear to auscultation bilaterally. CARDIOVASCULAR: Regular rate and rhythm. No murmur. No JVD. ABDOMEN: Soft, non-tender +bs EXTREMITIES: No edema. Non-tender. SKIN: No rashes or lesions. Warm. NEUROLOGIC: No focal neurological deficits. CN II-XII grossly intact PSYCHIATRIC: Cooperative. Appropriate mood and affect [facility] Medical History Statin intolerance Prostate cancer Prostate cancer MRSA (methicillin resistant Staphylococcus aureus) Arthritis Low back pain GERD (gastroesophageal reflux disease) Anxiety and depression B12 deficiency Elevated PSA Dyslipidemia Hypertension Diabetic polyneuropathy associated with type 2 diabetes mellitus supervisor intermediates (current) use of insulin Diabetes type 2, controlled Surgical History History of prostate biopsy Hx of colonoscopy History of esophagogastroduodenoscopy (EGD) Hx of lithotripsy Hx of shoulder surgery History of colon resection Family History Father No problems noted. Mother No problems noted. Other No family history of cancer Social History Household Members: Children Housing: House Are you a primary medicare biller to a significant other at home: No Do you presently have visiting nurse or other home services: No Alcohol intake: never Patient Tobacco Use Status: Former Tobacco user Cigarette Packs Per Day: 1.5 service: No Current occupational status: retired Physical Exam Vital Signs: Last Vital Signs Pulse 82 11/01/24 09:16 BP 118/82 11/01/24 09:16 BMI result Body Mass Index 31.4 Results AMB Hemoglobin A1c AMB Hemoglobin A1c 8.1 % Last Edit by ELLEN Huerta on 11/01/24 09:38 Results Reviewed Results Reviewed: Laboratory Last Values Glucose (Clinic) 165 mg/dL (60-115) H 11/01/24 09:29 Hgb A1c (Clinic) 8.1 % (4.0-6.0) H 11/01/24 09:36 Assessment & Plan Assessment & Plan (1) Type 2 diabetes mellitus with hyperglycemia: Code(s): E11.65 - Type 2 diabetes mellitus with hyperglycemia Category: Medical 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 Somewhat intolerant of higher doses. Reluctant to try additional oral medications He will continue current dosing and be a little more restricted with carbohydrate intake He will return in 3 months for follow up Orders: Orders AMB Hemoglobin A1c Today E11.65 - Type 2 diabetes mellitus with hyperglycemia, Z79.4 - supervisor intermediates (current) use of insulin Medications: New BD AutoShield Duo Pen Needle (pen needle,diabetic dual safty) once monthly subcutaneous or IM 100 ea 3RF NS E53.8 - Deficiency of other specified B group vitamins FreeStyle Den 3 Plus Sensor (blood-glucose sensor) every 14 days 6 ea 3RF NS E11.65 - Type 2 diabetes mellitus with hyperglycemia, E16.2 - Hypoglycemia, unspecified, Z79.4 - supervisor intermediates (current) use of insulin blood-glucose sensor (FreeStyle Den 3 Plus Sensor device) every 14 days 1 ea 3RF E11.65 - Type 2 diabetes mellitus with hyperglycemia, E16.2 - Hypoglycemia, unspecified, Z79.4 - senior living (current) use of insulin Discontinued syringe with needle (Monoject TB Safety Syringe) Discontinued Reason: Doctor's Order As directed 500 ea 3RF E53.8 - Deficiency of other specified B group vitamins Coding Level of Care Code Est Pt Level 4 (25627) Diagnoses Type 2 diabetes mellitus with hyperglycemia, with long-term current use of insulin E11.65; Z79.4 Diabetes mellitus care home insulin use: with 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
[2024-11-01 09:33] LABS: Glucose, Whole Blood 165 mg/dL (60-115)
--- OUTSIDE RECORDS SUMMARY | 2024-11-01 09:56 | XMS_ITS | Continuity of Care Document ---
Author Organization [facility] Address [address] [place], [place] [address]e [address] [place] [address]- Support Name Relationship Address Phone RAMIREZ, JO ANN Personal Relationship Unknown Unav ailable RAMIREZ, IDRIS Personal Relationship Unknown Meredith vailable RAMIREZ, IDRIS Personal Relationship Unknown Meredith vailable RAMIREZ, JO ANN Personal Relationship Unknown Unav ailable RAMIREZ, JASIEL child Unknown Unavailable RAMIREZ, WANDA Personal Relationship Unknown Meredith vailable RAMIREZ, JO ANN Personal Relationship Unknown Unav ailable RAMIREZ, IDRSI Personal Relationship Unknown Meredith vailable RAMIREZ, CLEMENTE [...] Unknown Unav ailable Care Team Providers Care Weigh And Charge Worker Name Role Phone Bill Trejo MD Primary Care Physician Encounter 10/22/24 - 10/29/24 [facility] [address], [facility] [address] [place] [address]- Attending Physician: Bill Trejo MD Admitting Physician: Bill Trejo MD Referring Physician: Bill Trejo MD Encounter Type: OutPatient One Time Allergies, Adverse Reactions, Alerts Substance Criticality Severity [...] virus vaccine, inactivated 06/18/09 Give n SARS-CoV-2(COVID-19)mRNA-LNP vac([id number]) 07/14/23 Recorded [id number] 12y+ bivalent booster vax 10/26/22 Recorded tetanus/diphtheria/pertussis, [...] Other : post doc 2Result Comment: [07/07/2018] [id number] 3Result Comment: [07/07/2017] [facility] [id number] HD 4Result Comment: [08/30/2016] [employer] [facility] 5Result Comment: [facility]-[id number] 6Result Comment: [04/26/2016] [facility] 7Admin Note: added by history Problem List [...] reflux disease) egd 2016 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 FINDINGS: No bone lesions or fractures. Mild tricompartmental degenerative joint space narrowing but no evidence of osteochondral defect orintra-articular loose body. Small quadriceps tendon spur. Mild chondrocalcinosis bilaterally. No evidence of joint effusion. IMPRESSION: Mild tricompartmental degenerative change but no acute abnormality. WSN: [id number] Ordering Physician: Bill Trejo Dictated By: Spencer Sanchez MD Dictated Date/Time: 10/22/24 7:37 pm Reviewed By: Spencer Sanchez MD Signed By: Spencer Sanchez MD Signed Date/Time: 10/22/24 7:37 pm Transcribed By: ADITI Transcribed Date/Time: 10/22/24 7:36 pm Social History Social History Type Response Smoking Status Former smoker; Type: Cigarettes; Number of years: 24; Total pack years: 40; Started at age: 14; Stopped at age: 38; entered on: 01/03/14 Sex Sex Representation Male (finding) Patient Care team information Care Team Personnel Name: Bill Trejo MD Position: [facility] Physician - Primary Care Member Role: PCP Address: [address] [place] [address]- Telecom: Care Team Related Persons Name: JASIEL RAMIREZ Insurance Providers Guarantor name: JUANA RAMIREZ Health Plan Information #: 1 Payer: NA Member Number: [id number] Policy Number: NA Group Number: NA Health Plan Information #: 2 Payer: NA Member Number: [id number] Policy Number: NA Group Number: NA
--- OUTSIDE RECORDS SUMMARY | 2024-11-01 09:56 | XMS_ITS | Continuity of Care Document ---
Author Organization [facility] Address [address] [place] [phone]- Support Name Relationship Address Phone RAMIREZ, JO [...] CLEMENTE Personal Relationship Unknown Meredith vailable RAMIREZ, AWNDA Personal Relationship Unknown Meredith vailable RAMIREZ, JO ANN Personal Relationship Unknown Unav ailable Care Team Providers Care Header Machine Operator Name Role Phone Bill Trejo MD Primary Care Physician Encounter [facility] Date(s): 10/22/24 - 10/29/24 [facility] Adult [address] [place] [address]- Attending Physician: Bill Trejo MD Encounter Type: Office Visit Allergies, Adverse Reactions, Alerts Substance Criticality Severity [...] virus vaccine, inactivated 06/18/09 Give n SARS-CoV-2(COVID-19)mRNA-LNP vac([id number]) 07/14/23 Recorded [id number] 12y+ bivalent booster vax 10/26/22 Recorded tetanus/diphtheria/pertussis, [...] Other : post doc 2Result Comment: [07/07/2018] [id number] 3Result Comment: [07/07/2017] [facility] [id number] HD 4Result Comment: [08/30/2016] [email or web address] 5Result Comment: [id number] 6Result Comment: [04/26/2016] RECEIVED AT [email or web address] 7Admin Note: added by history Problem [...] reflux disease) egd 2016 5 Confirmed Active [facility] use of drug lamotrigine 6 Confirmed Active [...] bone density 16A1c 6.2 17advised pre diabetic Vital Signs Most recent to oldest [Reference Range]: 1 Height 157.5 cm (10/22/24 3:53 PM) Weight 80.6 kg (10/22/24 3:53 PM) Oxygen Saturation [94-100 %] 98 % (10/22/24 3:53 PM) Pulse Rate [55-90 bpm] 85 bpm (10/22/24 3:53 PM) Body Mass Index [18.5-24.99 kg/m2] 32.49 kg/m2 *>HHI* (10/22/24 3:53 PM) Blood Pressure [90-138/55-84 mm Hg] 125/ 68mm Hg (10/22/24 3:53 PM) Mode of Delivery (Oxygen) Room air (10/22/24 3:53 PM) Blood pressure sites Arm, left (10/22/24 3:53 PM) Weight Obtained Via Standing scale (10/22/24 3:53 PM) Social History Social History Type Response Smoking Status Former smoker; Type: Cigarettes; Number of years: 24; Total pack years: 40; Started at age: 14; Stopped at age: 38; entered on: 01/03/14 Sex Sex Representation Male (finding) Patient Care team information Care Team Personnel Name: Bill Trejo MD Position: S Physician - Primary Care Member Role: PCP Address: [address] [place] [id number] Telecom: Care Team Related Persons Name: JASIEL RAMIREZ Insurance Providers Guarantor name: JUANA RAMIREZ Health Plan Information #: 1 Payer: BRENNA Member Number: [id number] Policy Number: NA Group Number: NA Health Plan Information #: 2 Payer: [employer] Member Number: [id number] Policy Number: NA Group Number: [id number]
== END 2024-11-01 10:02 | disposition home or self-care (01) ==
PROVIDERS: PCP Internal Medicine; Visit Provider Internal Medicine
DX: E11.65 Type 2 diabetes mellitus with hyperglycemia (principal); Z79.4 Long term (current) use of insulin

== ENCOUNTER → 2024-11-01 09:05 | Outpatient (BNVA) | payer OTHER, MEDICARE, SELFPAY | PROVIDERS: PCP Internal Medicine; Visit Provider Internal Medicine | DX: E11.65 Type 2 diabetes mellitus with hyperglycemia (principal); Z79.4 Long term (current) use of insulin | CPT/HCPCS: 82947; 83036 ==

== ENCOUNTER 2024-12-04 10:28 | Outpatient (REF) | payer MEDICARE, SELFPAY ==
[2024-12-04 12:43] LABS: Influenza A PCR POSITIVE (Negative); Influenza B PCR NEGATIVE (Negative); Resp Syncy Virus RNA Qual PCR NEGATIVE (Negative); SARS COV2 PCR INHOUSE NEGATIVE (Negative)
== END 2024-12-04 10:29 | disposition home or self-care (01) ==
LOC: HO.LNP 10:28
PROVIDERS: PCP Internal Medicine; Visit Provider Internal Medicine Pulmonary Disease
DX: R05.9 Cough, unspecified (principal); J20.9 Acute bronchitis, unspecified; J44.89 Other specified chronic obstructive pulmonary disease; Z87.891 Personal history of nicotine dependence
CPT/HCPCS: 0241U; 99212

== ENCOUNTER 2024-12-04 10:28 | Outpatient (AMB) | payer MEDICARE, SELFPAY ==
[2024-12-04 10:30] VITALS: BP 144/64; PULSE 92; TEMP 38.2; O2SAT 97; BMI 32.2
--- NOTE | 2024-12-04 10:30 | MHC.OFFVIS ---
Vital Signs 12/04/24 10:30 Height 5 ft 2 in Weight 176 lb BMI 32.2 BP 144/64 H Blood Pressure Location Lt brachial Position Sitting Pulse 92 Pulse Source Doppler Temp 100.7 F H Temp Source Temporal Artery Scan Pulse Oximetry (%) 97 Oxygen Delivery Method Room Air Intake Visit Reasons: Cough Allergies amoxicillin [From AUGMENTIN] Allergy (Severe, Verified 12/04/24 10:42) Diarrhea, malaise celecoxib [Celebrex] Allergy (Severe, Verified 12/04/24 10:42) Malaise clavulanic acid [From AUGMENTIN] Allergy (Severe, Verified 12/04/24 10:42) Diarrhea, malaise gabapentin [GABAPENTIN] Allergy (Severe, Verified 12/04/24 10:42) TREMORS morphine Allergy (Severe, Verified 12/04/24 10:42) BLACKED-OUT, CRAZY cephalexin [Keflex] Allergy (Unknown, Verified 12/04/24 10:42) Unknown diltiazem [Cardizem] Allergy (Unknown, Verified 12/04/24 10:42) Unknown Penicillins [PENICILLINS] Allergy (Unknown, Verified 12/04/24 10:42) Unknown clindamycin Allergy (Verified 12/04/24 10:42) Unconscious peanut Allergy (Verified 12/04/24 10:42) Unknown fluvastatin [From Lescol] Adverse Reaction (Severe, Verified 12/04/24 10:42) Joint Pain pecan nut [PECAN] Adverse Reaction (Severe, Verified 12/04/24 10:42) Anaphylaxis erythromycin base Adverse Reaction (Verified 12/04/24 10:42) Vomiting HPI HPI Cough: Details: 79-year-old gentleman, former approximately 25 pack-year smoker in his 20s and 30s, quit over 30 years prior, now followed to 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 Unfortunately, his prostate cancer has recurred and he continues with hormonal therapy. Patient continues on duo nebs and Brovana. Today he is presenting for sick visit with complaints of productive cough, fevers, muscle aches, and mild shortness of breath. [facility] Medical History Statin intolerance Prostate cancer Prostate cancer MRSA (methicillin resistant Staphylococcus aureus) Arthritis Low back pain GERD (gastroesophageal reflux disease) Anxiety and depression B12 deficiency Elevated PSA Dyslipidemia Hypertension Diabetic polyneuropathy associated with type 2 diabetes mellitus care home (current) use of insulin Diabetes type 2, controlled Surgical History History of prostate biopsy Hx of colonoscopy History of esophagogastroduodenoscopy (EGD) Hx of lithotripsy Hx of shoulder surgery History of colon resection Family History Father No problems noted. Mother No problems noted. Other No family history of cancer Social History Household Members: Children Housing: House Are you a primary technical healthcare consultant to a significant other at home: No Do you presently have visiting nurse or other home services: No Alcohol intake: never Patient Tobacco Use Status: Former Tobacco user Cigarette Packs Per Day: 1.5 service: No Current occupational status: retired Review of Systems Const Denies daytime sleepiness, Denies excessive sweating, Denies fatigue, Reports fever(s), Denies lethargy, Denies malaise, Denies night sweats, Denies snoring and Denies weight loss Eyes Denies blurry vision and Denies itchy eyes ENT Denies nasal congestion, Denies post nasal drip, Denies sinus pain, Denies sinus pressure and Denies other ( Thrush) Card Denies chest pain, Denies pedal edema, Reports dyspnea, Denies orthopnea and Denies paroxysmal nocturnal dyspnea Resp Reports cough, Denies hemoptysis, Reports excessive phlegm production, Reports dyspnea, Denies snoring and Denies wheezing GI Denies abdominal pain and Denies heartburn Musc Denies myalgias, Denies arthralgias and Denies joint swelling Skin/Breast Denies rash Neuro Denies memory loss and Denies seizure-like activity Psych Denies abnormal sleep pattern, Denies anxiety and Denies memory loss Endo Denies excessive sweating, Denies fatigue and Denies heat intolerance Scott/Lymph Denies easy bruising Aller/Immun Denies itchy eyes, Denies seasonal rhinorrhea and Denies wheezing Physical Exam Vital Signs: Last Vital Signs Temp 100.7 F H 12/04/24 10:30 Pulse 92 12/04/24 10:30 BP 144/64 H 12/04/24 10:30 Pulse Ox 97 12/04/24 10:30 Oxygen Delivery Method Room Air 12/04/24 10:30 BMI result Body Mass Index 32.2 Const General: no acute distress and alert Nutritional Appearance: not obese Orientation/consciousness: Other orientation findings ( oriented) HEENT Head: Yes atraumatic Eyes General: appearance normal, both eyes and all related structures Sclerae: sclerae normal EOM: EOMs intact bilaterally Neck Neck: Yes supple Lymphatic: no lymphadenopathy noted Resp Effort & Inspection: normal respiratory effort and no use of accessory muscles Auscultation: rales (Mild bilateral) Cardio Rate: regular rate Rhythm: regular rhythm Heart sounds: no gallops, no murmurs and no rubs Skin General skin exam: other ( warm) Extrem General: No clubbing, No cyanosis and No edema Assessment & Plan Assessment & Plan (1) Acute bronchitis: Code(s): J20.9 - Acute bronchitis, unspecified Category: Medical Plan: Will send respiratory viral panel and treat with a course of Levaquin and prednisone. (2) Asthma-COPD overlap syndrome: Code(s): J44.89 - Other specified chronic obstructive pulmonary disease Category: Medical Plan: Baseline controlled on Brovana and duo nebs. Continue current regimen. (3) Cough: Code(s): R05.9 - Cough, unspecified Category: Medical Plan: Improved control on Gaviscon. Orders: Orders SARS-CoV2/FLU/RSV Today R05.9 - Cough, unspecified Resp Pathogen Panel - [facility] Today R05.9 - Cough, unspecified Medications: New prednisone 40 mg (2 x 20 mg) PO DAILY 10 tabs 1RF levofloxacin 750 mg PO DAILY 7 tabs 0RF Coding Level of Care Code Est Pt Level 4 (10294) Diagnoses Acute bronchitis J20.9 Asthma-COPD overlap syndrome J44.89 Cough R05.9
--- OUTSIDE RECORDS SUMMARY | 2024-12-04 12:25 | XMS_ITS | Continuity of Care Document ---
Author Organization [facility] Address [address] [place] [phone]- Support Name Relationship Address Phone RAMIREZ, JO [...] Unknown Unav ailable Care Team Providers Care Vice Chair Name Role Phone Bill Trejo MD Primary Care Physician Encounter [facility] Date(s): 10/15/24 - 11/14/24 [facility] [address] [place] [address]- Encounter Type: Triage Allergies, Adverse Reactions, Alerts [...] virus vaccine, inactivated 06/18/09 Give n SARS-CoV-2(COVID-19)mRNA-LNP vac([id number]) 07/14/23 Recorded [id number] 12y+ bivalent booster vax 10/26/22 Recorded tetanus/diphtheria/pertussis, [...] Other : post doc 2Result Comment: [07/07/2018] [id number] 3Result Comment: [07/07/2017] [facility] [id number] 4Result Comment: [08/30/2016] [facility] 5Result Comment: [facility]-[id number] 6Result Comment: [04/26/2016] RECEIVED AT [facility] 7Admin Note: added by history Problem [...] reflux disease) egd 2016 5 Confirmed Active prison use of drug lamotrigine 6 Confirmed Active [...] Personnel Name: Maya COLLINS, Bill Alves Position: [facility] Physician - Primary Care Member Role: PCP Address: [address] [place] [phone]- Telecom: Care Team Related Persons Name: JASIEL RAMIREZ Insurance Providers Guarantor name: JUANA RAMIREZ Health Plan Information #: 1 Payer: NA Member Number: NA Policy Number: NA Group Number: NA
--- OUTSIDE RECORDS SUMMARY | 2024-12-04 12:25 | XMS_ITS | Continuity of Care Document ---
Author Organization [facility] Address [address] [place] [phone]- Support Name Relationship Address Phone RAMIREZ, JO [...] Unknown Unav ailable Care Team Providers Care Senior Corporate Strategy Manager Name Role Phone Bill Trejo MD Primary Care Physician [phone] Encounter [facility] [place] Date(s): 10/22/24 - 11/21/24 [facility] Adult [address] [place] [address]- Encounter Diagnosis History of basal cell carcinoma(Discharge Diagnosis) - 01/27/21 Attending Physician: Emmie Johnston Admitting Physician: Emmie Johnston Referring Physician: Emmie Johntson Encounter Type: Triage Allergies, Adverse Reactions, Alerts Substance Criticality Severity Reaction Reaction Severity Status clindamycin Active amoxicillin 1 Active Augmentin hoarse Active morphine Active mirtazapine Active atorvastatin 2 Rosuvastatin Ac tive thiazide diuretics 3 Active Peanuts Active traZODone 4 Active 1hoarse [...] virus vaccine, inactivated 06/18/09 Give n SARS-CoV-2(COVID-19)mRNA-LNP vac([id number]) 07/14/23 Recorded [id number] 12y+ bivalent booster vax 10/26/22 Recorded tetanus/diphtheria/pertussis, [...] Other : post doc 2Result Comment: [07/07/2018] [id number] 3Result Comment: [07/07/2017] [facility] [id number] 4Result Comment: [08/30/2016] [facility] 5Result Comment: [facility]-[id number] 6Result Comment: [04/26/2016] RECEIVED AT [facility] 7Admin Note: added by history Problem [...] reflux disease) egd 2016 5 Confirmed Active 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 6 Confirmed Active [...] bone density 16A1c 6.2 17advised pre diabetic Diagnosis Diagnosis Type Effective Dates Health Status Cl inical Service Informant History of basal cell carcinoma Discharge Diagnosis 01/27/21 Procedures Procedure Date Related Diagnosis Body Site Status Reference laboratory 1 12/17/21 Co mpleted Reference laboratory a1c 6.9 endocrinology 11/26/21 Completed Bone scan neg 07/06/21 Completed Biopsy of prostate 05/18/[address] of chest- scattered areas peribronchial groundglass attenuation and small more solid appearing peribronchial nodules suggestive of airway disease. this is similar eappearing to 02/25 RUL findings which have completely resolved 11/27/20 Complet ed Reference laboratory 2 11/10/20 Co mpleted Reference (Outside) Lab- Na1 41, K 3.7, BUN 19, creat 1.1, FBS 129, CA 8.9, phos 2.5, mag 2.0, AST 14, ALT 21, iron 90, TIBC 90, sat 26, chol 224, LDL 104, HDL 44, vit D 27.5, A1C 6.7% vit B12= 193, microalb 5.0 10/24/20 Compl eted Reference laboratory 3, 4 11/06/19 Completed Reference (Outside) Laboratory 5 07/07/18 Completed Computed tomography, abdomen and pelvis; with contrast material(s) 6 07/05/15 Completed Electrocardiogram, routine E CG with at least 12 leads; with interpretation and report 7 07/05/15 Completed Computed tomography, abdomen and pelvis; with contrast material(s) 8, 9 06/15/12 Completed Computed tomography, thorax; without contrast material 10 06/15/12 Completed Computed tomography, abdomen and pelvis; with contrast material(s) 11 01/17/12 Completed Reference (Outside) Laboratory 12, 13 08/19/10 Completed Computed tomography, abdomen ; with contrast material(s) 14 04/06/10 Complete d Computed tomography, abdomen ; with contrast material(s) 04/05/10 Completed Upper gastrointestinal endos copy including esophagus, stomach, and either the duodenum and/or jejunum as appropriate; diagnostic, with or without collection of specimen(s) by brushing or washing (separate procedure) 15 04/02/10 Completed Computed tomography, thorax; with contrast material(s) 16 03/06/10 Complete d Reference (Outside) Laborato ry 17, 18, 19 02/24/10 Completed laboratory 20, 21 07/06/09 Complet ed Colectomy, partial; with juan carlos stomosis 22 Completed 1Labs 12/17/2021 LDL direct 126 sodium 139 potassium 3.9 chloride 100 bicarb 29 BUN 11 creatinine 1.28 vitamin D 22.7 calcium 9.4 A1c 7.2 B12 344 microalbumin +188 2Labs [facility] dated November 10, 2020 white count 9700 hemoglobin 13.4 platelet count 2 68,000 sodium 139 potassium 4.5 chloride 101 bicarb 30 BUN 19 creatinine 1.24 EGFR 49.2 random glucose 101 calcium 9.5 liver function entirely normal PSA elevated 16.84 CEA 6.10 3urine alb neg 4Fasting sugar 136 random glucose 137 sodium 139 potassium 4.5 chloride 103 bicarb 28 hemoglobin A1c6.9 TSH 1.542 4.97 B12 367 BUN 10 creatinine 1.07 liver function normal total cholesterol 216 triglycerides 414 HDL 42 LDL could not be performed due to high triglycerides liver function normal iron normal vitamin D low normal 24.2 ferritin 27 hemoglobin 12.1 white count 8600 platelet count is 2 90,000 LDL direct is 117 5Na 139, K 4.1, gluc 152, BUN 12, creat 1.09, alk phos 109, AST 15, ALT 20, CEA 4.3, WBC 8.0, hgb 13.6, hct 40.5, plt 256 6lung baees nad/fatty pancreassmall splenulekidneys nad new thickening bladder wall sigmoid anastamoses prostamegaly diverticulosis 7no tracing sinus rate [address] elevation 8had PET scan 9liver lesion enhancing r/o mets, prior surgical chnages, divderticulosis 10nad 11diverticulosis, bibasal atecelatasis, h hernia 12vit D normal 13LDL 87 TC 159 TG 137 HDL 45, FBS 105 14diffise diverticulosis 15neg bx 16no abnormality 17FBS 118, TC 251,TG 202,HDL 44,LDL 131<lfts normal, Crerat 0.99 Lytes normal 18Hgb 11.7 normal WBC, Plts 19VIT d 31 20psa 0.83, lfts normal, VIT D pending,LDL 147m, TG 167, HDL 41, Bun 18,cesat 1.1 2125 OH VIT D ; 44 normal range 22laparascopic,sigmoid(cancer) Social History Social History Type Response Smoking Status Former smoker; Type: Cigarettes; Number of years: 24; Total pack years: 40; Started at age: 14; Stopped at age: 38; entered on: 01/03/14 Sex Sex Representation Male (finding) Cardiology * Event Display: Cardiology Office Note, Non-BH Authored Date: * Event Display: Non BH Cardiovascular Results Authored Date: * Event Display: Cardiovascular Result Scanned Authored Date: EKG study * Event Display: EKG Authored Date: Laboratory * Event Display: Laboratory Result Scanned Authored Date: * Event Display: Non BH Lab Results Authored Date: * Event Display: Non BH Lab Results Authored Date: Cardiology Consult note * Event Display: Consult Note Cardiology Authored Date: * Event Display: Consult Note Cardiology Authored Date: Radiology * Event Display: X-Ray Chest, Non- BH Authored Date: * Event Display: CT Scan Chest, Non- BH Authored Date: * Event Display: CT Scan Chest, Non- BH Authored Date: * Event Display: IR Special Procedures, Non-BH Authored Date: * Event Display: MRI Spine, Non- BH Authored Date: * Event Display: MRI Spine, Non- BH Authored Date: * Event Display: MRI Spine, Non- BH Authored Date: * Event Display: MRI Spine, Non- BH Authored Date: * Event Display: [place] Nuclear Medicine, Non-BH Authored Date: * Event Display: X-Ray Chest, Non- BH Authored Date: * Event Display: Non BH Radiology Results Authored Date: * Event Display: Non BH Radiology Results Authored Date: * Event Display: Non BH Radiology Results Authored Date: * Event Display: X-Ray Chest, Non- BH Authored Date: Patient Care team information Care Team Personnel Name: Maya COLLINS, Bill Alves Position: S Physician - Primary Care Member Role: PCP Address: [address] [place] [address]- Telecom: Care Team Related Persons Name: JASIEL RAMIREZ Insurance Providers Guarantor name: JUANA RAMIREZ Health Plan Information #: 1 Payer: BRENNA Member Number: NA Policy Number: NA Group Number: NA
--- OUTSIDE RECORDS SUMMARY | 2024-12-04 12:25 | XMS_ITS | Continuity of Care Document ---
Author Organization [facility] Address [address] [place] [phone]- Support Name Relationship Address Phone RAMIREZ, JO [...] Unknown Unav ailable Care Team Providers Care Food Safety Auditor Name Role Phone Bill Trejo MD Primary Care Physician [phone] [facility] [place] Date(s): 10/22/24 - 11/21/24 [facility] Adult [address] [place] [address]- Encounter Type: Triage Allergies, Adverse Reactions, Alerts [...] virus vaccine, inactivated 06/18/09 Give n SARS-CoV-2(COVID-19)mRNA-LNP vac([id number]) 07/14/23 Recorded [id number] 12y+ bivalent booster vax 10/26/22 Recorded tetanus/diphtheria/pertussis, [...] Other : post doc 2Result Comment: [07/07/2018] [id number] 3Result Comment: [07/07/2017] [facility] [id number] 4Result Comment: [08/30/2016] [facility] 5Result Comment: [facility]-[id number] 6Result Comment: [04/26/2016] RECEIVED AT [facility] 7Admin Note: added by history Problem [...] reflux disease) egd 2016 5 Confirmed Active [facility] use of drug lamotrigine 6 Confirmed Active [...] Personnel Name: Maya COLLINS, Bill Alves Position: [facility] Physician - Primary Care Member Role: PCP Address: [address] [place] [address]- Telecom: Care Team Related Persons Name: JASIEL RAMIREZ Insurance Providers Guarantor name: JUANA RAMIREZ Health Plan Information #: 1 Payer: NA Member Number: NA Policy Number: NA Group Number: NA
--- OUTSIDE RECORDS SUMMARY | 2024-12-04 12:25 | XMS_ITS | Continuity of Care Document ---
Author Organization [facility] Address [address] [place] [phone]- Support Name Relationship Address Phone RAMIREZ, JO [...] Meredith vailable RAMIREZ, WANDA Personal Relationship Unknown Mreedith vailable RAMIREZ, JO ANN Personal Relationship Unknown Unav ailable Care Team Providers Care Milk Route Supervisor Name Role Phone Bill Trejo MD Primary Care Physician [phone] Encounter [facility] [place] Date(s): 10/12/24 - 11/11/24 [facility] Adult [address] [place] [address]- Encounter Type: Triage Allergies, Adverse Reactions, Alerts [...] influenza virus vaccine, inactivated 1 10/14/22 Gi coliln influenza virus vaccine, inactivated 09/22/21 Pradip rded [...] virus vaccine, inactivated 06/18/09 Give n SARS-CoV-2(COVID-19)mRNA-LNP vac([id number]) 07/14/23 Recorded [id number] 12y+ bivalent booster vax 10/26/22 Recorded tetanus/diphtheria/pertussis, [...] Other : post doc 2Result Comment: [07/07/2018] [id number] 3Result Comment: [07/07/2017] [facility] [id number] 4Result Comment: [08/30/2016] [facility] 5Result Comment: [facility]-[id number] 6Result Comment: [04/26/2016] RECEIVED AT [facility] 7Admin Note: added by history Problem [...] reflux disease) egd 2016 5 Confirmed Active skilled nursing use of drug lamotrigine 6 Confirmed Active [...] Personnel Name: Maya COLLINS, Bill Alves Position: [facility] Physician - Primary Care Member Role: PCP Address: [address] [place] [address]- Telecom: Care Team Related Persons Name: JASIEL RAMIREZ Insurance Providers Guarantor name: JUANA RAMIREZ Health Plan Information #: 1 Payer: NA Member Number: NA Policy Number: NA Group Number: NA
--- OUTSIDE RECORDS SUMMARY | 2024-12-04 12:25 | XMS_ITS | Continuity of Care Document ---
Author Organization [facility] Address [address] [place] [phone]- Support Name Relationship Address Phone RAMIREZ, JO [...] Unknown Unav ailable Care Team Providers Care Fusing Machine Operator Name Role Phone Bill Trejo MD Primary Care Physician Encounter [facility] [place] Date(s): 10/23/24 - 11/22/24 [facility] Adult [address] [place] [address]- Encounter Type: Triage Allergies, Adverse Reactions, Alerts [...] virus vaccine, inactivated 06/18/09 Give n SARS-CoV-2(COVID-19)mRNA-LNP vac([id number]) 07/14/23 Recorded [id number] 12y+ bivalent booster vax 10/26/22 Recorded tetanus/diphtheria/pertussis, [...] Other : post doc 2Result Comment: [07/07/2018] [id number] 3Result Comment: [07/07/2017] [facility] [id number] 4Result Comment: [08/30/2016] [facility] 5Result Comment: [facility]-[id number] 6Result Comment: [04/26/2016] RECEIVED AT [facility] 7Admin Note: added by history [...] reflux disease) egd 2016 5 Confirmed Active [facility] use of drug lamotrigine 6 Confirmed Active [...] Personnel Name: Maya COLLINS, Bill Alves Position: [facility] Physician - Primary Care Member Role: PCP Address: [address] [place] [phone]- Telecom: Care Team Related Persons Name: JASIEL RAMIREZ Insurance Providers Guarantor name: JUANA RAMIREZ Health Plan Information #: 1 Payer: NA Member Number: NA Policy Number: NA Group Number: NA
== END 2024-12-04 10:43 | disposition home or self-care (01) ==
PROVIDERS: PCP Internal Medicine; Visit Provider Internal Medicine Pulmonary Disease
DX: J20.9 Acute bronchitis, unspecified (principal); J44.89 Other specified chronic obstructive pulmonary disease; R05.9 Cough, unspecified
CPT/HCPCS: 99214

== ENCOUNTER 2024-12-14 11:32 | Inpatient (IN) | payer MEDICARE, SELFPAY ==
[2024-12-14] VITALS (19 sets, daily range): BP systolic 119–178; BP diastolic 59–87; PULSE 79–121; RESP 14–24; TEMP 36.4–36.8; O2SAT 79–94; BMI 31.9
--- NOTE | ~2024-12-14 | CT_ITS ---
EXAMINATION: CT ANGIOGRAM CHEST CLINICAL INFORMATION: Shortness of breath. COMPARISON: CT chest dated May 11, 2021. TECHNIQUE: Multiple axial images were obtained through the chest after the administration of 65 mL of Omnipaque 350 intravenous contrast. Extensive vascular post-processing including two-dimensional and three-dimensional reformatted images were created and reviewed on an independent workstation. SmartPrep technique. This CT examination was performed using dose optimization techniques as appropriate, variously including the following: *Automated exposure control *Adjustment of mA and/or kV according to patient size (this includes techniques or standardized protocols for targeted exams where dose is matched to indication/reason for exam; i.e. extremities or head) *Use of iterative reconstruction technique DLP: 260 mGy centimeter. FINDINGS: No intraluminal filling defects within the main pulmonary artery or its main branches. No aneurysm or dissection, thoracic aorta. There are multiple subcentimeter peribronchial septal thickening and 1 mm nodules with confluent attenuation in the lung bases. Intraluminal secretions in the small bronchi of the lower lung lobes. No pneumothorax. No gross pleural effusion. Heart is enlarged. No pericardial effusion. There is multilevel syndesmophyte formation and marginal osteophyte formation. There is incomplete ankylosis at T9-10. Osteopenia versus osteoporosis. Hiatal hernia, small size. Few scattered diverticula in the transverse colon. Small accessory spleen. Liposubstitution, pancreas.. CT/CT angio chest PE protocol IMPRESSION: No acute pulmonary artery emboli. No thoracic aortic aneurysm or dissection. Bronchoaspiration pneumonia. Fleischner guidelines were followed. Electronically signed by: Mil Caal MD 12/14/2024 02:05 PM TAWANDA GUERRERO
--- NOTE | ~2024-12-14 | XR_ITS ---
CLINICAL HISTORY: pneumonia Chest radiograph, 1 view Comparison: CT/NV/SR - CT ANGIO CHEST PE PROTOCOL - 12/14/24 13:29 EST CR/NV/SR - XR CHEST 1V - 12/14/24 12:33 EST Findings: The heart is enlarged. Pulmonary vascularity is mildly prominent. Slightly decreased right basilar airspace opacities. Persistent left basilar airspace opacities. No other focal consolidation or pleural effusion. No pneumothorax. IMPRESSION: Slightly improved right basilar and persistent left basilar airspace disease. This document has been electronically signed by: Car Montano DO on 12/16/2024 10:27:44
--- NOTE | ~2024-12-14 | XR_ITS ---
EXAMINATION: XR CHEST CLINICAL INFORMATION: SOB COMPARISON: March 07, 2024. TECHNIQUE: Frontal view of the chest was obtained. FINDINGS: Triangular-shaped opacities medial aspect of both hemithoraces. No pneumothorax. No pleural effusion. Multilevel thoracolumbar spondylosis. Degenerative changes in the shoulders. XR/XR chest 1V IMPRESSION: Acute airspace disease, right middle lobe and lingula. Electronically signed by: Mil Caal MD 12/14/2024 12:45 PM EST
--- NOTE | 2024-12-14 11:40 | ECG_ITS ---
Test Reason : sob Blood Pressure : */* mmHG Vent. 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
--- NOTE | 2024-12-14 11:43 | ED.GENADULT ---
HPI - General Adult General Chief complaint: Dyspnea Stated complaint: RESPIRATORY DISTRESS PER EMS History of Present Illness ED Provider: Dr. Madden HPI narrative: 79 y/o M patient; PMH COPD, T2DM, GERD, CHF, HTN, recurrent prostate cancer; presents from PCP office with report of hypoxia. The patient was at PCP office for a routine visit. He was found to be hypoxic to 85% on RA. Incidentally the patient was evaluated by his wine bottle inspector Dr. Virgen on 12/04/2024 and diagnosed with presumed bronchitis. He did not have a chest XR. He was treated with Prednisone 40mg for 5 days and Levofloxacin 750mg OD for 7 days. He states he did not finish this antibiotic, only taking one pill because he had all over body pain. EMS provided SoluMedrol 125mg and DuoNeb during transport. The patient otherwise denies: fever or chills, chest pain, diarrhea, nausea/vomiting. Related Data Home Medications ?Medication ?Instructions ?Recorded ?Confirmed blood sugar diagnostic #10 ea 09/08/20 05/29/24 clonidine HCl 0.2 mg tablet 0.4 mg PO BID 09/08/20 12/14/24 furosemide 20 mg tablet 20 mg PO BID 09/08/20 12/14/24 lamotrigine 25 mg tablet 75 mg PO BID 12/09/20 12/14/24 paroxetine HCl 20 mg tablet 20 mg PO DAILY 12/09/20 12/14/24 amlodipine 10 mg tablet 10 mg PO DAILY 04/02/21 12/14/24 esomeprazole magnesium 20 mg 40 mg PO DAILY 12/31/21 12/14/24 capsule,delayed release (Nexium) levetiracetam 500 mg tablet 2,000 mg PO BID 03/08/24 12/14/24 tramadol 50 mg tablet 50 mg PO BID PRN Pain 04/04/24 12/14/24 valsartan 320 mg tablet 80 mg PO DAILY 04/04/24 12/14/24 diphenoxylate-atropine 2.5 3 tab PO BID PRN Diarrhea 08/01/24 12/14/24 mg-0.025 mg tablet ibuprofen 200 mg tablet 200 mg PO Q6H 12/14/24 12/14/24 insulin glargine U-300 conc 300 12 unit subcut DAILY 12/14/24 12/14/24 unit/mL (1.5 mL) subcutaneous pen (Toujeo SoloStar U-300 Insulin) Previous Rx's ?Medication ?Instructions ?Recorded flash glucose sensor #2 ea 09/08/20 Ventolin HFA 90 mcg/actuation 2 puff inhalation Q4-6H PRN 08/10/22 aerosol inhaler (albuterol sulfate) shortness of breath or wheezing 30 days #1 ea cholecalciferol (vitamin D3) 50 50 mcg PO DAILY #90 tabs 12/13/22 mcg (2,000 unit) tablet (Vitamin D3) lancets 28 gauge (FreeStyle #100 ea 02/04/23 Lancets) pen needle, diabetic 32 gauge x #400 ea 02/04/23/32 (BD Arlet 2nd Gen Pen Needle) blood sugar diagnostic (Contour #100 ea 02/20/24 Test Strips) blood-glucose meter (Contour Meter #1 ea 02/20/24 kit) Humalog KwikPen Insulin 100 6 unit subcut .COMPLEX #15 mL 05/09/24 unit/mL subcutaneous (insulin lispro) blood sugar diagnostic (FreeStyle #50 ea 05/09/24 Precision Marcio Strips) cyanocobalamin (vitamin B-12) 1,000 mcg IM Q4W 10 weeks #3 mL 05/09/24 1,000 mcg/mL injection solution BD AutoShield Duo Pen Needle 30 #100 ea 11/01/24 gauge x 3/16 (pen needle,diabetic dual safty) FreeStyle Den 3 Plus Sensor #6 ea 11/01/24 (blood-glucose sensor) blood-glucose sensor (FreeStyle #1 ea 11/01/24 Den 3 Plus Sensor device) Allergies Allergy/AdvReac Type Severity Reaction Status Date / Time amoxicillin [From AUGMENTIN] Allergy Severe Diarrhea, Verified 12/14/24 11:42 malaise celecoxib [Celebrex] Allergy Severe Malaise Verified 12/14/24 11:42 clavulanic acid Allergy Severe Diarrhea, Verified 12/14/24 11:42 [From AUGMENTIN] malaise gabapentin [GABAPENTIN] Allergy Severe TREMORS Verified 12/14/24 11:42 morphine Allergy Severe BLACKED-OUT, Verified 12/14/24 11:42 CRAZY cephalexin [Keflex] Allergy Unknown Unknown Verified 12/14/24 11:42 diltiazem [Cardizem] Allergy Unknown Unknown Verified 12/14/24 11:42 Penicillins [PENICILLINS] Allergy Unknown Unknown Verified 12/14/24 11:42 clindamycin Allergy Unconscious Verified 12/14/24 11:42 peanut Allergy Unknown Verified 12/14/24 11:42 fluvastatin [From Lescol] AdvReac Severe Joint Pain Verified 12/14/24 11:42 pecan nut [PECAN] AdvReac Severe Anaphylaxis Verified 12/14/24 11:42 erythromycin base AdvReac Vomiting Verified 12/14/24 11:42 Review of Systems Review of Systems: Yes all other systems are reviewed and are negative [facility] Past Medical History Attestation statement: The following information was validated with the patient. Source: old records reviewed Medical History Statin intolerance Prostate cancer Prostate cancer MRSA (methicillin resistant Staphylococcus aureus) Arthritis Low back pain GERD (gastroesophageal reflux disease) Anxiety and depression B12 deficiency Elevated PSA Dyslipidemia Hypertension Diabetic polyneuropathy associated with type 2 diabetes mellitus skilled nursing (current) use of insulin Diabetes type 2, controlled Surgical History History of prostate biopsy Hx of colonoscopy History of esophagogastroduodenoscopy (EGD) Hx of lithotripsy Hx of shoulder surgery History of colon resection Family History Family History Father No problems noted. Mother No problems noted. Other No family history of cancer Social History Social History Household Members: Children Housing: House Are you a primary multi care technician to a significant other at home: No Do you presently have visiting nurse or other home services: No Alcohol intake: never Patient Tobacco Use Status: Former Tobacco user Cigarette Packs Per Day: 1.5 service: No Current occupational status: retired Physical Exam ED Vital Signs: Vital Signs - 24 hr 12/14/24 11:38 12/14/24 11:43 12/14/24 11:43 Temperature 97.8 F Pulse Rate 121 H Respiratory Rate 22 H Blood Pressure 143/66 H Pulse Oximetry 79 L 88 L 90 L Oxygen Delivery Method Room Air Nasal Cannula Oxymask Oxygen Flow Rate 6 7 12/14/24 11:49 12/14/24 11:49 12/14/24 11:51 Temperature Pulse Rate 107 H 107 H Respiratory Rate 18 18 Blood Pressure 121/59 L Pulse Oximetry 88 L 88 L Oxygen Delivery Method Oxymask Oxygen Flow Rate 9 12/14/24 12:34 12/14/24 12:34 12/14/24 12:34 Temperature Pulse Rate 120 H Respiratory Rate 20 Blood Pressure 119/70 Pulse Oximetry 86 L 90 L 88 L Oxygen Delivery Method Oxymask Oxymask Oxymask Oxygen Flow Rate 8 10 12 12/14/24 12:35 12/14/24 12:39 12/14/24 12:54 Temperature Pulse Rate 118 H Respiratory Rate 18 16 Blood Pressure 128/68 Pulse Oximetry 93 92 Oxygen Delivery Method Oxymask Oxymask Oxygen Flow Rate 15 15 12/14/24 12:56 12/14/24 13:09 12/14/24 14:06 Temperature 98.2 F Pulse Rate 108 H 113 H 103 H Respiratory Rate 18 22 H 16 Blood Pressure 140/59 H 146/70 H 125/67 Pulse Oximetry 88 L 88 L 87 L Oxygen Delivery Method High Flow Nasal Cannula High Flow Nasal Cannula High Flow Nasal Cannula Oxygen Flow Rate 12/14/24 14:57 12/14/24 15:15 Temperature 98.2 F Pulse Rate 97 Respiratory Rate 16 24 H Blood Pressure 145/69 H Pulse Oximetry 87 L Oxygen Delivery Method High Flow Nasal Cannula Oxygen Flow Rate BMI result Body Mass Index 31.9 Patient is afebrile, tachycardic to 120BPM, normotensive, mildly tachypnic, and hypoxic to 79% on RA Const General: cooperative [facility] Head: Yes normal to inspection and Yes atraumatic Eyes General: appearance normal, both eyes and all related structures Pupils: Equal, round and reactive pupils present EOM: EOMs intact bilaterally Neck Neck: Yes normal visual inspection, Yes full ROM, Yes supple and No tender Chest Chest palpation & inspection: normal inspection of the chest and normal palpation of entire chest wall Resp Other: Mild tachypnea, increased WOB but speaking in full sentences, rhonchi in bibasilar bases Effort & Inspection: normal respiratory effort, able to speak in complete sentences and Actively coughing Cardio Rate: regular rate Rhythm: regular rhythm Peripheral pulses: Peripheral pulses 2+ throughout GI Inspection: Yes normal to inspection, No Abdominal wall edema and No distended Palpation (GI): Soft to palpation, not firm, nontender, no guarding and not rigid Auscultation: normal bowel sounds Back/Spine/Pelvis Back: No back tenderness Neuro Cranial nerves: Yes Equal, round and reactive pupils present Course Course Course Narrative: Patient seen immediately. Requiring supplemental oxygen, placed on ED bronchodilator protocol. Ordered for lactic acid, blood cultures x2, respiratory swab, CXR. Will need CTA Chest when more stable from respiratory POV. Reevaluation(s) Reevaluation #1: Labs reviewed. Leukocytosis 15. Started on Azithromycin and Ceftriaxone for presumed respiratory infectious etiology. LA 3.0. CXR with focal right middle lobe infiltrate as read by myself. I reviewed the radiologist report which is in agreement for right middle lobe and lingular pneumonia. Patient is positive for influenza A. Given he has pneumonia after influenza, I did add on Vancomycin for now to his antibiotics as well pending his blood cultures. Patient requiring high flow nasal canal for persistent hypoxia. Hospitalist requested ICU consultation. ICU evaluated patient and agree patient is appropriate for floor admission. Plan: Admit to hospitalist for influenza, multifocal pneumonia, acute hypoxemic respiratory distress, sepsis Condition: Guarded Medications Administered Generic Name Dose Route Start Last Admin Trade Name Freq PRN Reason Stop Dose Admin Vancomycin HCl 2,000 mg in 500 mls @ 250 mls/hr 12/14/24 14:00 12/14/24 14:05 Vancomycin/Ns IV 12/14/24 15:59 250 mls/hr ONCE ONE Administration Discontinued Medications Generic Name Dose Route Start Last Admin Trade Name Freq PRN Reason Stop Dose Admin Ceftriaxone Sodium 1 gm 12/14/24 12:41 12/14/24 12:56 Ceftriaxone Sodium 1 Gm Vial IVPUSH 12/14/24 12:42 1 gm ONCE ONE Administration Albuterol Sulfate 5 mg/ 0 mg 12/14/24 11:45 12/14/24 11:50 Albuterol/Ipratropium 3 ml INHALE 12/14/24 11:46 1 each ONCE ONE Administration Azithromycin 500 mg/ Sodium 250 mls @ 125 mls/hr 12/14/24 12:41 12/14/24 12:56 Chloride IV 12/14/24 14:40 125 mls/hr ONCE ONE Administration Sodium Chloride 1,000 mls @ 999 mls/hr 12/14/24 14:00 12/14/24 14:05 Ns IV 12/14/24 15:00 999 mls/hr .Q1H1M LOUISA Administration Iohexol 100 ml 12/14/24 13:40 12/14/24 13:41 Iohexol 350 Mg/Ml 100 Ml Infus..Btl IV 12/14/24 13:41 65 ml ONCE ONE Administration Medical Decision Making Lab Data 12/14/24 12:11 12/14/24 12:11 Labs: Lab Results 12/14/24 12/14/24 Range/Units 12:11 12:17 WBC 15.3 H (4.8-10.8) X10*3/uL RBC 4.04 L (4.60-5.80) X10*6/uL Hgb 11.9 L (14.0-18.0) g/dl Hct 34.2 L (42.0-52.0) % MCV 84.7 (80.0-98.0) fL MCH 29.5 (27.0-33.0) pg MCHC 34.8 (31.0-36.0) g/dl RDW 13.1 (11.0-16.0) % Plt Count 267 (160-400) X10*3/uL MPV 8.4 L (9.4-12.4) fL Immature Gran % (Auto) 1.4 H (0.0-0.4) % Neut % (Auto) 67.7 (45-73) % Lymph % (Auto) 20.6 (20-40) % [place]cho % (Auto) 10.1 (2-11) % Eos % (Auto) 0.1 (0-4) % Baso % (Auto) 0.1 (0-2) % Lymph # (Auto) 3.2 (1.2-4.9) X10*3/uL [place] # (Auto) 1.6 H (0.1-1.2) X10*3/uL Eos # (Auto) 0.0 (0.0-0.4) X10*3/uL Baso # (Auto) 0.0 (0.0-0.2) X10*3/uL Abs Immat Gran (auto) 0.22 H (0.00-0.03) X10*3/uL Absolute Neuts (auto) 10.3 H (2.0-8.3) x10*3/uL Absolute Nucleated RBC 0.020 H (0.0-0.012) X10*3/uL Nucleated RBC % (auto) 0.1 (0.0-0.2) /100WBC Smear Tech's Comments VERIFIED VBG pH 7.68 H* (7.32-7.43) VBG pCO2 32 mmHg VBG pO2 48 mmHg VBG HCO3 39 H (22-26) mmol/L VBG O2 Saturation 84.0 % VBG Base Excess 18.3 mmol/L Sodium 138 (135-145) mmol/L Potassium 3.7 (3.3-5.1) mmol/L Chloride 100 (96-108) mmol/L Carbon Dioxide 27 (22-29) mmol/L Anion Gap 15 (12-20) BUN 23 H (9-16) mg/dL Creatinine 1.08 (0.5-1.4) mg/dL Estim Creat Clear Calc 52.1 Estimated GFR > 60 Random Glucose 244 H (60-115) mg/dL Lactic Acid 3.0 H* (0.5-2.0) mmol/L Calcium 8.7 D (8.4-10.2) mg/dL Total Bilirubin 0.7 (0.0-1.0) mg/dL Direct Bilirubin 0.2 (0.0-0.5) mg/dL AST 15 (5-37) U/L ALT 26 (0-40) U/L Alkaline Phosphatase 132 H (39-117) U/L Troponin I High Sens 5.0 (<3.5-35.0) ng/L B-Natriuretic Peptide 59 (<100) pg/mL Total Protein 6.7 (6.5-8.0) g/dL Albumin 3.4 L (3.5-5.0) g/dL Lipase < 4 L (8-78) U/L Influenza Type A (PCR) POSITIVE A (Negative) Influenza Type B (PCR) NEGATIVE (Negative) RSV RNA Qual (PCR) NEGATIVE (Negative) SARS-CoV-2 RNA (RT-PCR) NEGATIVE (Negative) Independent Interpretation I performed an independent interpretation of an: EKG Interpretation: ST 111BPM with + RBBB Radiology Impression Discussion of test interpretation with radiology: I have reviewed the radiologist's reading. Radiologist Impression: EXAMINATION: XR CHEST CLINICAL INFORMATION: SOB COMPARISON: March 07, 2024. TECHNIQUE: Frontal view of the chest was obtained. FINDINGS: Triangular-shaped opacities medial aspect of both hemithoraces. No pneumothorax. No pleural effusion. Multilevel thoracolumbar spondylosis. Degenerative changes in the shoulders. XR/XR chest 1V IMPRESSION: Acute airspace disease, right middle lobe and lingula. Electronically signed by: Mil Caal MD 12/14/2024 12:45 PM EST RP EXAMINATION: CT ANGIOGRAM CHEST CLINICAL INFORMATION: Shortness of breath. COMPARISON: CT chest dated May 11, 2021. TECHNIQUE: Multiple axial images were obtained through the chest after the administration of 65 mL of Omnipaque 350 intravenous contrast. Extensive vascular post-processing including two-dimensional and three-dimensional reformatted images were created and reviewed on an independent workstation. SmartPrep technique. This CT examination was performed using dose optimization techniques as appropriate, variously including the following: *Automated exposure control *Adjustment of mA and/or kV according to patient size (this includes techniques or standardized protocols for targeted exams where dose is matched to indication/reason for exam; i.e. extremities or head) *Use of iterative reconstruction technique DLP: 260 mGy centimeter. FINDINGS: No intraluminal filling defects within the main pulmonary artery or its main branches. No aneurysm or dissection, thoracic aorta. There are multiple subcentimeter peribronchial septal thickening and 1 mm nodules with confluent attenuation in the lung bases. Intraluminal secretions in the small bronchi of the lower lung lobes. No pneumothorax. No gross pleural effusion. Heart is enlarged. No pericardial effusion. There is multilevel syndesmophyte formation and marginal osteophyte formation. There is incomplete ankylosis at T9-10. Osteopenia versus osteoporosis. Hiatal hernia, small size. Few scattered diverticula in the transverse colon. Small accessory spleen. Liposubstitution, pancreas.. CT/CT angio chest PE protocol IMPRESSION: No acute pulmonary artery emboli. No thoracic aortic aneurysm or dissection. Bronchoaspiration pneumonia. Fleischner guidelines were followed. Electronically signed by: Mil Caal MD 12/14/2024 02:05 PM EST RP Critical Care Time Critical Care Time Critical Care Time: Yes Total Critical Care Time: 45 Attestation: Total critical care time: Approximately?345minutes Due to a high probability of clinically significant, life threatening deterioration, the patient required my highest level of preparedness to intervene emergently and I personally spent this critical care time directly and personally managing the patient. This critical care time included obtaining a history; examining the patient; pulse oximetry; ordering and review of studies; arranging urgent treatment with development of a management plan; evaluation of patient's response to treatment; frequent reassessment; and, discussions with other providers. This critical care time was performed to assess and manage the high probability of imminent, life-threatening deterioration that could result in multi-organ failure. It was exclusive of separately billable procedures and treating other patients. Discharge Plan Discharge Clinical Impression: Influenza, COPD exacerbation, Multifocal pneumonia, Sepsis, Acute hypoxemic respiratory failure Patient Disposition: Admitted As Inpatient Print Language: Armenian
[2024-12-14] MEDS: Albuterol Sulfate 5 MG, Albuterol/Iprat 2.5/0.5MG 3 ML 3 ML INHALE (11:50)
--- NOTE | 2024-12-14 11:52 | PC.RT ---
Pt came in via EMS on [facility]. EMS states he was given duoneb in route. RT switched pt to oxy mask and SATs 91% on 8L, RR 24. Pt l/s diminished and tight bilateral. Pt given neb per bronchodilator protocol. Will continue to monitor.
[2024-12-14 12:17] LABS: Basophils Percent Auto 0.1 % (0-2); Eosinophils Percent Auto 0.1 % (0-4); Hematocrit 34.2 % (42.0-52.0); Hemoglobin 11.9 g/dl (14.0-18.0); Imm Gran Abs Auto 0.22 X10*3/uL (0.00-0.03); Imm Gran Pct Auto 1.4 % (0.0-0.4); Lymphocytes Absolute Auto 3.2 X10*3/uL (1.2-4.9); Lymphocytes Percent Auto 20.6 % (20-40); MANUAL DIFF FLAG SCAN; Mean Corpuscular HGB Conc 34.8 g/dl (31.0-36.0); Mean Corpuscular Hemoglobin 29.5 pg (27.0-33.0); Mean Corpuscular Volume 84.7 fL (80.0-98.0); Mean Platelet Volume 8.4 fL (9.4-12.4); Monocytes Absolute Auto 1.6 X10*3/uL (0.1-1.2); Monocytes Percent Auto 10.1 % (2-11); NRBC Pct Auto 0.1 /100WBC (0.0-0.2); Neutrophils Absolute Auto 10.3 x10*3/uL (2.0-8.3); Neutrophils Percent Auto 67.7 % (45-73); Platelet Count 267 X10*3/uL (160-400); Red Blood Count 4.04 X10*6/uL (4.60-5.80); Red Cell Distribution Width 13.1 % (11.0-16.0); SCAN SMEAR FLAG 1; White Blood Count 15.3 X10*3/uL (4.8-10.8)
[2024-12-14 12:18] LABS: Venous Blood Gas Refer to POC result
[2024-12-14 12:22] LABS: VBG Base Excess 18.3 mmol/L; VBG HCO3 39 mmol/L (22-26); VBG pCO2 32 mmHg; VBG pO2 48 mmHg
[2024-12-14 12:25] LABS: VBG pH 7.68 (7.32-7.43)
[2024-12-14 12:37] LABS: SLIDE REVIEW VERIFIED
--- NOTE | 2024-12-14 12:44 | PC.NURSE ---
critical lab value - lactic acid of 3.0 received at this time. dr. chicas notified/aware.
[2024-12-14 12:45] LABS: Alanine Aminotransferase 26 U/L (0-40); Albumin Level 3.4 g/dL (3.5-5.0); Alkaline Phosphatase 132 U/L (39-117); Anion Gap 15 (12-20); Aspartate Amino Transferase 15 U/L (5-37); Bilirubin Direct 0.2 mg/dL (0.0-0.5); Bilirubin Total 0.7 mg/dL (0.0-1.0); Blood Urea Nitrogen 23 mg/dL (9-16); Calcium 8.7 mg/dL (8.4-10.2); Carbon Dioxide 27 mmol/L (22-29); Chloride 100 mmol/L (96-108); Creatinine Clr Calc Pharmacy 52.1; Estimated Glomerular Filt Rate > 60; Glucose Random 244 mg/dL (60-115); Lipase < 4 U/L (8-78); Potassium 3.7 mmol/L (3.3-5.1); Sodium 138 mmol/L (135-145); Total Protein 6.7 g/dL (6.5-8.0)
[2024-12-14] MEDS: Azithromycin 500 MG in 0.9 % Sodium Chloride 250 ML 125 MG IV (12:56)
[2024-12-14] MEDS: cefTRIAXone sodium 1 GM VIAL IVPUSH (12:56)
--- NOTE | 2024-12-14 12:58 | PC.NURSE ---
pt transitioned to high flow nasal cannula at this time via RT. settings at 45L @ 40%. per RT, SPO2 goal is 86%-92%. pt remains to continue to rest in no respiratory distress aside from continuously desatting. no sob/wob noted. respirations even/unlabored. pt able to speak in full/complete sentences. no signs of sternal retractions noted. pt otherwise remains tachycardic - denies chest pain/palpitations. otherwise vss and up to date. plan of care ongoing. call golden placed within reach.
[2024-12-14 12:59] LABS: Influenza A PCR POSITIVE (Negative); Influenza B PCR NEGATIVE (Negative); Resp Syncy Virus RNA Qual PCR NEGATIVE (Negative); SARS COV2 PCR INHOUSE NEGATIVE (Negative)
[2024-12-14] MEDS: iohexoL 350 MG/ML 100 ML INFUS..BTL IV (13:41)
[2024-12-14] MEDS: 0.9 % Sodium Chloride 1,000 ML 999 ML IV (14:05)
[2024-12-14] MEDS: vancomycin/NS 2,000 MG/500 ML PLAST..BAG 250 MG IV (14:05)
[2024-12-14 14:17] LABS: Reflex Lactate? Lactic Acid Added
[2024-12-14 14:39] LABS: B Type Natriuretic Peptide 59 pg/mL (<100)
--- NOTE | 2024-12-14 14:49 | PHA.MEDREC ---
Addendum entered by Scott Schwartz 12/14/24 15:04: reviewed Original Note: Pharmacy Consult ? Medication Reconciliation Pharmacy has completed the medication reconciliation. Spoke to patient to confirm med list. Patient states he is no longer taking Allopurinol 300 mg, Brovana, Celecoxib 200 mg, Ezetimibe 10 mg, Levofloxacin 750 (treatment completed), Prednisone 10 mg (treatment completed). Patient confirmed Humalog KwikPen 6 units per sliding scale, and Toujeo SoloStar U-300 12 units daily.
--- NOTE | 2024-12-14 14:50 | P.CONCC_ITS ---
History of Present Illness Data of Consult Service Date: 12/14/24 Primary Care Provider: Bill Trejo MD HPI Reason for consult: Influenza pneumonia 79-year-old male with past medical history of COPD, T2DM, GERD, CHF, HTN, recurrent prostate cancer presents to the ED with shortness of breath secondary to influenza A pneumonia. Able to speak in sentences, currently on 45% at 40 L oxygen, comfortable. Underwent CTA which ruled out pulmonary embolism bilateral pneumonia mild to moderate in burden. Review of Systems 2 Constitutional: Constitutional: Denies body ache(s) and Denies daytime sleepiness Eyes: Eyes: Denies exophthalmos, Denies change in vision and Denies decreased night vision ENT: Denies Normal hearing present and Denies bleeding gums Cardiovascular: Cardiovascular: Denies Abdominal Distension and Denies chest pain Respiratory: Respiratory: Reports chest congestion, Reports cough, Denies hemoptysis and Denies excessive phlegm production Genitourinary: Genitourinary: Denies change in libido and Denies hematuria Musculoskeletal: Musculoskeletal: Denies abnormal gait and Denies myalgias Neurologic: Denies Normal hearing present, Denies Neuro-related abnormal movements and Denies abnormal gait Psychiatric: Psychiatric: Denies change in libido Endocrine: Endocrine: Denies change in libido and Denies cold intolerance PMFSH Past Medical History Medical History Statin intolerance Prostate cancer Prostate cancer MRSA (methicillin resistant Staphylococcus aureus) Arthritis Low back pain GERD (gastroesophageal reflux disease) Anxiety and depression B12 deficiency Elevated PSA Dyslipidemia Hypertension Diabetic polyneuropathy associated with type 2 diabetes mellitus MCFP (current) use of insulin Diabetes type 2, controlled Family History Family History Father No problems noted. Mother No problems noted. Other No family history of cancer Surgical History Surgical History History of prostate biopsy Hx of colonoscopy History of esophagogastroduodenoscopy (EGD) Hx of lithotripsy Hx of shoulder surgery History of colon resection Social History Social History Household Members: Children Housing: House Are you a primary career manager to a significant other at home: No Do you presently have visiting nurse or other home services: No Alcohol intake: never Patient Tobacco Use Status: Former Tobacco user Cigarette Packs Per Day: 1.5 service: No Current occupational status: retired Meds Allergies Allergy/AdvReac Type Severity Reaction Status Date / Time amoxicillin [From AUGMENTIN] Allergy Severe Diarrhea, Verified 12/14/24 11:42 malaise celecoxib [Celebrex] Allergy Severe Malaise Verified 12/14/24 11:42 clavulanic acid Allergy Severe Diarrhea, Verified 12/14/24 11:42 [From AUGMENTIN] malaise gabapentin [GABAPENTIN] Allergy Severe TREMORS Verified 12/14/24 11:42 morphine Allergy Severe BLACKED-OUT, Verified 12/14/24 11:42 CRAZY cephalexin [Keflex] Allergy Unknown Unknown Verified 12/14/24 11:42 diltiazem [Cardizem] Allergy Unknown Unknown Verified 12/14/24 11:42 Penicillins [PENICILLINS] Allergy Unknown Unknown Verified 12/14/24 11:42 clindamycin Allergy Unconscious Verified 12/14/24 11:42 peanut Allergy Unknown Verified 12/14/24 11:42 fluvastatin [From Lescol] AdvReac Severe Joint Pain Verified 12/14/24 11:42 pecan nut [PECAN] AdvReac Severe Anaphylaxis Verified 12/14/24 11:42 erythromycin base AdvReac Vomiting Verified 12/14/24 11:42 Active Medications: Current Medications Vancomycin HCl (Vancomycin/Ns) 2,000 mg in 500 mls @ 250 mls/hr IV ONCE ONE Stop: 12/14/24 15:59 Last Admin: 12/14/24 14:05 Dose: 250 mls/hr Sodium Chloride (Ns) 1,000 mls @ 999 mls/hr IV .Q1H1M LOUISA Stop: 12/14/24 15:00 Last Admin: 12/14/24 14:05 Dose: 999 mls/hr Home Medications ?Medication ?Instructions ?Recorded ?Confirmed ?Last Taken ?Type blood sugar diagnostic #10 ea 09/08/20 05/29/24 Unknown History clonidine HCl 0.2 mg tablet 0.4 mg PO BID 09/08/20 12/14/24 12/14/24 History furosemide 20 mg tablet 20 mg PO BID 09/08/20 12/14/24 12/14/24 History lamotrigine 25 mg tablet 75 mg PO BID 12/09/20 12/14/24 12/14/24 History paroxetine HCl 20 mg tablet 20 mg PO DAILY 12/09/20 12/14/24 12/14/24 History amlodipine 10 mg tablet 10 mg PO DAILY 04/02/21 12/14/24 12/14/24 History esomeprazole magnesium 20 mg 40 mg PO DAILY 12/31/21 12/14/24 12/14/24 History capsule,delayed release (Nexium) levetiracetam 500 mg tablet 2,000 mg PO BID 03/08/24 12/14/24 12/14/24 History tramadol 50 mg tablet 50 mg PO BID PRN Pain 04/04/24 12/14/24 12/14/24 History valsartan 320 mg tablet 80 mg PO DAILY 04/04/24 12/14/24 12/14/24 History diphenoxylate-atropine 2.5 3 tab PO BID PRN Diarrhea 08/01/24 12/14/24 12/14/24 History mg-0.025 mg tablet ibuprofen 200 mg tablet 200 mg PO Q6H 12/14/24 12/14/24 12/13/24 History insulin glargine U-300 conc 300 12 unit subcut DAILY 12/14/24 12/14/24 12/14/24 History unit/mL (1.5 mL) subcutaneous pen (Toueugeniao SoloStar U-300 Insulin) Physical Exam 2 Vital Signs: Vital Signs: Last Vital Signs Temp 98.2 F 12/14/24 12:56 Pulse 103 H 12/14/24 14:06 Resp 16 12/14/24 14:06 BP 125/67 12/14/24 14:06 Pulse Ox 87 L 12/14/24 14:06 O2 Del Method High Flow Nasal C annula 12/14/24 14:06 O2 Flow Rate 15 12/14/24 12:39 BMI result Body Mass Index 31.9 General: Elderly male sitting up in the bed, talking in sentences actually would not stop talking, in minimal distress Nutritional Appearance: well nourished and overweight Eyes: appearance normal, both eyes and all related structures; Alignment and Position: alignment normal and position normal Neck: No lymphadenopathy, no thyromegaly Resp: bilateral air entry equal, occasional added sounds present Cardio: Regular rate, regular rhythm; Heart sounds: S1 normal heart sound present and S2 normal heart sound present GI: soft, nontender, no guarding, no hepatosplenomegaly : bladder normal to inspection, bladder normal to palpation, no renal angle tenderness Skin: no rashes or lesions noted and elasticity normal Neuro: oriented to person, oriented to place, oriented to time and moves all extremities Neuro: Cranial nerves: No Normal hearing present Results Labs 12/14/24 12:11 12/14/24 12:11 Labs: Short CBC 12/14/24 Range/Units 12:11 WBC 15.3 H (4.8-10.8) X10*3/uL Hgb 11.9 L (14.0-18.0) g/dl Hct 34.2 L (42.0-52.0) % Plt Count 267 (160-400) X10*3/uL BMP 12/14/24 12:11 Sodium 138 Potassium 3.7 Chloride 100 Carbon Dioxide 27 BUN 23 H Creatinine 1.08 Calcium 8.7 D Liver Function 12/14/24 Range/Units 12:11 Total Bilirubin 0.7 (0.0-1.0) mg/dL Direct Bilirubin 0.2 (0.0-0.5) mg/dL AST 15 (5-37) U/L ALT 26 (0-40) U/L Alkaline Phosphatase 132 H (39-117) U/L Albumin 3.4 L (3.5-5.0) g/dL Assessment and Plan (1) Hypertension: Status: Acute (2) Diabetes type 2, controlled: Status: Acute (3) Type 2 diabetes mellitus with hyperglycemia: Qualifiers: Diabetes mellitus skilled nursing insulin use: with remote computer terminal operator use Qualified Code(s): E11.65 - Type 2 diabetes mellitus with hyperglycemia; Z79.4 - MCFP (current) use of insulin Status: Acute (4) Influenza: Status: Acute (5) COPD exacerbation: Status: Acute (6) Acute hypoxemic respiratory failure: Status: Acute Plan Influenza a pneumonia: Acute on chronic hypoxemic respiratory failure: Patient presented with shortness of breath, has underlying significant lung disease with COPD currently stable on 45%, 40 L high-flow nasal cannula. Target saturations 88-90, avoid hyper oxygenation to prevent oxygen toxicity. Patient can speak in sentences very mildly dyspneic can be managed at floor. Recommend bronchodilators [id number], oral steroids, oseltamavir and empiric antibiotics for superadded pneumonia Total time managing care of this patient today: 30 minutes.
--- NOTE | 2024-12-14 14:57 | PM.IMHP ---
History of Present Illness Date of Service: 12/14/24 Attending physician on admission: Karlee Dotson Chief Complaint: Hypoxia Pt is a 79-year-old male with a PMH significant for?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 Pt reports symptoms began over 10 days ago when he experiences SOB, MEIER, and productive cough. Initially presented to pulmonology on 12/04 where he was diagnosed with bronchitis and started on prednisone and Levaquin x7 days. Pt reports took 1 dose of abx but unable to tolerate as felt like all of my tendons were about to rip apart . Called pulmonology back 2 days later where prednisone taper was extended. Pt reports symptoms continued to worsen, especially the past two days, but pt decided to wait to see a provider as he had a previously-scheduled routine PCP appointment today. Denies fever and chills above baseline (reports often has hot flashes as he is on hormonal therapy for prostate cancer). No chest pain/pressure, palpitations. Denies nausea, vomiting, abdominal pain. Of note, pt also tested positive for influenza type a on 12/04/2024, but was not started on Tamiflu. Given patient's increased work of breathing and O2 requirements on high-flow, pt was evaluated by ICU who felt he could be managed the regular medical floor. In the ED pt was tachycardic up to 121, tachypneic up to 22, and mildly hypertensive at 146/70, satting as low as 79% on RA. Labs were significant for leukocytosis 15.3, stable H&H of 0.9/34.2, random glucose 244, and lactic acid 3.0. VB pH 7.68 with pCO2 32 and bicarb 39. No significant electrolyte abnormalities. Renal function baseline. Hepatic function baseline. Troponin 5.0. BNP 59. Continues to test positive for influenza type a; 1st tested positive 10 days prior. CXR showed acute airspace disease in right middle lobe and lingula. Chest CTA showed no acute pulmonary emboli, but showed broncho aspiration pneumonia. EKG demonstrated sinus tachycardia of 111 with RBBB and now evidence of significant ST elevations or depressions, similar to prior. Pt was treated with Solu-Medrol and DuoNebs by EMS, and DuoNebs, IVF, azithromycin, ceftriaxone, and vancomycin in the ED. Pt will be admitted to the hospital for treatment and further evaluation of acute hypoxic respiratory failure in the setting of multifocal pneumonia with sepsis. Review of Systems Review of Systems: Negative except for that which is stated in the [facility] Medical History Statin intolerance Prostate cancer Prostate cancer MRSA (methicillin resistant Staphylococcus aureus) Arthritis Low back pain GERD (gastroesophageal reflux disease) Anxiety and depression B12 deficiency Elevated PSA Dyslipidemia Hypertension Diabetic polyneuropathy associated with type 2 diabetes mellitus detention (current) use of insulin Diabetes type 2, controlled Family History Father No problems noted. Mother No problems noted. Other No family history of cancer Surgical History History of prostate biopsy Hx of colonoscopy History of esophagogastroduodenoscopy (EGD) Hx of lithotripsy Hx of shoulder surgery History of colon resection Social History Household Members: Children Housing: House Are you a primary animal care worker to a significant other at home: No Do you presently have visiting nurse or other home services: No Alcohol intake: never Patient Tobacco Use Status: Former Tobacco user Cigarette Packs Per Day: 1.5 Advance Directives: No Advance Directives Information Provided: Yes Do you have a plan to hurt others: No Plan service: No Current occupational status: retired Meds Allergies Allergy/AdvReac Type Severity Reaction Status Date / Time amoxicillin [From AUGMENTIN] Allergy Severe Diarrhea, Verified 12/14/24 11:42 malaise celecoxib [Celebrex] Allergy Severe Malaise Verified 12/14/24 11:42 clavulanic acid Allergy Severe Diarrhea, Verified 12/14/24 11:42 [From AUGMENTIN] malaise gabapentin [GABAPENTIN] Allergy Severe TREMORS Verified 12/14/24 11:42 morphine Allergy Severe BLACKED-OUT, Verified 12/14/24 11:42 CRAZY cephalexin [Keflex] Allergy Unknown Unknown Verified 12/14/24 11:42 diltiazem [Cardizem] Allergy Unknown Unknown Verified 12/14/24 11:42 Penicillins [PENICILLINS] Allergy Unknown Unknown Verified 12/14/24 11:42 clindamycin Allergy Unconscious Verified 12/14/24 11:42 peanut Allergy Unknown Verified 12/14/24 11:42 fluvastatin [From Lescol] AdvReac Severe Joint Pain Verified 12/14/24 11:42 pecan nut [PECAN] AdvReac Severe Anaphylaxis Verified 12/14/24 11:42 erythromycin base AdvReac Vomiting Verified 12/14/24 11:42 Active Medications: Current Medications Vancomycin HCl (Vancomycin/Ns) 2,000 mg in 500 mls @ 250 mls/hr IV ONCE ONE Stop: 12/14/24 15:59 Last Admin: 12/14/24 14:05 Dose: 250 mls/hr Sodium Chloride (Ns) 1,000 mls @ 999 mls/hr IV .Q1H1M LOUISA Stop: 12/14/24 15:00 Last Admin: 12/14/24 14:05 Dose: 999 mls/hr Home Medications ?Medication ?Instructions ?Recorded ?Confirmed ?Last Taken ?Type blood sugar diagnostic #10 ea 09/08/20 05/29/24 Unknown History clonidine HCl 0.2 mg tablet 0.4 mg PO BID 09/08/20 12/14/24 12/14/24 History furosemide 20 mg tablet 20 mg PO BID 09/08/20 12/14/24 12/14/24 History lamotrigine 25 mg tablet 75 mg PO BID 12/09/20 12/14/24 12/14/24 History paroxetine HCl 20 mg tablet 20 mg PO DAILY 12/09/20 12/14/24 12/14/24 History amlodipine 10 mg tablet 10 mg PO DAILY 04/02/21 12/14/24 12/14/24 History esomeprazole magnesium 20 mg 40 mg PO DAILY 12/31/21 12/14/24 12/14/24 History capsule,delayed release (Nexium) levetiracetam 500 mg tablet 2,000 mg PO BID 03/08/24 12/14/24 12/14/24 History tramadol 50 mg tablet 50 mg PO BID PRN Pain 04/04/24 12/14/24 12/14/24 History valsartan 320 mg tablet 80 mg PO DAILY 0612/14/24 12/14/24 History diphenoxylate-atropine 2.5 3 tab PO BID PRN Diarrhea 08/01/24 12/14/24 12/14/24 History mg-0.025 mg tablet ibuprofen 200 mg tablet 200 mg PO Q6H 12/14/24 12/14/24 12/13/24 History insulin glargine U-300 conc 300 12 unit subcut DAILY 12/14/24 12/14/24 12/14/24 History unit/mL (1.5 mL) subcutaneous pen (Toueugeniao SoloStar U-300 Insulin) Physical Exam Vital Signs and Narrative: Vital Signs: Last Vital Signs Temp 98.2 F 12/14/24 12:56 Pulse 103 H 12/14/24 14:06 Resp 16 12/14/24 14:06 BP 125/67 12/14/24 14:06 Pulse Ox 87 L 12/14/24 14:06 O2 Del Method High Flow Nasal C annula 12/14/24 14:06 O2 Flow Rate 15 12/14/24 12:39 BMI result Body Mass Index 31.9 General: AOx3, no acute distress Resp: Bibasilar rhonchi, some increased work of breathing. Capable of speaking in full sentences. High-Flow on. CVS: S1, S2, RRR GI: +BS, NT, no distention Skin: Warm, dry Neuro: Cranial nerves II-XII grossly intact bilaterally. Motor grossly intact bilaterally Extremities: No edema Psych: Appropriate affect Results Labs 12/14/24 12:11 12/14/24 12:11 Labs: Laboratory Results - last 24 hr 12/14/24 12/14/24 12:11 12:17 MCV 84.7 MCH 29.5 MCHC 34.8 RDW 13.1 Plt Count 267 MPV 8.4 L Immature Gran % (Auto) 1.4 H Neut % (Auto) 67.7 Lymph % (Auto) 20.6 Rolette % (Auto) 10.1 Eos % (Auto) 0.1 Baso % (Auto) 0.1 Lymph # (Auto) 3.2 Rolette # (Auto) 1.6 H Eos # (Auto) 0.0 Baso # (Auto) 0.0 Abs Immat Gran (auto) 0.22 H Absolute Neuts (auto) 10.3 H Absolute Nucleated RBC 0.020 H Nucleated RBC % (auto) 0.1 Smear Tech's Comments VERIFIED VBG pH 7.68 H* VBG pCO2 32 VBG pO2 48 VBG HCO3 39 H VBG O2 Saturation 84.0 VBG Base Excess 18.3 Anion Gap 15 Estim Creat Clear Calc 52.1 Estimated GFR > 60 Random Glucose 244 H Lactic Acid 3.0 H* Calcium 8.7 D Total Bilirubin 0.7 Direct Bilirubin 0.2 AST 15 ALT 26 Alkaline Phosphatase 132 H B-Natriuretic Peptide 59 Total Protein 6.7 Albumin 3.4 L Lipase < 4 L Influenza Type A (PCR) POSITIVE A Influenza Type B (PCR) NEGATIVE RSV RNA Qual (PCR) NEGATIVE SARS-CoV-2 RNA (RT-PCR) NEGATIVE Imaging Radiologist's Impressions: Impressions Chest X-Ray 12/14/24 11:40 IMPRESSION: Acute airspace disease, right middle lobe and lingula. Electronically signed by: Mil Caal MD 12/14/2024 12:45 PM EST RP Chest CTA 12/14/24 13:29 IMPRESSION: No acute pulmonary artery emboli. No thoracic aortic aneurysm or dissection. Bronchoaspiration pneumonia. Fleischner guidelines were followed. 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 Pt will be admitted to the hospital for treatment and further evaluation of acute hypoxic respiratory failure in the setting of multifocal pneumonia with sepsis. Acute hypoxic respiratory failure in the setting of multifocal pneumonia with sepsis Pt with SOB, MEIER, productive cough, desatting to 79% on RA, CTA showing extensive bilateral pneumonia, diagnosis influenza type a 10 days ago Meets sepsis criteria with tachycardia, tachypnea, and leukocytosis; lactic acid 3.0 Pt given IVF and started on broad-spectrum antibiotics in the ED Will treat with vancomycin, azithromycin, and cefepime, started 12/14/2024 DuoNebs, Solu-Medrol, guaifenesin Continue high-flow with O2 goal of 88-90%, wean as tolerated Critical care evaluation felt pt did not meet ICU criteria Monitor respiratory status Influenza A infection First diagnosed 10 days ago Not started on Tamiflu, no indication to start now Treat as above Hx of colon cancer Continue Lamotil Sciatica On lamotrigine and Keppra, off-label Continue home meds HTN Continue amlodipine, clonidine, and valsartan GERD Continue Nexium Mood disorder Continu paroxetine Full Code Attending:? DVT Prophylaxis: Lovenox Pt will require a hospitalization of at least two nights for treatment of?acute hypoxic respiratory failure in the setting multifocal pneumonia with sepsis. Pt will require hospital level care for administration of supplemental oxygen currently on high-flow, IV antibiotics, IV steroids, and bronchodilators. Quality Stroke Does the patient have a stroke diagnosis?: No VTE Prior VTE?: No VTE Risk Level:: Medical - moderate - high VTE Device Contraindication: Treatment Not Indicated VTE Drug Contraindication: N/A - Med Ordered
[2024-12-14] MEDS: Enoxaparin Sodium 40 MG/0.4 ML SYRINGE SUBCUT (17:16)
[2024-12-14 17:19] LABS: ~Lactic Acid-LAB USE ONLY 3.2 mmol/L (0.5-2.0)
[2024-12-14] MEDS: cefEPime HCl/D5W 2 GM/50 ML PIGGYBACK IV (17:19)
[2024-12-14] MEDS: Ibuprofen 200 MG TABLET PO ×2 (17:19→22:33)
[2024-12-14 18:45] LABS: Reflex Lactate? 2 Y
[2024-12-14] MEDS: Lactated Ringers 500 ML 999 ML IV (19:26)
[2024-12-14 19:39] LABS: ~Lactic Acid-LAB USE ONLY 2.5 mmol/L (0.5-2.0)
[2024-12-14] MEDS: levalbuterol HCL 1.25 MG/3 ML VIAL.NEB INHALE (19:50)
[2024-12-14] MEDS: lamoTRIgine 25 MG TABLET 75 MG PO (21:12)
[2024-12-14] MEDS: methylPREDNISolone Sod Succ 40 MG/ML VIAL IVPUSH (21:12)
[2024-12-14] MEDS: levETIRAcetam 1,000 MG TABLET 2000 MG PO (21:13)
[2024-12-14] MEDS: Furosemide 20 MG TABLET PO (21:13)
[2024-12-14] MEDS: cloNIDine HCL 0.2 MG TABLET 0.4 MG PO (21:13)
--- NOTE | 2024-12-14 22:52 | PC.NURSE ---
pt states is diabetic this rn made dr james aware this rn asked md if pt needed for scheduled poc checked no new orders from md
[2024-12-15] VITALS (24 sets, daily range): BP systolic 145–194; BP diastolic 56–90; PULSE 72–139; RESP 16–24; TEMP 36.5–36.7; O2SAT 90–96; BMI 32.2
[2024-12-15] MEDS: 0.9 % Sodium Chloride Flush 3 ML SYRINGE IVFLUSH ×3 (02:42→16:05)
[2024-12-15] MEDS: vancomycin HCL 750 MG in 0.9 % Sodium Chloride 250 ML 265 MG IV ×2 (02:42→16:02)
[2024-12-15] MEDS: traMADoL HCL 50 MG TABLET PO (02:54)
[2024-12-15] MEDS: Ibuprofen 200 MG TABLET PO (05:29)
[2024-12-15] MEDS: cefEPime HCl/D5W 2 GM/50 ML PIGGYBACK IV ×2 (05:30→19:54)
[2024-12-15 05:47] LABS: Glucose, Whole Blood 352 mg/dL (60-115)
[2024-12-15 06:08] LABS: Hematocrit 33.6 % (42.0-52.0); Hemoglobin 11.7 g/dl (14.0-18.0); Mean Corpuscular HGB Conc 34.8 g/dl (31.0-36.0); Mean Corpuscular Hemoglobin 29.5 pg (27.0-33.0); Mean Corpuscular Volume 84.6 fL (80.0-98.0); Mean Platelet Volume 8.8 fL (9.4-12.4); Platelet Count 249 X10*3/uL (160-400); Red Blood Count 3.97 X10*6/uL (4.60-5.80); Red Cell Distribution Width 13.1 % (11.0-16.0)
[2024-12-15 06:27] LABS: Anion Gap 14 (12-20); Blood Urea Nitrogen 18 mg/dL (9-16); Calcium 9.4 mg/dL (8.4-10.2); Carbon Dioxide 23 mmol/L (22-29); Chloride 102 mmol/L (96-108); Creatinine Clr Calc Pharmacy 55.2; Estimated Glomerular Filt Rate > 60; Glucose Random 391 mg/dL (60-115); Sodium 135 mmol/L (135-145)
[2024-12-15] MEDS: levalbuterol HCL 1.25 MG/3 ML VIAL.NEB INHALE ×4 (07:42→19:42)
[2024-12-15 08:30] LABS: Estimated Average Glucose 197 mg/dL; Hemoglobin A1c % 8.5 % (<6.0); Total Hemoglobin (HGBA1C) 3047.5718 umol/L
[2024-12-15] MEDS: amLODIPine Besylate 10 MG TABLET PO (08:34)
[2024-12-15] MEDS: cloNIDine HCL 0.2 MG TABLET 0.4 MG PO ×2 (08:35→21:14)
[2024-12-15] MEDS: Furosemide 20 MG TABLET PO ×2 (08:35→21:14)
[2024-12-15] MEDS: levETIRAcetam 1,000 MG TABLET 2000 MG PO ×2 (08:35→21:13)
[2024-12-15] MEDS: Omeprazole 20 MG CAPSULE.DR PO (08:36)
[2024-12-15] MEDS: methylPREDNISolone Sod Succ 40 MG/ML VIAL IVPUSH ×2 (08:36→21:15)
[2024-12-15] MEDS: Cholecalciferol (Vitamin D3) 25 MCG TABLET 50 MCG PO (10:00)
[2024-12-15] MEDS: Valsartan 80 MG TABLET PO (10:00)
[2024-12-15] MEDS: PARoxetine HCL 20 MG TABLET PO (10:04)
[2024-12-15] MEDS: lamoTRIgine 25 MG TABLET 75 MG PO ×2 (10:05→21:14)
[2024-12-15 12:15] LABS: Vancomycin Random 13.9 mcg/mL (15-20)
--- NOTE | 2024-12-15 12:42 | PM.CNPUL ---
History of Present Illness History of Present Illness Consult date: 12/15/24 Chief complaint: Pneumonia with hypoxia Narrative: This is an inpatient pulmonary consultation. 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 Pt reports symptoms began over 10 days ago when he experiences SOB, MEIER, and productive cough. Initially presented to pulmonology on 12/04 where he was diagnosed with bronchitis and started on prednisone and Levaquin x7 days. Pt reports took 1 dose of abx but unable to tolerate as felt like all of my tendons were about to rip apart . Called pulmonology back 2 days later where prednisone taper was extended. Pt reports symptoms continued to worsen, especially the past two days, but pt decided to wait to see a provider as he had a previously-scheduled routine PCP appointment today. Denies fever and chills above baseline (reports often has hot flashes as he is on hormonal therapy for prostate cancer). No chest pain/pressure, palpitations. Denies nausea, vomiting, abdominal pain. Of note, pt also tested positive for influenza type a on 12/04/2024, but was not started on Tamiflu. Given patient's increased work of breathing and O2 requirements on high-flow, pt was evaluated by ICU who felt he could be managed the regular medical floor. Review of Systems Constitutional: Constitutional: Denies body ache(s) and Denies daytime sleepiness Eyes: Eyes: Denies exophthalmos, Denies change in vision and Denies decreased night vision ENT: Denies Normal hearing present and Denies bleeding gums Cardiovascular: Cardiovascular: Denies Abdominal Distension and Denies chest pain Respiratory: Respiratory: Reports chest congestion, Reports cough, Denies hemoptysis and Denies excessive phlegm production Genitourinary: Genitourinary: Denies change in libido and Denies hematuria Musculoskeletal: Musculoskeletal: Denies abnormal gait and Denies myalgias Neurologic: Denies Normal hearing present, Denies Neuro-related abnormal movements and Denies abnormal gait Psychiatric: Psychiatric: Denies change in libido Endocrine: Endocrine: Denies change in libido and Denies cold intolerance [facility] Past Medical History Medical History Statin intolerance Prostate cancer Prostate cancer MRSA (methicillin resistant Staphylococcus aureus) Arthritis Low back pain GERD (gastroesophageal reflux disease) Anxiety and depression B12 deficiency Elevated PSA Dyslipidemia Hypertension Diabetic polyneuropathy associated with type 2 diabetes mellitus custodial (current) use of insulin Diabetes type 2, controlled Family History Family History Father No problems noted. Mother No problems noted. Other No family history of cancer Surgical History Surgical History History of prostate biopsy Hx of colonoscopy History of esophagogastroduodenoscopy (EGD) Hx of lithotripsy Hx of shoulder surgery History of colon resection Social History Social History Household Members: Children Housing: House Are you a primary professional healthcare representative to a significant other at home: No Do you presently have visiting nurse or other home services: No Alcohol intake: never Patient Tobacco Use Status: Former Tobacco user Cigarette Packs Per Day: 1.5 Smoked in Last 30 Days: No Use of substances other than those prescribed or required for medical reasons: No Advance Directives: No Advance Directives Information Provided: Yes Do you have a plan to hurt others: No Plan Nutrition Risks: No Nutritional Risk service: No Current occupational status: retired [employer] Allergies Allergy/AdvReac Type Severity Reaction Status Date / Time amoxicillin [From AUGMENTIN] Allergy Severe Diarrhea, Verified 12/14/24 11:42 malaise celecoxib [Celebrex] Allergy Severe Malaise Verified 12/14/24 11:42 clavulanic acid Allergy Severe Diarrhea, Verified 12/14/24 11:42 [From AUGMENTIN] malaise gabapentin [GABAPENTIN] Allergy Severe TREMORS Verified 12/14/24 11:42 morphine Allergy Severe BLACKED-OUT, Verified 12/14/24 11:42 CRAZY cephalexin [Keflex] Allergy Unknown Unknown Verified 12/14/24 11:42 diltiazem [Cardizem] Allergy Unknown Unknown Verified 12/14/24 11:42 Penicillins [PENICILLINS] Allergy Unknown Unknown Verified 12/14/24 11:42 clindamycin Allergy Unconscious Verified 12/14/24 11:42 peanut Allergy Unknown Verified 12/14/24 11:42 fluvastatin [From Lescol] AdvReac Severe Joint Pain Verified 12/14/24 11:42 pecan nut [PECAN] AdvReac Severe Anaphylaxis Verified 12/14/24 11:42 erythromycin base AdvReac Vomiting Verified 12/14/24 11:42 Active Medications: Current Medications Acetaminophen (Acetaminophen 325 Mg Tablet) 650 mg PO Q6H PRN PRN Reason: Pain, Mild 1-3,fever,headache Amlodipine Besylate (Amlodipine Besylate 10 Mg Tablet) 10 mg PO DAILY [facility]; Protocol Last Admin: 12/15/24 08:34 Dose: 10 mg Clonidine HCl (Clonidine Hcl 0.2 Mg Tablet) 0.4 mg PO BID [facility]; Protocol Last Admin: 12/15/24 08:35 Dose: 0.4 mg Cyanocobalamin (Cyanocobalamin (Vitamin B-12) 1,000 Mcg/Ml Vial) 1,000 mcg IM Q30D [facility] Dextrose (Dextrose 50 % 25 Gm/50 Ml Syringe) 25 gm IVPUSH Q15M PRN; Protocol PRN Reason: per Hypoglycemia Standing Ord. Diphenoxylate HCl/Atropine (Diphenoxylate/Atrop 2.5/0.025 Tablet) 3 tab PO BID PRN PRN Reason: Diarrhea Diphenoxylate HCl/Atropine (Diphenoxylate/Atrop 2.5/0.025 Tablet) 1 tab PO QID PRN PRN Reason: Diarrhea Enoxaparin Sodium (Enoxaparin Sodium 40 Mg/0.4 Ml Syringe) 40 mg SUBCUT Q24H [facility] Last Admin: 12/14/24 17:16 Dose: 40 mg Furosemide (Furosemide 20 Mg Tablet) 20 mg PO BID [facility]; Protocol Last Admin: 12/15/24 08:35 Dose: 20 mg Glucose (Glucose Gel 15 Gm Gel..Gram.) 15 gm PO Q15M PRN; Protocol PRN Reason: per Hypoglycemia Standing Ord. Azithromycin 500 mg/ Sodium (Chloride) 250 mls @ 125 mls/hr IV Q24H [facility] Cefepime HCl (Maxipime) 2 gm in 50 mls @ 100 mls/hr IV Q12H [facility] Last Infusion: 12/15/24 06:05 Dose: Infused Vancomycin HCl 750 mg/ Sodium (Chloride) 265 mls @ 265 mls/hr IV Q12H [facility] Last Infusion: 12/15/24 03:51 Dose: Infused Ibuprofen (Ibuprofen 200 Mg Tablet) 200 mg PO Q6H [facility] Last Admin: 12/15/24 05:29 Dose: 200 mg Insulin Glargine (Insulin Glargine,Hum.Rec.Anlog 100 Unit/Ml 10 Ml Vial) 10 unit SUBCUT DAILY [facility] Insulin Human Lispro (Insulin Lispro 100 Unit/Ml 3 Ml Vial) 0 unit SUBCUT QIDACHS [facility]; Protocol Lamotrigine (Lamotrigine 25 Mg Tablet) 75 mg PO BID [facility] Last Admin: 12/15/24 10:05 Dose: 75 mg Levalbuterol HCl (Levalbuterol Hcl 1.25 Mg/3 Ml Vial.Neb) 1.25 mg INHALE RQ4H WHILE AWAKE [facility] Last Admin: 12/15/24 11:32 Dose: 1.25 mg Levetiracetam (Levetiracetam 1,000 Mg Tablet) 2,000 mg PO BID [facility] Last Admin: 12/15/24 08:35 Dose: 2,000 mg Magnesium Hydroxide (Milk Of Magnesia 30 Ml Oral.Susp) 30 ml PO DAILY PRN PRN Reason: Constipation Melatonin (Melatonin 3 Mg Tablet) 6 mg PO BEDTIME PRN PRN Reason: Insomnia Methylprednisolone Sodium Succinate (Methylprednisolone Sod Succ 40 Mg/Ml Vial) 40 mg IVPUSH Q12H [facility] Last Admin: 12/15/24 08:36 Dose: 40 mg Omeprazole (Omeprazole 20 Mg Capsule.Dr) 20 mg PO DAILY@0630 [facility] Last Admin: 12/15/24 08:36 Dose: 20 mg Ondansetron HCl (Ondansetron Hcl 4 Mg/2 Ml Vial) 4 mg IVPUSH Q8H PRN PRN Reason: Nausea and Vomiting Paroxetine HCl (Paroxetine Hcl 20 Mg Tablet) 20 mg PO DAILY [facility] Last Admin: 12/15/24 10:04 Dose: 20 mg Pharmacy Consult (Consult Rx Vancomycin Dosing) 1 each MISCELLANE DAILY PRN PRN Reason: Consult order Sodium Chloride (0.9 % Sodium Chloride Flush 3 Ml Syringe) 3 ml IVFLUSH QSHIFT [facility] Last Admin: 12/15/24 08:36 Dose: 3 ml Tramadol HCl (Tramadol Hcl 50 Mg Tablet) 50 mg PO BID PRN PRN Reason: Pain, Moderate(Pain Scale 4-6) Last Admin: 12/15/24 02:54 Dose: 50 mg Valsartan (Valsartan 80 Mg Tablet) 80 mg PO DAILY [facility]; Protocol Last Admin: 12/15/24 10:00 Dose: 80 mg Vitamin D (Cholecalciferol (Vitamin D3) 25 Mcg Tablet) 50 mcg PO DAILY [facility] Last Admin: 12/15/24 10:00 Dose: 50 mcg Home Medications ?Medication ?Instructions ?Recorded ?Confirmed ?Last Taken ?Type blood sugar diagnostic #10 ea 09/08/20 05/29/24 Unknown History clonidine HCl 0.2 mg tablet 0.4 mg PO BID 09/08/20 12/14/24 12/14/24 History furosemide 20 mg tablet 20 mg PO BID 09/08/20 12/14/24 12/14/24 History lamotrigine 25 mg tablet 75 mg PO BID 12/09/20 12/14/24 12/14/24 History paroxetine HCl 20 mg tablet 20 mg PO DAILY 12/09/20 12/14/24 12/14/24 History amlodipine 10 mg tablet 10 mg PO DAILY 04/02/21 12/14/24 12/14/24 History esomeprazole magnesium 20 mg 40 mg PO DAILY 12/31/21 12/14/24 12/14/24 History capsule,delayed release (Nexium) levetiracetam 500 mg tablet 2,000 mg PO BID 03/08/24 12/14/24 12/14/24 History tramadol 50 mg tablet 50 mg PO BID PRN Pain 04/04/24 12/14/24 12/14/24 History valsartan 320 mg tablet 80 mg PO DAILY 04/04/24 12/14/24 12/14/24 History diphenoxylate-atropine 2.5 3 tab PO BID PRN Diarrhea 08/01/24 12/14/24 12/14/24 History mg-0.025 mg tablet ibuprofen 200 mg tablet 200 mg PO Q6H 12/14/24 12/14/24 12/13/24 History insulin glargine U-300 conc 300 12 unit subcut DAILY 12/14/24 12/14/24 12/14/24 History unit/mL (1.5 mL) subcutaneous pen (Toujeo SoloStar U-300 Insulin) Physical Exam Vital Signs: Vital Signs: Last Vital Signs Temp 98 F 12/15/24 12:09 Pulse 112 H 12/15/24 12:09 Resp 22 H 12/15/24 12:09 BP 170/77 H 12/15/24 12:09 Pulse Ox 96 12/15/24 12:09 O2 Del Method High Flow Nasal C annula 12/15/24 12:09 O2 Flow Rate 15 12/14/24 12:39 BMI result Body Mass Index 31.9 Const: General: no acute distress and alert Nutritional Appearance: not obese Orientation/consciousness: Other orientation findings ( oriented) HEENT: Head: Yes atraumatic Eyes: General: appearance normal, both eyes and all related structures Sclerae: sclerae normal EOM: EOMs intact bilaterally Neck: Neck: Yes supple Lymphatic: no lymphadenopathy noted Resp: Effort & Inspection: normal respiratory effort Auscultation: rhonchi, wheezes and diminished lung sounds Cardio: Rate: regular rate Rhythm: regular rhythm Heart sounds: no gallops, no murmurs and no rubs Skin: General skin exam: other ( warm) Neuro: Cranial nerves: No Normal hearing present Extrem: General: No clubbing, No cyanosis and No edema Results Laboratory Findings 12/15/24 05:47 12/15/24 05:47 Abnormal lab findings: Abnormal Labs 12/14/24 12/14/24 12/14/24 12:11 12:17 16:43 WBC 15.3 H RBC 4.04 L Hgb 11.9 L Hct 34.2 L MPV 8.4 L Immature Gran % (Auto) 1.4 H [place] # (Auto) 1.6 H Abs Immat Gran (auto) 0.22 H Absolute Neuts (auto) 10.3 H Absolute Nucleated RBC 0.020 H VBG pH 7.68 H* VBG HCO3 39 H BUN 23 H POC Glucose Random Glucose 244 H Hemoglobin A1c % Lactic Acid 3.0 H* Lactic Acid F/U @ 2Hr 3.2 H* Lactic Acid F/U @ 4Hr Alkaline Phosphatase 132 H Albumin 3.4 L Lipase < 4 L Random Vancomycin Influenza Type A (PCR) POSITIVE A 12/14/24 12/15/24 12/15/24 19:04 05:38 05:47 WBC 18.0 H RBC 3.97 L Hgb 11.7 L Hct 33.6 L MPV 8.8 L Immature Gran % (Auto) [place] # (Auto) Abs Immat Gran (auto) Absolute Neuts (auto) Absolute Nucleated RBC VBG pH VBG HCO3 BUN 18 H POC Glucose 352 H* Random Glucose 391 H* Hemoglobin A1c % 8.5 H Lactic Acid Lactic Acid F/U @ 2Hr Lactic Acid F/U @ 4Hr 2.5 H* Alkaline Phosphatase Albumin Lipase Random Vancomycin Influenza Type A (PCR) 12/15/24 11:49 WBC RBC Hgb Hct MPV Immature Gran % (Auto) [place] # (Auto) Abs Immat Gran (auto) Absolute Neuts (auto) Absolute Nucleated RBC VBG pH VBG HCO3 BUN POC Glucose Random Glucose Hemoglobin A1c % Lactic Acid Lactic Acid F/U @ 2Hr Lactic Acid F/U @ 4Hr Alkaline Phosphatase Albumin Lipase Random Vancomycin 13.9 L Influenza Type A (PCR) Assessment and Plan (1) Acute hypoxemic respiratory failure: Status: Acute (2) Multifocal pneumonia: Status: Acute (3) COPD exacerbation: Status: Acute (4) Influenza: Status: Acute Plan conitnue Broad spectrum Ab continue HF to keep pox>90% proning to recruit basilar lung areas Solumedrol conitnue respiratory therapies serial imaging studies Procedures Date of Service Date of Service: 12/15/24
[2024-12-15 13:03] LABS: Glucose, Whole Blood 365 mg/dL (60-115)
--- NOTE | 2024-12-15 13:11 | MHC.CM.PN ---
IMM 12/15/24, Pt lives with his son, he is functionally independent, no home health services. For DME, he has a nebulizer. His son in HCP, form to be completed here. His son will transport him home at DC, DCP: home, self care. CM to follow for DC needs.
[2024-12-15] MEDS: Azithromycin 500 MG in 0.9 % Sodium Chloride 250 ML 125 MG IV (13:29)
[2024-12-15] MEDS: Insulin Lispro 100 UNIT/ML 3 ML VIAL SUBCUT ×3 (13:30→21:24)
--- NOTE | 2024-12-15 13:53 | P.PNIM_ITS ---
Subjective Subjective Date of Service: 12/15/24 Interval History: Acute hypoxic respiratory failure in the setting of multifocal pneumonia with sepsis Review of Systems sob seems somewhat improving some cough non fevers Physical Exam 2 Vital Signs: Vital Signs: Last Vital Signs Temp 98 F 12/15/24 12:09 Pulse 112 H 12/15/24 12:09 Resp 22 H 12/15/24 12:09 BP 170/77 H 12/15/24 12:09 Pulse Ox 96 12/15/24 12:09 O2 Del Method High Flow Nasal C annula 12/15/24 12:09 O2 Flow Rate 15 12/14/24 12:39 BMI result Body Mass Index 31.9 Appearance: Alert.? Oriented X3.? sob cvs: rrr, [id number] . res: air entry diminshed ,has few rhonchii abd:soft ,nt, bs present. ext pulses present , no cyanosis . neuro: axo3 , nonfocal. Objective Data Active Medications Acetaminophen (Acetaminophen 325 Mg Tablet) 650 mg PO Q6H PRN PRN Reason: Pain, Mild 1-3,fever,headache Amlodipine Besylate (Amlodipine Besylate 10 Mg Tablet) 10 mg PO DAILY [facility]; Protocol Last Admin: 12/15/24 08:34 Dose: 10 mg Documented By: MARCIE Clonidine HCl (Clonidine Hcl 0.2 Mg Tablet) 0.4 mg PO BID [facility]; Protocol Last Admin: 12/15/24 08:35 Dose: 0.4 mg Documented By: MARCIE Cyanocobalamin (Cyanocobalamin (Vitamin B-12) 1,000 Mcg/Ml Vial) 1,000 mcg IM Q30D [facility] Dextrose (Dextrose 50 % 25 Gm/50 Ml Syringe) 25 gm IVPUSH Q15M PRN; Protocol PRN Reason: per Hypoglycemia Standing Ord. Diphenoxylate HCl/Atropine (Diphenoxylate/Atrop 2.5/0.025 Tablet) 3 tab PO BID PRN PRN Reason: Diarrhea Diphenoxylate HCl/Atropine (Diphenoxylate/Atrop 2.5/0.025 Tablet) 1 tab PO QID PRN PRN Reason: Diarrhea Enoxaparin Sodium (Enoxaparin Sodium 40 Mg/0.4 Ml Syringe) 40 mg SUBCUT Q24H [facility] Last Admin: 12/14/24 17:16 Dose: 40 mg Documented By: ABAD Furosemide (Furosemide 20 Mg Tablet) 20 mg PO BID [facility]; Protocol Last Admin: 12/15/24 08:35 Dose: 20 mg Documented By: MARCIE Glucose (Glucose Gel 15 Gm Gel..Gram.) 15 gm PO Q15M PRN; Protocol PRN Reason: per Hypoglycemia Standing Ord. Azithromycin 500 mg/ Sodium (Chloride) 250 mls @ 125 mls/hr IV Q24H [facility] Last Admin: 12/15/24 13:29 Dose: 125 mls/hr Documented By: MARCIE Cefepime HCl (Maxipime) 2 gm in 50 mls @ 100 mls/hr IV Q12H [facility] Last Infusion: 12/15/24 06:05 Dose: Infused Documented By: ALE Vancomycin HCl 750 mg/ Sodium (Chloride) 265 mls @ 265 mls/hr IV Q12H [facility] Last Infusion: 12/15/24 03:51 Dose: Infused Documented By: ALE Ibuprofen (Ibuprofen 200 Mg Tablet) 200 mg PO Q6H [facility] Last Admin: 12/15/24 05:29 Dose: 200 mg Documented By: ALE Insulin Glargine (Insulin Glargine,Hum.Rec.Anlog 100 Unit/Ml 10 Ml Vial) 10 unit SUBCUT DAILY [facility] Insulin Human Lispro (Insulin Lispro 100 Unit/Ml 3 Ml Vial) 0 unit SUBCUT QIDACHS [facility]; Protocol Last Admin: 12/15/24 13:30 Dose: 10 unit Documented By: MARCIE Lamotrigine (Lamotrigine 25 Mg Tablet) 75 mg PO BID [facility] Last Admin: 12/15/24 10:05 Dose: 75 mg Documented By: MARCIE Levalbuterol HCl (Levalbuterol Hcl 1.25 Mg/3 Ml Vial.Neb) 1.25 mg INHALE RQ4H WHILE AWAKE [facility] Last Admin: 12/15/24 11:32 Dose: 1.25 mg Documented By: JAX Levetiracetam (Levetiracetam 1,000 Mg Tablet) 2,000 mg PO BID [facility] Last Admin: 12/15/24 08:35 Dose: 2,000 mg Documented By: MARCIE Magnesium Hydroxide (Milk Of Magnesia 30 Ml Oral.Susp) 30 ml PO DAILY PRN PRN Reason: Constipation Melatonin (Melatonin 3 Mg Tablet) 6 mg PO BEDTIME PRN PRN Reason: Insomnia Methylprednisolone Sodium Succinate (Methylprednisolone Sod Succ 40 Mg/Ml Vial) 40 mg IVPUSH Q12H [facility] Last Admin: 12/15/24 08:36 Dose: 40 mg Documented By: MARCIE Omeprazole (Omeprazole 20 Mg Capsule.Dr) 20 mg PO DAILY@0630 [facility] Last Admin: 12/15/24 08:36 Dose: 20 mg Documented By: MARCIE Ondansetron HCl (Ondansetron Hcl 4 Mg/2 Ml Vial) 4 mg IVPUSH Q8H PRN PRN Reason: Nausea and Vomiting Paroxetine HCl (Paroxetine Hcl 20 Mg Tablet) 20 mg PO DAILY [facility] Last Admin: 12/15/24 10:04 Dose: 20 mg Documented By: MARCIE Pharmacy Consult (Consult Rx Vancomycin Dosing) 1 each MISCELLANE DAILY PRN PRN Reason: Consult order Sodium Chloride (0.9 % Sodium Chloride Flush 3 Ml Syringe) 3 ml IVFLUSH QSHIFT [facility] Last Admin: 12/15/24 08:36 Dose: 3 ml Documented By: MARCIE Tramadol HCl (Tramadol Hcl 50 Mg Tablet) 50 mg PO BID PRN PRN Reason: Pain, Moderate(Pain Scale 4-6) Last Admin: 12/15/24 02:54 Dose: 50 mg Documented By: ALE Valsartan (Valsartan 80 Mg Tablet) 80 mg PO DAILY [facility]; Protocol Last Admin: 12/15/24 10:00 Dose: 80 mg Documented By: MARCIE Vitamin D (Cholecalciferol (Vitamin D3) 25 Mcg Tablet) 50 mcg PO DAILY [facility] Last Admin: 12/15/24 10:00 Dose: 50 mcg Documented By: MARCIE Labs 12/15/24 05:47 12/15/24 05:47 Labs: Laboratory Results - last 24 hr 12/14/24 12/14/24 12/14/24 12:11 16:43 19:04 MCV MCH MCHC RDW Plt Count MPV Absolute Nucleated RBC Nucleated RBC % (auto) Anion Gap Estim Creat Clear Calc Estimated GFR POC Glucose Random Glucose Estimat Average Glucose Hemoglobin A1c % Lactic Acid F/U @ 2Hr 3.2 H* Lactic Acid F/U @ 4Hr 2.5 H* Calcium B-Natriuretic Peptide 59 Random Vancomycin 12/15/24 12/15/24 12/15/24 05:38 05:47 11:49 MCV 84.6 MCH 29.5 MCHC 34.8 RDW 13.1 Plt Count 249 MPV 8.8 L Absolute Nucleated RBC 0.000 Nucleated RBC % (auto) 0.0 Anion Gap 14 Estim Creat Clear Calc 55.2 Estimated GFR > 60 POC Glucose 352 H* Random Glucose 391 H* Estimat Average Glucose 197 Hemoglobin A1c % 8.5 H Lactic Acid F/U @ 2Hr Lactic Acid F/U @ 4Hr Calcium 9.4 D B-Natriuretic Peptide Random Vancomycin 13.9 L 12/15/24 12:55 MCV MCH MCHC RDW Plt Count MPV Absolute Nucleated RBC Nucleated RBC % (auto) Anion Gap Estim Creat Clear Calc Estimated GFR POC Glucose 365 H* Random Glucose Estimat Average Glucose Hemoglobin A1c % Lactic Acid F/U @ 2Hr Lactic Acid F/U @ 4Hr Calcium B-Natriuretic Peptide Random Vancomycin Assessment and Plan (1) Acute hypoxemic respiratory failure: Status: Acute (2) Multifocal pneumonia: Status: Acute Assessment and Plan: 79-year-old male with a PMH significant for?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 Pt will be admitted to the hospital for treatment and further evaluation of acute hypoxic respiratory failure in the setting of multifocal pneumonia with sepsis. Acute hypoxic respiratory failure in the setting of multifocal pneumonia with sepsis Pt with SOB, MEIER, productive cough, desatting to 79% on RA, CTA showing extensive bilateral pneumonia, diagnosis influenza type a 10 days ago Meets sepsis criteria with tachycardia, tachypnea, and leukocytosis; lactic acid 3.0 Continue vancomycin, azithromycin, and cefepime, started 12/14/2024,DuoNebs, Solu- Medrol, guaifenesin Continue high-flow with O2 goal of 88-90%, wean as tolerated Monitor respiratory status,will check with respiratory if can taper off high flow pulm following Influenza A infection First diagnosed 10 days ago Not started on Tamiflu, no indication to start now Treat as above Hx of colon cancer Continue Lamotil Sciatica On lamotrigine and Keppra, off-label Continue home meds HTN Continue amlodipine, clonidine, and valsartan GERD Continue Nexium Mood disorder Continu paroxetine Full Code DVT Prophylaxis: Lovenox ongoing need for hospitalization for treatment of?acute hypoxic respiratory failure in the setting multifocal pneumonia with sepsis. Pt will require hospital level care for administration of supplemental oxygen currently on high- flow, IV antibiotics, IV steroids, and bronchodilators. Quality Stroke Does the patient have a stroke diagnosis?: No VTE Prior VTE?: No VTE Risk Level:: Medical - moderate - high VTE Device Contraindication: Treatment Not Indicated VTE Drug Contraindication: N/A - Med Ordered
[2024-12-15] MEDS: HYDROmorphone HCl 0.5 MG/0.5 ML SYRINGE IVPUSH ×2 (15:40→16:02)
[2024-12-15 17:33] LABS: Glucose, Whole Blood 294 mg/dL (60-115)
[2024-12-15] MEDS: Enoxaparin Sodium 40 MG/0.4 ML SYRINGE SUBCUT (17:33)
--- NOTE | 2024-12-15 19:52 | W.PM.IDCN ---
History of Present Illness Data of Consult Service Date: 12/15/24 Requesting physician: Karlee Dotson Primary Care Provider: Bill Trejo MD HPI Reason for consult: bronchial secretions,early pneumonia concern,flu A He presents with shortness of breath worsening on day prior to admission. He had symptoms starting about two weeks earlier and had saturation 85% on room air. He was given Prednsione and Levaquin by Dr Virgen on 12/04 and felt weak and claimed he had body pains after Levaquin. He lists multiple drug allergies but says he never had true allergies,just GI side effects or body aches but his physician at the time told him it was easier to list them as allergies. He is not producing phlegm. There is positive flu A test. CT scan shows multiple areas of septal thickening ,nodules and secretions at lung bases. He has DM,COPD and GERD. Review of Systems Review of Systems: Yes all other systems are reviewed and are negative PMFSH Past Medical History Medical History Statin intolerance Prostate cancer Prostate cancer MRSA (methicillin resistant Staphylococcus aureus) Arthritis Low back pain GERD (gastroesophageal reflux disease) Anxiety and depression B12 deficiency Elevated PSA Dyslipidemia Hypertension Diabetic polyneuropathy associated with type 2 diabetes mellitus prison (current) use of insulin Diabetes type 2, controlled Family History Family History Father No problems noted. Mother No problems noted. Other No family history of cancer Family history: reviewed and not pertinent Surgical History Surgical History History of prostate biopsy Hx of colonoscopy History of esophagogastroduodenoscopy (EGD) Hx of lithotripsy Hx of shoulder surgery History of colon resection Social History Social History Household Members: Children Housing: House Are you a primary medicare coordinator to a significant other at home: No Do you presently have visiting nurse or other home services: No Alcohol intake: never Patient Tobacco Use Status: Former Tobacco user Cigarette Packs Per Day: 1.5 Smoked in Last 30 Days: No Use of substances other than those prescribed or required for medical reasons: No Advance Directives: No Advance Directives Information Provided: Yes Do you have a plan to hurt others: No Plan Nutrition Risks: No Nutritional Risk service: No Current occupational status: retired Meds Allergies Allergy/AdvReac Type Severity Reaction Status Date / Time amoxicillin [From AUGMENTIN] Allergy Severe Diarrhea, Verified 12/14/24 11:42 malaise celecoxib [Celebrex] Allergy Severe Malaise Verified 12/14/24 11:42 clavulanic acid Allergy Severe Diarrhea, Verified 12/14/24 11:42 [From AUGMENTIN] malaise gabapentin [GABAPENTIN] Allergy Severe TREMORS Verified 12/14/24 11:42 morphine Allergy Severe BLACKED-OUT, Verified 12/14/24 11:42 CRAZY cephalexin [Keflex] Allergy Unknown Unknown Verified 12/14/24 11:42 diltiazem [Cardizem] Allergy Unknown Unknown Verified 12/14/24 11:42 Penicillins [PENICILLINS] Allergy Unknown Unknown Verified 12/14/24 11:42 clindamycin Allergy Unconscious Verified 12/14/24 11:42 peanut Allergy Unknown Verified 12/14/24 11:42 fluvastatin [From Lescol] AdvReac Severe Joint Pain Verified 12/14/24 11:42 pecan nut [PECAN] AdvReac Severe Anaphylaxis Verified 12/14/24 11:42 erythromycin base AdvReac Vomiting Verified 12/14/24 11:42 Active Medications: Current Medications Acetaminophen (Acetaminophen 325 Mg Tablet) 650 mg PO Q6H PRN PRN Reason: Pain, Mild 1-3,fever,headache Amlodipine Besylate (Amlodipine Besylate 10 Mg Tablet) 10 mg PO DAILY [facility]; Protocol Last Admin: 12/15/24 08:34 Dose: 10 mg Azithromycin (Azithromycin 500 Mg Tablet) 500 mg PO Q24H [facility] Clonidine HCl (Clonidine Hcl 0.2 Mg Tablet) 0.4 mg PO BID [facility]; Protocol Last Admin: 12/15/24 08:35 Dose: 0.4 mg Cyanocobalamin (Cyanocobalamin (Vitamin B-12) 1,000 Mcg/Ml Vial) 1,000 mcg IM Q30D [facility] Dextrose (Dextrose 50 % 25 Gm/50 Ml Syringe) 25 gm IVPUSH Q15M PRN; Protocol PRN Reason: per Hypoglycemia Standing Ord. Diphenoxylate HCl/Atropine (Diphenoxylate/Atrop 2.5/0.025 Tablet) 3 tab PO BID PRN PRN Reason: Diarrhea Diphenoxylate HCl/Atropine (Diphenoxylate/Atrop 2.5/0.025 Tablet) 1 tab PO QID PRN PRN Reason: Diarrhea Enoxaparin Sodium (Enoxaparin Sodium 40 Mg/0.4 Ml Syringe) 40 mg SUBCUT Q24H [facility] Last Admin: 12/15/24 17:33 Dose: 40 mg Furosemide (Furosemide 20 Mg Tablet) 20 mg PO BID [facility]; Protocol Last Admin: 12/15/24 08:35 Dose: 20 mg Glipizide (Glipizide 5 Mg Tablet) 2.5 mg PO BIDWM [facility] Glucose (Glucose Gel 15 Gm Gel..Gram.) 15 gm PO Q15M PRN; Protocol PRN Reason: per Hypoglycemia Standing Ord. Hydromorphone HCl (Hydromorphone Hcl 1 Mg/Ml Syringe) 1 mg IVPUSH Q4H PRN; Protocol PRN Reason: Pain, Severe (Pain Scale 7-10) Cefepime HCl (Maxipime) 2 gm in 50 mls @ 100 mls/hr IV Q12H [facility] Last Infusion: 12/15/24 06:05 Dose: Infused Vancomycin HCl 750 mg/ Sodium (Chloride) 265 mls @ 265 mls/hr IV Q12H [facility] Last Admin: 12/15/24 16:02 Dose: 265 mls/hr Ibuprofen (Ibuprofen 200 Mg Tablet) 200 mg PO Q6H [facility] Last Admin: 12/15/24 05:29 Dose: 200 mg Insulin Glargine (Insulin Glargine,Hum.Rec.Anlog 100 Unit/Ml 10 Ml Vial) 10 unit SUBCUT DAILY [facility] Insulin Human Lispro (Insulin Lispro 100 Unit/Ml 3 Ml Vial) 0 unit SUBCUT QIDACHS [facility]; Protocol Last Admin: 12/15/24 17:33 Dose: 6 unit Lamotrigine (Lamotrigine 25 Mg Tablet) 75 mg PO BID [facility] Last Admin: 12/15/24 10:05 Dose: 75 mg Levalbuterol HCl (Levalbuterol Hcl 1.25 Mg/3 Ml Vial.Neb) 1.25 mg INHALE RQ4H WHILE AWAKE [facility] Last Admin: 12/15/24 19:42 Dose: 1.25 mg Levetiracetam (Levetiracetam 1,000 Mg Tablet) 2,000 mg PO BID [facility] Last Admin: 12/15/24 08:35 Dose: 2,000 mg Magnesium Hydroxide (Milk Of Magnesia 30 Ml Oral.Susp) 30 ml PO DAILY PRN PRN Reason: Constipation Melatonin (Melatonin 3 Mg Tablet) 6 mg PO BEDTIME PRN PRN Reason: Insomnia Methylprednisolone Sodium Succinate (Methylprednisolone Sod Succ 40 Mg/Ml Vial) 40 mg IVPUSH Q12H [facility] Last Admin: 12/15/24 08:36 Dose: 40 mg Omeprazole (Omeprazole 20 Mg Capsule.Dr) 20 mg PO DAILY@0630 [facility] Last Admin: 12/15/24 08:36 Dose: 20 mg Ondansetron HCl (Ondansetron Hcl 4 Mg/2 Ml Vial) 4 mg IVPUSH Q8H PRN PRN Reason: Nausea and Vomiting Ondansetron HCl (Ondansetron Odt 4 Mg Tab.Rapdis) 4 mg TRANSLINGU Q6H PRN PRN Reason: Nausea and Vomiting Paroxetine HCl (Paroxetine Hcl 20 Mg Tablet) 20 mg PO DAILY [facility] Last Admin: 12/15/24 10:04 Dose: 20 mg Pharmacy Consult (Consult Rx Vancomycin Dosing) 1 each MISCELLANE DAILY PRN PRN Reason: Consult order Sodium Chloride (0.9 % Sodium Chloride Flush 3 Ml Syringe) 3 ml IVFLUSH QSHIFT [facility] Last Admin: 12/15/24 16:05 Dose: 3 ml Tramadol HCl (Tramadol Hcl 50 Mg Tablet) 50 mg PO BID PRN PRN Reason: Pain, Moderate(Pain Scale 4-6) Last Admin: 12/15/24 02:54 Dose: 50 mg Valsartan (Valsartan 80 Mg Tablet) 80 mg PO DAILY [facility]; Protocol Last Admin: 12/15/24 10:00 Dose: 80 mg Vitamin D (Cholecalciferol (Vitamin D3) 25 Mcg Tablet) 50 mcg PO DAILY [facility] Last Admin: 12/15/24 10:00 Dose: 50 mcg Home Medications ?Medication ?Instructions ?Recorded ?Confirmed ?Last Taken ?Type blood sugar diagnostic #10 ea 09/08/20 05/29/24 Unknown History clonidine HCl 0.2 mg tablet 0.4 mg PO BID 09/08/20 12/14/24 12/14/24 History furosemide 20 mg tablet 20 mg PO BID 09/08/20 12/14/24 12/14/24 History lamotrigine 25 mg tablet 75 mg PO BID 12/09/20 12/14/24 12/14/24 History paroxetine HCl 20 mg tablet 20 mg PO DAILY 12/09/20 12/14/24 12/14/24 History amlodipine 10 mg tablet 10 mg PO DAILY 04/02/21 12/14/24 12/14/24 History esomeprazole magnesium 20 mg 40 mg PO DAILY 12/31/21 12/14/24 12/14/24 History capsule,delayed release (Nexium) levetiracetam 500 mg tablet 2,000 mg PO BID 03/08/24 12/14/24 12/14/24 History tramadol 50 mg tablet 50 mg PO BID PRN Pain 04/04/24 12/14/24 12/14/24 History valsartan 320 mg tablet 80 mg PO DAILY 04/04/24 12/14/24 12/14/24 History diphenoxylate-atropine 2.5 3 tab PO BID PRN Diarrhea 08/01/24 12/14/24 12/14/24 History mg-0.025 mg tablet ibuprofen 200 mg tablet 200 mg PO Q6H 12/14/24 12/14/24 12/13/24 History insulin glargine U-300 conc 300 12 unit subcut DAILY 12/14/24 12/14/24 12/14/24 History unit/mL (1.5 mL) subcutaneous pen ([employer] SoloStar U-300 Insulin) Physical Exam Vital Signs: Vital Signs: Last Vital Signs Temp 98 F 12/15/24 12:09 Pulse 107 H 12/15/24 19:45 Resp 20 12/15/24 19:46 BP 149/56 H 12/15/24 14:25 Pulse Ox 96 12/15/24 14:25 O2 Del Method High Flow Nasal C annula 12/15/24 14:25 O2 Flow Rate 15 12/14/24 12:39 BMI result Body Mass Index 31.9 Const: General: cooperative HEENT: Head: Yes normal to inspection Face and sinus: Yes normal facial exam Mouth: Normal oral and palatal mucosa present Teeth and gingiva: dentition normal Eyes: General: appearance normal, both eyes and all related structures Pupils: Equal, round and reactive pupils present Resp: Other: on oxygen Effort & Inspection: decreased respiratory effort Cardio: Rate: regular rate Rhythm: regular rhythm GI: Palpation (GI): Soft to palpation and nontender : General: Yes no CVA tenderness Back/Spine/Pelvis: Back: no CVA tenderness Skin: General skin exam: no rashes or lesions noted Neuro: General: moves all extremities Cranial nerves: Yes Equal, round and reactive pupils present Extrem: General: Yes normal to inspection Psych: Appearance: grossly normal Results Labs 12/15/24 05:47 12/15/24 05:47 Labs: Short CBC 12/15/24 Range/Units 05:47 WBC 18.0 H (4.8-10.8) X10*3/uL Hgb 11.7 L (14.0-18.0) g/dl Hct 33.6 L (42.0-52.0) % Plt Count 249 (160-400) X10*3/uL BMP 12/15/24 05:47 Sodium 135 Potassium 4.0 Chloride 102 Carbon Dioxide 23 BUN 18 H Creatinine 1.02 Calcium 9.4 D Microbiology Microbiology Results: Microbiology 12/14/24 12:11 Blood - Venous Blood Culture - Preliminary No growth after 24 hours. 12/14/24 11:50 Blood - Venous Blood Culture - Preliminary No growth after 24 hours. Assessment and Plan (1) Acute hypoxemic respiratory failure: Status: Acute (2) Multifocal pneumonia: Status: Acute Plan He has probable post flu A associated early pneumonia with increased secretions. Strep pneumonia and MRSA possible and less likely atypical organisms. Agree with Cefepime,Vancomycin and azithromycin. Check nasal MRSA and urine legionella antigen. Since he is not on oxygen at home would continue antibiotics until respiratory status improves,possible 3-5 days IV and then po based on organisms possibly total 8 days. Stop Vancomycin if nasal MRSA negative. Check procalcitonin. No need for Tamiflu ,positive flu A since 12/04.
[2024-12-15] MEDS: HYDROmorphone HCl 1 MG/ML SYRINGE IVPUSH (20:04)
[2024-12-15 21:21] LABS: Glucose, Whole Blood 229 mg/dL (60-115)
[2024-12-16] VITALS (11 sets, daily range): BP systolic 106–206; BP diastolic 59–96; PULSE 72–105; RESP 16–20; TEMP 36.1–37.8; O2SAT 92–98
[2024-12-16] MEDS: 0.9 % Sodium Chloride Flush 3 ML SYRINGE IVFLUSH ×3 (04:08→13:03)
[2024-12-16] MEDS: vancomycin HCL 750 MG in 0.9 % Sodium Chloride 250 ML 265 MG IV (04:08)
[2024-12-16] MEDS: cefEPime HCl/D5W 2 GM/50 ML PIGGYBACK IV ×2 (05:24→15:26)
[2024-12-16 07:37] LABS: Creatinine Clr Calc Pharmacy 62.8; Estimated Glomerular Filt Rate > 60
[2024-12-16 07:58] LABS: Glucose, Whole Blood 273 mg/dL (60-115)
[2024-12-16] MEDS: Insulin Lispro 100 UNIT/ML 3 ML VIAL SUBCUT ×4 (08:04→22:15)
[2024-12-16] MEDS: Insulin Glargine,Hum.rec.anlog 100 UNIT/ML 10 ML VIAL 10 UNIT SUBCUT (08:04)
[2024-12-16] MEDS: Cholecalciferol (Vitamin D3) 25 MCG TABLET 50 MCG PO (08:05)
[2024-12-16] MEDS: lamoTRIgine 25 MG TABLET 75 MG PO ×2 (08:05→20:27)
[2024-12-16] MEDS: Acetaminophen 325 MG TABLET 650 MG PO ×2 (08:05→16:48)
[2024-12-16] MEDS: levETIRAcetam 1,000 MG TABLET 2000 MG PO ×2 (08:05→20:27)
[2024-12-16] MEDS: PARoxetine HCL 20 MG TABLET PO (08:06)
[2024-12-16] MEDS: Furosemide 20 MG TABLET PO ×2 (08:06→20:27)
[2024-12-16] MEDS: glipiZIDE 5 MG TABLET 2.5 MG PO ×2 (08:06→15:24)
[2024-12-16] MEDS: Valsartan 80 MG TABLET PO (08:15)
[2024-12-16] MEDS: amLODIPine Besylate 10 MG TABLET PO (08:15)
[2024-12-16] MEDS: cloNIDine HCL 0.2 MG TABLET 0.4 MG PO ×2 (08:15→20:27)
[2024-12-16] MEDS: predniSONE 20 MG TABLET 40 MG PO (08:18)
[2024-12-16] MEDS: levalbuterol HCL 1.25 MG/3 ML VIAL.NEB INHALE ×3 (11:02→20:18)
[2024-12-16 11:12] LABS: Glucose, Whole Blood 279 mg/dL (60-115)
[2024-12-16 11:28] LABS: MRSA Nasal PCR NEGATIVE (Negative); SA Nasal PCR POSITIVE (Negative)
[2024-12-16 12:10] LABS: Hematocrit 31.8 % (42.0-52.0); Hemoglobin 11.1 g/dl (14.0-18.0); Mean Corpuscular HGB Conc 34.9 g/dl (31.0-36.0); Mean Corpuscular Hemoglobin 29.6 pg (27.0-33.0); Mean Corpuscular Volume 84.8 fL (80.0-98.0); Mean Platelet Volume 8.7 fL (9.4-12.4); Platelet Count 253 X10*3/uL (160-400); Red Blood Count 3.75 X10*6/uL (4.60-5.80); Red Cell Distribution Width 13.4 % (11.0-16.0)
[2024-12-16 12:23] LABS: Vancomycin Trough 14.1 mcg/mL (10.0-20.0)
--- NOTE | 2024-12-16 12:35 | HE.PHANOTE ---
RE: VANCO DOSING Trough came back as 14.1 mg/L. Dose is increased to 1000 mg q12h. Next trough is scheduled for 12/17/24 @1200.
[2024-12-16] MEDS: vancomycin HCL 1,000 MG in 0.9 % Sodium Chloride 250 ML 270 MG IV (13:03)
[2024-12-16] MEDS: Enoxaparin Sodium 40 MG/0.4 ML SYRINGE SUBCUT (15:25)
[2024-12-16 15:27] LABS: Glucose, Whole Blood 190 mg/dL (60-115)
--- NOTE | 2024-12-16 15:55 | P.PNIM_ITS ---
Subjective Subjective Date of Service: 12/16/24 Interval History: Acute hypoxic respiratory failure in the setting of multifocal pneumonia with sepsis Review of Systems sob seems improving no cough Physical Exam 2 Vital Signs: Vital Signs: Last Vital Signs Temp 97.1 F 12/16/24 10:55 Pulse 102 H 12/16/24 15:10 Resp 18 12/16/24 15:10 BP 157/70 H 12/16/24 10:55 Pulse Ox 96 12/16/24 10:55 O2 Del Method Nasal Cannula 12/16/24 10:55 O2 Flow Rate 3 12/16/24 10:55 BMI result Body Mass Index 32.2 Appearance: Alert.? Oriented X3.? sob cvs: rrr, [id number] . res: air entry diminshed ,has few rhonchii abd:soft ,nt, bs present. ext pulses present , no cyanosis . neuro: axo3 , nonfocal. Objective Data Active Medications Acetaminophen (Acetaminophen 325 Mg Tablet) 650 mg PO Q6H PRN PRN Reason: Pain, Mild 1-3,fever,headache Last Admin: 12/16/24 08:05 Dose: 650 mg Documented By: CHIQUI Amlodipine Besylate (Amlodipine Besylate 10 Mg Tablet) 10 mg PO DAILY [facility]; Protocol Last Admin: 12/16/24 08:15 Dose: 10 mg Documented By: CHIQUI Clonidine HCl (Clonidine Hcl 0.2 Mg Tablet) 0.4 mg PO BID [facility]; Protocol Last Admin: 12/16/24 08:15 Dose: 0.4 mg Documented By: CHIQUI Cyanocobalamin (Cyanocobalamin (Vitamin B-12) 1,000 Mcg/Ml Vial) 1,000 mcg IM Q30D [facility] Dextrose (Dextrose 50 % 25 Gm/50 Ml Syringe) 25 gm IVPUSH Q15M PRN; Protocol PRN Reason: per Hypoglycemia Standing Ord. Diphenoxylate HCl/Atropine (Diphenoxylate/Atrop 2.5/0.025 Tablet) 3 tab PO BID PRN PRN Reason: Diarrhea Diphenoxylate HCl/Atropine (Diphenoxylate/Atrop 2.5/0.025 Tablet) 1 tab PO QID PRN PRN Reason: Diarrhea Enoxaparin Sodium (Enoxaparin Sodium 40 Mg/0.4 Ml Syringe) 40 mg SUBCUT Q24H [facility] Last Admin: 12/16/24 15:25 Dose: 40 mg Documented By: CHIQUI Furosemide (Furosemide 20 Mg Tablet) 20 mg PO BID [facility]; Protocol Last Admin: 12/16/24 08:06 Dose: 20 mg Documented By: CHIQUI Glipizide (Glipizide 5 Mg Tablet) 2.5 mg PO BIDWM [facility] Last Admin: 12/16/24 15:24 Dose: 2.5 mg Documented By: CHIQUI Glucose (Glucose Gel 15 Gm Gel..Gram.) 15 gm PO Q15M PRN; Protocol PRN Reason: per Hypoglycemia Standing Ord. Hydromorphone HCl (Hydromorphone Hcl 1 Mg/Ml Syringe) 1 mg IVPUSH Q4H PRN; Protocol PRN Reason: Pain, Severe (Pain Scale 7-10) Last Admin: 12/15/24 20:04 Dose: 1 mg Documented By: KARLEY Cefepime HCl (Maxipime) 2 gm in 50 mls @ 100 mls/hr IV Q12H [facility] Last Admin: 12/16/24 15:26 Dose: 100 mls/hr Documented By: CHIQUI Vancomycin HCl 1,000 mg/ (Sodium Chloride) 270 mls @ 270 mls/hr IV Q12H [facility] Last Infusion: 12/16/24 14:30 Dose: Infused Documented By: CHIQUI Ibuprofen (Ibuprofen 200 Mg Tablet) 200 mg PO Q6H [facility] Last Admin: 12/15/24 05:29 Dose: 200 mg Documented By: ALE Insulin Glargine (Insulin Glargine,Hum.Rec.Anlog 100 Unit/Ml 10 Ml Vial) 10 unit SUBCUT DAILY [facility] Last Admin: 12/16/24 08:04 Dose: 10 unit Documented By: CHIQUI Comments: Insulin Human Lispro (Insulin Lispro 100 Unit/Ml 3 Ml Vial) 0 unit SUBCUT QIDACHS [facility]; Protocol Last Admin: 12/16/24 15:30 Dose: 2 unit Documented By: CHIQUI Comments: Lamotrigine (Lamotrigine 25 Mg Tablet) 75 mg PO BID [facility] Last Admin: 12/16/24 08:05 Dose: 75 mg Documented By: CHIQUI Levalbuterol HCl (Levalbuterol Hcl 1.25 Mg/3 Ml Vial.Neb) 1.25 mg INHALE RQ4H WHILE AWAKE [facility] Last Admin: 12/16/24 15:09 Dose: 1.25 mg Documented By: JAX Levetiracetam (Levetiracetam 1,000 Mg Tablet) 2,000 mg PO BID [facility] Last Admin: 12/16/24 08:05 Dose: 2,000 mg Documented By: CHIQUI Magnesium Hydroxide (Milk Of Magnesia 30 Ml Oral.Susp) 30 ml PO DAILY PRN PRN Reason: Constipation Melatonin (Melatonin 3 Mg Tablet) 6 mg PO BEDTIME PRN PRN Reason: Insomnia Omeprazole (Omeprazole 20 Mg Capsule.Dr) 20 mg PO DAILY@0630 [facility] Last Admin: 12/16/24 06:04 Dose: Not Given Documented By: YESSY Non-Admin Reason: Patient Refused Ondansetron HCl (Ondansetron Hcl 4 Mg/2 Ml Vial) 4 mg IVPUSH Q8H PRN PRN Reason: Nausea and Vomiting Ondansetron HCl (Ondansetron Odt 4 Mg Tab.Rapdis) 4 mg TRANSLINGU Q6H PRN PRN Reason: Nausea and Vomiting Paroxetine HCl (Paroxetine Hcl 20 Mg Tablet) 20 mg PO DAILY [facility] Last Admin: 12/16/24 08:06 Dose: 20 mg Documented By: CHIQUI Pharmacy Consult (Consult Rx Vancomycin Dosing) 1 each MISCELLANE DAILY PRN PRN Reason: Consult order Prednisone (Prednisone 20 Mg Tablet) 40 mg PO DAILY [facility] Last Admin: 12/16/24 08:18 Dose: 40 mg Documented By: CHIQUI Sodium Chloride (0.9 % Sodium Chloride Flush 3 Ml Syringe) 3 ml IVFLUSH QSHIFT [facility] Last Admin: 12/16/24 13:03 Dose: 3 ml Documented By: CHIQUI Tramadol HCl (Tramadol Hcl 50 Mg Tablet) 50 mg PO BID PRN PRN Reason: Pain, Moderate(Pain Scale 4-6) Last Admin: 12/15/24 02:54 Dose: 50 mg Documented By: ALE Valsartan (Valsartan 80 Mg Tablet) 80 mg PO DAILY [facility]; Protocol Last Admin: 12/16/24 08:15 Dose: 80 mg Documented By: CHIQUI Vitamin D (Cholecalciferol (Vitamin D3) 25 Mcg Tablet) 50 mcg PO DAILY [facility] Last Admin: 12/16/24 08:05 Dose: 50 mcg Documented By: CHIQUI Labs 12/16/24 11:58 12/16/24 06:33 Labs: Laboratory Results - last 24 hr 12/15/24 12/15/24 12/16/24 17:24 21:15 06:33 MCV MCH MCHC RDW Plt Count MPV Absolute Nucleated RBC Nucleated RBC % (auto) Estim Creat Clear Calc 62.8 Estimated GFR > 60 POC Glucose 294 H 229 H Nasal Screen MRSA (PCR) Nasal S. aureus Screen Nasal MRSA/S.aureus Interp Vancomycin Trough 12/16/24 12/16/24 12/16/24 07:22 09:38 10:56 MCV MCH MCHC RDW Plt Count MPV Absolute Nucleated RBC Nucleated RBC % (auto) Estim Creat Clear Calc Estimated GFR POC Glucose 273 H 279 H Nasal Screen MRSA (PCR) NEGATIVE Nasal S. aureus Screen POSITIVE A Nasal MRSA/S.aureus Interp SEE NOTE Vancomycin Trough 12/16/24 12/16/24 11:58 15:15 MCV 84.8 MCH 29.6 MCHC 34.9 RDW 13.4 Plt Count 253 MPV 8.7 L Absolute Nucleated RBC 0.000 Nucleated RBC % (auto) 0.0 Estim Creat Clear Calc Estimated GFR POC Glucose 190 H Nasal Screen MRSA (PCR) Nasal S. aureus Screen Nasal MRSA/S.aureus Interp Vancomycin Trough 14.1 Microbiology Microbiology Results: Microbiology 12/14/24 12:11 Blood Culture - Preliminary Blood - Venous No growth after 48 hours. 12/14/24 11:50 Blood Culture - Preliminary Blood - Venous No growth after 48 hours. 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 Pt will be admitted to the hospital for treatment and further evaluation of acute hypoxic respiratory failure in the setting of multifocal pneumonia with sepsis. Acute hypoxic respiratory failure in the setting of multifocal pneumonia with sepsis Pt with SOB, MEIER, productive cough, desatting to 79% on RA, CTA showing extensive bilateral pneumonia, diagnosis influenza type a 10 days ago Meets sepsis criteria with tachycardia, tachypnea, and leukocytosis; lactic acid 3.0 Continue vancomycin, azithromycin, and cefepime, started 12/14/2024 nasal mrsa negative -switch antibiotics to doxycycline/cefpime,DuoNebs, Solu- Medrol, guaifenesin tapered from high flow O2 goal of 88-90%, wean as tolerated Monitor respiratory status Influenza A infection First diagnosed 10 days ago Not started on Tamiflu, no indication to start now Treat as above Hx of colon cancer Continue Lamotil Sciatica On lamotrigine and Keppra, off-label Continue home meds HTN Continue amlodipine, clonidine, and valsartan GERD Continue Nexium Mood disorder Continu paroxetine Full Code DVT Prophylaxis: Lovenox ongoing need for hospitalization for treatment of?acute hypoxic respiratory failure in the setting multifocal pneumonia with sepsis. Pt will require hospital level care for administration of supplemental oxygen currently on high- flow, IV antibiotics, IV steroids, and bronchodilators. Quality Stroke Does the patient have a stroke diagnosis?: No VTE Prior VTE?: No VTE Risk Level:: Medical - moderate - high VTE Device Contraindication: Treatment Not Indicated VTE Drug Contraindication: N/A - Med Ordered
[2024-12-16] MEDS: Doxycycline Monohydrate 100 MG CAPSULE PO (16:47)
[2024-12-16] MEDS: Diphenoxylate/Atrop 2.5/0.025 TABLET 3 TAB PO (20:28)
[2024-12-16 22:11] LABS: Glucose, Whole Blood 197 mg/dL (60-115)
[2024-12-17] VITALS (9 sets, daily range): BP systolic 123–175; BP diastolic 68–86; PULSE 82–128; RESP 18–22; TEMP 36.5–37.6; O2SAT 90–98
[2024-12-17] MEDS: Doxycycline Monohydrate 100 MG CAPSULE PO ×2 (05:25→15:19)
[2024-12-17] MEDS: NEXIUM 20 MG 40 EACH PO ×2 (05:25→15:19)
[2024-12-17] MEDS: cefEPime HCl/D5W 2 GM/50 ML PIGGYBACK IV ×3 (05:25→21:33)
[2024-12-17 07:22] LABS: Creatinine Clr Calc Pharmacy 64.3; Estimated Glomerular Filt Rate > 60
[2024-12-17 07:37] LABS: Glucose, Whole Blood 111 mg/dL (60-115)
[2024-12-17] MEDS: levalbuterol HCL 1.25 MG/3 ML VIAL.NEB INHALE (07:50)
[2024-12-17] MEDS: Furosemide 20 MG TABLET PO ×2 (08:49→21:19)
[2024-12-17] MEDS: Cholecalciferol (Vitamin D3) 25 MCG TABLET 50 MCG PO (08:49)
[2024-12-17] MEDS: lamoTRIgine 25 MG TABLET 75 MG PO ×2 (08:49→21:19)
[2024-12-17] MEDS: Insulin Glargine,Hum.rec.anlog 100 UNIT/ML 10 ML VIAL 10 UNIT SUBCUT (08:49)
[2024-12-17] MEDS: Diphenoxylate/Atrop 2.5/0.025 TABLET 3 TAB PO (08:49)
[2024-12-17] MEDS: Valsartan 80 MG TABLET PO (08:49)
[2024-12-17] MEDS: cloNIDine HCL 0.2 MG TABLET 0.4 MG PO ×2 (08:50→21:19)
[2024-12-17] MEDS: PARoxetine HCL 20 MG TABLET PO (08:50)
[2024-12-17] MEDS: predniSONE 20 MG TABLET 40 MG PO (08:50)
[2024-12-17] MEDS: glipiZIDE 5 MG TABLET 2.5 MG PO ×2 (08:50→15:19)
[2024-12-17] MEDS: amLODIPine Besylate 10 MG TABLET PO (08:50)
[2024-12-17] MEDS: levETIRAcetam 2,000 MG in 0.9 % Sodium Chloride 100 ML 480 MG IV ×2 (10:53→23:55)
--- NOTE | 2024-12-17 11:46 | MHC.SL.SWA ---
Speech Pathologist Impression: Mild oropharyngeal dysphagia d/t missing teeth and hx of cervical osteophyte Risk of Aspiration Due to: Weakness Anatomical factors Dysphasia Diet Status: Liquid Consistency and Strategies for Safe Swallow: Liquid Intake Recommendation: Thin Liquid Intake Strategies: Small Sips Solid Food Consistency: Dietary Recommendations: Recc NDD3 with thin liquids, pt needs assistance to feed himself d/t generalized weakness, aspiration precautions Additional Modifications to Solid Foods: Oral Medication Intake: Whole with Puree Please contact the pharmacy regarding appropriate crushable or liquid drug formulations that are available whenever modified delivery is recommended. Compensatory Strategies and Precautions to be Taken for Safe Swallow: Sitting Upright (90 deg) Small Bites and Sips Alternate Liquids/Solids Rate of Ingestion Change Supervision While Eating and Drinking for Safe Swallow: Total Assistance (1:1) Foods to Avoid: Swallowing Recommended Treatments: Compens. Strategy Educat. Recommendation for Speech: Inpatient Speech Therapy Comment: Pt was alert, greeted HEALTH CARE COACH but did not know time of day. 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 Pt said he cannot eat certain foods and must sit upright for all PO. Pt has an upper denture but did not wear this during evaluation. There are a few natural teeth in lower jaw remaining. Pt endorsed eating a variety of consistencies at baseline. Frequency/Duration: M-F as needed Date Range for Service Req: Timeline to reassess: Medical Instrument Technician Clinican/Clinical Fellow: No Supervisory Statement: I have reviewed and agree with the student/clinical fellow's documentation: N/A Speech Language Pathologist: Nohemy Hermosillo M.S., CCC-HEALTH CARE COACH
[2024-12-17 11:56] LABS: Glucose, Whole Blood 171 mg/dL (60-115)
[2024-12-17] MEDS: Insulin Lispro 100 UNIT/ML 3 ML VIAL SUBCUT ×3 (12:13→21:20)
[2024-12-17 13:03] LABS: Vancomycin Random 6.7 mcg/mL (15-20)
--- NOTE | 2024-12-17 14:07 | MHC.CM.PN ---
EMR REVIEWED, PT W/PNA/HYPOXIA, PT REMIANS ON MULTIPLE IV ABX, WEANING OFF O2, PER HOSPITALIST PT NOT YET READY FOR DC, CM WILL CONT TO FOLLOW DC NEEDS.
[2024-12-17] MEDS: Enoxaparin Sodium 40 MG/0.4 ML SYRINGE SUBCUT (15:18)
[2024-12-17 16:32] LABS: Glucose, Whole Blood 263 mg/dL (60-115)
[2024-12-17] MEDS: Diphenoxylate/Atrop 2.5/0.025 TABLET 1 TAB PO (17:04)
--- NOTE | 2024-12-17 17:12 | HO.PM.IMPN ---
Subjective Subjective Date of Service: 12/17/24 Interval History: Pneumonia Review of Systems Patient seems to be improving Has some cough, short of breath with minimal exertion Physical Exam Vital Signs: Vital Signs: Last Vital Signs Temp 98.8 F 12/17/24 15:17 Pulse 82 12/17/24 15:17 Resp 20 12/17/24 15:17 BP 168/75 H 12/17/24 15:17 Pulse Ox 92 12/17/24 15:17 O2 Del Method Nasal Cannula 12/17/24 15:17 O2 Flow Rate 0.5 12/17/24 15:17 BMI result Body Mass Index 32.2 Appearance: Alert.? Oriented X3.? sob cvs: rrr, [id number] . res: air entry diminshed ,has few rhonchii abd:soft ,nt, bs present. ext pulses present , no cyanosis . neuro: axo3 , nonfocal. Objective Data Active Medications Acetaminophen (Acetaminophen 325 Mg Tablet) 650 mg PO Q6H PRN PRN Reason: Pain, Mild 1-3,fever,headache Last Admin: 12/16/24 16:48 Dose: 650 mg Documented By: CHIQUI Amlodipine Besylate (Amlodipine Besylate 10 Mg Tablet) 10 mg PO DAILY [facility]; Protocol Last Admin: 12/17/24 08:50 Dose: 10 mg Documented By: MARYSOL Clonidine HCl (Clonidine Hcl 0.2 Mg Tablet) 0.4 mg PO BID [facility]; Protocol Last Admin: 12/17/24 08:50 Dose: 0.4 mg Documented By: MARYSOL Cyanocobalamin (Cyanocobalamin (Vitamin B-12) 1,000 Mcg/Ml Vial) 1,000 mcg IM Q30D [facility] Dextrose (Dextrose 50 % 25 Gm/50 Ml Syringe) 25 gm IVPUSH Q15M PRN; Protocol PRN Reason: per Hypoglycemia Standing Ord. Diphenoxylate HCl/Atropine (Diphenoxylate/Atrop 2.5/0.025 Tablet) 3 tab PO BID PRN PRN Reason: Diarrhea Last Admin: 12/17/24 08:49 Dose: 3 tab Documented By: MARYSOL Diphenoxylate HCl/Atropine (Diphenoxylate/Atrop 2.5/0.025 Tablet) 1 tab PO QID PRN PRN Reason: Diarrhea Last Admin: 12/17/24 17:04 Dose: 1 tab Documented By: MARYSOL Doxycycline Monohydrate (Doxycycline Monohydrate 100 Mg Capsule) 100 mg PO Q12H [facility] Last Admin: 12/17/24 15:19 Dose: 100 mg Documented By: MARYSOL Enoxaparin Sodium (Enoxaparin Sodium 40 Mg/0.4 Ml Syringe) 40 mg SUBCUT Q24H [facility] Last Admin: 12/17/24 15:18 Dose: 40 mg Documented By: MARYSOL Furosemide (Furosemide 20 Mg Tablet) 20 mg PO BID [facility]; Protocol Last Admin: 12/17/24 08:49 Dose: 20 mg Documented By: MARYSOL Glipizide (Glipizide 5 Mg Tablet) 2.5 mg PO BIDWM [facility] Last Admin: 12/17/24 15:19 Dose: 2.5 mg Documented By: MARYSOL Glucose (Glucose Gel 15 Gm Gel..Gram.) 15 gm PO Q15M PRN; Protocol PRN Reason: per Hypoglycemia Standing Ord. Levetiracetam 2,000 mg/ Sodium (Chloride) 120 mls @ 480 mls/hr IV BID [facility] Cefepime HCl (Maxipime) 2 gm in 50 mls @ 100 mls/hr IV Q8H [facility] Last Infusion: 12/17/24 16:30 Dose: Infused Documented By: MARYSOL Ibuprofen (Ibuprofen 200 Mg Tablet) 200 mg PO Q6H [facility] Last Admin: 12/15/24 05:29 Dose: 200 mg Documented By: ALE Insulin Glargine (Insulin Glargine,Hum.Rec.Anlog 100 Unit/Ml 10 Ml Vial) 10 unit SUBCUT DAILY [facility] Last Admin: 12/17/24 08:49 Dose: 10 unit Documented By: MARYSOL Insulin Human Lispro (Insulin Lispro 100 Unit/Ml 3 Ml Vial) 0 unit SUBCUT QIDACHS [facility]; Protocol Last Admin: 12/17/24 17:02 Dose: 6 unit Documented By: MARYSOL Lamotrigine (Lamotrigine 25 Mg Tablet) 75 mg PO BID [facility] Last Admin: 12/17/24 08:49 Dose: 75 mg Documented By: MARYSOL Levalbuterol HCl (Levalbuterol Hcl 1.25 Mg/3 Ml Vial.Neb) 1.25 mg INHALE RQ4H WHILE AWAKE [facility] Last Admin: 12/17/24 15:20 Dose: Not Given Documented By: RENY Non-Admin Reason: Patient Refused Levetiracetam (Levetiracetam 1,000 Mg Tablet) 2,000 mg PO BID [facility] Last Admin: 12/17/24 09:05 Dose: Not Given Documented By: MARYSOL Non-Admin Reason: patient unable to swallow med, notified Magnesium Hydroxide (Milk Of Magnesia 30 Ml Oral.Susp) 30 ml PO DAILY PRN PRN Reason: Constipation Melatonin (Melatonin 3 Mg Tablet) 6 mg PO BEDTIME PRN PRN Reason: Insomnia Pt Own (Nexium 20 Mg ()) 40 mg PO BID@0630,1630 [facility] Last Admin: 12/17/24 15:19 Dose: 40 mg Documented By: MARYSOL Ondansetron HCl (Ondansetron Hcl 4 Mg/2 Ml Vial) 4 mg IVPUSH Q8H PRN PRN Reason: Nausea and Vomiting Ondansetron HCl (Ondansetron Odt 4 Mg Tab.Rapdis) 4 mg TRANSLINGU Q6H PRN PRN Reason: Nausea and Vomiting Paroxetine HCl (Paroxetine Hcl 20 Mg Tablet) 20 mg PO DAILY [facility] Last Admin: 12/17/24 08:50 Dose: 20 mg Documented By: MARYSOL Prednisone (Prednisone 20 Mg Tablet) 40 mg PO DAILY [facility] Last Admin: 12/17/24 08:50 Dose: 40 mg Documented By: MARYSOL Sodium Chloride (0.9 % Sodium Chloride Flush 3 Ml Syringe) 3 ml IVFLUSH QSHIFT [facility] Last Admin: 12/17/24 15:19 Dose: Not Given Documented By: MARYSOL Non-Admin Reason: IV Running Tramadol HCl (Tramadol Hcl 50 Mg Tablet) 50 mg PO BID PRN PRN Reason: Pain, Moderate(Pain Scale 4-6) Last Admin: 12/15/24 02:54 Dose: 50 mg Documented By: ALE Valsartan (Valsartan 80 Mg Tablet) 80 mg PO DAILY [facility]; Protocol Last Admin: 12/17/24 08:49 Dose: 80 mg Documented By: MARYSOL Vitamin D (Cholecalciferol (Vitamin D3) 25 Mcg Tablet) 50 mcg PO DAILY [facility] Last Admin: 12/17/24 08:49 Dose: 50 mcg Documented By: MARYSOL Labs 12/16/24 11:58 12/17/24 06:13 Labs: Laboratory Results - last 24 hr 12/16/24 12/17/24 12/17/24 21:32 06:13 07:31 Hold Purple Top SEE NOTE Estim Creat Clear Calc 64.3 Estimated GFR > 60 POC Glucose 197 H 111 Random Vancomycin 12/17/24 12/17/24 12/17/24 11:49 11:58 16:24 Hold Purple Top Estim Creat Clear Calc Estimated GFR POC Glucose 171 H 263 H Random Vancomycin 6.7 L Microbiology Microbiology Results: Microbiology 12/14/24 12:11 Blood Culture - Preliminary Blood - Venous No growth after 48 hours. 12/14/24 11:50 Blood Culture - Preliminary Blood - Venous No growth after 48 hours. 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 Pt will be admitted to the hospital for treatment and further evaluation of acute hypoxic respiratory failure in the setting of multifocal pneumonia with sepsis. Acute hypoxic respiratory failure in the setting of multifocal pneumonia with sepsis Pt with SOB, MEIER, productive cough, desatting to 79% on RA, CTA showing extensive bilateral pneumonia, diagnosis influenza type a 10 days ago Meets sepsis criteria with tachycardia, tachypnea, and leukocytosis; lactic acid 3.0. acute lactic acidosis improving patient is also improving so no further lactic acid trending nasal mrsa negative -switch antibiotics to doxycycline/cefpime,DuoNebs, Solu-Medrol, guaifenesin tapered from high flow O2 goal of 88-90%, wean as tolerated Monitor respiratory status Influenza A infection First diagnosed 10 days ago Not started on Tamiflu, no indication to start now Treat as above Hx of colon cancer Continue Lamotil Sciatica On lamotrigine and Keppra, off-label Continue home meds HTN Continue amlodipine, clonidine, and valsartan GERD Continue Nexium Mood disorder Continu paroxetine Full Code DVT Prophylaxis: Lovenox ongoing need for hospitalization for treatment of?acute hypoxic respiratory failure in the setting multifocal pneumonia with sepsis. Pt will require hospital level care for administration of supplemental oxygen currently on high-flow, IV antibiotics, IV steroids, and bronchodilators. Quality Stroke Does the patient have a stroke diagnosis?: No VTE Prior VTE?: No VTE Risk Level:: Medical - moderate - high VTE Device Contraindication: Treatment Not Indicated VTE Drug Contraindication: N/A - Med Ordered
[2024-12-17 21:02] LABS: Glucose, Whole Blood 154 mg/dL (60-115)
[2024-12-17] MEDS: 0.9 % Sodium Chloride Flush 3 ML SYRINGE IVFLUSH (23:56)
[2024-12-18] VITALS (9 sets, daily range): BP systolic 125–183; BP diastolic 68–96; PULSE 82–118; RESP 15–18; TEMP 36.2–37.1; O2SAT 90–97
--- NOTE | 2024-12-18 | ECG_ITS ---
Test Reason : sinus tachy Blood Pressure : */* mmHG Vent. Rate : 112 BPM Atrial Rate : 112 BPM P-R Int : 166 ms QRS Dur : 116 ms QT Int : 350 ms P-R-T Axes : 20 -32 -10 degrees QTcB Int : 477 ms Sinus tachycardia Left axis deviation Low voltage QRS Incomplete right bundle branch block Abnormal ECG When compared with ECG of 14-Dec-2024 12:03, No significant change was found Referred By: Karlee Dotson Electronically Signed By: HUMBLE ALVARADO
[2024-12-18] MEDS: Doxycycline Monohydrate 100 MG CAPSULE PO ×2 (05:49→17:13)
[2024-12-18] MEDS: cefEPime HCl/D5W 2 GM/50 ML PIGGYBACK IV ×3 (05:49→21:46)
[2024-12-18] MEDS: NEXIUM 20 MG 40 EACH PO ×2 (05:49→17:13)
[2024-12-18 07:00] LABS: Creatinine Clr Calc Pharmacy 60.8; Estimated Glomerular Filt Rate > 60
[2024-12-18 07:15] LABS: Glucose, Whole Blood 111 mg/dL (60-115)
[2024-12-18] MEDS: Furosemide 20 MG TABLET PO ×2 (07:28→20:40)
[2024-12-18] MEDS: predniSONE 20 MG TABLET 40 MG PO (07:30)
[2024-12-18] MEDS: amLODIPine Besylate 10 MG TABLET PO (07:31)
[2024-12-18] MEDS: Valsartan 80 MG TABLET PO (07:31)
[2024-12-18] MEDS: PARoxetine HCL 20 MG TABLET PO (07:31)
[2024-12-18] MEDS: lamoTRIgine 25 MG TABLET 75 MG PO ×2 (07:31→20:40)
[2024-12-18] MEDS: cloNIDine HCL 0.2 MG TABLET 0.4 MG PO ×2 (07:31→20:41)
[2024-12-18] MEDS: glipiZIDE 5 MG TABLET 2.5 MG PO (07:32)
[2024-12-18] MEDS: Cholecalciferol (Vitamin D3) 25 MCG TABLET 50 MCG PO (07:32)
[2024-12-18] MEDS: 0.9 % Sodium Chloride Flush 3 ML SYRINGE IVFLUSH ×2 (07:32→17:13)
[2024-12-18] MEDS: levETIRAcetam 2,000 MG in 0.9 % Sodium Chloride 100 ML 480 MG IV (07:32)
[2024-12-18 08:09] LABS: Hematocrit 32.6 % (42.0-52.0); Hemoglobin 11.2 g/dl (14.0-18.0); Mean Corpuscular HGB Conc 34.4 g/dl (31.0-36.0); Mean Corpuscular Hemoglobin 29.6 pg (27.0-33.0); Mean Corpuscular Volume 86.2 fL (80.0-98.0); Mean Platelet Volume 8.9 fL (9.4-12.4); Platelet Count 239 X10*3/uL (160-400); Red Blood Count 3.78 X10*6/uL (4.60-5.80); Red Cell Distribution Width 13.3 % (11.0-16.0); White Blood Count 13.8 X10*3/uL (4.8-10.8)
--- NOTE | 2024-12-18 11:28 | MHC.SL.SWA ---
Speech Pathologist Impression: Oral Phase Dysphagia Dysphasia Diet Status: Upgrade to REGULAR solids, continue on THIN liquids Liquid Consistency and Strategies for Safe Swallow: Liquid Intake Recommendation: Thin Liquid Intake Strategies: Small Sips Solid Food Consistency: Dietary Recommendations: Regular Additional Modifications to Solid Foods: Moisten food with sauces/gravies. Avoid overly hard, crumbly, and or dry foods. Pills whole with liquid or puree. Oral Medication Intake: Whole with Puree Please contact the pharmacy regarding appropriate crushable or liquid drug formulations that are available whenever modified delivery is recommended. Compensatory Strategies and Precautions to be Taken for Safe Swallow: Sitting Upright (90 deg) Small Bites and Sips Alternate Liquids/Solids Rate of Ingestion Change Avoid Specific Foods Supervision While Eating and Drinking for Safe Swallow: None Needed Foods to Avoid: Avoid overly hard, crumbly, and or dry foods. Swallowing Recommended Treatments: Compens. Strategy Educat. Recommendation for Speech: D/C Please re-refer if needed. Supervisor [employer] Clinican/Clinical Fellow: No Supervisory Statement: I have reviewed and agree with the student/clinical fellow's documentation: N/A Speech Language Pathologist: Roshni Oliva M.A., CCC-[employer]ATER
[2024-12-18 11:31] LABS: Glucose, Whole Blood 392 mg/dL (60-115)
--- NOTE | 2024-12-18 12:03 | MHC.CM.PN ---
EMR reviewed and per MD rounds, pt is not medically cleared for discharge at this time due to management of pneumonia. This CM met with pt per his request to complete a new HCP, now on file.
[2024-12-18] MEDS: Insulin Lispro 100 UNIT/ML 3 ML VIAL SUBCUT ×3 (12:33→20:41)
--- NOTE | 2024-12-18 13:48 | P.PNIM_ITS ---
Subjective Subjective Date of Service: 12/18/24 Interval History: Pneumonia Review of Systems Patient seems to be improving Has some cough, short of breath with minimal exertion fs flactuating Physical Exam 2 Vital Signs: Vital Signs: Last Vital Signs Temp 98.8 F 12/18/24 11:49 Pulse 110 H 12/18/24 11:49 Resp 18 12/18/24 11:49 BP 139/78 12/18/24 11:49 Pulse Ox 97 12/18/24 12:30 O2 Del Method Nasal Cannula 12/18/24 12:30 O2 Flow Rate 0.5 12/18/24 12:30 BMI result Body Mass Index 32.2 Appearance: Alert.? Oriented X3.? sob cvs: rrr, [id number] . res: air entry diminshed ,has few rhonchii abd:soft ,nt, bs present. ext pulses present , no cyanosis . neuro: axo3 , nonfocal. Objective Data Active Medications Acetaminophen (Acetaminophen 325 Mg Tablet) 650 mg PO Q6H PRN PRN Reason: Pain, Mild 1-3,fever,headache Last Admin: 12/16/24 16:48 Dose: 650 mg Documented By: CHIQUI Amlodipine Besylate (Amlodipine Besylate 10 Mg Tablet) 10 mg PO DAILY [facility]; Protocol Last Admin: 12/18/24 07:31 Dose: 10 mg Documented By: MARYSOL Clonidine HCl (Clonidine Hcl 0.2 Mg Tablet) 0.4 mg PO BID [facility]; Protocol Last Admin: 12/18/24 07:31 Dose: 0.4 mg Documented By: MARYSOL Cyanocobalamin (Cyanocobalamin (Vitamin B-12) 1,000 Mcg/Ml Vial) 1,000 mcg IM Q30D [facility] Dextrose (Dextrose 50 % 25 Gm/50 Ml Syringe) 25 gm IVPUSH Q15M PRN; Protocol PRN Reason: per Hypoglycemia Standing Ord. Diphenoxylate HCl/Atropine (Diphenoxylate/Atrop 2.5/0.025 Tablet) 3 tab PO BID PRN PRN Reason: Diarrhea Last Admin: 12/17/24 08:49 Dose: 3 tab Documented By: MARYSOL Diphenoxylate HCl/Atropine (Diphenoxylate/Atrop 2.5/0.025 Tablet) 1 tab PO QID PRN PRN Reason: Diarrhea Last Admin: 12/17/24 17:04 Dose: 1 tab Documented By: MARYSOL Doxycycline Monohydrate (Doxycycline Monohydrate 100 Mg Capsule) 100 mg PO Q12H [facility] Last Admin: 12/18/24 05:49 Dose: 100 mg Documented By: ESTEPHANIE Enoxaparin Sodium (Enoxaparin Sodium 40 Mg/0.4 Ml Syringe) 40 mg SUBCUT Q24H [facility] Last Admin: 12/17/24 15:18 Dose: 40 mg Documented By: MARYSOL Furosemide (Furosemide 20 Mg Tablet) 20 mg PO BID [facility]; Protocol Last Admin: 12/18/24 07:28 Dose: 20 mg Documented By: MARYSOL Glucose (Glucose Gel 15 Gm Gel..Gram.) 15 gm PO Q15M PRN; Protocol PRN Reason: per Hypoglycemia Standing Ord. Levetiracetam 2,000 mg/ Sodium (Chloride) 120 mls @ 480 mls/hr IV BID [facility] Last Infusion: 12/18/24 08:31 Dose: Infused Documented By: MARYSOL Cefepime HCl (Maxipime) 2 gm in 50 mls @ 100 mls/hr IV Q8H [facility] Last Infusion: 12/18/24 07:48 Dose: Infused Documented By: MARYSOL Ibuprofen (Ibuprofen 200 Mg Tablet) 200 mg PO Q6H [facility] Last Admin: 12/15/24 05:29 Dose: 200 mg Documented By: ALE Insulin Glargine (Insulin Glargine,Hum.Rec.Anlog 100 Unit/Ml 10 Ml Vial) 10 unit SUBCUT DAILY [facility] Last Admin: 12/18/24 07:38 Dose: Not Given Documented By: MARYSOL Non-Admin Reason: Patient Refused Insulin Human Lispro (Insulin Lispro 100 Unit/Ml 3 Ml Vial) 0 unit SUBCUT QIDACHS [facility]; Protocol Last Admin: 12/18/24 12:33 Dose: 12 unit Documented By: MARYSOL Comments: per MD TO ordered Lamotrigine (Lamotrigine 25 Mg Tablet) 75 mg PO BID [facility] Last Admin: 12/18/24 07:31 Dose: 75 mg Documented By: MARYSOL Levalbuterol HCl (Levalbuterol Hcl 1.25 Mg/3 Ml Vial.Neb) 1.25 mg INHALE RQ4H WHILE AWAKE [facility] Last Admin: 12/18/24 11:32 Dose: Not Given Documented By: RENY Non-Admin Reason: Patient Refused Levetiracetam (Levetiracetam 1,000 Mg Tablet) 2,000 mg PO BID [facility] Last Admin: 12/17/24 09:05 Dose: Not Given Documented By: MARYSOL Non-Admin Reason: patient unable to swallow med, notified Magnesium Hydroxide (Milk Of Magnesia 30 Ml Oral.Susp) 30 ml PO DAILY PRN PRN Reason: Constipation Melatonin (Melatonin 3 Mg Tablet) 6 mg PO BEDTIME PRN PRN Reason: Insomnia Pt Own (Nexium 20 Mg ()) 40 mg PO BID@0630,1630 [facility] Last Admin: 12/18/24 05:49 Dose: 40 mg Documented By: ESTEPHANIE Ondansetron HCl (Ondansetron Hcl 4 Mg/2 Ml Vial) 4 mg IVPUSH Q8H PRN PRN Reason: Nausea and Vomiting Ondansetron HCl (Ondansetron Odt 4 Mg Tab.Rapdis) 4 mg TRANSLINGU Q6H PRN PRN Reason: Nausea and Vomiting Paroxetine HCl (Paroxetine Hcl 20 Mg Tablet) 20 mg PO DAILY [facility] Last Admin: 12/18/24 07:31 Dose: 20 mg Documented By: MARYSOL Prednisone (Prednisone 20 Mg Tablet) 40 mg PO DAILY [facility] Last Admin: 12/18/24 07:30 Dose: 40 mg Documented By: MARYSOL Sodium Chloride (0.9 % Sodium Chloride Flush 3 Ml Syringe) 3 ml IVFLUSH QSHIFT [facility] Last Admin: 12/18/24 07:32 Dose: 3 ml Documented By: MARYSOL Tramadol HCl (Tramadol Hcl 50 Mg Tablet) 50 mg PO BID PRN PRN Reason: Pain, Moderate(Pain Scale 4-6) Last Admin: 12/15/24 02:54 Dose: 50 mg Documented By: ALE Valsartan (Valsartan 80 Mg Tablet) 80 mg PO DAILY [facility]; Protocol Last Admin: 12/18/24 07:31 Dose: 80 mg Documented By: MARYSOL Vitamin D (Cholecalciferol (Vitamin D3) 25 Mcg Tablet) 50 mcg PO DAILY [facility] Last Admin: 12/18/24 07:32 Dose: 50 mcg Documented By: MARYSOL Labs 12/18/24 06:11 12/18/24 06:11 Labs: Laboratory Results - last 24 hr 12/17/24 12/17/24 12/18/24 16:24 20:59 06:11 MCV 86.2 MCH 29.6 MCHC 34.4 RDW 13.3 Plt Count 239 MPV 8.9 L Absolute Nucleated RBC 0.000 Nucleated RBC % (auto) 0.0 Hold Purple Top SEE NOTE Estim Creat Clear Calc 60.8 Estimated GFR > 60 POC Glucose 263 H 154 H 12/18/24 12/18/24 07:06 11:27 MCV MCH MCHC RDW Plt Count MPV Absolute Nucleated RBC Nucleated RBC % (auto) Hold Purple Top Estim Creat Clear Calc Estimated GFR POC Glucose 111 392 H* Assessment and Plan (1) Acute hypoxemic respiratory failure: Status: Acute (2) Multifocal pneumonia: Status: Acute Assessment and Plan: 79-year-old male with a PMH significant for?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 Pt will be admitted to the hospital for treatment and further evaluation of acute hypoxic respiratory failure in the setting of multifocal pneumonia with sepsis. Acute hypoxic respiratory failure in the setting of multifocal pneumonia with sepsis Pt with SOB, MEIER, productive cough, desatting to 79% on RA, CTA showing extensive bilateral pneumonia, diagnosis influenza type a 10 days ago Meets sepsis criteria with tachycardia, tachypnea, and leukocytosis; lactic acid 3.0. acute lactic acidosis improving patient is also improving so no further lactic acid trending nasal mrsa negative -switch antibiotics to doxycycline/cefpime,DuoNebs, Solu- Medrol, guaifenesin tapered from high flow O2 goal of 88-90%, wean as tolerated Monitor respiratory status Influenza A infection First diagnosed 10 days ago Not started on Tamiflu, no indication to start now Treat as above Diabetes type 2 with hyperglycemia: Patient fingersticks are fluctuating Hold Lantus, monitor fingerstick with sliding scale coverage. Hx of colon cancer Continue Lamotil Sciatica On lamotrigine and Keppra, off-label Continue home meds HTN Continue amlodipine, clonidine, and valsartan GERD Continue Nexium Mood disorder Continu paroxetine Obesity: Encouraged to lose weight and cutdown calories. Full Code DVT Prophylaxis: Lovenox ongoing need for hospitalization for treatment of?acute hypoxic respiratory failure in the setting multifocal pneumonia with sepsis. Pt will require hospital level care for administration of supplemental oxygen currently on high- flow, IV antibiotics, IV steroids, and bronchodilators. Quality Stroke Does the patient have a stroke diagnosis?: No VTE Prior VTE?: No VTE Risk Level:: Medical - moderate - high VTE Device Contraindication: Treatment Not Indicated VTE Drug Contraindication: N/A - Med Ordered
[2024-12-18] MEDS: LORazepam 0.5 MG TABLET PO (14:42)
[2024-12-18 15:50] LABS: Troponin-I High Sensitivity 5.5 ng/L (<3.5-35.0)
[2024-12-18 16:31] LABS: Glucose, Whole Blood 184 mg/dL (60-115)
[2024-12-18] MEDS: Enoxaparin Sodium 40 MG/0.4 ML SYRINGE SUBCUT (17:13)
[2024-12-18 20:26] LABS: Glucose, Whole Blood 242 mg/dL (60-115)
[2024-12-18] MEDS: levETIRAcetam 1,000 MG TABLET 2000 MG PO (20:38)
[2024-12-18] MEDS: Acetaminophen 325 MG TABLET 650 MG PO (20:42)
[2024-12-19 04:00] VITALS: BP 178/78; PULSE 92; RESP 20; TEMP 36.6; O2SAT 99
[2024-12-19 05:05] VITALS: BP 178/78
[2024-12-19] MEDS: amLODIPine Besylate 10 MG TABLET PO (05:05)
[2024-12-19] MEDS: Doxycycline Monohydrate 100 MG CAPSULE PO (05:05)
[2024-12-19] MEDS: NEXIUM 20 MG 40 EACH PO (05:07)
[2024-12-19] MEDS: cefEPime HCl/D5W 2 GM/50 ML PIGGYBACK IV ×2 (05:07→14:00)
[2024-12-19 06:47] LABS: Creatinine Clr Calc Pharmacy 68.1; Estimated Glomerular Filt Rate > 60
[2024-12-19 07:24] LABS: Glucose, Whole Blood 130 mg/dL (60-115)
[2024-12-19] MEDS: levalbuterol HCL 1.25 MG/3 ML VIAL.NEB INHALE (07:27)
[2024-12-19 07:28] VITALS: PULSE 92; RESP 20; O2SAT 94
[2024-12-19 07:34] LABS: Strep Pneumo Ag urine Not Detected (Not Detected)
[2024-12-19 08:00] VITALS: BP 155/72; PULSE 90; RESP 20; TEMP 37.2; O2SAT 90
[2024-12-19 08:57] VITALS: BP 155/72; PULSE 90; O2SAT 90
[2024-12-19] MEDS: predniSONE 20 MG TABLET 40 MG PO (09:10)
[2024-12-19] MEDS: Cholecalciferol (Vitamin D3) 25 MCG TABLET 50 MCG PO (09:10)
[2024-12-19] MEDS: Valsartan 80 MG TABLET PO (09:10)
[2024-12-19] MEDS: PARoxetine HCL 20 MG TABLET PO (09:10)
[2024-12-19] MEDS: lamoTRIgine 25 MG TABLET 75 MG PO (09:10)
[2024-12-19] MEDS: Furosemide 20 MG TABLET PO (09:11)
[2024-12-19] MEDS: cloNIDine HCL 0.2 MG TABLET 0.4 MG PO (09:11)
[2024-12-19] MEDS: Diphenoxylate/Atrop 2.5/0.025 TABLET 1 TAB PO (09:13)
[2024-12-19] MEDS: 0.9 % Sodium Chloride Flush 3 ML SYRINGE IVFLUSH (11:22)
[2024-12-19 11:26] LABS: Glucose, Whole Blood 254 mg/dL (60-115)
[2024-12-19] MEDS: Insulin Lispro 100 UNIT/ML 3 ML VIAL SUBCUT (11:50)
--- NOTE | 2024-12-19 11:52 | PM.DS ---
DS: Providers Provider Date of Service: 12/19/24 Date of admission: 12/14/24 15:37 Date of discharge: 12/19/24 Primary care physician: Bill Trejo MD Consults: 12/15/24 07:52 Consult to Pulmonology Routine Consulting [place] [facility] [place] [facility] Reason for consultation: acute repiratory failure /pneumonia Has provider been notified: No 12/15/24 07:53 Consult to Infectious Diseases Routine Consulting Provider[place] [facility] [place] [facility] Reason for consultation: Acute hypoxemic respiratory failure sec to pneumonia Has provider been notified: No DS: Diagnosis Discharge Diagnosis (1) Acute hypoxemic respiratory failure: Status: Acute (2) Multifocal pneumonia: Status: Acute DS: Summary Hospital Course Hospital Course: from initial hpi: 79-year-old male with a PMH significant for?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 Pt reports symptoms began over 10 days ago when he experiences SOB, MEIER, and productive cough. Initially presented to pulmonology on 12/04 where he was diagnosed with bronchitis and started on prednisone and Levaquin x7 days. Pt reports took 1 dose of abx but unable to tolerate as felt like all of my tendons were about to rip apart . Called pulmonology back 2 days later where prednisone taper was extended. Pt reports symptoms continued to worsen, especially the past two days, but pt decided to wait to see a provider as he had a previously-scheduled routine PCP appointment today. Denies fever and chills above baseline (reports often has hot flashes as he is on hormonal therapy for prostate cancer). No chest pain/pressure, palpitations. Denies nausea, vomiting, abdominal pain. Of note, pt also tested positive for influenza type a on 12/04/2024, but was not started on Tamiflu. Given patient's increased work of breathing and O2 requirements on high-flow, pt was evaluated by ICU who felt he could be managed the regular medical floor. In the ED pt was tachycardic up to 121, tachypneic up to 22, and mildly hypertensive at 146/70, satting as low as 79% on RA. Labs were significant for leukocytosis 15.3, stable H&H of 0.9/34.2, random glucose 244, and lactic acid 3.0. VB pH 7.68 with pCO2 32 and bicarb 39. No significant electrolyte abnormalities. Renal function baseline. Hepatic function baseline. Troponin 5.0. BNP 59. Continues to test positive for influenza type a; 1st tested positive 10 days prior. CXR showed acute airspace disease in right middle lobe and lingula. Chest CTA showed no acute pulmonary emboli, but showed broncho aspiration pneumonia. EKG demonstrated sinus tachycardia of 111 with RBBB and now evidence of significant ST elevations or depressions, similar to prior. Pt was treated with Solu-Medrol and DuoNebs by EMS, and DuoNebs, IVF, azithromycin, ceftriaxone, and vancomycin in the ED. Pt will be admitted to the hospital for treatment and further evaluation of acute hypoxic respiratory failure in the setting of multifocal pneumonia with sepsis. hospital course: Patient was admitted for sepsis and acute hypoxic respiratory failure secondary to multifocal pneumonia as complication of recent influenza. Was treated with cefepime and doxycycline as well as steroids and bronchodilators. Symptoms improved and patient was weaned to room air. On discharge we will continue 5 more days of Ceftin and doxycycline as well as 5 days of prednisone. Due to diagnosis of flu being greater than 10 days was not treated with Tamiflu. For diabetes with hyperglycemia was continue with insulin sliding scale. For history colon cancer we will follow up outpatient. For sciatica was continued on off-label antiepileptics. For hypertension was continued on amlodipine, clonidine, valsartan. For GERD was continued on Nexium. For mood disorder was continued on Paxil. Due to deconditioning worked with physical therapy would be appropriate for short-term rehab, however patient is not interested and will do home PT Time Attestation Discharge Coordination Time (in mins): 34 Quality: Safe Use of Opioids Does Pt have an Active Cancer Diagnosis on the Problem List?: No Quality: Stroke Does the patient have a stroke diagnosis?: No Physical Exam Vital Signs: Vital Signs: Last Vital Signs Temp 98.9 F 12/19/24 08:00 Pulse 90 12/19/24 08:57 Resp 20 12/19/24 08:00 BP 155/72 H 12/19/24 08:57 Pulse Ox 90 L 12/19/24 08:57 O2 Del Method Room Air 12/19/24 08:00 O2 Flow Rate 0.5 12/18/24 15:34 BMI result Body Mass Index 32.2 General: AO X 3, no acute distress Resp: CTA bilateral, no accessory muscles used CVS: S1,S2,RRR GI: soft, non tender, non distended Neuro: motor grossly intact, alert Psych: appropriate affect, appropriate insight DS: Data Data Completed and Pending Completed studies during hospitalization [Text1]: Procedures Insertion of Infusion Device into Right Cephalic Vein, Percutaneous Approach (12/30/21) Labs on day of discharge: Laboratory Results - last 24 hr 12/16/24 12/18/24 12/18/24 09:38 15:05 16:27 Hold Purple Top Creatinine Estim Creat Clear Calc Estimated GFR POC Glucose 184 H Troponin I High Sens 5.5 Ur Strep pneumoniae Ag Not Detected 12/18/24 12/19/24 12/19/24 20:15 06:24 07:19 Hold Purple Top SEE NOTE Creatinine 0.83 Estim Creat Clear Calc 68.1 Estimated GFR > 60 POC Glucose 242 H 130 H Troponin I High Sens Ur Strep pneumoniae Ag 12/19/24 11:19 Hold Purple Top Creatinine Estim Creat Clear Calc Estimated GFR POC Glucose 254 H Troponin I High Sens Ur Strep pneumoniae Ag Preliminary micro results at discharge 12/14/24 12:11 Blood Culture - Preliminary Blood - Venous No growth after 48 hours. 12/14/24 11:50 Blood Culture - Preliminary Blood - Venous No growth after 48 hours. Discharge Plan Discharge Anticipated Discharge Date/Time: 12/19/24 11:49 Patient Disposition: Home Health Service Discharge Diagnosis: flu, pna Referrals: [facility] [Other] - 1 Week Bill Trejo MD [Primary Care Provider] - 1 Week Discharge Medications: New prednisone 20 mg Tablet 40 mg PO DAILY Qty: 10 0RF doxycycline monohydrate 100 mg Capsule 100 mg PO Q12H 5 Days Qty: 10 0RF cefuroxime axetil 500 mg tablet 500 mg PO BID Qty: 10 0RF Continued cholecalciferol (vitamin D3) [Vitamin D3] 50 mcg (2,000 unit) Tablet 50 mcg PO DAILY Qty: 90 5RF (DME) lancets [FreeStyle Lancets] 28 gauge misc See Rx Instructions .Route Qty: 100 6RF Rx Instructions: As directed twice daily (DME) pen needle, diabetic [BD Arlet 2nd Gen Pen Needle] 32 gauge x 5/32 needle See Rx Instructions .MEDSUPPLY Qty: 400 4RF Rx Instructions: 5 times a day (DME) Contour Test Strips Strip See Rx Instructions .Route Qty: 100 4RF Rx Instructions: As directed (DME) blood-glucose meter [Contour Meter] Kit See Rx Instructions .Route Qty: 1 0RF Rx Instructions: As directed esomeprazole magnesium [Nexium] 20 mg Capsule,Delayed Release(Dr/Ec) 40 mg PO DAILY Patient Comments: Does not want omeprazole insulin glargine U-300 conc [Toujeo SoloStar U-300 Insulin] 300 unit/mL (1.5 mL) insulin pen 12 unit subcut DAILY ibuprofen 200 mg Tablet 200 mg PO Q6H valsartan 320 mg tablet 80 mg PO DAILY amlodipine 10 mg tablet 10 mg PO DAILY furosemide 20 mg tablet 20 mg PO BID clonidine HCl 0.2 mg tablet 0.4 mg PO BID (DME) blood sugar diagnostic Strip See Rx Instructions .ROUTE .MEDSUPPLY Qty: 10 Rx Instructions: As directed (DME) flash glucose sensor Kit See Rx Instructions topical Q2W Qty: 2 7RF Rx Instructions: Every 14 days levetiracetam 500 mg tablet 2,000 mg PO BID paroxetine HCl 20 mg tablet 20 mg PO DAILY lamotrigine 25 mg tablet 75 mg PO BID albuterol sulfate [Ventolin HFA] 90 mcg/actuation HFA aerosol inhaler 2 puff inhalation Q4-6H PRN (Reason: shortness of breath or wheezing) 30 Days Qty: 1 6RF tramadol 50 mg tablet 50 mg PO BID PRN (Reason: Pain) (DME) BD AutoShield Duo Pen Needle 30 gauge x 3/16 needle See Rx Instructions .Route Qty: 100 3RF Rx Instructions: once monthly subcutaneous or IM (DME) FreeStyle Den 3 Plus Sensor Device See Rx Instructions .Route Qty: 6 3RF Rx Instructions: every 14 days (DME) FreeStyle Den 3 Plus Sensor Device See Rx Instructions .Route Qty: 1 3RF Rx Instructions: every 14 days cyanocobalamin (vitamin B-12) 1,000 mcg/mL solution 1,000 mcg IM Q4W 70 Days Qty: 3 3RF (DME) FreeStyle Precision Marcio Strips Strip See Rx Instructions .Route Qty: 50 3RF Rx Instructions: Four times daily insulin lispro [Humalog KwikPen Insulin] 100 unit/mL insulin pen 6 unit subcut .COMPLEX Qty: 15 4RF Protocol: Insulin Correction Scale Less than or equal to 110 ---- Give (units): 0 111 to 150 Give (units): 0 151 to 200 Give (units): 2 201 to 250 Give (units): 4 251 to 300 Give (units): 6 301 to 350 Give (units): 8 Greater than 350 Give (units): 10 Call MD if Blood Glucose > : 350 Rx Instructions: 6 units subcutaneously 15 minutes before meals; diphenoxylate-atropine 2.5-0.025 mg tablet 3 tab PO BID PRN (Reason: Diarrhea) Discharge Orders: Discharge Order (Routine); Ordered 12/19/24 Ordered By: Pa Collins Diet: Advance to usual diet Activity on Discharge: As tolerated Stand Alone Forms: Patient Portal Discharge page Print Language: Citizen Of [place] Care Plan Goals: recovery Health Concerns: pneumonia, copd Plan of Treatment: 5 more days ceftin and doxy and prednisone Assessment: see above
[2024-12-19 12:00] VITALS: BP 153/73; PULSE 95; RESP 20; TEMP 36.8; O2SAT 94
--- NOTE | 2024-12-19 12:42 | W.MHC.F2F ---
Service Date Service Date: 12/19/24 Encounter Date of encounter: 12/19/24 Reasons for Services Signs and symptoms assessed: sob on exertion Reason for custodial: medication management, medication treatment and teach disease management Reason for physical therapy: home safety and mobility and therapeutic exercises Homebound: Leaving the home is medically contraindicated at this time without the asist of a device and/or another person due th the listed conditions above and below. Reason homebound: shortness of breath with minimal effort Certification: Based on the above findings, I certify that this patient is confined to the home and needs intermittent custodial care, physical therapy and/or speech therapy, or continues to need occupational therapy. The patient is under my care, and I have initiated the establishment of the plan of care. The patient will be followed by a physician who will periodically review the plan of care. Time Spent With Patient Time: Total time managing care of this patient today ____ minutes.
--- NOTE | 2024-12-19 12:53 | MHC.CM.PN ---
Second IMM given 12/19. Pt is medically cleared for discharge home with [facility], he will transport home via [employer] today.
--- NOTE | 2024-12-19 14:39 | HO.WOUND ---
Wound Consult: Initial 79yr old?male admitted to [facility] [place] on 12/14/24 - See progress notes and H&P for detailed history.? Wound consult placed for buttock.? Patient agreeable to assessment and photo documentation.? Buttock Etiology: MASD?? Wound Bed: dry red blanchable tissue Drainage / Odor: none Edges: ? mirrored Larisa wound: pink intact friction noted ? No Induration, Fluctuance or Warmth noted Pain: painful to touch Goals of Treatment: ? Barrier cream to protect from friction and moisture Recommendations: 1. Turn and Reposition every 2 hours and as needed for patient comfort.? Use pillows or wedges to support off loading positions. 2. Off Load all bony prominences with use of pillows and heel boots if needed.? Apply Preventative foams where needed. ? 3. Monitor for incontinence and moisture control, use barrier creams when needed for prevention and treatment. 4. Provide adequate and supplemental nutrition.? 5. Order low air loss mattress. 6. When applicable maintain blood glucose levels per Providers order. 7. Buttock - Off Load Pressure with Q2 hr turns and use of pillows - Cleanse with PH balance spray or wipes, pat dry. ?Apply thin layer of barrier cream to affected area.? Apply twice daily and Reapply thin layer PRN after each episode of incontinence. Re-consult wound care Nurse for wound deterioration or wound changes.
[2024-12-20 03:19] LABS: Legionella Ag Urine Not Detected (Not Detected)
== END 2024-12-19 15:00 | disposition home health service (06) | DRG 871 ==
LOC: HO.ED 13:56 → HO.EDOVER 16:14 → HO.IMC 12-15 20:36
PROVIDERS: Internal Medicine; Admitting Provider Student in an Organized Health Care Education/Training Program; Emergency Provider Emergency Medicine; PCP Internal Medicine; Visit Provider Internal Medicine
DX: A41.9 Sepsis, unspecified organism (principal); J10.00 Influenza due to other identified influenza virus with unspecified type of pneumonia; J96.01 Acute respiratory failure with hypoxia; J44.0 Chronic obstructive pulmonary disease with (acute) lower respiratory infection; J44.1 Chronic obstructive pulmonary disease with (acute) exacerbation; R00.0 Tachycardia, unspecified; I10 Essential (primary) hypertension; C61 Malignant neoplasm of prostate; F39 Unspecified mood [affective] disorder; E11.65 Type 2 diabetes mellitus with hyperglycemia; M54.30 Sciatica, unspecified side; E11.42 Type 2 diabetes mellitus with diabetic polyneuropathy; E66.9 Obesity, unspecified; Z68.32 Body mass index [BMI] 32.0-32.9, adult; Z71.3 Dietary counseling and surveillance; Z20.822 Contact with and (suspected) exposure to COVID-19; Z85.038 Personal history of other malignant neoplasm of large intestine; Z87.891 Personal history of nicotine dependence; Z79.4 Long term (current) use of insulin; Z79.899 Other long term (current) drug therapy
CPT/HCPCS: 0241U; 36415; 71045; 71275; 80048; 80076; 80202; 82565; 82803; 82947; 83036; 83605; 83690; 83880; 84484; 85025; 85027; 87040; 87449; 87640; 87641; 87899; 92526; 92610; 93005; 94640; 97116; 97161; 99285; J0456; J0692; J0696; J1171; J1650; J1953; J2919; J3370; J7120; Q9967

== ENCOUNTER → 2024-12-14 11:40 | Outpatient (BNV) | payer MEDICARE, SELFPAY | PROVIDERS: Emergency Provider Emergency Medicine; PCP Internal Medicine; Visit Provider Radiology Diagnostic Radiology | DX: J18.9 Pneumonia, unspecified organism (principal) | CPT/HCPCS: 71045; 71275 ==

== ENCOUNTER → 2024-12-14 11:40 | Outpatient (BNV) | payer MEDICARE, SELFPAY | PROVIDERS: Emergency Provider Emergency Medicine; PCP Internal Medicine; Visit Provider Internal Medicine Cardiovascular Disease | DX: R06.02 Shortness of breath (principal); R00.0 Tachycardia, unspecified; I45.10 Unspecified right bundle-branch block; R94.31 Abnormal electrocardiogram [ECG] [EKG] | CPT/HCPCS: 93010 ==

== ENCOUNTER → 2024-12-14 12:19 | Outpatient (BNV) | payer MEDICARE, SELFPAY | PROVIDERS: Emergency Provider Emergency Medicine; PCP Internal Medicine; Visit Provider Internal Medicine Critical Care Medicine | DX: E11.65 Type 2 diabetes mellitus with hyperglycemia (principal); Z79.4 Long term (current) use of insulin; I10 Essential (primary) hypertension; J11.1 Influenza due to unidentified influenza virus with other respiratory manifestations; J44.1 Chronic obstructive pulmonary disease with (acute) exacerbation; J96.01 Acute respiratory failure with hypoxia | CPT/HCPCS: 99222 ==

== ENCOUNTER 2024-12-14 15:37 | Outpatient (BNV) | payer MEDICARE, SELFPAY | END 2024-12-16 07:00 | PROVIDERS: Admitting Provider Student in an Organized Health Care Education/Training Program; Emergency Provider Emergency Medicine; PCP Internal Medicine; Visit Provider Radiology Diagnostic Radiology | DX: J18.9 Pneumonia, unspecified organism (principal) | CPT/HCPCS: 71045 ==

== ENCOUNTER 2024-12-14 15:37 | Outpatient (BNV) | payer MEDICARE, SELFPAY | END 2024-12-18 14:29 | PROVIDERS: Admitting Provider Student in an Organized Health Care Education/Training Program; Emergency Provider Emergency Medicine; PCP Internal Medicine; Visit Provider Internal Medicine | DX: R00.0 Tachycardia, unspecified (principal); I45.19 Other right bundle-branch block; R94.31 Abnormal electrocardiogram [ECG] [EKG] | CPT/HCPCS: 93010 ==

== ENCOUNTER → 2024-12-14 15:37 | Outpatient (BNV) | payer MEDICARE, SELFPAY | PROVIDERS: Admitting Provider Student in an Organized Health Care Education/Training Program; Emergency Provider Emergency Medicine; PCP Internal Medicine; Visit Provider Student in an Organized Health Care Education/Training Program | DX: J96.01 Acute respiratory failure with hypoxia (principal); J18.9 Pneumonia, unspecified organism | CPT/HCPCS: 99223; 99232 ==

== ENCOUNTER → 2024-12-14 15:37 | Outpatient (BNV) | payer MEDICARE, SELFPAY | PROVIDERS: Admitting Provider Student in an Organized Health Care Education/Training Program; Emergency Provider Emergency Medicine; PCP Internal Medicine; Visit Provider Hospitalist | DX: J96.01 Acute respiratory failure with hypoxia (principal); J18.9 Pneumonia, unspecified organism; J44.1 Chronic obstructive pulmonary disease with (acute) exacerbation; J11.1 Influenza due to unidentified influenza virus with other respiratory manifestations | CPT/HCPCS: 99223 ==

== ENCOUNTER → 2024-12-14 15:37 | Outpatient (BNV) | payer MEDICARE, SELFPAY | PROVIDERS: Admitting Provider Student in an Organized Health Care Education/Training Program; Emergency Provider Emergency Medicine; PCP Internal Medicine; Visit Provider Internal Medicine | DX: J96.01 Acute respiratory failure with hypoxia (principal); J18.9 Pneumonia, unspecified organism | CPT/HCPCS: 99222 ==

== ENCOUNTER 2024-12-19 09:20 | Outpatient (REF) | payer MEDICARE, SELFPAY ==
--- OUTSIDE RECORDS SUMMARY | 2024-12-20 10:53 | XMS_ITS | Continuity of Care Document ---
Author Organization [facility] Address [address] [place] [phone]- Support Name Relationship Address Phone RAMIREZ, JO [...] Unknown Unav ailable Care Team Providers Care It Administrative Assistant Name Role Phone Bill Trejo MD Primary Care Physician [place] [facility] [place] Date(s): 11/15/24 - 12/15/24 [facility] Adult [address] [place] [address]- Encounter Type: Triage Allergies, Adverse Reactions, Alerts Substance Criticality Severity Reaction Reaction Severity Status clindamycin Active amoxicillin 1 Active mirtazapine Active morphine Active atorvastatin 2 Rosuvastatin Ac tive thiazide diuretics 3 Active Augmentin hoarse Active Peanuts Active traZODone 4 Active 1hoarse 2pt state not allergic 3hyponatremia 4burns GI/gerd Immunizations Given and Recorded Vaccine Date Status Refusal Reason influenza virus vaccine, inactivated 08/05/23 Give n influenza virus vaccine, inactivated 1 10/14/22 Gi ocllin influenza virus vaccine, inactivated 09/22/21 Pradip rded [...] virus vaccine, inactivated 06/18/09 Give n SARS-CoV-2(COVID-19)mRNA-LNP vac([id number]) 07/14/23 Recorded [id number] 12y+ bivalent booster vax 10/26/22 Recorded tetanus/diphtheria/pertussis, [...] Other : post doc 2Result Comment: [07/07/2018] [id number] 3Result Comment: [07/07/2017] [facility] [id number] 4Result Comment: [08/30/2016] [facility] 5Result Comment: [facility]-[id number] 6Result Comment: [04/26/2016] RECEIVED AT [facility] 7Admin Note: added by history Problem [...] reflux disease) egd 2016 5 Confirmed Active care home use of drug lamotrigine 6 Confirmed Active [...] Personnel Name: Maya COLLINS, Bill Alves Position: [facility] Physician - Primary Care Member Role: PCP Address: [address] [place] [phone]- Telecom: Care Team Related Persons Name: JASIEL RAMIREZ Insurance Providers Guarantor name: JUANA RAMIREZ Health Plan Information #: 1 Payer: S[employer] INSURANCE Member Number: NA Policy Number: NA Group Number: NA
== END 2024-12-19 09:21 | disposition home or self-care (01) ==
LOC: HO.HOSX 09:20
PROVIDERS: Visit Provider Orthopaedic Surgery
DX: Z13.89 Encounter for screening for other disorder (principal)

== ENCOUNTER 2025-02-06 08:37 | Outpatient (AMB) | payer MEDICARE, SELFPAY ==
--- OUTSIDE RECORDS SUMMARY | 2025-02-06 08:53 | XMS_ITS | Continuity of Care Document ---
Author Organization [facility] Address [address] [place] [phone]- Support Name Relationship Address Phone RAMIREZ, JO [...] Unknown Unav ailable Care Team Providers Care Associate Professor Of Medicine Name Role Phone Bill Trejo MD Primary Care Physician [phone] Encounter [facility] [place] Date(s): 01/03/25 - 02/02/25 [facility] Adult [address] [place] [address]- Encounter Diagnosis History of basal cell carcinoma(Discharge Diagnosis) - 01/27/21 Attending Physician: Emmie Johnston Admitting Physician: Emmie Johnston Referring Physician: Emmie Johnston Encounter Type: Triage Allergies, Adverse Reactions, Alerts [...] virus vaccine, inactivated 06/18/09 Give n SARS-CoV-2(COVID-19)mRNA-LNP vac([id number]) 07/14/23 Recorded [id number] 12y+ bivalent booster vax 10/26/22 Recorded tetanus/diphtheria/pertussis, [...] Other : post doc 2Result Comment: [07/07/2018] [id number] 3Result Comment: [07/07/2017] [facility] [id number] 4Result Comment: [08/30/2016] [facility] 5Result Comment: [id number] 6Result Comment: [04/26/2016] RECEIVED AT [facility] 7Admin Note: added by history Problem List Condition Confirmation Course Effective Dates Status H ealth Status Informant Alcohol dependence in remission 1 Confirmed Active Elevated alkaline phosphatase level Confirmed Active Anemia Confirmed Active Asthma 2 [...] reflux disease) egd 2016 5 Confirmed Active halfway use of drug lamotrigine 6 Confirmed Active [...] diabetes with nephropathy 16, 17 Confirmed Active Vitamin D deficiency Confirmed Active 1in AA 2chronic perst 3abnormal [...] tomography, abdomen ; with contrast material(s) 14 6/28/10 Complete d Computed tomography, abdomen ; with [...] A1c 7.2 B12 344 microalbumin +188 2Labs [facility] dated November 10, 2020 white count [...] EKG Authored Date: Laboratory * Event Display: Non BH Lab Results Authored Date: * Event Display: Laboratory Result Scanned Authored [...] - Primary Care Member Role: PCP Address: [address] [place] [address]- Telecom: Care Team Related Persons Name: JASIEL RAMIREZ Insurance Providers Guarantor name: JUANA RAMIREZ Health Plan Information #: 1 Payer: [employer] PPO Member Number: NA Policy Number: NA Group Number: NA
--- OUTSIDE RECORDS SUMMARY | 2025-02-06 08:53 | XMS_ITS | Continuity of Care Document ---
Author Organization [facility] Address [address] [place] [phone]- Support Name Relationship Address Phone RAMIREZ, JO [...] Unknown Unav ailable Care Team Providers Care Floor Grinder Name Role Phone Bill Trejo MD Primary Care Physician [place] [facility] [place]/25 [facility] Adult [address] [place] [address]- Encounter Type: Triage Allergies, Adverse Reactions, Alerts [...] virus vaccine, inactivated 06/18/09 Give n SARS-CoV-2(COVID-19)mRNA-LNP vac([id number]) 07/14/23 Recorded [id number] 12y+ bivalent booster vax 10/26/22 Recorded tetanus/diphtheria/pertussis, [...] Other : post doc 2Result Comment: [07/07/2018] [id number] 3Result Comment: [07/07/2017] [facility] [id number] 4Result Comment: [08/30/2016] [facility] 5Result Comment: [facility]-[id number] 6Result Comment: [04/26/2016] RECEIVED AT [facility] 7Admin Note: added by history [...] reflux disease) egd 2016 5 Confirmed Active intermediate card tender use of drug lamotrigine 6 Confirmed Active [...] Personnel Name: Maya COLLINS, Bill Alves Position: [facility] Physician - Primary Care Member Role: PCP Address: [address] [place] [phone]- Telecom: Care Team Related Persons Name: JASIEL RAMIREZ Insurance Providers Guarantor name: JUANA RAMIREZ Health Plan Information #: 1 Payer: [employer] PPO Member Number: NA Policy Number: NA Group Number: NA
--- NOTE | 2025-02-06 09:02 | MHC.OFFVIS ---
Vital Signs 02/06/25 09:06 Height 5 ft 2 in Weight 170 lb 10.205 oz BMI 31.2 BP 130/60 Blood Pressure Location Lt brachial Position Sitting Pulse 81 Pulse Source Pulse Oximeter Intake Visit Reasons: Statin intolerance Mailroom Manager Required: No Accompanied by: Self / Same As Patient Allergies amoxicillin [From AUGMENTIN] Allergy (Severe, Verified 12/14/24 11:42) Diarrhea, malaise celecoxib [Celebrex] Allergy (Severe, Verified 12/14/24 11:42) Malaise clavulanic acid [From AUGMENTIN] Allergy (Severe, Verified 12/14/24 11:42) Diarrhea, malaise gabapentin [GABAPENTIN] Allergy (Severe, Verified 12/14/24 11:42) TREMORS morphine Allergy (Severe, Verified 12/14/24 11:42) BLACKED-OUT, CRAZY cephalexin [Keflex] Allergy (Unknown, Verified 12/14/24 11:42) Unknown diltiazem [Cardizem] Allergy (Unknown, Verified 12/14/24 11:42) Unknown Penicillins [PENICILLINS] Allergy (Unknown, Verified 12/14/24 11:42) Unknown clindamycin Allergy (Verified 12/14/24 11:42) Unconscious peanut Allergy (Verified 12/14/24 11:42) Unknown fluvastatin [From Lescol] Adverse Reaction (Severe, Verified 12/14/24 11:42) Joint Pain pecan nut [PECAN] Adverse Reaction (Severe, Verified 12/14/24 11:42) Anaphylaxis erythromycin base Adverse Reaction (Verified 12/14/24 11:42) Vomiting Medication List - Last Reconciled 02/06/25 by Genaro Schreiber MD amlodipine 10 mg PO DAILY BD AutoShield Duo Pen Needle (pen needle,diabetic dual safty) once monthly subcutaneous or IM NS blood sugar diagnostic As directed blood sugar diagnostic (Contour Test Strips) As directed blood sugar diagnostic (FreeStyle Precision Marcio Strips) Four times daily blood-glucose meter (Contour Meter kit) As directed blood-glucose sensor (FreeStyle Den 3 Plus Sensor device) every 14 days cholecalciferol (vitamin D3) (Vitamin D3) 50 mcg PO DAILY clonidine HCl 0.4 mg PO BID cyanocobalamin (vitamin B-12) 1,000 mcg IM Q4W 10 weeks diphenoxylate-atropine 2.5-0.025 mg 3 tabs PO BID PRN flash glucose sensor Every 14 days FreeStyle Den 3 Plus Sensor (blood-glucose sensor) every 14 days NS furosemide 20 mg PO BID Humalog KwikPen Insulin (insulin lispro) See Protocol 6 units subcutaneously 15 minutes before meals; NS ibuprofen 200 mg PO Q6H insulin glargine U-300 conc (Toujeo SoloStar U-300 Insulin) 12 units subcut DAILY lamotrigine 75 mg PO BID lancets (FreeStyle Lancets) As directed twice daily levetiracetam 2,000 mg PO BID paroxetine HCl 20 mg PO DAILY pen needle, diabetic (BD Arlet 2nd Gen Pen Needle) 5 times a day tramadol 50 mg PO BID PRN valsartan 80 mg PO DAILY HPI Comments Details: Willy returns for follow-up general cardiac follow-up. Multiple risk factors including type 2 diabetes, hypertension, dyslipidemia. From the cardiac standpoint he does not have any symptoms like angina or shortness of breath. He states that he does feel his heart rate goes up with activity like walking up stairs but otherwise no specific cardiac symptoms. Lipid management has been difficult as there are issues with Repatha. It seems that he last used it about 6 months ago. Need to find out why there is continued issues. In December, it seems that he was admitted to the hospital with respiratory failure from pneumonia/influenza. Received antibiotics and got better. Does not look like there were any cardiac issues at that time. Normal troponins. 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 Mother No problems noted. Other No family history of cancer Social History Household Members: Children Household Members Other:: Son Housing: House Are you a primary acute care certified nursing assistant to a significant other at home: No Do you presently have visiting nurse or other home services: No Alcohol intake: never Patient Tobacco Use Status: Former Tobacco user Cigarette Packs Per Day: 1.5 service: No Current occupational status: retired Review of Systems Const Denies chills, Denies fatigue, Denies fever(s), Denies frequent falls, Denies weakness, Denies weight gain and Denies weight loss ENT Denies dizziness Card Denies chest pain, Denies leg edema, Denies lightheadedness, Denies palpitations, Denies dyspnea and Denies dyspnea on exertion Resp Denies cough, Denies dyspnea and Denies dyspnea on exertion GI Denies hematochezia Musc Denies abnormal gait, Denies muscle weakness, Denies numbness, Denies radiating pain into limb and Denies tingling Neuro Denies abnormal gait, Denies dizziness, Denies frequent falls, Denies numbness, Denies tingling and Denies weakness Endo Denies fatigue and Denies palpitations Physical Exam Vital Signs: Last Vital Signs Pulse 81 02/06/25 09:06 BP 130/60 02/06/25 09:06 BMI result Body Mass Index 31.2 Const General: comfortable and no acute distress Orientation/consciousness: patient oriented x3 HEENT Other: Unremarkable Head: Yes normal to inspection Neck Neck: Yes normal visual inspection Chest Chest palpation & inspection: normal inspection of the chest Resp Auscultation: clear to auscultation bilaterally Cardio Palpation: normal PMI Heart sounds: S1 normal heart sound present, S2 normal heart sound present, no gallops, no murmurs and no rubs GI Palpation (GI): Soft to palpation Back/Spine/Pelvis Other: unremarkable Skin General skin exam: no rashes or lesions noted Neuro General: patient oriented x3 Extrem General: Yes normal to inspection Psych Mental Status: mental status grossly normal Assessment & Plan Assessment & Plan (1) Abnormal EKG: Code(s): R94.31 - Abnormal electrocardiogram [ECG] [EKG] Category: Medical (2) Essential hypertension: Code(s): I10 - Essential (primary) hypertension Category: Medical (3) Type 2 diabetes mellitus with unspecified complications: Code(s): E11.8 - Type 2 diabetes mellitus with unspecified complications Category: Medical (4) Other and unspecified hyperlipidemia: Code(s): E78.5 - Hyperlipidemia, unspecified Category: Medical (5) Statin intolerance: Code(s): Z78.9 - Other specified health status Category: Medical Plan EKG with right bundle-branch block and anterior T inversions but unchanged from before. In the echocardiogram, preserved LVEF and no significant valve findings. Perfusion imaging reported have normal perfusion. Overall, many vascular risk factors but no clear establish coronary disease or active cardiac issues. Hence mainly risk factor modification. For his diabetes, he is on insulin. Hemoglobin A1c is 8.5%. Less than ideal. For blood pressure, on valsartan and amlodipine. Seems stable. For lipids, he is no longer on Repatha because of insurance issues. Need to follow up on this. However, last LDL was 14 mg/dL clearly establishing that it was actually working. Follow up in 6 months. Patient was informed and verbally consented to the use of an ambient scribe for clinic note documentation during this visit. Patient Instructions: - Monitor your symptoms closely, especially any changes or increases in heart rate upon activity. - Follow the recommended glucose monitoring regime regularly to manage diabetes effectively. - Avoid any self-adjustment of your Valsartan dosage without consulting healthcare providers. - Contact our office if you experience any new or worsening symptoms. Coding Level of Care Code Est Pt Level 4 (56031) Diagnoses Abnormal EKG R94.31 Essential hypertension I10 Type 2 diabetes mellitus with unspecified complications E11.8 Other and unspecified hyperlipidemia E78.5 Statin intolerance Z78.9
[2025-02-06 09:06] VITALS: BP 130/60; PULSE 81; BMI 31.2
== END 2025-02-06 09:55 | disposition home or self-care (01) ==
LOC: HO.HCS 08:37
PROVIDERS: PCP Internal Medicine; Visit Provider Internal Medicine
DX: R94.31 Abnormal electrocardiogram [ECG] [EKG] (principal); I10 Essential (primary) hypertension; E11.8 Type 2 diabetes mellitus with unspecified complications; E78.5 Hyperlipidemia, unspecified; Z78.9 Other specified health status
CPT/HCPCS: 99214

== ENCOUNTER → 2025-02-06 08:37 | Outpatient (BNVA) | payer MEDICARE, SELFPAY | PROVIDERS: PCP Internal Medicine; Visit Provider Internal Medicine | DX: R94.31 Abnormal electrocardiogram [ECG] [EKG] (principal); I10 Essential (primary) hypertension; E11.8 Type 2 diabetes mellitus with unspecified complications; E78.5 Hyperlipidemia, unspecified; Z78.9 Other specified health status | CPT/HCPCS: 99212 ==

== ENCOUNTER 2025-02-07 13:04 | Outpatient (AMB) | payer MEDICARE, SELFPAY ==
--- NOTE | 2025-02-06 20:56 | A.OFFVIS_ITS ---
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 Most recent HbA1c: 8.5%, 12/15/2024 Random Glucose- 158 mg/dL, Today Network Engineering Advisor Required: No Accompanied by: Self / Same As Patient Allergies amoxicillin (From AUGMENTIN) Allergy (Severe, Verified 02/21/25 11:22) Diarrhea, malaise celecoxib (Celebrex) Allergy (Severe, Verified 02/21/25 11:22) Malaise clavulanic acid (From AUGMENTIN) Allergy (Severe, Verified 02/21/25 11:22) Diarrhea, malaise gabapentin (GABAPENTIN) Allergy (Severe, Verified 02/21/25 11:22) TREMORS morphine Allergy (Severe, Verified 02/21/25 11:22) BLACKED-OUT, CRAZY cephalexin (Keflex) Allergy (Unknown, Verified 02/21/25 11:22) Unknown diltiazem (Cardizem) Allergy (Unknown, Verified 02/21/25 11:22) Unknown Penicillins (PENICILLINS) Allergy (Unknown, Verified 02/21/25 11:22) Unknown clindamycin Allergy (Verified 02/21/25 11:22) Unconscious peanut Allergy (Verified 02/21/25 11:22) Unknown fluvastatin (From Lescol) Adverse Reaction (Severe, Verified 02/21/25 11:22) Joint Pain pecan nut (PECAN) Adverse Reaction (Severe, Verified 02/21/25 11:22) Anaphylaxis erythromycin base Adverse Reaction (Verified 02/21/25 11:22) Vomiting HPI Comments Details: [age] YO male who is seen in f/u for T2DM. He was last seen by Dr. Adri Alejandra 11/01/2024. Hemoglobin A1c 12/15/24 8.5%. Initially diagnosed with T2DM in 2011. Was initially started on treatment with metformin. Has had intolerance to Januvia, Invokana, metformin and Victoza Current regimen Toujeo 12 units Humalog 6 units t.i.d. He is not on a glucose sensor and does not have his meter. Reports low sugars; he has a prior history of lows Overdue for eye exam, denies retinopathy. Has neuropathy, has not see podiatry No nephropathy, not on [RIANNA/ARB]. 05/26/24 microalbumin 22.0 12/19/2024 eGFR>60 Has HLD, on Repatha. Last LDL 142 as measured on 05/26/2024. Denies CAD. Was hospitalized in December for acute hypoxic failure. Has not had diabetes education. [facility] Medical History Statin intolerance Prostate cancer Prostate cancer MRSA (methicillin resistant Staphylococcus aureus) Arthritis Low back pain GERD (gastroesophageal reflux disease) Anxiety and depression B12 deficiency Elevated PSA Dyslipidemia Hypertension Diabetic polyneuropathy associated with type 2 diabetes mellitus [facility] (current) use of insulin Diabetes type 2, controlled Surgical History History of prostate biopsy Hx of colonoscopy History of esophagogastroduodenoscopy (EGD) Hx of lithotripsy Hx of shoulder surgery History of colon resection Family History Father No problems noted. Mother No problems noted. Other No family history of cancer Social History Household Members: Children Household Members Other:: Son Housing: House Are you a primary director of primary care to a significant other at home: No Do you presently have visiting nurse or other home services: No Alcohol intake: never Patient Tobacco Use Status: Former Tobacco user Cigarette Packs Per Day: 1.5 service: No Current occupational status: retired Physical Exam Vital Signs: Last Vital Signs Pulse 69 02/07/25 13:13 BP 142/68 H 02/07/25 13:13 Pulse Ox 98 02/07/25 13:13 Oxygen Delivery Method Room Air 02/07/25 13:13 BMI result Body Mass Index 30.6 Absence of Cushingoid features. Absence of acromegalic features. Neck exam reveals nl size thyroid about 15 gms. No thyroid nodules palpable. No carotid bruits present. Lungs CTA. Heart S1 S2, Reg R/R. No M/R/ G. Skin exam reveals absence of vitiligo or acanthosis nigricans. Abdominal exam reveals Soft NT/ND with NA BS. No organomegaly present. Neck Other: . Extrem Other: Visual exam of foot performed. No ulcerations or open lesions. No onchomycosis, no callouses.Pulses 2 + distally Sensation intact to monofilament exam. Vibratory sensation sensed is intact with 128 Hz tuning fork Results Reviewed Results Reviewed: Laboratory Last Values Glucose (Clinic) 158 mg/dL (60-115) H 02/07/25 13:25 Assessment & Plan Assessment & Plan (1) Diabetes type 2, controlled: Code(s): E11.9 - Type 2 diabetes mellitus without complications Category: Medical Plan: Type 2 diabetic with neuropathy with most recent A1c 12/15/2024 8.5%. Given his age and comorbidities an A1c of under 8% is acceptable. We will change Toujeo to Tresiba as he has overnight lows and running higher later in the day. We will get him started on a freestyle Den 3+ The patient had an opportunity to ask questions regarding treatment plan. The patient expressed understanding and agreement with the above treatment plan. The patient is aware they should contact our office by phone for worsening glucose readings or for any low blood sugars which may warrant a change in diabetes medication. Compliance is encouraged with medications and any followup testing/consults which may have been ordered. Medications: New blood-glucose,lump receiver,cont (FreeStyle Den 3 [place]) As directed for use with den sensor 1 ea 0RF insulin degludec (Tresiba FlexTouch U-100 insulin) 12 units (0.12 mL) subcut DAILY 10.8 mL 3RF 90 days Changed From FreeStyle Den 3 Plus Sensor every 14 days 6 ea 3RF NS E11.65 - Type 2 diabetes mellitus with hyperglycemia, Z79.4 - [facility] (current) use of insulin, E16.2 - Hypoglycemia, unspecified To FreeStyle Den 3 Plus Sensor (blood-glucose sensor) every 14 days 6 ea 3RF NS E11.65 - Type 2 diabetes mellitus with hyperglycemia, Z79.4 - [facility] (current) use of insulin, E16.2 - Hypoglycemia, unspecified From blood-glucose sensor every 14 days 1 ea 3RF E11.65 - Type 2 diabetes mellitus with hyperglycemia, Z79.4 - [facility] (current) use of insulin, E16.2 - Hypoglycemia, unspecified To blood-glucose sensor (FreeStyle Den 3 Plus Sensor device) every 15 days 6 ea 3RF E11.65 - Type 2 diabetes mellitus with hyperglycemia, 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, E16.2 - Hypoglycemia, unspecified From blood-glucose sensor every 15 days 6 ea 3RF E11.65 - Type 2 diabetes mellitus with hyperglycemia, Z79.4 - [facility] (current) use of insulin, E16.2 - Hypoglycemia, unspecified To blood-glucose sensor (FreeStyle Den 3 Plus Sensor device) every 15 days 6 ea 3RF E11.65 - Type 2 diabetes mellitus with hyperglycemia, 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, E16.2 - Hypoglycemia, unspecified From pen needle, diabetic 4 per day 400 ea 4RF E11.65 - Type 2 diabetes mellitus with hyperglycemia To pen needle, diabetic 4 per day 400 ea 4RF E11.65 - Type 2 diabetes mellitus with hyperglycemia From FreeStyle Den 3 Plus Sensor every 14 days 6 ea 3RF NS E11.65 - Type 2 diabetes mellitus with hyperglycemia, 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, E16.2 - Hypoglycemia, unspecified To FreeStyle Den 3 Plus Sensor (blood-glucose sensor) every 14 days 6 ea 3RF NS E11.65 - Type 2 diabetes mellitus with hyperglycemia, Z79.4 - [facility] (current) use of insulin, E16.2 - Hypoglycemia, unspecified From pen needle, diabetic 5 times a day 400 ea 4RF E11.65 - Type 2 diabetes mellitus with hyperglycemia To pen needle, diabetic 4 per day 400 ea 4RF E11.65 - Type 2 diabetes mellitus with hyperglycemia Patient Instructions: Always carry a source of sugar Check your feet daily looking for any signs of infection, drainage, redness, ulceration and seek medical attention if this occurs. Break in shoes gradually and do not wear open-toed shoes or walk stocking footed or barefooted. Coding Level of Care Code Est Pt Level 4 (15468) Complex EM visit Add On G2211 Diagnoses Diabetes type 2, controlled E11.9 Time Spent (min) 30 Comment Time spent reviewing labs/provider notes, face to face, chart doc
[2025-02-07 13:13] VITALS: BP 142/68; PULSE 69; O2SAT 98; BMI 30.6
[2025-02-07 13:32] LABS: Glucose, Whole Blood 158 mg/dL (60-115)
== END 2025-02-07 14:25 | disposition home or self-care (01) ==
LOC: HO.ENCR 13:05
PROVIDERS: PCP Internal Medicine; Visit Provider Nurse Practitioner Adult Health
DX: E11.9 Type 2 diabetes mellitus without complications (principal)
CPT/HCPCS: 99214; G2211

== ENCOUNTER → 2025-02-07 13:04 | Outpatient (BNVA) | payer MEDICARE, SELFPAY | PROVIDERS: PCP Internal Medicine; Visit Provider Nurse Practitioner Adult Health | DX: E11.65 Type 2 diabetes mellitus with hyperglycemia (principal); E16.2 Hypoglycemia, unspecified; Z79.4 Long term (current) use of insulin | CPT/HCPCS: 82947 ==

== ENCOUNTER 2025-02-21 11:20 | Outpatient (AMB) | payer MEDICARE, SELFPAY ==
[2025-02-21 11:21] VITALS: BP 158/76; PULSE 61; O2SAT 98; BMI 31.0
--- NOTE | 2025-02-21 11:21 | A.OFFVIS_ITS ---
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 Required: No Accompanied by: Self / Same As Patient Allergies amoxicillin (From AUGMENTIN) Allergy (Severe, Verified 02/21/25 11:22) Diarrhea, malaise celecoxib (Celebrex) Allergy (Severe, Verified 02/21/25 11:22) Malaise clavulanic acid (From AUGMENTIN) Allergy (Severe, Verified 02/21/25 11:22) Diarrhea, malaise gabapentin (GABAPENTIN) Allergy (Severe, Verified 02/21/25 11:22) TREMORS morphine Allergy (Severe, Verified 02/21/25 11:22) BLACKED-OUT, CRAZY cephalexin (Keflex) Allergy (Unknown, Verified 02/21/25 11:22) Unknown diltiazem (Cardizem) Allergy (Unknown, Verified 02/21/25 11:22) Unknown Penicillins (PENICILLINS) Allergy (Unknown, Verified 02/21/25 11:22) Unknown clindamycin Allergy (Verified 02/21/25 11:22) Unconscious peanut Allergy (Verified 02/21/25 11:22) Unknown fluvastatin (From Lescol) Adverse Reaction (Severe, Verified 02/21/25 11:22) Joint Pain pecan nut (PECAN) Adverse Reaction (Severe, Verified 02/21/25 11:22) Anaphylaxis erythromycin base Adverse Reaction (Verified 02/21/25 11:22) Vomiting HPI Comments Details: [age] YO male who is seen in f/u for T2DM. He was last seen several weeks ago at which time a freestyle Den was ordered and insulin was changed from Toujeo to Tresiba. Hemoglobin A1c 12/15/24 8.5%. Initially diagnosed with T2DM in 2011. Yasmany <5.0 2021 Was initially started on treatment with metformin. Has had intolerance to Januvia, Invokana, metformin and Victoza Current regimen Tresiba 12 units Humalog 6 units t.i.d. freestyle den average glucose: 188 14 day continuous glucose monitor report reviewed Glucose Managment indicator 7.8 % TIme in ranges: 7 % very high (above 250) 47 % high ?(181-250) 46 % in range ?(70-180] 0 % low (69-55) 0 % ?very low (below 54) Numbers in reasonable range given his age Reports low sugars; he has a prior history of lows Overdue for eye exam, denies retinopathy. Has neuropathy, has seen pod in the past No nephropathy, not on [RIANNA/ARB]. 05/26/24 microalbumin 22.0 12/19/2024 eGFR>60 Has HLD, on Repatha. Last LDL 142 as measured on 05/26/2024. Denies CAD. Was hospitalized in December for acute hypoxic failure. Has not had diabetes education. 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 Mother No problems noted. Other No family history of cancer Social History Household Members: Children Household Members Other:: Son Housing: House Are you a primary animal care giver to a significant other at home: No Do you presently have visiting nurse or other home services: No Alcohol intake: never Patient Tobacco Use Status: Former Tobacco user Cigarette Packs Per Day: 1.5 service: No Current occupational status: retired Physical Exam Vital Signs: Last Vital Signs Pulse 61 02/21/25 11:21 BP 158/76 H 02/21/25 11:21 Pulse Ox 98 02/21/25 11:21 Oxygen Delivery Method Room Air 02/21/25 11:21 BMI result Body Mass Index 31.0 Const Other: Absence of Cushingoid features. Absence of acromegalic features. Neck exam reveals nl size thyroid about 15 gms. No thyroid nodules palpable. Heart S1 S2, Reg R/R. No M/R G. Skin exam reveals absence of vitiligo or acanthosis nigricans. Visual exam of foot performed. No ulcerations or open lesions. No inter digit maceration or fissuring. + onychomycosis, no callouses. Sensation diminished to monofilament Vibratory sensation is normal with 128 Hz tuning fork. Results Reviewed Results Reviewed: Laboratory Last Values Glucose (Clinic) 184 mg/dL (60-115) H 02/21/25 11:29 Assessment & Plan Assessment & Plan (1) Diabetes type 2, controlled: Comment: yasmany <5.0 Code(s): E11.9 - Type 2 diabetes mellitus without complications Category: Medical Plan: 72-year-old type 2 diabetic with neuropathy and improving glycemic control. He has been intolerant to multiple medications in his currently on MDI. Last A1c was 8.4% current 2 week GMI is 7.8% Given his advanced age, this is a reasonable target for him. Continue current medications Patient Instructions: Always carry a source of sugar Check your feet daily looking for any signs of infection, drainage, redness, ulceration and seek medical attention if this occurs. Break in shoes gradually and do not wear open-toed shoes or walk stocking footed or barefooted. Coding Level of Care Code Est Pt Level 4 (58210) Complex EM visit Add On G2211 Diagnoses Diabetes type 2, controlled E11.9 Time Spent (min) 30 Comment Time spent reviewing labs/provider notes, face to face, chart doc
[2025-02-21 11:36] LABS: Glucose, Whole Blood 184 mg/dL (60-115)
--- OUTSIDE RECORDS SUMMARY | 2025-02-21 12:30 | XMS_ITS | Continuity of Care Document ---
Author Organization [facility] Address [address] [place] [phone] Support Name Relationship Address Phone RAMIREZ, JO NAN Personal Relationship Unknown Unav ailable RAMIREZ, IDRIS [...] Unknown Unav ailable Care Team Providers Care Cad Developer Name Role Phone Bill Trejo MD Primary Care Physician [phone] Encounter [facility] Date(s): 01/18/25 - 02/17/25 [facility] [address] [place] [address]- Encounter Type: Triage Allergies, Adverse Reactions, Alerts [...] virus vaccine, inactivated 06/18/09 Give n SARS-CoV-2(COVID-19)mRNA-LNP vac(gye131) 07/14/23 Recorded [id number] 12y+ bivalent booster vax 10/26/22 Recorded tetanus/diphtheria/pertussis, [...] Other : post doc 2Result Comment: [07/07/2018] [id number] 3Result Comment: [07/07/2017] [facility] [id number] 4Result Comment: [08/30/2016] [employer] [facility] 5Result Comment: [id number] 6Result Comment: [04/26/2016] RECEIVED AT [facility] [facility] 7Admin Note: added by history Problem List [...] reflux disease) egd 2016 5 Confirmed Active senior living use of drug lamotrigine 6 Confirmed Active [...] Personnel Name: Maya COLLINS, Bill Alves Position: [facility] Physician - Primary Care Member Role: PCP Address: [address] [place] [phone]- Telecom: Care Team Related Persons Name: JASIEL RAMIREZ Insurance Providers Guarantor name: JUANA RAMIREZ Health Plan Information #: 1 Payer: [employer] PPO Member Number: NA Policy Number: NA Group Number: NA
--- OUTSIDE RECORDS SUMMARY | 2025-02-21 12:30 | XMS_ITS | Continuity of Care Document ---
Author Organization [facility] Address [address] [place] [address]- Support Name Relationship Address Phone RAMIREZ, JO [...] Unknown Unav ailable Care Team Providers Care Machine Stone Polisher Apprentice Name Role Phone Bill Trejo MD Primary Care Physician [phone] [facility] Date(s): 01/18/25 - 02/17/25 [facility] Adult [address] [place] [address]- Encounter Type: Triage Allergies, Adverse Reactions, Alerts [...] virus vaccine, inactivated 06/18/09 Give n SARS-CoV-2(COVID-19)mRNA-LNP vac(osu817) 07/14/23 Recorded [id number] 12y+ bivalent booster vax 10/26/22 Recorded tetanus/diphtheria/pertussis, [...] Other : post doc 2Result Comment: [07/07/2018] [id number] 3Result Comment: [07/07/2017] [facility] [id number] 4Result Comment: [08/30/2016] [facility] 5Result Comment: [facility]-[id number] 6Result Comment: [04/26/2016] RECEIVED AT [facility] 7Admin Note: added by history Problem [...] reflux disease) egd 2016 5 Confirmed Active residential use of drug lamotrigine 6 Confirmed Active [...] Personnel Name: Maya COLLINS, Bill Alves Position: [facility] Physician - Primary Care Member Role: PCP Address: [address] [place] [address]- Telecom: Care Team Related Persons Name: JASIEL RAMIREZ Insurance Providers Guarantor name: JUANA RAMIREZ Health Plan Information #: 1 Payer: [employer] PPO Member Number: NA Policy Number: NA Group Number: NA
== END 2025-02-21 12:05 | disposition home or self-care (01) ==
LOC: HO.ENCR 11:20
PROVIDERS: PCP Internal Medicine; Visit Provider Nurse Practitioner Adult Health
DX: E11.9 Type 2 diabetes mellitus without complications (principal)
CPT/HCPCS: 99214; G2211

== ENCOUNTER → 2025-02-21 11:20 | Outpatient (BNVA) | payer MEDICARE, SELFPAY | PROVIDERS: PCP Internal Medicine; Visit Provider Nurse Practitioner Adult Health | DX: E11.40 Type 2 diabetes mellitus with diabetic neuropathy, unspecified (principal) | CPT/HCPCS: 82947; 99212 ==

== ENCOUNTER 2025-05-27 09:39 | Outpatient (AMB) | payer MEDICARE, SELFPAY ==
[2025-05-27 09:43] VITALS: BP 170/80; PULSE 83; O2SAT 98; BMI 31.1
--- NOTE | 2025-05-27 09:43 | A.OFFVIS_ITS ---
Vital Signs 3 05/27/25 09:43 Height 5 ft 2 in Weight 170 lb 3.15 oz BMI 31.1 BP 170/80 H Blood Pressure Location Lt brachial Position Sitting Pulse 83 Pulse Source Pulse Oximeter Pulse Oximetry (%) 98 Oxygen Delivery Method Room Air Intake Visit Reasons: T2DM Intake Note: Patient present today for Type 2 Diabetes Mellitus Last Diabetic eye exam: Patient is not sure of the month but it was within the year. Last Podiatry Visit: Doesn't have one but would like a referral Random Glucose: 136 mg/dl HgA1C: 8.4% Ground Support Agent Required: No Accompanied by: Self / Same As Patient Allergies amoxicillin (From AUGMENTIN) Allergy (Severe, Verified 05/27/25 09:50) Diarrhea, malaise celecoxib (Celebrex) Allergy (Severe, Verified 05/27/25 09:50) Malaise clavulanic acid (From AUGMENTIN) Allergy (Severe, Verified 05/27/25 09:50) Diarrhea, malaise gabapentin (GABAPENTIN) Allergy (Severe, Verified 05/27/25 09:50) TREMORS morphine Allergy (Severe, Verified 05/27/25 09:50) BLACKED-OUT, CRAZY cephalexin (Keflex) Allergy (Unknown, Verified 05/27/25 09:50) Unknown diltiazem (Cardizem) Allergy (Unknown, Verified 05/27/25 09:50) Unknown Penicillins (PENICILLINS) Allergy (Unknown, Verified 05/27/25 09:50) Unknown clindamycin Allergy (Verified 05/27/25 09:50) Unconscious peanut Allergy (Verified 05/27/25 09:50) Unknown fluvastatin (From Lescol) Adverse Reaction (Severe, Verified 05/27/25 09:50) Joint Pain pecan nut (PECAN) Adverse Reaction (Severe, Verified 05/27/25 09:50) Anaphylaxis erythromycin base Adverse Reaction (Verified 05/27/25 09:50) Vomiting Medication List - Last Reconciled 05/27/25 by Tanya Perez MD amlodipine 10 mg PO DAILY BD AutoShield Duo Pen Needle (pen needle,diabetic dual safty) once monthly subcutaneous or IM NS blood sugar diagnostic As directed blood sugar diagnostic (Contour Test Strips) As directed blood sugar diagnostic (FreeStyle Precision Marcio Strips) Four times daily blood-glucose meter (Contour Meter kit) As directed blood-glucose sensor (FreeStyle Den 3 Plus Sensor device) every 15 days blood-glucose,film touch up inspector,cont (FreeStyle Den 3 [place]) As directed for use with den sensor celecoxib 200 mg PO DAILY cholecalciferol (vitamin D3) (Vitamin D3) 50 mcg PO DAILY clonidine HCl 0.4 mg PO BID cyanocobalamin (vitamin B-12) 1,000 mcg IM Q4W 10 weeks diphenoxylate-atropine 2.5-0.025 mg 3 tabs PO BID PRN evolocumab (Repatha SureClick) 140 mg subcut Q2W flash glucose sensor Every 14 days FreeStyle Den 3 Plus Sensor (blood-glucose sensor) every 14 days NS furosemide 20 mg PO BID Humalog KwikPen Insulin (insulin lispro) See Protocol 6 units subcutaneously 15 minutes before meals; NS ibuprofen 200 mg PO Q6H insulin degludec (Tresiba FlexTouch U-100 insulin) 12 units (0.12 mL) subcut DAILY 90 days lamotrigine 75 mg PO BID lancets (FreeStyle Lancets) As directed twice daily levetiracetam 2,000 mg PO BID paroxetine HCl 20 mg PO DAILY pen needle, diabetic 4 per day tramadol 50 mg PO BID PRN valsartan 80 mg PO DAILY HPI Comments Details: 80 YO male who is seen in f/u for T2DM. He was last seen several weeks ago at which time a freestyle Den was ordered Initially diagnosed with T2DM in 2011. Yasmany <5.0 2021 a1c 8.4 % POC 05/27/25 Hemoglobin A1c 12/15/24 8.5%. Prior therapy Was initially started on treatment with metformin. Has had intolerance to Januvia, Invokana, metformin and Victoza Insulin was changed from Toujeo to Tresiba in February 2025 Current regimen Tresiba 14 units at AM Humalog 4-6 units t.i.d. , mostly taking it at the time of eating meals hasnt worn free style den in 5 weeks , hasnt been using meter Reports low sugars; does have symptoms, last eye appointment , sometime 2024, denies retinopathy. Has neuropathy, has seen pod in the past , referral placed now No nephropathy, not on [RIANNA/ARB]. 05/26/24 microalbumin 22.0 12/19/2024 eGFR>60 Has HLD, on Repatha. Last LDL 142 as measured on 05/26/2024. Denies CAD. Has not had diabetes education. Physical exam General: sitting comfortably in no acute distress HEENT: normocephalic/atraumatic Neck: supple Cardiac: normal heart sounds Pulm: normal breath sounds B/L, no added breath sounds Abd: not distended, no tenderness Extremities: no edema, no signs of myxedema Neuro: AAO x3, Speech: normal, no facial droop, moving all 4 extremities Foot exam: Intact sensation to monofilament, long nails, skin sloughing noted, poor foot care, intact pulses, warm and well-perfused feet Laboratory Tests 05/26/24 08/29/24 12/14/24 09:45 08:39 12:11 Hgb Hct Plt Count Creatinine Estim Creat Clear Calc Estimated GFR AST 15 ALT 26 Triglycerides 179 H Cholesterol 96 LDL Cholesterol, Calc 14 HDL Cholesterol 47 Urine Creatinine 107.40 Urine Microalbumin 22.0 Microalb/Creat Ratio 20.4 12/18/24 12/19/24 06:11 06:24 Hgb 11.2 L Hct 32.6 L Plt Count 239 Creatinine 0.83 Estim Creat Clear Calc 68.1 Estimated GFR > 60 AST ALT Triglycerides Cholesterol LDL Cholesterol, Calc HDL Cholesterol Urine Creatinine Urine Microalbumin Microalb/Creat Ratio [facility] Medical History (Updated 05/27/25 @ 10:23 by Tanya Perez MD) Dyslipidemia associated with type 2 diabetes mellitus Statin intolerance Prostate cancer Prostate cancer MRSA (methicillin resistant Staphylococcus aureus) Arthritis Low back pain GERD (gastroesophageal reflux disease) Anxiety and depression B12 deficiency Elevated PSA Dyslipidemia Hypertension Diabetic polyneuropathy associated with type 2 diabetes mellitus residential (current) use of insulin Diabetes type 2, controlled Surgical History History of prostate biopsy Hx of colonoscopy History of esophagogastroduodenoscopy (EGD) Hx of lithotripsy Hx of shoulder surgery History of colon resection Family History Father No problems noted. Mother No problems noted. Other No family history of cancer Social History Household Members: Children Household Members Other:: Son Housing: House Are you a primary disabilities caregiver to a significant other at home: No Do you presently have visiting nurse or other home services: No Alcohol intake: never Patient Tobacco Use Status: Former Tobacco user Cigarette Packs Per Day: 1.5 service: No Current occupational status: retired Physical Exam Vital Signs: Last Vital Signs Pulse 83 05/27/25 09:43 BP 170/80 H 05/27/25 09:43 Pulse Ox 98 05/27/25 09:43 Oxygen Delivery Method Room Air 05/27/25 09:43 BMI result Body Mass Index 31.1 Results AMB Hemoglobin A1c 2 AMB Hemoglobin A1c 8.4 % Last Edit by ELLEN Burden on 05/27/25 10:02 Results Reviewed Results Reviewed: Laboratory Last Values Glucose (Clinic) 136 mg/dL (60-115) H 05/27/25 09:51 Assessment & Plan Assessment & Plan (1) residential (current) use of insulin: Code(s): Z79.4 - residential (current) use of insulin Category: Medical Plan: See below (2) Type 2 diabetes mellitus with hyperglycemia: Code(s): E11.65 - Type 2 diabetes mellitus with hyperglycemia Category: Medical Qualifiers: Diabetes mellitus termite technician insulin use: with half-way use Qualified Code(s): E11.65 - Type 2 diabetes mellitus with hyperglycemia; Z79.4 - adjunct faculty for medical terminology (current) use of insulin Plan: 80-year-old male with a history of type 2 diabetes mellitus with complications of neuropathy who is on basal bolus regimen. He has not been checking his blood sugars or wearing his freestyle Den for the past 5 weeks. Says it has just been neglect on his and because he has been getting frustrated. He does report hypoglycemia. I told him importance of wearing freestyle Den for continuous glucose monitoring. At this point I do not have much data to adjust his insulin regimen. Mostly he says he does have low blood sugars when he does not eat as much has a anticipated after taking the insulin. I told him while it is ideal to take insulin 15 minutes before meals, when he is not sure how much she is going to eat he can take it at the time of his meal. I will plan to see him back in 5-6 weeks with more data to adjust his insulin. Hypoglycemia education done. Plan: -continue current insulin Tresiba 14 units daily -continue insulin Humalog 4-6 units t.i.d. before meals -reviewed importance of glucose monitoring -hypoglycemia education done -poor foot care noted, podiatry referral placed -due for lipid panel, urine microalbumin, CBC, kidney function, orders placed. -follow up in 5-6 weeks (3) Dyslipidemia associated with type 2 diabetes mellitus: Code(s): E11.69 - Type 2 diabetes mellitus with other specified complication; E78.5 - Hyperlipidemia, unspecified Category: Medical Plan: LDL 142 from 2023. Needs repeat labs. He is currently on Repatha. Plan: -continue Repatha -ordered lipid panel Plan I spent 30 minutes in reviewing the record, seeing the patient and documenting in the medical record. Orders: Orders 2 AMB Hemoglobin A1c Today E11.8 - Type 2 diabetes mellitus with unspecified complications, Z13.9 - Encounter for screening, unspecified Microalbumin, Random (w Creat) Today E11.8 - Type 2 diabetes mellitus with unspecified complications, E78.5 - Hyperlipidemia, unspecified, Z79.4 - residential (current) use of insulin Complete Blood Count no Diff Today E11.8 - Type 2 diabetes mellitus with unspecified complications, E78.5 - Hyperlipidemia, unspecified, Z79.4 - residential (current) use of insulin Alanine Aminotransferase Today E11.8 - Type 2 diabetes mellitus with unspecified complications, E78.5 - Hyperlipidemia, unspecified, Z79.4 - residential (current) use of insulin Lipid Panel Today E11.8 - Type 2 diabetes mellitus with unspecified complications, E78.5 - Hyperlipidemia, unspecified, Z79.4 - adjunct faculty for medical terminology (current) use of insulin Creatinine Today E11.8 - Type 2 diabetes mellitus with unspecified complications, E78.5 - Hyperlipidemia, unspecified, Z79.4 - residential (current) use of insulin Aspartate Amino Transferase Today E11.8 - Type 2 diabetes mellitus with unspecified complications, E78.5 - Hyperlipidemia, unspecified, Z79.4 - residential (current) use of insulin Referrals 2 Podiatry Referral E11.65 - Type 2 diabetes mellitus with hyperglycemia, Z79.4 - residential (current) use of insulin Patient Instructions: Wear sensor Continue current insulin regimen See foot doctor Do fasting blood work and urine test before next visit Rule of 15 Treatment for Hypoglycemia (Low blood sugar) If your blood glucose is low (70 and below)*, follow the steps below to treat: Eat or drink something from the list below equal to 15 grams of carbohydrate (carb). Rest for 15 minutes Re-check your blood glucose. If it is still low, (below 70), repeat step 1 above. ? If your next meal is more than an hour away, you will need to eat one carbohydrate choice as a snack to keep your blood glucose from going low again. ?If you can't figure out why you have low blood glucose, call your healthcare provider, as your medicine may need to be adjusted. ?Always carry something with you to treat an insulin reaction. Use food from the list below. ? Foods equal to One Carbohydrate Choice (15 grams of carbohydrate): 3 Glucose ?tablets or 4 Dextrose tablets 4 ounces of fruit juice 5-6 ounces (about 1/2 can) of regular soda such as Coke or Pepsi ? 7-8 gummy or regular Life Savers ? 1 Tbsp. of sugar or jelly NOTE: If your blood sugar is less than 50, double the portion above for a total of 30 gm. ?Carbohydrate. ? Follow meal plan of 45-60 g of consistent carbohydrates at 3 meals each day and 15 g of carbohydrate at 1-2 snacks each day. Coding Level of Care Code Est Pt Level 4 (83015) Complex EM visit Add On G2211 Diagnoses adjunct faculty for medical terminology (current) use of insulin Z79.4 Type 2 diabetes mellitus with hyperglycemia, with long-term current use of insulin E11.65; Z79.4 Diabetes mellitus half-way insulin use: with termite technician use Dyslipidemia associated with type 2 diabetes mellitus E11.69; E78.5
[2025-05-27 09:56] LABS: Glucose, Whole Blood 136 mg/dL (60-115)
--- OUTSIDE RECORDS SUMMARY | 2025-05-27 10:16 | XMS_ITS | Patient Health Record ---
Author Organization [facility] Address [address] [place] [address] Care Team Providers Care Audiology Assistant Name Role Phone Gary (RETIRED) Luis COLLINS Primary Care Prov ider Unavailable Chris Marr Unavailable [phone] Sarah Anderson MD Unavailable Unavailable Allergies Allergen (clinical drug ingredient) Drug/Non Drug Allergy documented on EMR Reaction Allergy Type Onset Date Status morphine Morphine Sulfate Unknown Drug Allergy Active Reason For Referral No Information Medications Medication SIG (Take, Route, Frequency, Duration) Notes Start Date End Date Status traZODone HCl Orally Once a day Active Pantoprazole Sodium 40 MG 1 tablet Orall y BID for 90 days 06/07/2018 Active cloNIDine HCl 0.1 MG Orally Twice a day Active Tradjenta 5 MG 1 tablet Orally Once a day 06/07/2018 Active NexIUM 40 MG 6 capsule Orally Onc e a day Active amLODIPine Besylate 10 MG 1 tablet Orall y Once a day Active Vitamin D Active Advair HFA 250/50 2 puffs Inhalation Twice a day Active HumaLOG 100 UNIT/ML as directed Subcutaneous as directed Active Accolate 10 MG 1 tablet Orally Twic e a day Active levETIRAcetam 500 MG Oral for 30 Active Paxil 10 MG 1 tablet in the morn ing Orally Once a day Active Simvastatin Not-Taki ng Lisinopril 2.5 MG 1 tablet Orally Once a day Active lamoTRIgine 25 MG take 3 tablets by mo ut twice a day Oral for 30 Active Excedrin Extra Strength Active Problems Problem Type SNOMED Code ICD Code Onset Dates Problem Status W/U Status Risk Notes Problem Acute posthemorrhagic anemia (D62) Active confirmed Problem 726478100 Blood in stool (K92.1) Active confirmed Problem 232298949 Gastroesophageal reflux disease without esophagitis (K21.9) Active confirmed Problem 783944154 History of colon polyps (Z86.010) Active confirmed Problem 698888717 History of colon cancer (Z85.038) Active confirmed Problem 959758302 Abnormal CT scan , esophagus (R93.3) Active confirmed Problem 601930286 Abnormal barium swallow (R93.3) Active confirmed Problem 66032357 Esophageal dysph agia (R13.10) Active confirmed Plan Of Treatment Pending Test Test Name Order Date Esophageal Motility study 02/07/2018 XR BARIUM SWALLOW-ESOPHAGUS 02/07/2018 Future Test Test Name Order Date UPPER GI ENDOSCOPY 06/26/2014 COLONOSCOPY 06/26/2014 Insurance Providers Payer Name Payer Address Payer Phone Subscriber Number Group Number Insured Name Patient Relationship to Insured Coverage Start Date Coverage End Date [facility] [address] [address] [place] [address] [id number] JUANA RAMIREZ Self - patient is the insured Medicare of [place] [employer] [address] [place] [address] [id number] JUANA RAMIREZ Self - patient is the insured Medical (General) History Medical History History ICD Code Colon cancer--sigmoid cancer diagnosed in 03/2010--had surgery in 04/[address] Farley and a short course of chemo with Dr. Lowe--had to stop due to intolerance--it was felt that chemotherapy was important given an involvement of 4 lymph nodes. He has refused further recommendations regarding any further attempts at adjuvant therapy. asthma GERD--EGD in 03/2010--mod.-sized HH--no e sophagitis hyperlipidemia gout depression kidney stones denies [place], stroke, nor kidney disease ot herwise hypertension IDDM Colonoscopy in 11/2011 with removal of 1 small tubular adenoma from the cecum colonoscopy in September 2014 revealed 2 small tubular adenomas that were removed, descending colon diverticulosis above his anastomosis, and small internal hemorrhoids upper endoscopy in September 2014 revealed a small hiatal hernia, but no evidence of any significant esophagitis nor Ramirez's esophagus EGD in 09/2017---small HH, n o esophagitis, no Ramirez's, no stricture, dilated with 18 to 20 mm balloon; normal duodenal biopsies Colonoscopy in 09/2015 at [facility]-small tubular adenomas removed Surgical History Surgery Date(Month/Year) Sigmoid resection in 04/[address] Farley for colon cancer as above shoulder surgery ear surgery
--- OUTSIDE RECORDS SUMMARY | 2025-05-27 10:16 | XMS_ITS | Patient Health Record ---
Author Organization [facility] Address [address] [place] [address] Care Team Providers Care Senior Procurement Specialist Name Role Phone Gary COLLINS, Luis Primary Care Provider Unava ilable Mayra Condon Unavailable [phone] Reason For Referral No Information Medications Medication SIG (Take, Route, Frequency, Duration) Notes Start Date End Date Status cloNIDine HCl Active Lisinopril Active traZODone HCl Active NexIUM Active Paxil Active Accolate Active Advair HFA Active Problems Problem Type SNOMED Code ICD Code Onset Dates Problem Status W/U Status Risk Notes Problem Type 2 diabetes mellitus without complications (E11.9) Active confirmed Plan Of Treatment Pending Test Test Name Order Date [id number] DYSTROPHIC NAILS ANY # Insurance Providers Payer Name Payer Address Payer Phone Subscriber Number Group Number Insured Name Patient Relationship to Insured Coverage Start Date Coverage End Date [facility] [address] [place] [address] [phone] [id number] Spouse - patient is the spouse of the insured Medical (General) History Medical History History ICD Code Arthritis 716.90 Asthma 493.90 Cancer 199.1 Diabetes 250.00 Reflux esophagitis 530.11 Surgical History Surgery Date(Month/Year) colon 2009 gloria 1998 Hospitalization History Reason Date(Month/Year) [facility]-Back pain sciatica
--- OUTSIDE RECORDS SUMMARY | 2025-05-27 10:16 | XMS_ITS | Encounter Summary ---
Author Organization [facility] Address [address] [place] [address] Phone Care Team Providers Care Camera Technician Name Role Phone Luis Vega MD Primary Care Provide r Encounter Details Date Type Department Care Team (Late st Contact Info) Description 07/06/2021 Ancillary Orders [facility],Outside Imaging [address] [place], [place] [id number] System, Provider Not In, [facility] [address] [address] Social History Tobacco Use Types Packs/Day Years Used Date Smoking Tobacco: Never Assessed Sex and Gender Information Value Date Recorded Sex Assigned at Not on file Legal Sex Male 11:38 AM EDT Gender Identity Not on file Sexual Orientation Not on file documented as of this encounter Plan of Treatment Not on file documented as of this encounter Results * NM Other Outside (No Interpretation) (06/11/2021 12:00 AM EDT) Narrative SYSTEMGENERATED, DOCUMENTATION - 07/06/2021 10:23 AM EDT This study is for PACS storage only and not for interpretation. us Provider Not In System PhD IMG OUTSIDE IMAGING W /OUT INTERPRETATION Final Result documented in this encounter Visit Diagnoses Not on filedocumented in this encounter Care Teams Camera Technician Relationship Specialty Start Date End Date Luis Vega MD [address] [place] [address] [address] [place] [address] PCP - General Internal Medicine 07/03/21 documented as of this encounter Additional Source Comments The information contained in this document represents components of the legal health record. It is not the complete legal health record.[facility]
== END 2025-05-27 10:17 | disposition home or self-care (01) ==
LOC: HO.ENCR 09:40
PROVIDERS: PCP Internal Medicine; Visit Provider Student in an Organized Health Care Education/Training Program
DX: Z79.4 Long term (current) use of insulin (principal); E11.65 Type 2 diabetes mellitus with hyperglycemia; E11.69 Type 2 diabetes mellitus with other specified complication; E78.5 Hyperlipidemia, unspecified; Z13.9 Encounter for screening, unspecified; E11.8 Type 2 diabetes mellitus with unspecified complications
CPT/HCPCS: 99214; G2211

== ENCOUNTER → 2025-05-27 09:39 | Outpatient (BNVA) | payer MEDICARE, SELFPAY | PROVIDERS: PCP Internal Medicine; Visit Provider Student in an Organized Health Care Education/Training Program | DX: E11.65 Type 2 diabetes mellitus with hyperglycemia (principal); E11.42 Type 2 diabetes mellitus with diabetic polyneuropathy; E11.69 Type 2 diabetes mellitus with other specified complication; E78.49 Other hyperlipidemia; Z79.4 Long term (current) use of insulin; Z96.49 Presence of other endocrine implants; Z79.899 Other long term (current) drug therapy | CPT/HCPCS: 82947; 83036; 99212 ==

== ENCOUNTER 2025-07-15 08:17 | Outpatient (REF) | payer MEDICARE, SELFPAY ==
--- OUTSIDE RECORDS SUMMARY | 2025-07-15 08:34 | XMS_ITS | Patient Health Record ---
Author Organization [facility] Address [address] [place] [address] Care Team Providers Care Alum Operator Name Role Phone Gary (RETIRED) Luis COLLINS Primary Care Prov ider Unavailable Chris Marr Unavailable [phone] Sarah Anderson MD Unavailable Unavailable Allergies Allergen (clinical drug ingredient) Drug/Non Drug Allergy documented on EMR Reaction Allergy Type Onset Date Status Morphine Sulfate Unknown Drug Allergy Active Reason [...] Status Risk Notes Problem Acute posthemorrhagic anemia (267005727) Acute posthemorrhagic anemia (D62) Active confirmed Problem 068144371 Blood in stool (K92.1) Active confirmed Problem 984230659 Gastroesophageal reflux disease without esophagitis (K21.9) Active confirmed Problem 768400651 History of colon polyps (Z86.010) Active confirmed Problem 577875690 History of colon cancer (Z85.038) Active confirmed Problem 197258838 Abnormal CT scan , esophagus (R93.3) Active confirmed Problem 697573058 Abnormal barium swallow (R93.3) Active confirmed Problem 27011218 Esophageal dysphagia (R13.10) Active confirmed Plan Of Treatment Pending Test Test Name Order Date Esophageal Motility study 02/07/2018 XR BARIUM SWALLOW-ESOPHAGUS 02/07/2018 Future Test Test Name Order Date UPPER GI ENDOSCOPY 06/26/2014 COLONOSCOPY 06/26/2014 Insurance Providers Payer Name Payer Address Payer Phone Subscriber Number Group Number Insured Name Patient Relationship to Insured Coverage Start Date Coverage End Date [facility] [address] [address] [place] [address] [phone] [id number] JUANA RAMIREZ Self - patient is the insured Medicare of [place] [employer] [address] [place] [address] [id number] JUANA RAMRIEZ Self - patient is the insured Medical [...] sophagitis hyperlipidemia gout depression kidney stones denies [place], stroke, nor kidney disease ot herwise hypertension [...] normal duodenal biopsies Colonoscopy in 09/2015 at [facility]-small tubular adenomas removed Surgical History Surgery Date(Month/Year) Sigmoid resection in 04/[address] Farley for colon cancer as above shoulder surgery ear surgery
--- OUTSIDE RECORDS SUMMARY | 2025-07-15 08:34 | XMS_ITS | Patient Health Record ---
Author Organization [facility] [place] Address [address] [facility] [place] [address] Care Team Providers Care Shaker Washer Name Role Phone Gary COLLINS, Luis Primary Care Provider Unava ilable Mayra Condon Unavailable [phone] Reason For Referral No Information Medications Medication SIG (Take, Route, Frequency, Duration) Notes Start Date End Date Status cloNIDine HCl Active Lisinopril Active traZODone HCl Active NexIUM Active Paxil Active Accolate Active Advair HFA Active Problems Problem Type SNOMED Code ICD Code Onset Dates Problem Status W/U Status Risk Notes Problem Type II diabetes mellitus without complication (653652946) Type 2 diabetes mellitus without complications (E11.9) Active confirmed Plan Of Treatment Pending Test Test Name Order Date [id number] DYSTROPHIC NAILS ANY # Insurance Providers Payer Name Payer Address Payer Phone Subscriber Number Group Number Insured Name Patient Relationship to Insured Coverage Start Date Coverage End Date [facility] [address] [place] [address] [id number] Spouse - patient is the spouse of the insured Medical (General) History Medical History History ICD Code Arthritis 716.90 Asthma 493.90 Cancer 199.1 Diabetes 250.00 Reflux esophagitis 530.11 Surgical History Surgery Date(Month/Year) colon 2008 gloria 1998 Hospitalization History Reason Date(Month/Year) [facility]-Back pain sciatica
[2025-07-15 10:28] LABS: Hematocrit 33.9 % (42.0-52.0); Hemoglobin 11.3 g/dl (14.0-18.0); Mean Corpuscular HGB Conc 33.3 g/dl (31.0-36.0); Mean Corpuscular Hemoglobin 28.3 pg (27.0-33.0); Mean Corpuscular Volume 85.0 fL (80.0-98.0); NRBC Abs Auto 0.000 X10*3/uL (0.0-0.012); NRBC Pct Auto 0.0 /100WBC (0.0-0.2); Platelet Count 266 X10*3/uL (160-400); Red Blood Count 3.99 X10*6/uL (4.60-5.80); White Blood Count 6.7 X10*3/uL (4.8-10.8)
[2025-07-15 10:45] LABS: Alanine Aminotransferase 12 U/L (0-40); Aspartate Amino Transferase 19 U/L (5-37); Cholesterol 215 mg/dL (<200); Estimated Glomerular Filt Rate > 60; HDL Cholesterol 50 mg/dL (>40); Triglycerides 243 mg/dL (<150)
[2025-07-15 11:31] LABS: Microalbum/Creatinine Ratio Ur 27.3 ug/mg cr (<30)
== END 2025-07-15 08:18 | disposition home or self-care (01) ==
LOC: HO.HMGCLDS 08:17
PROVIDERS: PCP Internal Medicine; Visit Provider Student in an Organized Health Care Education/Training Program
DX: E78.5 Hyperlipidemia, unspecified (principal); E11.8 Type 2 diabetes mellitus with unspecified complications; Z79.4 Long term (current) use of insulin
CPT/HCPCS: 36415; 80061; 82043; 82565; 82570; 84450; 84460; 85027

== ENCOUNTER 2025-07-16 09:42 | Outpatient (AMB) | payer MEDICARE, SELFPAY ==
[2025-07-16 09:46] VITALS: BP 160/64; PULSE 87; O2SAT 98; BMI 31.6
--- NOTE | 2025-07-16 09:46 | A.OFFVIS_ITS ---
Vital Signs 3 07/16/25 09:46 Height 5 ft 2 in Weight 172 lb 13.478 oz BMI 31.6 BP 160/64 H Blood Pressure Location Lt brachial Position Sitting Pulse 87 Pulse Source Pulse Oximeter Pulse Oximetry (%) 98 Oxygen Delivery Method Room Air Intake Visit Reasons: T2DM Intake Note: Patient present today for Type 2 Diabetes Mellitus Last Diabetic eye exam: Last exam was about 1 year ago Last Podiatry Visit: Doesn't have one Random Glucose: 218 mg/dl HgA1C: 8.4% 05/27/25 Home Restoration Service Cleaner Required: No Accompanied by: Self / Same As Patient Allergies amoxicillin (From AUGMENTIN) Allergy (Severe, Verified 07/16/25 09:53) Diarrhea, malaise celecoxib (Celebrex) Allergy (Severe, Verified 07/16/25 09:53) Malaise clavulanic acid (From AUGMENTIN) Allergy (Severe, Verified 07/16/25 09:53) Diarrhea, malaise gabapentin (GABAPENTIN) Allergy (Severe, Verified 07/16/25 09:53) TREMORS morphine Allergy (Severe, Verified 07/16/25 09:53) BLACKED-OUT, CRAZY cephalexin (Keflex) Allergy (Unknown, Verified 07/16/25 09:53) Unknown diltiazem (Cardizem) Allergy (Unknown, Verified 07/16/25 09:53) Unknown Penicillins (PENICILLINS) Allergy (Unknown, Verified 07/16/25 09:53) Unknown clindamycin Allergy (Verified 07/16/25 09:53) Unconscious peanut Allergy (Verified 07/16/25 09:53) Unknown fluvastatin (From Lescol) Adverse Reaction (Severe, Verified 07/16/25 09:53) Joint Pain pecan nut (PECAN) Adverse Reaction (Severe, Verified 07/16/25 09:53) Anaphylaxis erythromycin base Adverse Reaction (Verified 07/16/25 09:53) Vomiting Medication List - Last Reconciled 07/16/25 by Tanya Perez MD amlodipine 10 mg PO DAILY BD AutoShield Duo Pen Needle (pen needle,diabetic dual safty) once monthly subcutaneous or IM NS blood sugar diagnostic As directed blood sugar diagnostic (Contour Test Strips) As directed blood sugar diagnostic (FreeStyle Precision Marcio Strips) Four times daily blood-glucose meter (Contour Meter kit) As directed blood-glucose sensor (FreeStyle Den 3 Plus Sensor device) every 15 days blood-glucose,hvac r instructor,cont (FreeStyle Den 3 [place]) As directed for use with den sensor celecoxib 200 mg PO DAILY cholecalciferol (vitamin D3) (Vitamin D3) 50 mcg PO DAILY clonidine HCl 0.4 mg PO BID cyanocobalamin (vitamin B-12) 1,000 mcg IM Q4W 10 weeks diphenoxylate-atropine 2.5-0.025 mg 3 tabs PO BID PRN evolocumab (Repatha SureClick) 140 mg subcut Q2W flash glucose sensor Every 14 days FreeStyle Den 3 Plus Sensor (blood-glucose sensor) every 14 days NS furosemide 20 mg PO BID ibuprofen 200 mg PO Q6H insulin degludec (Tresiba FlexTouch U-100 insulin) 12 units (0.12 mL) subcut DAILY 90 days lamotrigine 75 mg PO BID lancets (FreeStyle Lancets) As directed twice daily levetiracetam 2,000 mg PO BID Novolog FlexPen U-100 Insulin (insulin aspart U-100) 6 units (0.06 mL) subcut TID NS paroxetine HCl 20 mg PO DAILY pen needle, diabetic 4 per day tramadol 50 mg PO BID PRN valsartan 80 mg PO DAILY HPI Comments Details: 80 YO male who is seen in f/u for T2DM. He was last seen May 2025 Initially diagnosed with T2DM in 2011. Yasmany <5.0 2021 a1c 8.4 % POC 05/27/25 Hemoglobin A1c 12/15/24 8.5%. Prior therapy Was initially started on treatment with metformin. Has had intolerance to Januvia, Invokana, metformin and Victoza Insulin was changed from Toujeo to Tresiba in February 2025 Current regimen Tresiba 12 units at AM Humalog 4-6 units t.i.d. , mostly taking it at the time of eating meals Freestyle Den 3+ downloaded over the past 2 weeks Time CGM active 87% Average glucose 176 mg/dL G WA 7.5% Glucose variability 24% Target range 61% High titers% Very high 6% Low 1% Interpretation: He is having a lot of daytime highs especially in the morning. Random Glucose: 218 mg/dl Reports low sugars; does have symptoms, last eye appointment , sometime 2024, denies retinopathy. Has neuropathy, has seen pod in the past , referral placed now No nephropathy, not on [RIANNA/ARB]. 08/03 microalbumin 11 07/2025 eGFR>60 Has HLD, on Repatha. Last LDL 117 mg/dL from July 2025 Denies CAD. Has not had diabetes education. Physical exam General: sitting comfortably in no acute distress HEENT: normocephalic/atraumatic Neck: supple Cardiac: normal heart sounds Pulm: normal breath sounds B/L, no added breath sounds Abd: not distended, no tenderness Extremities: no edema, no signs of myxedema Neuro: AAO x3, Speech: normal, no facial droop, moving all 4 extremities Foot exam: Checked May 2025 Intact sensation to monofilament, long nails, skin sloughing noted, poor foot care, intact pulses, warm and well-perfused feet Laboratory Tests 05/26/24 08/29/24 12/14/24 09:45 08:39 12:11 Hgb Hct Plt Count Creatinine Estim Creat Clear Calc Estimated GFR AST 15 ALT 26 Triglycerides 179 H Cholesterol 96 LDL Cholesterol, Calc 14 HDL Cholesterol 47 Urine Creatinine 107.40 Urine Microalbumin 22.0 Microalb/Creat Ratio 20.4 12/18/24 12/19/24 06:11 06:24 Hgb 11.2 L Hct 32.6 L Plt Count 239 Creatinine 0.83 Estim Creat Clear Calc 68.1 Estimated GFR > 60 AST ALT Triglycerides Cholesterol LDL Cholesterol, Calc HDL Cholesterol Urine Creatinine Urine Microalbumin Microalb/Creat Ratio Laboratory Tests 05/27/25 07/15/25 07/16/25 09:55 08:46 09:57 Hgb 11.3 L Hct 33.9 L Plt Count 266 Creatinine 0.87 Estimated GFR > 60 Glucose (Clinic) 218 H Hgb A1c (Clinic) 8.4 H AST 19 ALT 12 Triglycerides 243 H Cholesterol 215 H LDL Cholesterol, Calc 117 H HDL Cholesterol 50 Urine Creatinine 40.27 Urine Microalbumin 11.0 Microalb/Creat Ratio 27.3 [facility] Medical History (Updated 05/27/25 @ 10:23 by Tanya Perez MD) Dyslipidemia associated with type 2 diabetes mellitus Statin intolerance Prostate cancer Prostate cancer MRSA (methicillin resistant Staphylococcus aureus) Arthritis Low back pain GERD (gastroesophageal reflux disease) Anxiety and depression B12 deficiency Elevated PSA Dyslipidemia Hypertension Diabetic polyneuropathy associated with type 2 diabetes mellitus intermediate frame tender (current) use of insulin Diabetes type 2, controlled Surgical History History of prostate biopsy Hx of colonoscopy History of esophagogastroduodenoscopy (EGD) Hx of lithotripsy Hx of shoulder surgery History of colon resection Family History Father No problems noted. Mother No problems noted. Other No family history of cancer Social History Household Members: Children Household Members Other:: Son Housing: House Are you a primary health care specialist to a significant other at home: No Do you presently have visiting nurse or other home services: No Alcohol intake: never Patient Tobacco Use Status: Former Tobacco user Cigarette Packs Per Day: 1.5 service: No Current occupational status: retired Physical Exam Vital Signs: Last Vital Signs Pulse 87 07/16/25 09:46 BP 160/64 H 07/16/25 09:46 Pulse Ox 98 07/16/25 09:46 Oxygen Delivery Method Room Air 07/16/25 09:46 BMI result Body Mass Index 31.6 Office Procedures Glucose Monitoring Details Details: See [facility] [address] - Glucose monitoring, continuous-physician I&R Procedure code (CPT) selection complete Results Reviewed Results Reviewed: Laboratory Last Values Glucose (Clinic) 218 mg/dL (60-115) H 07/16/25 09:57 Assessment & Plan Assessment & Plan (1) nursing home (current) use of insulin: Code(s): Z79.4 - nursing home (current) use of insulin Category: Medical Plan: See below (2) Type 2 diabetes mellitus with hyperglycemia: Code(s): E11.65 - Type 2 diabetes mellitus with hyperglycemia Category: Medical Qualifiers: 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 [employer] Den 3 data downloaded which shows he is having fasting and postprandial hyperglycemia mostly after breakfast. A1c 8.4% from May 2025. Hypoglycemia education done. His BMI is 31.6 kilogram/meters squared, weight 172 lb. Patient says he is not sure why he was stated as intolerant to Victoza in the past. Likely had GI intolerance. We will try prescribe him Ozempic. He denies any current alcohol use, no history of gallstones, no history of pancreatitis. Discussed side effects of GI intolerance, risk of pancreatitis, association of medullary thyroid cancer seen in rodents. No family history of thyroid cancer. Plan: -increase Tresiba from 12-14 units daily -discussed importance of pre bolusing, Humalog 6 units t.i.d. before meals -start Ozempic 0.25 mg weekly injection with plan for up titrating after 4 to 6 weeks -hypoglycemia education done -poor foot care noted, podiatry referral placed last visit in May 2025 -follow up in 6 weeks (3) Dyslipidemia associated with type 2 diabetes mellitus: Code(s): E11.69 - Type 2 diabetes mellitus with other specified complication; E78.5 - Hyperlipidemia, unspecified Category: Medical Plan: LDL 117 from July 2025. Goal LDL is less than 90 mg/dL. He is currently on Repatha. But he has been taking it every 3 weeks instead of every 2 weeks due to financial reasons. Plan: -asked to administer Repatha as prescribed Plan I spent 30 minutes in reviewing the record, seeing the patient and documenting in the medical record. Orders: Orders 2 AMB Glucose Monitoring Today E11.65 - Type 2 diabetes mellitus with hyperglycemia, Z79.4 - nursing home (current) use of insulin Medications: New 2 semaglutide (Ozempic) 0.25 mg (0.368 mL) subcut QWEEK 1.472 mL 2RF 4 weeks Patient Instructions: Increase Tresiba to 14 units daily Pre bolus lispro 15 minutes before meals 3 times a day, 60 units Start Ozempic 0.25 mg weekly injection Coding Level of Care Code Est Pt Level 4 (76765) Diagnoses nursing home (current) use of insulin Z79.4 Type 2 diabetes mellitus with hyperglycemia, with long-term current use of insulin E11.65; Z79.4 Diabetes mellitus long-term insulin use: with 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 Dyslipidemia associated with type 2 diabetes mellitus E11.69; E78.5 CPT Codes Details - CPT: 64497 - Glucose monitoring, continuous-physician I&R ([id number]) Time Spent (min) 30
[2025-07-16 10:01] LABS: Glucose, Whole Blood 218 mg/dL (60-115)
--- OUTSIDE RECORDS SUMMARY | 2025-07-16 11:04 | XMS_ITS | Patient Health Record ---
Author Organization [facility] [place] Address [address] [facility] [place] [address] Care Team Providers Care Owner Consulting Engineer Name Role Phone Gary COLLINS, Luis Primary Care Provider Unava ilable Mayra Condon Unavailable [phone] Reason For Referral No Information Medications Medication SIG (Take, Route, Frequency, Duration) Notes Start Date End Date Status cloNIDine HCl Active Lisinopril Active traZODone HCl Active NexIUM Active Paxil Active Accolate Active Advair HFA Active Problems Problem Type SNOMED Code ICD Code Onset Dates Problem Status W/U Status Risk Notes Problem Type II diabetes mellitus without complication (678536263) Type 2 diabetes mellitus without complications (E11.9) Active confirmed Plan Of Treatment Pending Test Test Name Order Date [id number] DYSTROPHIC NAILS ANY # Insurance Providers Payer Name Payer Address Payer Phone Subscriber Number Group Number Insured Name Patient Relationship to Insured Coverage Start Date Coverage End Date [facility] [address] [place] [address] [id number] Spouse - patient is the spouse of the insured Medical (General) History Medical History History ICD Code Arthritis 716.90 Asthma 493.90 Cancer 199.1 Diabetes 250.00 Reflux esophagitis 530.11 Surgical History Surgery Date(Month/Year) colon 2008 gloria 1998 Hospitalization History Reason Date(Month/Year) [facility]-Back pain sciatica
--- OUTSIDE RECORDS SUMMARY | 2025-07-16 11:05 | XMS_ITS | Encounter Summary ---
Author Organization [facility] Address [address] [place] [address] Phone Care Team Providers Care Flat Machine Cutter Name Role Phone Luis Vega MD Primary Care Provide r Encounter Details Date Type Department Care Team (Late st Contact Info) Description 07/06/2021 Ancillary Orders [facility],Outside Imaging [address] [place], [place] [id number] System, Provider Not In, [facility] [address] [address] Social History Tobacco Use Types Packs/Day Years [...] on filedocumented in this encounter Care Teams Flat Machine Cutter Relationship Specialty Start Date End Date Luis Vega MD [address] [place] [address] [address] [place] [address] PCP - General Internal Medicine 07/03/21 documented as of this encounter Additional Source Comments The information contained in this document represents components of the legal health record. It is not the complete legal health record.[facility]
--- OUTSIDE RECORDS SUMMARY | 2025-07-16 11:05 | XMS_ITS | Encounter Summary ---
Author Organization [facility] Address [address] [place] [address] Phone Care Team Providers Care Chilling Hood Operator Name Role Phone Luis Vega MD Primary Care Provide r Encounter Details Date Type Department Care Team (Late st Contact Info) Description 07/06/2021 Ancillary Orders [facility],Outside Imaging [address] [place], [place] [id number] System, Provider Not In, [facility] [address] [address] Social History Tobacco Use Types Packs/Day Years Used Date Smoking Tobacco: Never Assessed Sex and Gender Information Value Date Recorded Sex Assigned at Not on file Legal Sex Male 11:38 AM EDT Gender Identity Not on file Sexual Orientation Not on file documented as of this encounter Plan of Treatment Not on file documented as of this encounter Results * CT Chest Outside (No Interpretation) (05/11/2021 12:00 AM EDT) Narrative SYSTEMGENERATED, DOCUMENTATION - 07/06/2021 10:22 AM EDT This study is for PACS storage only and not for interpretation. us Provider Not In System PhD [facility] OUTSIDE IMAGING W /OUT INTERPRETATION Final Result documented in this encounter Visit Diagnoses Not on filedocumented in this encounter Care Teams Chilling Hood Operator Relationship Specialty Start Date End Date Luis Vega MD [address] [place] [address] [address] [place] [address] PCP - General Internal Medicine 07/03/21 documented as of this encounter Additional Source Comments The information contained in this document represents components of the legal health record. It is not the complete legal health record.[facility]
--- OUTSIDE RECORDS SUMMARY | 2025-07-16 11:05 | XMS_ITS | Encounter Summary ---
Author Organization [facility] Address [address] [place] [phone] Phone Care Team Providers Care Form Carpenter Name Role Phone Luis Vega MD Primary Care Provide r Reason for Visit * Reason Comments Medication Refill Encounter Details Date Type Department Care Team (Late st Contact Info) Description 09/30/2022 Refill [facility] Rad Onc [address] [place] [phone] Bassam Cuninngham MD [address] [place] [id number] [email or web address] [email or web address] Refill Social History Tobacco Use Types Packs/Day Years Used Date Smoking Tobacco: Former Cigarettes Q uit: 1984 Smokeless Tobacco: Never Alcohol Use Standard Drinks/Week Comments Not Currently 0 (1 standard drink = 0.6 oz pur e alcohol) Sex and Gender Information Value Date Recorded Sex Assigned at Not on file Legal Sex Male 11:38 AM EDT Gender Identity Not on file Sexual Orientation Not on file documented as of this encounter Plan of Treatment Not on file documented as of this encounter Visit Diagnoses Not on filedocumented in this encounter Care Teams Form Carpenter Relationship Specialty Start Date End Date Luis Vega MD [address] [place] [address] [address] [place] [address] PCP - General Internal Medicine 07/03/21 documented as of this encounter Additional Source Comments The information contained in this document represents components of the legal health record. It is not the complete legal health record.[facility]
--- OUTSIDE RECORDS SUMMARY | 2025-07-16 11:05 | XMS_ITS | Clinical Summary ---
Author Organization [facility] Address [address] [place], [place] [id number] Phone Care Team Providers Care Yarn Dumper Name Role Phone Luis Vega MD Primary Care Provide r Allergies Active Allergy Reactions Criticality Noted Date Comments Amoxicillin Diarrhea High 07/09/2021 Celecoxib Fatigue High 07/09/2021 Clavulanic Acid Diarrhea High 07/09/2021 Diltiazem Hcl Unknown 07/09/2021 Gabapentin Tremor High 07/09/2021 Cephalexin Unknown 07/09/2021 Fluvastatin Joint Pain High 07/09/2021 Morphine High 07/09/2021 blacked out, crazy Peanut 07/09/2021 Pecan Nut Anaphylaxis High 07/09/2021 Penicillins 07/09/2021 Tamsulosin Feeling Irritable High 10/29/2021 Medications cloNIDine HCL (CATAPRES) 0.2 MG tablet Take 0.2 mg by mouth 4 (four) times a day. 2 Tabs BID 12/20/2024 Active amLODIPine (NORVASC) 10 MG tablet Take 10 mg by mouth daily. Active furosemide (LASIX) 20 MG tablet Take 20 mg by mouth 2 (two) times a day. Active lamoTRIgine (LAMICTAL) 25 MG IMMEDIATE release tablet Take 25 mg by mouth 2 (two) times a day. Active PARoxetine (PAXIL) 20 MG tablet Take 20 mg by mouth every morning. Active levETIRAcetam (KEPPRA) 500 MG tablet Take 500 mg by mouth 2 (two) times a day. 2 Tabs BID 12/20/2024 Active aspirin/acetami nophen/jay carb (EXCEDRIN BACK & BODY ORAL) Take 2 tablets by mouth 2 (two) times a day. Active esomeprazole (NEXIUM) 20 MG capsule Take 20 mg by mouth daily before breakfast. Active insulin glargine U-300 (TOUJEO SOLOSTAR) 300 unit/mL (1.5 mL) injection penIndications: type 2 diabetes mellitus 10 Units daily. Indications: type 2 diabetes mellitus Active insulin lispro (ADMELOG, HUMALOG) 100 unit/mL injection vialIndications :type 2 diabetes mellitus Inject 6 Units under the skin 3 (three) times a day before meals. Indications: type 2 diabetes mellitus Active ezetimibe (ZETIA) 10 mg tablet Take 10 mg by mouth daily. Active valsartan (DIOVAN) 40 MG tablet Take 80 mg by mouth daily. Active diphenoxylate-a tropine (LOMOTIL) 2.5-0.025 mg per tablet Take 1 tablet by mouth 2 (two) times a day (once in the morning and once in the afternoon). 3 Taps BID PRN 12/20/2024 Active tamsulosin (FLOMAX) 0.4 mg Cap Take 0.4 mg by mouth daily. Active metaxalone (SKELAXIN) 800 MG tablet Take 800 mg by mouth 2 (two) times a day (once in the morning and once in the afternoon). 09/21/2021 Active terazosin (HYTRIN) 5 MG capsule Take 1 capsule (5 mg total) by mouth nightly at bedtime. 90 capsule 3 07/06/2022 Active traMADoL (ULTRAM) 50 mg tablet Take 50 mg by mouth as needed for pain (specific location in comments). BID PRN 12/20/2024 Active predniSONE (DELTASONE) 20 MG tablet Take 40 mg by mouth daily. 20 mg 2 tabs daily 12/20/2024 Active baclofen (LIORESAL) 20 MG tablet Take 20 mg by mouth daily. AT bed time 12/20/2024 Active Active Problems Problem Noted Date Diagnosed Date Prostate CA 07/09/2021 Social History Tobacco Use Types Packs/Day Years Used Date Smoking Tobacco: Former Cigarettes Q uit: 1984 Smokeless Tobacco: Never Alcohol Use Standard Drinks/Week Comments Not Currently 0 (1 standard drink = 0.6 oz pur e alcohol) Home Health Assessment: Transportation Answer Date Recorded Lack of Transportation (Medical) No 01/09/2025 Lack of Transportation (Non-Medical) No 01/09/2025 Patient Unable or Declines to Respond No 01/09/2025 Education Answer Date Recorded Are you interested in more education? Not on dayanna e 02/05/2023 Are you concerned about learning? Not on file 02/05/2023 No 02/05/2023 No 02/05/2023 Digital Access Answer Date Recorded No 03/08/2023 No 03/08/2023 Reliable internet access at home? Not on file 03/08/2023 Device with a working camera? Not on file Sex and Gender Information Value Date Recorded Sex Assigned at Not on file Legal Sex Male 11:38 AM EDT Gender Identity Not on file Sexual Orientation Not on file Last Filed Vital Signs Vital Sign Reading Time Taken Comments Blood Pressure 162/80 01/09/2025 1:05 PM EDT Pulse 84 01/09/2025 1:05 PM EDT Temperature 36.9 C (98.4 F) 01/09/2025 1:05 PM EDT Respiratory Rate 16 12/24/2024 3:21 PM EDT Oxygen Saturation 99% 01/09/2025 1:05 PM EDT Inhaled Oxygen Concentration - - Weight 76.9 kg (169 lb 8 oz) 11/09/2021 2:14 PM EST Height - - Body Mass Index - - Plan of Treatment Health Maintenance Due Date Last Done Comments CREATININE LEVEL 1947 LIPID PANEL 1947 POTASSIUM LEVEL 1947 DEPRESSION SCREENING 1959 SMOKING Hx and SMOKELESS TOBACCO SCREENING 02/12/1960 HEPATITIS C SCREENING 1965 ZOSTER VACCINES (1 of 2) 06/20/2016 04/25/2016 Adult Td,Tdap Booster 06/18/2019 06/18/2009, 999 RSV VACCINE (1 - 1-dose 75+ series) 2022 INFLUENZA VACCINE (#1) 2025 , 07/18/2020, 10/11/2019, Additional history exists COVID-19 VACCINE ( season) 2025 09/22/2021, 12/29/2020, 12/01/2020 PNEUMOCOCCAL VACCINES (50+ years) Completed 10/13/2019, 12/23/2014, 09/12/2012, Additional history exists HEPATITIS A VACCINES Aged Out No long er eligible based on patient's age to complete this topic HIB VACCINES Aged Out No longer eligi ble based on patient's age to complete this topic MENINGOCOCCAL VACCINES (ACWY) Aged Out No longer eligible based on patient's age to complete this topic MENINGOCOCCAL VACCINES (B) Aged Out N o longer eligible based on patient's age to complete this topic Medical Devices Not on file Insurance MEDICARE PART A & B [place] BL[place] MEDICARE PART A & B MEDICARE PART A & B [place]IC[place] BL[place] MEDICARE PART A & B MEDICARE PART A & B Member Subscriber Plan / Payer (Ef fective 2012-Present) Name:Willy Jc Member ID:[id number] Relation to Subscriber:Self Name:Willy Jc Subscriber ID:[id number] Payer ID:[id number] Group ID:Not on file Type:Medicare Address: [facility] [employer] [facility] [address] [place] [address] [place] [address] MEDICARE PPO BLUE REPLACEMENT MEDICARE PART A & [place] [address] MEDICARE PART A & [place] Care Teams Yarn Dumper Relationship Specialty Start Date End Date Luis Vega MD [address] [place] [address] PCP - General Internal Medicine 07/03/21 Additional Source Comments The information contained in this document represents components of the legal health record. It is not the complete legal health record.[facility]
--- OUTSIDE RECORDS SUMMARY | 2025-07-16 11:05 | XMS_ITS | Encounter Summary ---
Author Organization [facility] Address [address] [place] [address] Phone Care Team Providers Care Lead Generator Name Role Phone Luis Vega MD Primary Care Provide r Reason for Visit * Reason Comments Medication Refill Encounter Details Date Type Department Care Team (Late st Contact Info) Description 09/30/2022 Refill [facility] Rad Onc [address] [place] [address] Bassam Cnuningham MD [address] [place] [phone] [email or web address] Medication Refill Social History Tobacco Use [...] on filedocumented in this encounter Care Teams Lead Generator Relationship Specialty Start Date End Date Luis Vega MD [address] [place] [address] 1 [place] [address] PCP - General Internal Medicine 07/03/21 documented as of this encounter Additional Source Comments The information contained in this document represents components of the legal health record. It is not the complete legal health record.[facility]
--- OUTSIDE RECORDS SUMMARY | 2025-07-16 11:05 | XMS_ITS | Patient Health Record ---
Author Organization [facility] Address [address] [place] [address] Care Team Providers Care Boiler Room Helper Name Role Phone Gary (RETIRED) Luis COLLINS Primary Care Prov ider Unavailable Chris Marr Unavailable [phone] Sarah Anderson MD Unavailable Unavailable Allergies Allergen [...] Status Risk Notes Problem Acute posthemorrhagic anemia (347052923) Acute posthemorrhagic anemia (D62) Active confirmed Problem 222126108 Blood in stool (K92.1) Active confirmed Problem 837395711 Gastroesophageal reflux disease without esophagitis (K21.9) Active confirmed Problem 847194192 History of colon polyps (Z86.010) Active confirmed Problem 073642910 History of colon cancer (Z85.038) Active confirmed Problem 496310011 Abnormal CT scan , esophagus (R93.3) Active confirmed Problem 799549055 Abnormal barium swallow (R93.3) Active confirmed Problem 66446320 Esophageal dysphagia (R13.10) Active confirmed Plan Of Treatment Pending Test Test Name Order Date Esophageal Motility study 02/07/2018 XR BARIUM SWALLOW-ESOPHAGUS 02/07/2018 Future Test Test Name Order Date UPPER GI ENDOSCOPY 06/26/2014 COLONOSCOPY 06/26/2014 Insurance Providers Payer Name Payer Address Payer Phone Subscriber Number Group Number Insured Name Patient Relationship to Insured Coverage Start Date Coverage End Date [facility] [address] [address] [place] [id number] JUANA RAMIREZ Self - patient is the insured [place] of [place] [address] [place] [address] [id number] JUANA RAMIREZ Self - patient is the [...] sophagitis hyperlipidemia gout depression kidney stones denies [place], stroke, nor kidney disease ot herwise hypertension [...] normal duodenal biopsies Colonoscopy in 09/2015 at [facility]-small tubular adenomas removed Surgical History Surgery Date(Month/Year) Sigmoid resection in 04/[address] Farley for colon cancer as above shoulder surgery ear surgery
== END 2025-07-16 10:37 | disposition home or self-care (01) ==
PROVIDERS: PCP Internal Medicine; Visit Provider Student in an Organized Health Care Education/Training Program
DX: Z79.4 Long term (current) use of insulin (principal); E11.65 Type 2 diabetes mellitus with hyperglycemia; E11.69 Type 2 diabetes mellitus with other specified complication; E78.5 Hyperlipidemia, unspecified
CPT/HCPCS: 95251; 99214

== ENCOUNTER → 2025-07-16 09:42 | Outpatient (BNVA) | payer MEDICARE, SELFPAY | PROVIDERS: PCP Internal Medicine; Visit Provider Student in an Organized Health Care Education/Training Program | DX: E11.65 Type 2 diabetes mellitus with hyperglycemia (principal); E11.42 Type 2 diabetes mellitus with diabetic polyneuropathy; E11.69 Type 2 diabetes mellitus with other specified complication; E78.5 Hyperlipidemia, unspecified; Z79.4 Long term (current) use of insulin | CPT/HCPCS: 82947; 99212 ==

== ENCOUNTER 2025-08-08 12:48 | Outpatient (AMB) | payer MEDICARE, SELFPAY ==
--- NOTE | 2025-08-08 13:02 | A.OFFVIS_ITS ---
Vital Signs 08/08/25 13:03 Height 5 ft 2 in Weight 167 lb 8.821 oz BMI 30.6 BP 126/54 L Blood Pressure Location Lt brachial Position Sitting Pulse 87 Pulse Source Pulse Oximeter Intake Visit Reasons: 6 mth f/up Dump Operator Required: No Accompanied by: Self / Same As Patient Allergies amoxicillin (From AUGMENTIN) Allergy (Severe, Verified 08/08/25 13:08) Diarrhea, malaise celecoxib (Celebrex) Allergy (Severe, Verified 08/08/25 13:08) Malaise clavulanic acid (From AUGMENTIN) Allergy (Severe, Verified 08/08/25 13:08) Diarrhea, malaise gabapentin (GABAPENTIN) Allergy (Severe, Verified 08/08/25 13:08) TREMORS morphine Allergy (Severe, Verified 08/08/25 13:08) BLACKED-OUT, CRAZY cephalexin (Keflex) Allergy (Unknown, Verified 08/08/25 13:08) Unknown diltiazem (Cardizem) Allergy (Unknown, Verified 08/08/25 13:08) Unknown Penicillins (PENICILLINS) Allergy (Unknown, Verified 08/08/25 13:08) Unknown clindamycin Allergy (Verified 08/08/25 13:08) Unconscious peanut Allergy (Verified 08/08/25 13:08) Unknown fluvastatin (From Lescol) Adverse Reaction (Severe, Verified 08/08/25 13:08) Joint Pain pecan nut (PECAN) Adverse Reaction (Severe, Verified 08/08/25 13:08) Anaphylaxis erythromycin base Adverse Reaction (Verified 08/08/25 13:08) Vomiting Medication List - Last Reconciled 08/08/25 by Genaro Schreiber MD amlodipine 10 mg PO DAILY BD AutoShield Duo Pen Needle (pen needle,diabetic dual safty) once monthly subcutaneous or IM NS blood sugar diagnostic As directed blood sugar diagnostic (Contour Test Strips) As directed blood sugar diagnostic (FreeStyle Precision Marcio Strips) Four times daily blood-glucose meter (Contour Meter kit) As directed blood-glucose sensor (Ballooning Nest EggsStyle Den 3 Plus Sensor device) every 15 days blood-glucose,construction quality control manager,cont (FreeStyle Den 3 [place]) As directed for use with den sensor cholecalciferol (vitamin D3) (Vitamin D3) 50 mcg PO DAILY clonidine HCl 0.4 mg PO BID cyanocobalamin (vitamin B-12) 1,000 mcg IM Q4W 10 weeks diphenoxylate-atropine 2.5-0.025 mg 3 tabs PO BID PRN evolocumab (Repatha SureClick) 140 mg subcut Q2W flash glucose sensor Every 14 days FreeStyle Den 3 Plus Sensor (blood-glucose sensor) every 14 days NS furosemide 20 mg PO BID insulin degludec (Tresiba FlexTouch U-100 insulin) 12 units (0.12 mL) subcut DAILY 90 days lamotrigine 75 mg PO BID lancets (FreeStyle Lancets) As directed twice daily levetiracetam 2,000 mg PO BID Novolog FlexPen U-100 Insulin (insulin aspart U-100) 6 units (0.06 mL) subcut TID NS paroxetine HCl 20 mg PO DAILY pen needle, diabetic 4 per day semaglutide (Ozempic) 0.25 mg (0.368 mL) subcut QWEEK 4 weeks tramadol 50 mg PO BID PRN valsartan 80 mg PO DAILY HPI Comments Details: Willy returns for follow-up follow-up. Multiple risk factors including type 2 diabetes, hypertension, dyslipidemia. From the cardiac standpoint he does not have any symptoms like angina or shortness of breath. Lipid management has been difficult as there are issues with Repatha. He was using it somewhat irregularly because of insurance cost but more recently he states that he has started using it more consistently. Otherwise, doing fine and does not have any major concerns. 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 Mother No problems noted. Other No family history of cancer Social History Household Members: Children Household Members Other:: Son Housing: House Are you a primary technical healthcare consultant to a significant other at home: No Do you presently have visiting nurse or other home services: No Alcohol intake: never Patient Tobacco Use Status: Former Tobacco user Cigarette Packs Per Day: 1.5 service: No Current occupational status: retired Review of Systems Const Denies daytime sleepiness, Denies difficulty sleeping, Denies snoring, Denies stops breathing during sleep and Denies weakness Card Denies chest pain, Denies rapid heart rate, Denies irregular heart rhythm, Denies claudication, Denies leg edema, Denies lightheadedness, Denies palpitations, Denies dyspnea, Reports dyspnea on exertion, Denies orthopnea, Denies paroxysmal nocturnal dyspnea and Denies slow heart rate Resp Denies cough, Denies dyspnea, Reports dyspnea on exertion and Denies snoring GI Reports no additional complaints, Denies hematochezia, Denies change in stool character and Denies dyspepsia Musc Denies abnormal gait, Denies muscle weakness and Denies numbness Neuro Denies abnormal gait, Denies numbness and Denies weakness Endo Denies palpitations Physical Exam Vital Signs: Last Vital Signs Pulse 87 08/08/25 13:03 BP 126/54 L 08/08/25 13:03 BMI result Body Mass Index 30.6 Const General: comfortable and no acute distress Orientation/consciousness: patient oriented x3 HEENT Other: Unremarkable Head: Yes normal to inspection Neck Neck: Yes normal visual inspection Chest Chest palpation & inspection: normal inspection of the chest Resp Auscultation: clear to auscultation bilaterally Cardio Palpation: normal PMI Heart sounds: S1 normal heart sound present, S2 normal heart sound present, no gallops, no murmurs and no rubs GI Palpation (GI): Soft to palpation Back/Spine/Pelvis Other: unremarkable Skin General skin exam: no rashes or lesions noted Neuro General: patient oriented x3 Extrem General: Yes normal to inspection Psych Mental Status: mental status grossly normal Assessment & Plan Assessment & Plan (1) Abnormal EKG: Code(s): R94.31 - Abnormal electrocardiogram [ECG] [EKG] Category: Medical (2) Essential hypertension: Code(s): I10 - Essential (primary) hypertension Category: Medical (3) Type 2 diabetes mellitus with unspecified complications: Code(s): E11.8 - Type 2 diabetes mellitus with unspecified complications Category: Medical (4) Other and unspecified hyperlipidemia: Code(s): E78.5 - Hyperlipidemia, unspecified Category: Medical (5) Statin intolerance: Code(s): Z78.9 - Other specified health status Category: Medical Plan EKG with right bundle-branch block and anterior T inversions. In the echocardiogram, preserved LVEF and no significant valve findings. Perfusion imaging reported have normal perfusion. Overall, many vascular risk factors but no clear established coronary disease or active cardiac issues. Hence mainly risk factor modification. For Diabetes, he is on insulin and Ozempic. Last Hemoglobin A1c is 7.8%. For blood pressure, on valsartan and amlodipine. Seems stable. For lipids, he states that he is back on Repatha. His recent lipids are on the higher side but most likely because of inconsistent Repatha use. Now that he is taking it more regularly, we can recheck lipids in about 3 months or so. Total time spent including review of data, counseling, documentation, coordination of care-30 minutes. Orders: Orders Liver Panel 3 Months E11.69 - Type 2 diabetes mellitus with other specified c omplication, E78.5 - Hyperlipidemia, unspecified Coding Level of Care Code Est Pt Level 4 (23779) Complex EM visit Add On G2211 Diagnoses Abnormal EKG R94.31 Essential hypertension I10 Type 2 diabetes mellitus with unspecified complications E11.8 Other and unspecified hyperlipidemia E78.5 Statin intolerance Z78.9
[2025-08-08 13:03] VITALS: BP 126/54; PULSE 87; BMI 30.6
--- OUTSIDE RECORDS SUMMARY | 2025-08-08 15:41 | XMS_ITS | Encounter Summary ---
Author Organization [facility] Address [address] [place] [address] Phone Care Team Providers Care Infrastructure Software Engineer Name Role Phone Luis Vega MD Primary Care Provide r Encounter Details Date Type Department Care Team (Late st Contact Info) Description 07/06/2021 Ancillary Orders [facility],Outside Imaging [address] [place], [place] [phone] System, Provider Not In, [facility] [address] [address] Social History Tobacco Use Types Packs/Day Years [...] on filedocumented in this encounter Care Teams Infrastructure Software Engineer Relationship Specialty Start Date End Date Luis Vega MD [address] [place] [address] [address] [place] [address] PCP - General Internal Medicine 07/03/21 documented as of this encounter Additional Source Comments The information contained in this document represents components of the legal health record. It is not the complete legal health record.[facility]
--- OUTSIDE RECORDS SUMMARY | 2025-08-08 15:41 | XMS_ITS | Encounter Summary ---
Author Organization [facility] Address [address] [place] [address] Phone Care Team Providers Care Customer Management Specialist Name Role Phone Luis Vega MD Primary Care Provide r Reason for Visit * Reason Comments Medication Refill Encounter Details Date Type Department Care Team (Late st Contact Info) Description 09/30/2022 Refill [facility] Rad Onc [address] [place] [address] Bassam Cunningham MD [address] [place] [id number] [email or web address] Medication Refill Social History Tobacco [...] on filedocumented in this encounter Care Teams Customer Management Specialist Relationship Specialty Start Date End Date Luis Vega MD [address] [place] [address] 1 [place] [address] PCP - General Internal Medicine 07/03/21 documented as of this encounter Additional Source Comments The information contained in this document represents components of the legal health record. It is not the complete legal health record.[facility]
--- OUTSIDE RECORDS SUMMARY | 2025-08-08 15:41 | XMS_ITS | Encounter Summary ---
Author Organization [facility] Address [address] [place] [address] Phone Care Team Providers Care Block Trader Name Role Phone Luis Vega MD Primary Care Provide r Encounter Details Date Type Department Care Team (Late st Contact Info) Description 07/06/2021 Ancillary Orders [facility],Outside Imaging [address] [place], [place] [phone] System, Provider Not In, [facility] [address] [address] Social History Tobacco Use Types Packs/Day Years [...] on filedocumented in this encounter Care Teams Block Trader Relationship Specialty Start Date End Date Luis Vega MD [address] [place] [address] [address] [place] [address] PCP - General Internal Medicine 07/03/21 documented as of this encounter Additional Source Comments The information contained in this document represents components of the legal health record. It is not the complete legal health record.[facility]
--- OUTSIDE RECORDS SUMMARY | 2025-08-08 15:41 | XMS_ITS | Patient Health Record ---
Author Organization [facility] Address [address] [place] [address] Care Team Providers Care Ocular Care Technologist Name Role Phone Gary (RETIRED) Luis COLLINS Primary Care Prov ider Unavailable Chris Marr Unavailable [phone] Sarah Anderson MD Unavailable Unavailable Allergies Allergen (clinical drug ingredient) Drug/Non Drug Allergy documented on EMR Reaction Allergy Type Onset Date Status morphine Morphine Sulfate Unknown Drug Allergy Active Reason For Referral No Information Medications Medication SIG (Take, Route, Frequency, Duration) Notes Start Date End Date Status traZODone HCl Orally Once a day Active Pantoprazole Sodium 40 MG 1 tablet Orall y BID; Duration: 90 days 06/07/2018 Active cloNIDine HCl 0.1 [...] e a day Active levETIRAcetam 500 MG Oral; Duration: 30 Active Paxil 10 MG 1 tablet in the morn ing Orally Once a day Active Simvastatin Not-Taki ng Lisinopril 2.5 MG 1 tablet Orally Once a day Active lamoTRIgine 25 MG take 3 tablets by mo ut twice a day Oral; Duration: 30 Active Excedrin Extra Strength Active Problems Problem Type SNOMED Code ICD Code Onset Dates Problem Status W/U Status Risk Notes Problem Acute posthemorrhagic anemia (624833967) Acute posthemorrhagic anemia (D62) Active confirmed Problem Blood in stool (404191905) Blood in stool (K92.1) Active confirmed Problem Gastroesophageal reflux disease without esophagitis (300385622) Gastroesophageal reflux disease without esophagitis (K21.9) Active confirmed Problem History of polyp of colon (situation) (174493853) History of colon polyps (Z86.010) Active confirmed Problem History of malignant neoplasm of colon (790507035) History of colon cancer (Z85.038) Active confirmed Problem Abnormal CT scan , esophagus (R93.3) Active confirmed Problem Barium swallow abnormal (383683704) Abnormal barium swallow (R93.3) Active confirmed Problem Esophageal dysphagia (93890409) Esophageal dysphagia (R13.10) Active confirmed Plan Of Treatment Pending Test Test Name Order Date Esophageal Motility study 02/07/2018 XR BARIUM SWALLOW-ESOPHAGUS 02/07/2018 Future Test Test Name Order Date UPPER GI ENDOSCOPY 06/26/2014 COLONOSCOPY 06/26/2014 Insurance Providers Payer Name Payer Address Payer Phone Subscriber Number Group Number Insured Name Patient Relationship to Insured Coverage Start Date Coverage End Date [facility] [address] [address] [place] [address] [phone] [id number] JUANA RAMIREZ Self - patient is the [place] of [place] [address] [place] [address] [id number] JUANA RAMIREZ Self - patient is the [...] sophagitis hyperlipidemia gout depression kidney stones denies [place], stroke, nor kidney disease ot herwise hypertension [...] normal duodenal biopsies Colonoscopy in 09/2015 at [facility]-small tubular adenomas removed Surgical History Surgery Date(Month/Year) Sigmoid resection in 04/[address] Farley for colon cancer as above shoulder surgery ear surgery
--- OUTSIDE RECORDS SUMMARY | 2025-08-08 15:41 | XMS_ITS | Encounter Summary ---
Author Organization [facility] Address [address] [place] [address] Phone Care Team Providers Care Record Clerk Name Role Phone Luis Vega MD Primary Care Provide r Reason for Visit * Reason Comments Medication Refill Encounter Details Date Type Department Care Team (Late st Contact Info) Description 09/30/2022 Refill [facility] Rad Onc [address] [place] [address] Bassam Cunningham MD [address] [place] [address] [email or web address] Medication Refill Social History Tobacco Use [...] on filedocumented in this encounter Care Teams Record Clerk Relationship Specialty Start Date End Date Luis Vega MD [address] [place] [address] 1 [place] [address] PCP - General Internal Medicine 07/03/21 documented as of this encounter Additional Source Comments The information contained in this document represents components of the legal health record. It is not the complete legal health record.[facility]
--- OUTSIDE RECORDS SUMMARY | 2025-08-08 15:41 | XMS_ITS | Clinical Summary ---
Author Organization [facility] Address [address] [place], [place] [phone] Phone Care Team Providers Care Bilingual Interpreter Name Role Phone Luis Vega MD Primary [...] Payer (Ef fective 2012-Present) Name:Willy Jc Member ID:[id number] Relation to Subscriber:Self Name:Willy Jc Subscriber ID:[id number] Payer ID:[id number] Group ID:Not on file Type:Medicare Address: [facility] [employer] [facility] [address] [place] [address] [place] [address] MEDICARE PPO BLUE REPLACEMENT MEDICARE PART A & [place] [address] MEDICARE PART A & B [place] Care Teams Bilingual Interpreter Relationship Specialty Start Date End Date Luis Vega MD [address] [place] [address] PCP - General Internal Medicine 07/03/21 Additional Source Comments The information contained in this document represents components of the legal health record. It is not the complete legal health record.[facility]
--- OUTSIDE RECORDS SUMMARY | 2025-08-08 15:41 | XMS_ITS | Patient Health Record ---
Author Organization [facility] Address [address] [facility] [place] [address] Care Team Providers Care Coning Machine Operator Name Role Phone Gary COLLINS, Lusi Primary Care Provider Unava ilable Mayra Condon Unavailable [phone] Reason For Referral No Information Medications Medication SIG (Take, Route, Frequency, Duration) Notes Start Date End Date Status cloNIDine HCl Active Lisinopril Active traZODone HCl Active NexIUM Active Paxil Active Accolate Active Advair HFA Active Problems Problem Type SNOMED Code ICD Code Onset Dates Problem Status W/U Status Risk Notes Problem Type II diabetes mellitus without complication (112007885) Type 2 diabetes mellitus without complications (E11.9) Active confirmed Plan Of Treatment Pending Test Test Name Order Date [id number] DYSTROPHIC NAILS ANY # Insurance Providers Payer Name Payer Address Payer Phone Subscriber Number Group Number Insured Name Patient Relationship to Insured Coverage Start Date Coverage End Date [facility] [address] [place] [address] [phone] [id number] Hue Jc Spouse - patient is the spouse of the insured Medical (General) History Medical History History ICD Code Arthritis 716.90 Asthma 493.90 Cancer 199.1 Diabetes 250.00 Reflux esophagitis 530.11 Surgical History Surgery Date(Month/Year) colon 2008 gloria 1998 Hospitalization History Reason Date(Month/Year) [facility]-Back pain sciatica
== END 2025-08-08 13:27 | disposition home or self-care (01) ==
LOC: HO.HCS 12:48
PROVIDERS: PCP Internal Medicine; Visit Provider Internal Medicine
DX: R94.31 Abnormal electrocardiogram [ECG] [EKG] (principal); I10 Essential (primary) hypertension; E11.8 Type 2 diabetes mellitus with unspecified complications; E78.5 Hyperlipidemia, unspecified; Z78.9 Other specified health status
CPT/HCPCS: 99214; G2211

== ENCOUNTER → 2025-08-08 12:48 | Outpatient (BNVA) | payer MEDICARE, SELFPAY | PROVIDERS: PCP Internal Medicine; Visit Provider Internal Medicine | DX: R94.31 Abnormal electrocardiogram [ECG] [EKG] (principal); I45.10 Unspecified right bundle-branch block; I10 Essential (primary) hypertension; E11.42 Type 2 diabetes mellitus with diabetic polyneuropathy; E78.5 Hyperlipidemia, unspecified; Z79.4 Long term (current) use of insulin; Z78.9 Other specified health status | CPT/HCPCS: 99212 ==

== ENCOUNTER 2025-08-30 13:41 | Outpatient (AMB) | payer MEDICARE, SELFPAY ==
[2025-08-30 13:44] VITALS: BP 132/74; PULSE 85; O2SAT 98; BMI 30.2
--- NOTE | 2025-08-30 13:44 | MHC.OFFVIS ---
Vital Signs 08/30/25 13:44 Height 5 ft 2 in Weight 164 lb 14.492 oz BMI 30.2 BP 132/74 Blood Pressure Location Lt brachial Position Sitting Pulse 85 Pulse Source Pulse Oximeter Pulse Oximetry (%) 98 Oxygen Delivery Method Room Air Intake Visit Reasons: MNG, T2DM Intake Note: Patient present today for Type 2 Diabetes Mellitus Last Diabetic eye exam: Last exam was within the year Last Podiatry Visit: Doesn't have one Random Glucose: 101 mg/dl HgA1C: 6.9% Dining Room Supervisor Required: No Accompanied by: Self / Same As Patient Allergies amoxicillin (From AUGMENTIN) Allergy (Severe, Verified 08/30/25 13:52) Diarrhea, malaise celecoxib (Celebrex) Allergy (Severe, Verified 08/30/25 13:52) Malaise clavulanic acid (From AUGMENTIN) Allergy (Severe, Verified 08/30/25 13:52) Diarrhea, malaise gabapentin (GABAPENTIN) Allergy (Severe, Verified 08/30/25 13:52) TREMORS morphine Allergy (Severe, Verified 08/30/25 13:52) BLACKED-OUT, CRAZY cephalexin (Keflex) Allergy (Unknown, Verified 08/30/25 13:52) Unknown diltiazem (Cardizem) Allergy (Unknown, Verified 08/30/25 13:52) Unknown Penicillins (PENICILLINS) Allergy (Unknown, Verified 08/30/25 13:52) Unknown clindamycin Allergy (Verified 08/30/25 13:52) Unconscious peanut Allergy (Verified 08/30/25 13:52) Unknown fluvastatin (From Lescol) Adverse Reaction (Severe, Verified 08/30/25 13:52) Joint Pain pecan nut (PECAN) Adverse Reaction (Severe, Verified 08/30/25 13:52) Anaphylaxis erythromycin base Adverse Reaction (Verified 08/30/25 13:52) Vomiting Medication List - Last Reconciled 08/30/25 by Marcella Goncalves PA-C amlodipine 10 mg PO DAILY BD AutoShield Duo Pen Needle (pen needle,diabetic dual safty) once monthly subcutaneous or IM NS blood sugar diagnostic As directed blood sugar diagnostic (Contour Test Strips) As directed blood sugar diagnostic (FreeStyle Precision Marcio Strips) Four times daily blood-glucose meter (Contour Meter kit) As directed blood-glucose sensor (FreeStyle Den 3 Plus Sensor device) every 15 days blood-glucose,shaker repairer,cont (FreeStyle Den 3 [place]) As directed for use with den sensor cholecalciferol (vitamin D3) (Vitamin D3) 50 mcg PO DAILY clonidine HCl 0.4 mg PO BID cyanocobalamin (vitamin B-12) 1,000 mcg IM Q4W 10 weeks diphenoxylate-atropine 2.5-0.025 mg 3 tabs PO BID PRN evolocumab (Repatha SureClick) 140 mg subcut Q2W flash glucose sensor Every 14 days FreeStyle Den 3 Plus Sensor (blood-glucose sensor) every 14 days NS furosemide 20 mg PO BID insulin degludec (Tresiba FlexTouch U-100 insulin) 9 units subcut DAILY lamotrigine 75 mg PO BID lancets (FreeStyle Lancets) As directed twice daily levetiracetam 2,000 mg PO BID paroxetine HCl 20 mg PO DAILY pen needle, diabetic 4 per day tramadol 50 mg PO BID PRN valsartan 80 mg PO DAILY HPI HPI MNG, T2DM: Details: Patient is a 80-year-old male with a significant past medical history of CHF, COPD, hypertension, hyperlipidemia and type 2 diabetes presenting today for a diabetic follow up. He normally follows with my colleague. Endo: Dm-last A1c was 8.4 and today is 6.9. He is currently managed with Ozempic 0.25 mg weekly, NovoLog 6 units 3 times a day (not taking), and Tresiba 12 units daily (He is taking 5-9) -He is very sensitive to large doses of insulin. He states that he had an episode of a very low blood sugar that made him feel very weak and unstable. He states that he had to lay on the floor and try to spoon sugar into his mouth. He states that following this episode he discontinued the NovoLog. He does have some appetite suppression with the Ozempic. He is not eating as much and states that he is not comfortable taking insulin like this. He has tapered down his Tresiba as well and has noticed that his blood sugars are about 130 with the Ozempic. metformin caused GI upset. trulicity ineffective CGM-usage 87%, average glucose 176, G mi 7.5%, variability 24%. Very hyperglycemic 6%, hyperglycemic 32%, in range 61%, hypoglycemic 1%, very hypoglycemic 0 -lows seem to be occurring mid afternoon and overnight Hyperglycemia-around meals Hypoglycemia- recently had a severe episode and he decided to d/c the novolog CV: Blood pressure today in the office is 132/74. He is currently on valsartan 80 mg daily, furosemide 20 mg once a day and amlodipine 10 mg daily. Cholesterol is managed with Repatha. [facility] Medical History (Updated 05/27/25 @ 10:23 by Tanya Perez MD) Dyslipidemia associated with type 2 diabetes mellitus Statin intolerance Prostate cancer Prostate cancer MRSA (methicillin resistant Staphylococcus aureus) Arthritis Low back pain GERD (gastroesophageal reflux disease) Anxiety and depression B12 deficiency Elevated PSA Dyslipidemia Hypertension Diabetic polyneuropathy associated with type 2 diabetes mellitus assisted (current) use of insulin Diabetes type 2, controlled Surgical History History of prostate biopsy Hx of colonoscopy History of esophagogastroduodenoscopy (EGD) Hx of lithotripsy Hx of shoulder surgery History of colon resection Family History Father No problems noted. Mother No problems noted. Other No family history of cancer Social History Household Members: Children Household Members Other:: Son Housing: House Are you a primary career development facilitator to a significant other at home: No Do you presently have visiting nurse or other home services: No Alcohol intake: never Patient Tobacco Use Status: Former Tobacco user Cigarette Packs Per Day: 1.5 service: No Current occupational status: retired Physical Exam Vital Signs: Last Vital Signs Pulse 85 08/30/25 13:44 BP 132/74 08/30/25 13:44 Pulse Ox 98 08/30/25 13:44 Oxygen Delivery Method Room Air 08/30/25 13:44 BMI result Body Mass Index 30.2 Const Orientation/consciousness: patient oriented x3 HEENT Ears: hearing grossly normal bilaterally Neck Thyroid: Thyroid normal Lymphatic: no lymphadenopathy noted Resp Auscultation: clear to auscultation bilaterally Cardio Rate: regular rate Rhythm: regular rhythm Heart sounds: S1 normal heart sound present and S2 normal heart sound present Skin General skin exam: no rashes or lesions noted Neuro General: patient oriented x3, gait normal and no focal motor deficits Results AMB Hemoglobin A1c AMB Hemoglobin A1c 6.9 % Last Edit by ELLEN Burden on 08/30/25 14:07 Results Reviewed Results Reviewed: Laboratory Last Values Glucose (Clinic) 101 mg/dL (60-115) 08/30/25 13:54 Assessment & Plan Assessment & Plan (1) Type 2 diabetes mellitus with unspecified complications: Code(s): E11.8 - Type 2 diabetes mellitus with unspecified complications Category: Medical Plan: We will plan to increase the Ozempic to 0.5 mg weekly. On the week that he increases the Ozempic we will temporarily hold Tresiba to see if blood sugars are manageable. He does note some appetite suppression on the 0.25 mg and I do suspect that this will likely increase when increasing the dose. He is excited about the idea of losing a few more lb. He we will do a short term follow up with me in contact me if he has any side effects of the increased dose of the Ozempic or if his blood sugars are elevated coming off of the insulin. We did review signs and symptoms of hyper and hypoglycemia that would require emergent medical treatment. Glucose tabs ordered along with glucagon nasal spray. Reviewed rule of 15. Orders: Orders AMB Hemoglobin A1c Today E11.9 - Type 2 diabetes mellitus without complications, Z13.9 - Encounter for screening, unspecified Medications: New insulin degludec (Tresiba FlexTouch U-100 insulin) 9 units (0.09 mL) subcut DAILY 15 mL 2RF semaglutide (Ozempic) 0.5 mg (0.736 mL) subcut QWEEK 3 mL 3RF glucagon 3 mg/actuation 3 mg intranasal ONCE PRN 2 ea 1RF hypoglycemia Coding Level of Care Code Est Pt Level 4 (19278) Diagnoses Type 2 diabetes mellitus with unspecified complications E11.8
[2025-08-30 13:58] LABS: Glucose, Whole Blood 101 mg/dL (60-115)
--- OUTSIDE RECORDS SUMMARY | 2025-08-30 14:11 | XMS_ITS | Encounter Summary ---
Author Organization [facility] Address [address] [place] [address] Phone Care Team Providers Care Terrazzo Tile Setter Name Role Phone Luis Vega MD Primary Care Provide r Encounter Details Date Type Department Care Team (Late st Contact Info) Description 07/06/2021 Ancillary Orders [facility],Outside Imaging [address] [place], [place] [id number] System, Provider Not In, [facility] [address] [address] Social History Tobacco Use Types Packs/Day Years [...] on filedocumented in this encounter Care Teams Terrazzo Tile Setter Relationship Specialty Start Date End Date Luis Vega MD [address] [place] [address] [address] [place] [address] PCP - General Internal Medicine 07/03/21 documented as of this encounter Additional Source Comments The information contained in this document represents components of the legal health record. It is not the complete legal health record.[facility]
--- OUTSIDE RECORDS SUMMARY | 2025-08-30 14:11 | XMS_ITS | Encounter Summary ---
Author Organization [facility] Address [address] [place] [address] Phone Care Team Providers Care Tangible Personal Property Appraiser Name Role Phone Luis Vega MD Primary Care Provide r Reason for Visit * Reason Comments Medication Refill Encounter Details Date Type Department Care Team (Late st Contact Info) Description 09/30/2022 Refill [facility] Rad Onc [address] [place] [address] Bassam Cunningham MD [address] [place] [address] [email or web address] Medication Refill Social History [...] on filedocumented in this encounter Care Teams Tangible Personal Property Appraiser Relationship Specialty Start Date End Date Luis Vega MD [address] [place] [address] 1 [place] [address] PCP - General Internal Medicine 07/03/21 documented as of this encounter Additional Source Comments The information contained in this document represents components of the legal health record. It is not the complete legal health record.[facility]
--- OUTSIDE RECORDS SUMMARY | 2025-08-30 14:11 | XMS_ITS | Clinical Summary ---
Author Organization [facility] Address [address] [place], [place] [phone] Phone Care Team Providers Care Credit Reporting Clerk Name Role Phone Luis Vega MD [...] Payer (Ef fective 2012-Present) Name:Willy Jc Member ID:[id number] Relation to Subscriber:Self Name:Willy Jc Subscriber ID:[id number] Payer ID:[id number] Group ID:Not on file Type:Medicare Address: [facility] [employer] [facility] [address] [place] [address] [place] [address] MEDICARE PPO BLUE REPLACEMENT MEDICARE PART A & [place] [address] MEDICARE PART A & B [place] MED[place] P[place] BLUE REPLACEMENT Care Teams Credit Reporting Clerk Relationship Specialty Start Date End Date Luis Vega MD [address] [place] [address] PCP - General Internal Medicine 07/03/21 Additional Source Comments The information contained in this document represents components of the legal health record. It is not the complete legal health record.[facility]
--- OUTSIDE RECORDS SUMMARY | 2025-08-30 14:11 | XMS_ITS | Encounter Summary ---
Author Organization [facility] Address [address] [place] [address] Phone Care Team Providers Care Trust [employer] Estates Paralegal Name Role Phone Luis Vega MD Primary Care Provide r Reason for Visit * Reason Comments Medication Refill Encounter Details Date Type Department Care Team (Late st Contact Info) Description 09/30/2022 Refill [facility] At [facility] Rad Onc [address] [place] [address] Bassam Cunningham MD [address] [place] [address] [email or web address] Medication Refill Social History Tobacco Use [...] on filedocumented in this encounter Care Teams Trust And Estates Paralegal Relationship Specialty Start Date End Date Luis Vega MD [address] [place] [address] 1 [place] [address] PCP - General Internal Medicine 07/03/21 documented as of this encounter Additional Source Comments The information contained in this document represents components of the legal health record. It is not the complete legal health record.[facility]
--- OUTSIDE RECORDS SUMMARY | 2025-08-30 14:11 | XMS_ITS | Patient Health Record ---
Author Organization [facility] [place] Address [address] [facility] [place] [address] Care Team Providers Care Product Support Technician Name Role Phone Gary COLLINS, Luis Primary Care Provider Unava ilable Mayra Condon Unavailable [phone] Reason For Referral No Information Medications Medication SIG (Take, Route, Frequency, Duration) Notes Start Date End Date Status cloNIDine HCl Active Lisinopril Active traZODone HCl Active NexIUM Active Paxil Active Accolate Active Advair HFA Active Problems Problem Type SNOMED Code ICD Code Onset Dates Problem Status W/U Status Risk Notes Problem Type II diabetes mellitus without complication (866407663) Type 2 diabetes mellitus without complications (E11.9) Active confirmed Plan Of Treatment Pending Test Test Name Order Date [id number] DYSTROPHIC NAILS ANY # Insurance Providers Payer Name Payer Address Payer Phone Subscriber Number Group Number Insured Name Patient Relationship to Insured Coverage Start Date Coverage End Date [facility] [address] [place] [address] [id number] Hue Jc Spouse - patient is the spouse of the insured Medical (General) History Medical History History ICD Code Arthritis 716.90 Asthma 493.90 Cancer 199.1 Diabetes 250.00 Reflux esophagitis 530.11 Surgical History Surgery Date(Month/Year) colon 2008 gloria 1998 Hospitalization History Reason Date(Month/Year) [facility]-Back pain sciatica
--- OUTSIDE RECORDS SUMMARY | 2025-08-30 14:11 | XMS_ITS | Encounter Summary ---
Author Organization [facility] Address [address] [place] [address] Phone Care Team Providers Care Mexican Food Machine Tender Name Role Phone Luis Vega MD Primary Care Provide r Encounter Details Date Type Department Care Team (Late st Contact Info) Description 07/06/2021 Ancillary Orders [facility],Outside Imaging [address] [place], [place] [phone] System, Provider Not In, [facility] [address] [address] Social History Tobacco Use Types Packs/Day Years [...] on filedocumented in this encounter Care Teams Mexican Food Machine Tender Relationship Specialty Start Date End Date Luis Vega MD [address] [place] [address] [address] [place] [address] PCP - General Internal Medicine 07/03/21 documented as of this encounter Additional Source Comments The information contained in this document represents components of the legal health record. It is not the complete legal health record.[facility]
--- OUTSIDE RECORDS SUMMARY | 2025-08-30 14:11 | XMS_ITS | Patient Health Record ---
Author Organization [facility] Address [address] [place] [address] Care Team Providers Care Mushroom Grower Name Role Phone Gary (RETIRED) Luis COLLINS Primary Care Prov ider Unavailable Chris Marr Unavailable [phone] Sarah Anderson MD Unavailable Unavailable Allergies Allergen (clinical drug ingredient) Drug/Non Drug Allergy documented on EMR Reaction Allergy Type Onset Date Status morphine Morphine Sulfate Unknown Drug Allergy Active Reason For Referral No Information Medications Medication SIG (Take, Route, Frequency, Duration) Notes Start Date End Date Status traZODone HCl Orally Once a day Active Pantoprazole Sodium 40 MG Tablet Delayed Release 1 tablet Orally BID; Duration: 90 days 06/07/2018 Active cloNIDine HCl 0.1 MG Tablet Orally Twice a day Active Tradjenta 5 MG Tablet 1 tablet Orally On a day 06/07/2018 Active NexIUM 40 MG Capsule Delayed Release 6 capsule Orally Once a day Active amLODIPine Besylate 10 MG Tablet 1 tablet Orally Once a day Active Vitamin D Active Advair HFA 250/50 2 puffs Inhalation Twice a day Active HumaLOG 100 UNIT/ML Solution as directed Subcutaneous as directed Active Accolate 10 MG Tablet 1 tablet Orally Tw ice a day Active levETIRAcetam 500 MG Tablet Oral; Duration: 30 Active Paxil 10 MG Tablet 1 tablet in the morning Orally Once a day Active Simvastatin Not-Taki ng/PRN Lisinopril 2.5 MG Tablet 1 tablet Orally Once a day Active lamoTRIgine 25 MG Tablet take 3 tablets by mouth twice a day Oral; Duration: 30 Active Excedrin Extra Strength Active Social History Social History Additional Details Category Social Info Options Details Miscellaneous: Marital status: 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 Section Notes: He does not smoke, and 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 He does not smoke, and 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 He does not smoke, and 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 He does not smoke, and 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 He does not smoke, and 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 Problems Problem Type SNOMED Code ICD Code Onset Dates Problem Status W/U Status Risk Notes Problem Acute posthemorrhagic anemia (826739504) Acute posthemorrhagic anemia (D62) Active confirmed Problem Blood in stool (282285263) Blood in stool (K92.1) Active confirmed Problem Gastroesophageal reflux disease without esophagitis (928607850) Gastroesophageal reflux disease without esophagitis (K21.9) Active confirmed Problem History of polyp of colon (situation) (989063599) History of colon polyps (Z86.010) Active confirmed Problem History of malignant neoplasm of colon (911820819) History of colon cancer (Z85.038) Active confirmed Problem Abnormal CT scan , esophagus (R93.3) Active confirmed Problem Barium swallow abnormal (048412893) Abnormal barium swallow (R93.3) Active confirmed Problem Esophageal dysphagia (68622347) Esophageal dysphagia (R13.10) Active confirmed Plan Of Treatment Pending Test Test Name Order Date Esophageal Motility study 02/07/2018 XR BARIUM SWALLOW-ESOPHAGUS 02/07/2018 Future Test Test Name Order Date UPPER GI ENDOSCOPY 06/26/2014 COLONOSCOPY 06/26/2014 Insurance Providers Payer Name Payer Address Payer Phone Subscriber Number Group Number Insured Name Patient Relationship to Insured Coverage Start Date Coverage End Date [facility] [address] [address] [place] [address] [phone] [id number] JUANA RAMIREZ Self - patient is the insured Medicare of [place] [employer] [address] [place] [address] [id number] JUANA RAMIREZ Self - patient is the [...] sophagitis hyperlipidemia gout depression kidney stones denies [place], stroke, nor kidney disease ot herwise hypertension [...]
== END 2025-08-30 14:37 | disposition home or self-care (01) ==
LOC: HO.ENCR 13:42
PROVIDERS: PCP Internal Medicine; Visit Provider Physician Assistant
DX: Z13.9 Encounter for screening, unspecified (principal); E11.9 Type 2 diabetes mellitus without complications; E11.8 Type 2 diabetes mellitus with unspecified complications

== ENCOUNTER → 2025-08-30 13:41 | Outpatient (BNVA) | payer MEDICARE, SELFPAY | PROVIDERS: PCP Internal Medicine; Visit Provider Physician Assistant | DX: E11.8 Type 2 diabetes mellitus with unspecified complications (principal) | CPT/HCPCS: 82947; 83036; 99212 ==